=== PATIENT | female | born 1955 | race Caucasian/White ===

== ENCOUNTER 2019-09-16 14:06 | Inpatient (IN) ==
--- OUTSIDE RECORDS SUMMARY | 2019-09-16 14:08 | External Medical Summary | Continuity of Care Document ---
:1955 Author Name Herman Vilalreal, Provider Address Unavailable Unavailable , Care Team Providers Name Role Phone Argelia Kirk Unavailable [email or web address] Dallin Obregon M.D. Unavailable [email or web address] Ann LOPES Unavailable Unavailable Unavailable Unavailable Unavailable Problems Hyperparathyroidism (252.00) (E21.3) Hypercalcemia (275.42) (E83.52) Muscle weakness (728.87) (M62.81) Vitamin D deficiency (268.9) (E55.9) Fatigue (780.79) (R53.83) Hypothyroidism (244.9) (E03.9) Status post gastric bypass for obesity (V45.86) (Z98.84) Obesity (278.00) (E66.9) Diabetes mellitus type 2, uncontrolled (250.02) (E11.65) Zach's thyroiditis (245.2) (E06.3) Allergies and Adverse Reactions LaMICtal TABS (Allergy) Medications Cymbalta 60 MG Oral Capsule Delayed Release Particles Refills: 0 Lantus SoloStar 100 UNIT/ML Subcutaneous Solution Pen-injector; INJECT 60 units at bedtime Kamila, FOAM CUTTING SUPERVISOR Argelia A. 3 ML Pen (5 Pens) Quantity: 4 Refills: 3 OneTouch Ultra Blue In Vitro Strip; USE 1 STRIP 4 TIME S DAILY. Kamila, VALDEZ Argelia A. 100 Strip Bottle Quantity: 4 Refills: 3 OneTouch Delica Lancets 33G; Test 4 times daily Tierneym, FOAM CUTTING SUPERVISOR Argelia A. 100 Miscellaneous Box Quantity: 4 Refills: 3 BD Pen Needle Zaira U/F 32G X 4 MM; 4 per day MDD:4 TDD :4 Purdum, FOAM CUTTING SUPERVISOR Argelia A. Start: 04-Feb-2014 Quantity: 4 Refills: 3 NovoLOG FlexPen 100 UNIT/ML Subcutaneous Solution Pen-injector; Use 40 units before meals. Start: 04-Feb-2014 Refills: 3 5 x 3 ML Pen Victoza 18 MG/3ML Subcutaneous Solution Pen-injector; Inject 0.6 mg once daily subcutaneously VALDEZ Treviño Start: 17-Jul-2014 Quantity: 3 3 ML Pen (3 Pens) Refills: 3 Xanax 0.5 MG Oral Tablet; TAKE 1 TABLET 3 TIMES DAILY. Start: 10-Oct-2016 Refills: 0 Lipitor 40 MG Oral Tablet; TAKE 1 TABLET EVERY DAY Start: 10-Oct-2016 Refills: 0 Ramipril 10 MG Oral Capsule; TAKE 1 CAPSULE ONCE DAILY. Start: 22-Jan-2018 Refills: 0 Vitamin D (Ergocalciferol) 1.25 MG (5000 0 UT) Oral Capsule; TAKE 1 CAPSULE 3 times weekly Dionna Neely Start: 22-Jan-2018 Quantity: 45 Refills: 3 Furosemide 20 MG Oral Tablet; TAKE 1 TABLET DAILY NEEDED. Start: 22-Jan-2018 Refills: 0 Flintstones Gummies Complete Oral Tablet Chewable; TAKE 2 TA BLET Daily Start: 22-Jan-2018 Refills: 0 Levothyroxine Sodium 88 MCG Oral Tablet; TAKE 1 TABLET DAILY DIRECTED. Dionna Neely Start: 24-Jan-2018 Quantity: 90 Refills: 0 Procedures History of Incision And Drainage Of Skin Abscess Status: Completed Immunizations Immunizations not documented Family History Mother Family history of diabetes mellitus (V18.0) (Z83.3) Status: Active Father Family history of diabetes mellitus (V18.0) (Z83.3) Status: Active Social History - Smoking Status Never smoked tobacco Plan of Treatment Planned Observations Planned Goals not documented Results No Known Results Results not documented Encounters Appointment; Brenda Licea R.D. 20-Mar-2018 11:00 Encounter Diagnosis: Problem not documented Appointment; Adrian Neely M.D. 24-Jan-2018 10:00 Encounter Diagnosis: Problem not documented
--- OUTSIDE RECORDS SUMMARY | 2019-09-16 14:09 | External Medical Summary | Continuity of Care Document ---
:1955 Author Name Herman Villareal, Provider Address Unavailable Unavailable , Care Team Providers Name Role Phone Argelia Kirk Unavailable [email or web address] Dallin Obregon M.D. Unavailable [email or web address] Ann LOPES Unavailable Unavailable Unavailable Unavailable [...] Pen-injector; INJECT 60 units at bedtime Kamila, BANQUET ATTENDANT Argelia A. 3 ML Pen (5 Pens) Quantity: 4 Refills: 3 OneTouch Ultra Blue In Vitro Strip; USE 1 STRIP 4 TIME S DAILY. Kamila, VALDEZ Argelia A. 100 Strip Bottle Quantity: 4 Refills: 3 OneTouch Delica Lancets 33G; Test 4 times daily Tierneym, BANQUET ATTENDANT Argelia A. 100 Miscellaneous Box Quantity: 4 Refills: 3 BD Pen Needle Zaira U/F 32G X 4 MM; 4 per day MDD:4 TDD :4 Purdum, BANQUET ATTENDANT Argelia A. Start: 04-Feb-2014 Quantity: 4 Refills: [...]
--- NOTE | 2019-09-16 14:51 | Emergency Department Note ---
Impression & Plan Sepsis, Penetrating foot wound, Hyperglycemia, ROLANDO (acute kidney injury), Acute dehydration, Hypocalcemia ED Provider Note NAME: RUTH WASHBURN AGE: 64 SEX: F : 1955 ARRIVES VIA: Walk-In INFORMANT: Patient, ED PROVIDER(S): Grey Davidson MD Chief Complaint: Foot pain, fever HPI: Patient does present with concern for foot pain and fever. The patient describes her pain over the mid aspect of the right foot. The patient does have a prior history of osteomyelitis, necrotizing fasciitis and diabetes. The patient states that she has had waxing and waning blood sugars sometimes as low as in the 50s and higher than 200s. The patient has felt somewhat feverish. The patient has been taking some Tylenol at home. This only mildly improves her foot pain. Pressing on her walking on it does make it worse. Patient does believe that she may have stepped on something but is unsure as to what it was approximately 3 days prior. Patient has had progressively worsening pain. Tetanus is up-to-date. Patient does note that she is had some increasing urinary frequency but no dysuria or hematuria. ROS: See HPI for pertinent positives and negatives. A total of 10 systems were reviewed and otherwise negative. Past medical history: See below Surgical history: See below Social history: See below Physical Exam: GENERAL: Wearing a mask. NAD, non-toxic. EYE EXAM: Normal conjunctiva. PERRL, no anisocoria and EOM's grossly intact w/o pain. NECK: Supple, no nuchal rigidity, no adenopathy, non-tender. No signs of meningismus. LUNGS: Clear to auscultation. Normal chest wall mechanics. HEART: NSR, no MRG. ABDOMEN: Abdomen soft, non-tender, normo-active bowel sounds, no masses, no rebound or guarding. BACK: No CVA TTP. SKIN: No rashes and no bruising. UPPER EXTREMITIES: Upper extremities are grossly normal. LOWER EXTREMITIES: Prior healed TMA over the left foot without obvious wound, there is a 4 x 3 cm area of blistering over the right plantar medial midfoot, with mild erythema. No crepitus noted NEURO EXAM: A&O x3, cranial nerves II-XII grossly intact, normal speech, moves all 4 extremities on command w/o issue. Differential diagnoses: Cellulitis, abscess, MRSA infection, DVT, necrotizing fasciitis, dermatitis, drug eruption, allergic reaction, as well as other pathologies. Course: Patient was seen and evaluated the bedside. Full history physical exam was performed. EKG: None Imaging Studies: Radiology results as stated below per my review in the radiologist's interpretation: XR chest 1V portable CLINICAL HISTORY: SEPSIS dyspnea COMPARISON STUDY: No previous studies for comparison. FINDINGS: The bones soft tissues and hemidiaphragms are normal. The cardiomediastinal silhouette is normal. The lungs are clear. The pulmonary vasculature is normal. IMPRESSION: Negative chest. ACT 112: Negative or not required by law. The above report was generated using voice recognition software. It may contain grammatical, syntax or spelling errors. Electronically signed by: Cristi Hayes M.D. 09/16/2019 3:46 PM Dictated: 09/16/[id number] Transcribed: 09/16/191544 RIGHT FOOT 2 VIEWS CLINICAL HISTORY: Sepsis. Foreign body assessment. FINDINGS: AP and lateral views of the right foot are compared to study dated 02/20/2014. The skeletal structures are osteopenic. No fracture is seen. There is no bony erosion or periostitis. Large dorsal and plantar calcaneal enthesophytes are observed. Mild degenerative spurring is seen along the dorsal aspect of the tarsal bones. Mild osteoarthritic change is noted in the midfoot. Question a small linear foreign body projecting over the third proximal phalanx. Soft tissue edema is identified along the plantar aspect of the heel. Subcutaneous gas suggests ulceration. IMPRESSION: 1. No acute bony abnormality is identified. 2. Large dorsal and plantar heel spurs. 3. Soft tissue edema and suspect ulceration along the plantar aspect of the hindfoot. 4. Question a small linear foreign body projecting over the third proximal phalanx. This was better seen on the 02/20/2014 examination. Consider oblique views for confirmation. Electronically signed by: Hang Cintron M.D. 09/16/2019 3:48 PM Dictated: 09/16/19 1544 Transcribed: 09/16/191543 Cardiac monitoring: An order was placed for continuous cardiac monitoring. The monitor shows a rate of 98 with sinus rhythm. Procedures: Incision & Drainage Indication: Fluid-filled blister versus abscess. Location: Right medial midfoot Verbal consent was obtained after the risks and benefits were explained, including but not limited to bleeding, scarring, infection, pain, and bone/joint/nerve damage. At this time, the risks of the procedure are less than the risks of NOT performing the procedure. A time out was taken and the correct patient and site identified. The skin was prepped with chlorhexidine. The cavity was entered with an 18-gauge needle. Approximately 8 cc of serosanguineous fluid was drained. Wound was reprepped with chlorhexidine.. Debridement was not performed. Packing placed and a sterile dressing applied. Detailed wound care instructions and signs and symptoms of worsening infection reviewed with the patient. No complications and the patient tolerated the procedure well. MDM: Patient does present with concern for right foot wound. Patient does have a known history of diabetes and fever. Given this broad-spectrum antibiotics fluids and blood work were ordered. The patient does have a white count of 22 with a left shift. Does have ROLANDO baseline creat less than 1 today is 1.79. Additional IV fluids were ordered. Patient does have a glucose of 276 and mild hyponatremia. No anion gap or low bicarb noted. Lactate is not elevated. Calcium slightly low. Calcium and additional fluids were ordered for replaceme nt. The patient did receive vancomycin and Zosyn. Patient's x-rays may show a possible old foreign body but this is not where the patient's blister is noted or where she would have felt stepping on something.Chest x-ray is clear. The on-call hospitalist agreed to further evaluate treat the patient. [facility] was [facility] I did needle aspirate the patient's blister and this was sent for wound culture. Past Med/Surg History Medical History ADHD (attention deficit hyperactivity disorder) (Inactive) Bipolar disorder (Inactive) Depression (Inactive) Diabetes (Inactive) Diabetic ulcer of left foot (Inactive) Dyslipidemia (Inactive) Hypertension (Inactive) Surgical History S/P cervical spinal fusion (Inactive) Social History Smoking Status: Never smoker Hx Alcohol Use: No Hx Substance Use: No Preferred Language: Guyanese Communication Ability: Effective Visual Merchandiser Required: No Beliefs That Will Affect Care: None Current Living Situation: Family Current Living Situation Comment: lives with dtr Other Information That Helps Us Care for You: No Feels Safe at Home: Yes Safety Concerns: Feels Safe At This Time Allergies Allergies Allergy/AdvReac Type Severity Reaction Status Date / Time lamotrigine [From Lamictal] Allergy Unknown Rash Verified 09/16/19 16:05 Home Meds Home Medications Medication Instructions Recorded Confirmed alprazolam 1 mg PO BID PRN 09/16/19 09/16/19 amlodipine 5 mg PO QAM 09/16/19 09/16/19 diazepam 5 mg PO Q8H PRN 09/16/19 09/16/19 duloxetine 60 mg PO QAM 09/16/19 09/16/19 empagliflozin [Jardiance] 25 mg PO QPM 09/16/19 09/16/19 ergocalciferol (vitamin D2) 50,000 unit PO WK 09/16/19 09/16/19 insulin aspart U-100 [Novolog See Rx Instructions .ROUTE .COMPLEX 09/16/19 09/16/19 Flexpen U-100 Insulin] insulin glargine [Basaglar KwikPen 20 unit SUBCUT HS 09/16/19 09/16/19 U-100 Insulin] levothyroxine 88 mcg PO QAM 09/16/19 09/16/19 ramipril 10 mg PO QAM 09/16/19 09/16/19 sulfamethoxazole-trimethoprim 1 tab PO BID 09/16/19 09/16/19 Results & Data (ED) Vital Signs Vital Signs - 24 hr 09/16/19 14:19 09/16/19 16:00 09/16/19 17:00 Temperature 37.6 C H Temperature Source Oral Pulse Rate 66 Pulse Rate [Apical] 98 H 100 H Respiratory Rate 18 16 18 Blood Pressure 151/82 H Blood Pressure [Left Arm] 176/85 H 143/83 H Blood Pressure Mean 105 Blood Pressure Mean [Left Arm] 115 103 Blood Pressure Position Sitting Pulse Oximetry 97 98 97 Oxygen Delivery Method Room Air Room Air Sepsis Recent Fever Within 48 Hours No Sepsis New/Unexplained Change in Mental Status No Sepsis Action Taken by Nursing No Action Required Home Medications Current Medication List: was personally reviewed by me Laboratory Data Attestation: I reviewed the patient's lab results. Result diagrams: 09/16/19 16:01 09/16/19 16:01 Lab Results 09/16/19 09/16/19 09/16/19 Range/Units 16:01 16:01 16:01 WBC 21.82 H (4.8-10.8) K/uL RBC 3.41 L (4.2-5.4) M/uL Hgb 10.5 L (12.0-16.0) g/dL Hct 31.8 L (37-47) % MCV 93.3 (80-100) fL MCH 30.8 (25-34) pg MCHC 33.0 (32-36) g/dL RDW Std Deviation 42.8 (36.4-46.3) fL RDW Coeff of Anitha 12.6 (11.5-14.5) % Plt Count 332 (130-400) K/uL MPV 9.8 (7.4-10.4) fL Immature Gran % (Auto) 0.2 % Neut % (Auto) 86.4 % Lymph % (Auto) 8.2 % [place] % (Auto) 4.4 % Eos % (Auto) 0.7 % Baso % (Auto) 0.1 % Neut # (Auto) 18.85 H (1.4-6.5) K/uL Lymph # (Auto) 1.80 (1.2-3.4) K/uL [place] # (Auto) 0.95 H (0.11-0.59) K/uL Eos # (Auto) 0.15 (0-0.5) K/uL Baso # (Auto) 0.02 (0-0.2) K/uL Immature Gran # (Auto) 0.05 H (0.00-0.02) K/uL PT 10.0 (9.0-12.0) Seconds INR 0.9 (0.9-1.1) APTT 30.7 (21.0-31.0) Seconds PTT Ratio 1.1 Sodium 134 L (136-145) mmol/L Potassium 3.7 (3.5-5.1) mmol/L Chloride 103 (98-107) mmol/L Carbon Dioxide 25 (21-32) mmol/L Anion Gap 6.0 (3-11) BUN 29 H (7-18) mg/dl Creatinine 1.79 H (0.6-1.2) mg/dl Est Cr Clr Drug Dosing Not Reportable Est GFR ( Amer) 34.3 Est GFR (Non-Af Amer) 29.6 BUN/Creatinine Ratio 16.1 (10-20) Glucose 276 H (70-99) mg/dl Lactate (0.4-2.0) mmol/L Calcium 8.0 L (8.5-10.1) mg/dl Magnesium 2.2 (1.8-2.4) mg/dl Total Bilirubin 0.5 (0.2-1) mg/dl AST 23 (15-37) U/L ALT 29 (12-78) U/L Alkaline Phosphatase 160 H (45-117) U/L Total Protein 7.7 (6.4-8.2) gm/dl Albumin 2.9 L (3.4-5.0) gm/dl Globulin 4.8 H (2.5-4.0) gm/dl Albumin/Globulin Ratio 0.6 L (0.9-2) 09/16/19 Range/Units 16:01 WBC (4.8-10.8) K/uL RBC (4.2-5.4) M/uL Hgb (12.0-16.0) g/dL Hct (37-47) % MCV (80-100) fL MCH (25-34) pg MCHC (32-36) g/dL RDW Std Deviation (36.4-46.3) fL RDW Coeff of Anitha (11.5-14.5) % Plt Count (130-400) K/uL MPV (7.4-10.4) fL Immature Gran % (Auto) % Neut % (Auto) % Lymph % (Auto) % [place] % (Auto) % Eos % (Auto) % Baso % (Auto) % Neut # (Auto) (1.4-6.5) K/uL Lymph # (Auto) (1.2-3.4) K/uL [place] # (Auto) (0.11-0.59) K/uL Eos # (Auto) (0-0.5) K/uL Baso # (Auto) (0-0.2) K/uL Immature Gran # (Auto) (0.00-0.02) K/uL PT (9.0-12.0) Seconds INR (0.9-1.1) APTT (21.0-31.0) Seconds PTT Ratio Sodium (136-145) mmol/L Potassium (3.5-5.1) mmol/L Chloride (98-107) mmol/L Carbon Dioxide (21-32) mmol/L Anion Gap (3-11) BUN (7-18) mg/dl Creatinine (0.6-1.2) mg/dl Est Cr Clr Drug Dosing Est GFR ( Amer) Est GFR (Non-Af Amer) BUN/Creatinine Ratio (10-20) Glucose (70-99) mg/dl Lactate 1.7 (0.4-2.0) mmol/L Calcium (8.5-10.1) mg/dl Magnesium (1.8-2.4) mg/dl Total Bilirubin (0.2-1) mg/dl AST (15-37) U/L ALT (12-78) U/L Alkaline Phosphatase (45-117) U/L Total Protein (6.4-8.2) gm/dl Albumin (3.4-5.0) gm/dl Globulin (2.5-4.0) gm/dl Albumin/Globulin Ratio (0.9-2) Administered Medications Vancomycin HCl 2,000 mg/ (Sodium Chloride) 540 mls @ 200 mls/hr IV NOW STA Stop: 09/16/19 17:53 Last Admin: 09/16/19 16:24 Dose: 200 mls/hr Documented by: [id number] Discontinued Medications Acetaminophen (Tylenol) 1,000 mg PO NOW STA Stop: 09/16/19 15:16 Last Admin: 09/16/19 16:29 Dose: 1,000 mg Documented by: [id number] Sodium Chloride (Nss 1000ml) 1,000 mls @ 999 mls/hr IV .Q1H1M RAVINDRA Stop: 09/16/19 16:13 Last Admin: 09/16/19 16:25 Dose: 999 mls/hr Documented by: [id number] Piperacillin Sod/Tazobactam Sod (Zosyn) 4.5 gm in 120 mls @ 240 mls/hr IV NOW ONE Stop: 09/16/19 15:41 Last Admin: 09/16/19 16:29 Dose: 240 mls/hr Documented by: [id number] Discharge Plan Visit Data Chief Complaint: Infection, Wound Stated Complaint: INFECTION ON BOTTOM OF RIGHT FOOT ED Provider: Grey Davidson Discharge Problem: Sepsis, Penetrating foot wound, Hyperglycemia, ROLANDO (acute kidney injury), Acute dehydration, Hypocalcemia Forms Stand Alone Forms: [facility] [employer] Prescriptions Prescriptions: No Action alprazolam 1 mg tablet 1 mg PO BID PRN (Reason: Anxiety) RF: 0 amlodipine 5 mg tablet 5 mg PO QAM RF: 0 sulfamethoxazole-trimethoprim 800-160 mg tablet 1 tab PO BID RF: 0 levothyroxine 88 mcg tablet 88 mcg PO QAM RF: 0 diazepam 5 mg tablet 5 mg PO Q8H PRN (Reason: Anxiety) RF: 0 ramipril 10 mg capsule 10 mg PO QAM RF: 0 insulin aspart U-100 [Novolog Flexpen U-100 Insulin] 100 unit/mL (3 mL) insulin pen See Rx Instructions .ROUTE .COMPLEX RF: 0 duloxetine 60 mg capsule,delayed release(DR/EC) 60 mg PO QAM RF: 0 Basaglar KwikPen U-100 Insulin 100 unit/mL (3 mL) insulin pen 20 unit SUBCUT HS RF: 0 Jardiance 25 mg tablet 25 mg PO QPM RF: 0 ergocalciferol (vitamin D2) 1,250 mcg (50,000 unit) Capsule 50,000 unit PO WK RF: 0 Discharge Problem: Sepsis Qualifiers: Sepsis type: sepsis due to unspecified organism Sepsis acute organ dysfunction status: with acute organ dysfunction Severe sepsis acute organ dysfunction type: acute renal failure Acute renal failure type: unspecified Severe sepsis shock status: without septic shock Qualified Code(s): A41.9 - Sepsis, unspecified organism Penetrating foot wound Qualifiers: Encounter type: initial encounter Laterality: right Qualified Code(s): S91.331A - Puncture wound without foreign body, right foot, initial encounter
[2019-09-16] MEDS ORDERED: VANCOMYCIN HCL 2,000 MG in SODIUM CHLORIDE 0.9% 500 ML IV STA (15:12)
[2019-09-16] MEDS ORDERED: VANCOMYCIN CONSULT ACTIVE PRN (15:12)
[2019-09-16] MEDS ORDERED: PIPERACILL/TAZOBAC CONSULT ACTIVE PRN (15:12)
[2019-09-16] MEDS ORDERED: PIPERACILLIN/TAZOBACTAM 4.5 GM/120 ML BAG IV ONE (15:12)
[2019-09-16] MEDS ORDERED: SODIUM CHLORIDE 0.9% 1000ML 1,000 ML IV SCH ×2 (15:15→19:50)
[2019-09-16] MEDS ORDERED: ACETAMINOPHEN 500 MG TAB PO STA (15:15)
--- NOTE | 2019-09-16 15:47 | XRay Report ---
XR chest 1V portable CLINICAL HISTORY: SEPSIS dyspnea COMPARISON STUDY: No previous studies for comparison. FINDINGS: The bones soft tissues and hemidiaphragms are normal. The cardiomediastinal silhouette is n ormal. The lungs are clear. The pulmonary vasculature is normal. IMPRESSION: Negative chest. ACT 112: Negative or not required by law. The above report was generated using voice recognition software. It may contain grammatical, syntax or spelling errors. Electronically signed by: Cristi Hayes M.D. 09/16/2019 3:46 PM
--- NOTE | 2019-09-16 15:49 | XRay Report ---
RIGHT FOOT 2 VIEWS CLINICAL HISTORY: Sepsis. Foreign body assessment. FINDINGS: AP and lateral views of the right foot are compared to study dated 02/20/2014. The skeletal structures are osteopenic. No fracture is seen. There is no bony erosion or periostitis. Large dorsal and plantar calcaneal enthesophytes are observed. Mild degenerative spurring is seen along the dorsa l aspect of the tarsal bones. Mild osteoarthritic change is noted in the midfoot. Question a small li near foreign body projecting over the third proximal phalanx. Soft tissue edema is identified along t he plantar aspect of the heel. Subcutaneous gas suggests ulceration. IMPRESSION: 1. No acute bony abnormality is identified. 2. Large dorsal and plantar heel spurs. 3. Soft tissue edema and suspect ulceration along the plantar aspect of the hindfoot. 4. Question a small linear foreign body projecting over the third proximal phalanx. This was better s een on the 02/20/2014 examination. Consider oblique views for confirmation. Electronically signed by: Hang Cintron M.D. 09/16/2019 3:48 PM
[2019-09-16 16:10] LABS: Basophils # (auto) 0.02 K/uL (0-0.2); Basophils % (auto) 0.1 %; Eosinophils # (auto) 0.15 K/uL (0-0.5); Eosinophils % (auto) 0.7 %; Hematocrit (blood only) 31.8 % (37-47); Hemoglobin 10.5 g/dL (12.0-16.0); Immature Granulocytes # (auto) 0.05 K/uL (0.00-0.02); Immature Granulocytes % (auto) 0.2 %; Lymphocytes % (auto) 8.2 %; Mean Corpuscular Hemoglobin 30.8 pg (25-34); Mean Corpuscular Volume 93.3 fL (80-100); Mean Platelet Volume 9.8 fL (7.4-10.4); Monocytes # (auto) 0.95 K/uL (0.11-0.59); Monocytes % (auto) 4.4 %; Neutrophils # (auto) 18.85 K/uL (1.4-6.5); Neutrophils % (auto) 86.4 %; Platelet Count 332 K/uL (130-400); RDW Coefficient of Variation 12.6 % (11.5-14.5); RDW Standard Deviation 42.8 fL (36.4-46.3); Red Blood Count 3.41 M/uL (4.2-5.4); White Blood Count 21.82 K/uL (4.8-10.8)
[2019-09-16 16:20] LABS: INR 0.9 (0.9-1.1); Partial Thromboplastin Ratio 1.1; Partial Thromboplastin Time 30.7 Seconds (21.0-31.0)
[2019-09-16 16:30] LABS: Alanine Aminotransferase 29 U/L (12-78); Albumin Level 2.9 gm/dl (3.4-5.0); Aspartate Aminotransferase 23 U/L (15-37); BUN Creatinine Ratio 16.1 (10-20); Blood Urea Nitrogen 29 mg/dl (7-18); Carbon Dioxide 25 mmol/L (21-32); Chloride 103 mmol/L (98-107); Est GFR (African American) 34.3; Est GFR (Non-African American) 29.6; Glucose 276 mg/dl (70-99); Magnesium 2.2 mg/dl (1.8-2.4); Potassium 3.7 mmol/L (3.5-5.1); Sodium 134 mmol/L (136-145)
[2019-09-16 16:32] LABS: Albumin Globulin Ratio 0.6 (0.9-2); Alkaline Phosphatase 160 U/L (45-117); Bilirubin,Total 0.5 mg/dl (0.2-1); Globulin 4.8 gm/dl (2.5-4.0); Total Protein 7.7 gm/dl (6.4-8.2)
[2019-09-16] MEDS ORDERED: CALCIUM GLUCONATE 10% 1,000 MG in SODIUM CHLORIDE 0.9% 50 ML IV STA (16:58)
[2019-09-16] MEDS ORDERED: SODIUM CHLORIDE 0.9% 1000ML 1,000 ML IV ONE (16:58)
[2019-09-16] MEDS ORDERED: ONDANSETRON INJ 2 MG/ML 2 ML VIAL IV PRN (17:09)
[2019-09-16] MEDS ORDERED: POLYETHYLENE (MIRALAX) 17 GM PACK PO PRN (17:09)
[2019-09-16] MEDS ORDERED: ALUMINUM/MAGNESIUM SUSP 30 ML UDC PO PRN (17:09)
[2019-09-16] MEDS ORDERED: MAGNESIUM HYDROXIDE SUSP 30 ML UDC PO PRN (17:09)
[2019-09-16] MEDS ORDERED: PHARMACY GLYCEMIC MGMT CONSULT STA (17:35)
--- NOTE | 2019-09-16 17:47 | History & Physical Report ---
Date of Service September 16, 2019 Assessment & Plan (1) Wound of right foot: Pt is 64F with PMH DM II, neuropathy, HTN, dyslipidemia, hypothyroidism, PTSD, ADD, h/o gastric bypass, fatty liver, h/o necrotizing fasciitis, h/o transmetatarsal amputation left foot presented to ER with c/o right foot wound x 4 days. Pt states 4 days ago she thinks she may have stepped on something and reports small blister that has enlarged with surrounding erythema. On Bactrim for 3 days without improvement. Denies known fever/chills, N/V. In ER T: 37.6C, P: 66-102, BP: 143/83, 97% on RA. WBC: 21, Hgb: 10.5 (baseline ~10), Lactate: 1.7, Procalcitonin: 1.7 Right foot xray: No acute bony abnormality is identified. Soft tissue edema and suspect ulceration along the plantar aspect of the hindfoot. Question a small linear foreign body projecting over the third proximal phalanx. seen on the 02/20/2014 -In ER given 2L NSS, Zosyn, vancomycin -In ER blister was drained and culture pending -Will continue Zosyn and add daptomycin -Blood cultures pending -CT foot pending -Arterial Doppler RLE -CBC, BMP in am -Ortho consult (2) ROLANDO (acute kidney injury): BUN: 29, Cr: 1.79, GFR: 29. Baseline Cr: 1.1-1.3 -Monitor renal functions -Hold Ramipril and avoid other nephrotoxic agents when possible (3) Diabetes mellitus, type II: A1c: 8.7 on 09/03/2019 -Hold Jardiance -Continue basal bolus insulin -Glycemic pharmacy consult for assistance in glycemic management (4) Hypertension: -Continue amlodipine -Hold Ramipril (5) Hypothyroidism: -Continue levothyroxine (6) PTSD (post-traumatic stress disorder): (7) ADHD (attention deficit hyperactivity disorder): -Continue duloxetine, Xanax prn, and hold methylphenidate DVT Prophylaxis -Heparin SQ Full Code as per discussion with pt Follows with Dr Swan for routine care Pt was seen and care coordinated with Dr Garcia. See addendum History of Present Illness Chief Complaint: Right foot wound Primary Care Provider: Morgan Swan MD Pt is 64F with PMH DM II, neuropathy, HTN, dyslipidemia, hypothyroidism, PTSD, ADD, h/o gastric bypass, fatty liver, h/o necrotizing fasciitis, h/o transmetatarsal amputation left foot presented to ER with c/o right foot wound x 4 days. Pt states 4 days ago she thinks she may have stepped on something in her house while wearing socks and she looked at her foot and noticed a small blister and black spot. Reports has been on Bactrim past several days prescribed by PCP. States has noticed increased blister size and some erythema of foot. Reports highest temp 99F. Pt states was trying to keep area clean and dry. Denies chills, diaphoresis, N/V/D/C, CAN, dizziness, syncope, vision changes, neck pain, CP, SOB, orthopnea, palpitations, cough, sore throat, choking, otalgia, rhinorrhea, abdominal pain, weakness, other extremity edema, rashes, urinary symptoms. In ER with noted leukocytosis at 21, Lactate WNL, Procalcitonin elevated at 1.7. Right foot xray: Soft tissue edema along the plantar aspect of the hindfoot and questionable small linear foreign body projecting over the third proximal phalanx that was seen on xray on the 02/20/2014. Pt was given Zosyn, Vancomycin, IVF. Allergies Allergy/AdvReac Type Severity Reaction Status Date / Time lamotrigine [From Lamictal] Allergy Unknown Rash Verified 09/16/19 16:05 Home Medications Home Medications Medication Instructions Recorded Confirmed Type alprazolam 1 mg PO BID PRN 09/16/19 09/16/19 History amlodipine 5 mg PO QAM 09/16/19 09/16/19 History diazepam 5 mg PO Q8H PRN 09/16/19 09/16/19 History duloxetine 60 mg PO QAM 09/16/19 09/16/19 History empagliflozin [Jardiance] 25 mg PO QPM 09/16/19 09/16/19 History ergocalciferol (vitamin D2) 50,000 unit PO WK 09/16/19 09/16/19 History insulin aspart U-100 [Novolog See Rx Instructions .ROUTE .COMPLEX 09/16/19 09/16/19 History Flexpen U-100 Insulin] insulin glargine [Basaglar KwikPen 20 unit SUBCUT HS 09/16/19 09/16/19 History U-100 Insulin] levothyroxine 88 mcg PO QAM 09/16/19 09/16/19 History methylphenidate HCl 40 mg PO DAILY 09/16/19 09/16/19 History ramipril 10 mg PO QAM 09/16/19 09/16/19 History sulfamethoxazole-trimethoprim 1 tab PO BID 09/16/19 09/16/19 History Past Med/Surg History Medical History (Updated 09/16/19 @ 17:58 by Rossy Devi PA-C) ADHD (attention deficit hyperactivity disorder) Bipolar disorder Depression (Inactive) Diabetes mellitus, type II Diabetic ulcer of left foot (Inactive) Dyslipidemia History of necrotising fasciitis Hypertension Hypothyroidism PTSD (post-traumatic stress disorder) Surgical History H/O gastric bypass History of amputation of left foot through metatarsal bone History of cholecystectomy S/P cervical spinal fusion (Inactive) Family History Other Diabetes Hypertension Social History Smoking Status: Never smoker Hx Alcohol Use: No Hx Substance Use: No Preferred Language: Yi Communication Ability: Effective Casing Blower Required: No Beliefs That Will Affect Care: None Current Living Situation: Family Current Living Situation Comment: lives with dtr Other Information That Helps Us Care for You: No Feels Safe at Home: Yes Safety Concerns: Feels Safe At This Time Review of Systems Review of Systems: All systems reviewed & are unremarkable except as noted in HPI & below Physical Exam Physical Exam: General: no distress, obese Head: normocephalic, atraumatic Eyes: conjunctiva non-injected, anicteric ENT: normal inspection external ears, nose, mucous membranes moist Neck: supple, trachea midline Lungs: clear, no respiratory distress, no wheezing/rhonchi/rales CV: RRR, no murmur, no pretibial edema Abd: normal BS, soft, non-tender Ext: no calf tenderness; left foot with prior amputation at metatarsals and without erythema or edema; right foot: plantar medial aspect foot distal to calcaneus with large blister with noted erythema surrounding and extending up to lower leg, toes on right foot dusky appearance, diminished palpable dorsalis pedis pulse Neuro: A&O x 3, no focal deficits noted, normal affect Skin: foot as above, otherwise skin warm, dry Results & Data Results & Data (MN) Vital Signs (Past 12 Hours) Vital Signs Temp Pulse Pulse Resp BP BP Pulse Ox 09/16/19 17:00 100 H 18 143/83 H 97 09/16/19 16:00 98 H 16 176/85 H 98 09/16/19 14:19 37.6 C H 66 18 151/82 H 97 Laboratory Results Short CBC 09/16/19 09/16/19 Range/Units 16:01 16:01 WBC 21.82 H (4.8-10.8) K/uL Hgb 10.5 L (12.0-16.0) g/dL Hct 31.8 L (37-47) % Plt Count 332 (130-400) K/uL Procalcitonin 1.73 H (0-0.5) ng/ml BMP 09/16/19 16:01 Sodium 134 L Potassium 3.7 Chloride 103 Carbon Dioxide 25 BUN 29 H Creatinine 1.79 H Glucose 276 H Calcium 8.0 L Liver Function 09/16/19 Range/Units 16:01 Total Bilirubin 0.5 (0.2-1) mg/dl AST 23 (15-37) U/L ALT 29 (12-78) U/L Alkaline Phosphatase 160 H (45-117) U/L Albumin 2.9 L (3.4-5.0) gm/dl Diagnostic Findings RIGHT FOOT XRAY: IMPRESSION: 1. No acute bony abnormality is identified. 2. Large dorsal and plantar heel spurs. 3. Soft tissue edema and suspect ulceration along the plantar aspect of the hindfoot. 4. Question a small linear foreign body projecting over the third proximal phalanx. This was better seen on the 02/20/2014 examination. Consider oblique views for confirmation. CXR: IMPRESSION: Negative chest. Code Status & VTE Plan VTE Prophylaxis Plan VTE Prophylaxis will be ordered: Yes Supervising Physician Co-Signing Physician Notes Attending addendum: Patient seen and examined. Care coordinated with Marilu Devi PA-C This is a 61-year-old female with type 2 diabetes presented with acute cellulitis, Patient has severe diabetic neuropathy, stepped on an object 4 days back, patient was wearing socks, did not feel any pain, Was started on p.o. Bactrim by family physician, swelling and erythema continue to progress, Had low-grade fever at home Came to ER for evaluation Lab and images reviewed CAT scan of right foot shows: No evidence of abscess, soft tissue swelling with cutaneous ulceration noted on the medial hindfoot with evidence of cellulitis. Vitals as per [facility]: Physical exam: Brief General: No sign of distress HEENT: Unremarkable Heart: Regular S1-S2 Lungs: Clear to auscultate no wheeze or rales Abdomen: Soft nontender Extremities: Status post left metatarsal amputation Right foot, a large almost 5 cm wound/pus collection noted on the medial side, has a small opening with serous drainage Neuro: No focal deficit Assessment and plan: Diabetic foot wound on right: Started on IV cefepime: For Pseudomonas coverage, added daptomycin Wound culture ordered, blood cultures ordered as well follow report [facility] infectious disease consult requested Orthopedic consult requested for possible I&D Right toes appears to be cyanotic, with tibial pulse noted, Arterial Doppler ordered Type 2 diabetes: Insulin-dependent Hyperglycemic episode noticed possible secondary to infected diabetic foot wound on right Basal Lantus, insulin sliding scale, pharmacy consult for glycemic management CODE STATUS: Full code Please refer to further documentation by Marilu Devi PA-C for discussion of other clinical/medical issues Gita Garcia MD
[2019-09-16] MEDS ORDERED: PHARMACY GLYCEMIC MGMT CONSULT PRN (18:12)
[2019-09-16] MEDS ORDERED: PATIENT'S HEIGHT AND/OR WEIGHT NEEDED SCH (18:15)
--- NOTE | 2019-09-16 19:19 | CT Scan Report ---
CT SCAN OF THE RIGHT FOOT WITHOUT IV CONTRAST CLINICAL HISTORY: Diabetic foot wound. COMPARISON STUDY: Radiographs of the right foot dated 09/16/2019. TECHNIQUE: CT scan of the right foot is performed from the distal tibia and fibula to the base of the foot. Images are reviewed in the axial, sagittal, and coronal planes. IV contrast was not administer ed for this examination. A dose lowering technique was utilized adhering to the principles of ALARA. CT DOSE: 197.09 mGy.cm FINDINGS: The skeletal structures are osteopenic. No fracture is seen. There is no bony erosion or pe riostitis. The joint spaces of the foot are maintained. There are large dorsal and plantar calcaneal enthesophytes. The ankle mortise is intact. A 5 mm linear radiodense foreign body is present within t he plantar soft tissues at the level of the third proximal phalanx. This is best seen on axial image #318. There is soft tissue edema seen throughout the right foot and ankle, greatest dorsally. A cutan eous ulceration is identified along the medial aspect of the plantar heel. No organized fluid collect ion is seen to suggest abscess. No subcutaneous gas is seen. The Achilles tendon is intact as visuali zed. There is generalized atrophy of the regional musculature. IMPRESSION: 1. No acute bony abnormality is identified. 2. A cutaneous ulceration is noted in the medial hindfoot as above with evidence of cellulitis. No or ganized fluid collection is seen to suggest abscess. 3. A small foreign body is seen in the plantar soft tissues of the forefoot at the level of the third proximal phalanx. ACT 112: Negative or not required by law. Dictated: 09/16/2019 6:45 PM Transcribed: 09/16/2019 7:07 PM Argelia [id number] [id number] Electronically signed by: Hang Cintron M.D. 09/16/2019 7:18 PM
[2019-09-16] MEDS ORDERED: GLUCAGON FOR INJ 1 MG VIAL SQ PRN ×2 (19:50)
[2019-09-16] MEDS ORDERED: GLUCOSE 10 TABS/TUBE PO PRN ×2 (19:50)
[2019-09-16] MEDS ORDERED: CARBOHYDRATES FOR HYPOGLYCEMIA PO PRN ×2 (19:50)
[2019-09-16] MEDS ORDERED: DAPTOmycin 450 MG in SYRINGE 0 ML IV ONE (19:50)
[2019-09-16] MEDS ORDERED: DAPTOMYCIN CONSULT ACTIVE PRN (19:50)
[2019-09-16] MEDS ORDERED: GLUCOSE 40% GEL 15 GM TUBE PO PRN ×2 (19:50)
[2019-09-16] MEDS ORDERED: DEXTROSE 50% 50 ML SYRINGE IV PRN ×2 (19:50)
--- NOTE | 2019-09-16 19:59 | Ultrasound Report ---
ULTRASOUND RIGHT LOWER EXTREMITY ARTERIAL; ANKLE-BRACHIAL INDICES CLINICAL HISTORY: Nonhealing right foot ulcer. COMPARISON STUDY: No priors. TECHNIQUE: Real-time, grayscale, and color Doppler sonography of the arteries of the right lower extr emity is performed from the inguinal crease to the foot. Ankle-brachial indices are assessed. FINDINGS: Ankle brachial indices: Right brachial pressure measures 146 and left brachial pressure measures 137. Pressures in the right posterior tibial artery measure 156 for an TESSIE of 1.07, and pressures in the right dorsalis pedis measure 163 for an TESSIE of 1.12. Pressures in the left posterior tibial artery me asure 158 for an TESSIE of 1.08, and pressures in the left dorsalis pedis measure 150 for an TESSIE of 1.03 . Right lower extremity: Atherosclerotic plaque and irregularity is noted throughout the arteries of th e right lower extremity. The right common femoral artery is patent with normal triphasic arterial wav eforms. Velocities measure up to 130 cm/s. The profundus femoris artery is patent with velocities rosemary suring up to 96 cm/s. There are triphasic waveforms seen throughout the superficial femoral artery wi th velocities measuring up to 179 cm/s. Triphasic waveforms are seen in the right popliteal artery wi th velocities measuring up to 164 cm/s. There is three-vessel runoff to the foot. Velocities in the c evens arteries measure up to 179 cm/s. The dorsalis pedis artery is patent with velocities measuring up to 81 cm/s. IMPRESSION: 1. There is no sonographic evidence of focal/high-grade stenosis or vessel cutoff throughout the frankie lino of the right lower extremity. 2. Ankle-brachial indices as above. Dictated: 09/16/2019 7:37 PM Transcribed: 09/16/2019 7:57 PM Saritha [id number] [facility] Electronically signed by: Hang Cintron M.D. 09/16/2019 7:57 PM
[2019-09-16] MEDS ORDERED: INSULIN ASPART 100 UNITS/ML 3 ML PEN SC SCH (21:00)
[2019-09-16] MEDS ORDERED: INSULIN GLARGINE SOLOSTAR 100 UNITS/ML 3 ML PEN SQ SCH (21:00)
[2019-09-16] MEDS ORDERED: DAPTOmycin 275 MG in SYRINGE 0 ML IV SCH (21:00)
[2019-09-16] MEDS: CEFEPIME 1,000 MG in SYRINGE 0 ML IV SCH (21:07)
[2019-09-16] MEDS: INSULIN ASPART 100 UNITS/ML 3 ML PEN SC SCH ×2 (21:16→23:43)
[2019-09-16] MEDS: HEPARIN SOD 5,000 UNIT/0.5 ML VIAL SQ SCH (21:18)
[2019-09-16] MEDS: ACETAMINOPHEN 325 MG TAB PO PRN (23:38)
[2019-09-17] MEDS ORDERED: OXYCODONE HCL IR 5 MG TAB (IMMEDIATE RELEASE) PO STA (00:13)
[2019-09-17] MEDS: INSULIN ASPART 100 UNITS/ML 3 ML PEN SC SCH ×5 (04:57→21:57)
[2019-09-17 05:24] LABS: Appearance Urine Clear (Clear); Bacteria Urine Automated Negative (Negative); Bilirubin Urine Negative (Negative); Blood Urine Negative (Negative); Cast Urine Automated 0 /lpf (0-5); Color Urine Yellow; Glucose Urine UA 3+ (Negative); Ketones Urine Negative (Negative); Leukocyte Esterase Urine Negative (Negative); Nitrite Urine Negative (Negative); Protein Urine 2+ (Negative); RBC Urine Automated 0-4 /hpf (0-4); Specific Gravity Urine 1.019 (1.000-1.030); Urobilinogen Urine Negative (Negative); WBC Urine Automated 0 /hpf (0-5)
[2019-09-17] MEDS: HEPARIN SOD 5,000 UNIT/0.5 ML VIAL SQ SCH ×3 (06:03→21:58)
[2019-09-17] MEDS: LEVOTHYROXINE SODIUM 88 MCG TABLET PO SCH (06:25)
[2019-09-17 06:27] LABS: Basophils # (auto) 0.01 K/uL (0-0.2); Basophils % (auto) 0.1 %; Eosinophils # (auto) 0.19 K/uL (0-0.5); Eosinophils % (auto) 1.8 %; Hematocrit (blood only) 28.2 % (37-47); Hemoglobin 8.9 g/dL (12.0-16.0); Immature Granulocytes # (auto) 0.02 K/uL (0.00-0.02); Immature Granulocytes % (auto) 0.2 %; Lymphocytes # (auto) 1.33 K/uL (1.2-3.4); Lymphocytes % (auto) 12.5 %; Mean Corpuscular Hemoglobin 29.5 pg (25-34); Mean Corpuscular Hgb Conc 31.6 g/dL (32-36); Mean Corpuscular Volume 93.4 fL (80-100); Mean Platelet Volume 9.8 fL (7.4-10.4); Monocytes % (auto) 4.7 %; Neutrophils # (auto) 8.57 K/uL (1.4-6.5); Neutrophils % (auto) 80.7 %; Platelet Count 268 K/uL (130-400); RDW Coefficient of Variation 12.7 % (11.5-14.5); Red Blood Count 3.02 M/uL (4.2-5.4); White Blood Count 10.62 K/uL (4.8-10.8)
[2019-09-17 06:53] LABS: BUN Creatinine Ratio 15.5 (10-20); Calcium 8.1 mg/dl (8.5-10.1); Creatinine Clr Calc Pharmacy 48.5 ml/min; Est GFR (African American) 41.9; Est GFR (Non-African American) 36.1; Potassium 3.9 mmol/L (3.5-5.1)
[2019-09-17] MEDS: DULOXETINE HCL 60 MG CAP PO SCH (08:28)
[2019-09-17] MEDS: AMLODIPINE BESYLATE 5 MG TAB PO SCH (08:28)
[2019-09-17 09:33] LABS: Estimated Average Glucose 200 mg/dl; Hemoglobin A1C 8.6 % (4.5-5.6)
--- NOTE | 2019-09-17 14:25 | Pharmacy Report ---
Glycemic Control Consultation - Date of Service September 17, 2019 - Scope Scope: Glycemic Pharmacist consulted for glycemic control and to write orders per [facility] inpatient glycemic control protocol. - Objective Weight: 103.3 kg Accuchecks BSG (last 24hrs): 09/16/19 09/16/19 09/16/19 16:01 20:08 23:42 Glucose 276 H POC Glucose 277 H 182 H 09/17/19 09/17/19 09/17/19 04:56 06:08 07:34 Glucose 224 H POC Glucose 246 H 203 H 09/17/19 11:38 Glucose POC Glucose 138 H Laboratory Data (last 24hrs): 09/16/19 09/16/19 09/17/19 16:01 16:01 06:08 Potassium 3.7 3.9 Carbon Dioxide 25 24 Anion Gap 6.0 6.0 Creatinine 1.79 H 1.52 H Est Cr Clr Drug Dosing Not Reportable 48.5 Beta-Hydroxybutyric Acd 0.90 HbA1c: Hemoglobin A1c 8.6 % (4.5-5.6) H 09/17/19 06:08 - Recent Pertinent Medications Outpatient Anti-diabetic Regimen: * Basaglar 20 units HS, Novolog ssi, jardiance * A1c = 8.6 % 09/16 Risk Factors for Insulin Resistance: * Infection: foot infection * Diet: yes - Assessment & Plan Assessment & Plan: ASSESSMENT: * 64 year old female with foot infection. PMHx significant for type 2 diabetes, htn, hld, depression, bipolar. Managed on insulin and jardiance at home for diabetes management. Pharmacy consulted to help with glycemic control * BSGs elevated on admission likely related to infection / plan to add novolog with stress of 2 dosing. Add scale for Lantus dosing PLAN FOR INPATIENT GLYCEMIC CONTROL: * Basal insulin * Lantus 20-25 units HS * Bolus insulin * NovoLog per scale ACHS or Q6hrs while NPO * Goal Range: Low 110 mg/dL - High 140 mg/dL * Correction Factor: 20 mg/dL/unit * Nutritional / Prandial insulin per carb ratio of 1 unit per 8 grams CHO consumed * Please note that the plan above was derived based on current level of insulin resistance and hospital stress. These recommendations are appropriate for inpatient admission only. Plan of care upon discharge will need to be reassessed to avoid potential outpatient hypo/hyperglycemia. Thank you.
[2019-09-17] MEDS: ACETAMINOPHEN 325 MG TAB PO PRN (16:07)
--- NOTE | 2019-09-17 17:24 | Orthopedic Consultation ---
Date of Consultation September 17, 2019 Assessment & Plan (1) Wound of right foot: Continue current antibiotics at this time. Wound cultures are showing multiple organisms. We we will consult wound care for wound debridement of the cutaneous ulcer and to assess wound depth. There are no abscesses noted at this time or drainable fluid collections on CT. It appears the foreign body that is in the plantar surface near the third phalanx/metatarsal head appears to be old. No plans for surgical debridement in the OR at this point in time. We will continue to follow the patient while she is here. Await culture results and wound care input. History of Present Illness Reason for Consultation: Right foot ulceration/infection Attending Physician: Kiran Chandler MD History of Present Illness Patient is a 64-year-old white female who was admitted to the hospital last night for infection of an ulceration on her right foot. The patient states that she felt she had stepped on something 3 to 4 days ago. It soon began to become erythematous and swollen in that area that was back along the medial aspect of the foot close to the heel. She came into the emergency room last night and was seen by the staff. A syringe of pus was aspirated from the swollen area which appeared to be superficial. This was sent off for culture. She did have erythema and cellulitis around the area and was felt that she needed to be admitted for IV antibiotics. The patient showed me a picture of the area in question which was quite swollen at the time and fluid-filled. She was having some discomfort in that area and states that it is feeling somewhat better today. She admits to picking at some of the skin today to leave it open to drain. She denies fever, chills, nausea or vomiting. Allergies Allergy/AdvReac Type Severity Reaction Status Date / Time lamotrigine [From Lamictal] Allergy Unknown Rash Verified 09/16/19 16:05 peach Allergy Hives Verified 09/17/19 11:41 Home Medications Home Medications Medication Instructions Recorded Confirmed Type alprazolam 1 mg PO BID PRN 09/16/19 09/16/19 History amlodipine 5 mg PO QAM 09/16/19 09/16/19 History diazepam 5 mg PO Q8H PRN 09/16/19 09/16/19 History duloxetine 60 mg PO QAM 09/16/19 09/16/19 History empagliflozin [Jardiance] 25 mg PO QPM 09/16/19 09/16/19 History ergocalciferol (vitamin D2) 50,000 unit PO WK 09/16/19 09/16/19 History insulin aspart U-100 [Novolog See Rx Instructions .ROUTE .COMPLEX 09/16/19 09/16/19 History Flexpen U-100 Insulin] insulin glargine [Basaglar KwikPen 20 unit SUBCUT HS 09/16/19 History U-100 Insulin] levothyroxine 88 mcg PO QAM 09/16/19 09/16/19 History methylphenidate HCl 40 mg PO DAILY 09/16/19 09/16/19 History ramipril 10 mg PO QAM 09/16/19 09/16/19 History sulfamethoxazole-trimethoprim 1 tab PO BID 09/16/19 09/16/19 History Victoza 3-Corky 1.8 mg SC HS 09/17/19 09/17/19 History Patient History Medical History ADHD (attention deficit hyperactivity disorder) Bipolar disorder Depression Diabetes mellitus, type II Diabetic ulcer of left foot Dyslipidemia History of necrotising fasciitis Hypertension Hypothyroidism PTSD (post-traumatic stress disorder) Surgical History H/O gastric bypass History of amputation of left foot through metatarsal bone History of cholecystectomy S/P cervical spinal fusion Family History Other Diabetes Hypertension Social History Smoking Status: Never smoker Hx Alcohol Use: No Hx Substance Use: No Preferred Language: Polish Communication Ability: Effective Directory Compiler Required: No Beliefs That Will Affect Care: None marital status: Current Living Situation: Family Current Living Situation Comment: lives with dtr Other Information That Helps Us Care for You: No Feels Safe at Home: Yes Safety Concerns: Feels Safe At This Time Physical Exam Physical Exam: Patient is a 64-year-old white female who appears younger than her stated age. She is awake and alert and oriented x3. No acute distress pleasant and cooperative. On examination of her right foot she has an area that has an operative foam dressing on the medial aspect of the foot close to the heel. When this is removed, a large ulceration area that measures approximately 5 to 6 cm in length and 3 to 4 cm in width is noted with the top layer of skin being . There is some some mild drainage on the dressing at this time and there is an open area where the patient had peeled open the skin to help it drain. There is a slight odor to this area at this time. Is no gross purulence other than the looking skin that she has beatrice the ulcer. She has some notable erythema around the ulceration itself. She does have neuropathy but does feel some discomfort on palpation near this area. I cannot express much in the way of drainage at this time from this area. The wound was redressed with the OPTi foam dressing. Of note, on x-rays and CT scans there appears to be a foreign body on the plantar surface near the third phalanx. The patient has no discomfort in this area and has had not had any problems with this area in some time. There is a small circular area on the plantar surface near the third metatarsal head that may have been the source or entry point to this foreign body. There is no erythema, no swelling, no drainage or open wound. She has no pain on palpation. Results & Data ([facility]) Vital Signs (Past 12 Hours) Vital Signs Temp Pulse Pulse Resp BP Pulse Ox 09/17/19 14:44 37.1 C 93 H 20 136/70 96 09/17/19 11:20 36.7 C 77 18 156/81 H 99 09/17/19 10:05 98 H 09/17/19 07:36 36.7 C 86 20 144/79 H 95 Diagnostic Findings Patient: Johann WASHBURN Date: 09/16/19 MR#: [id number] [facility] Acct ID:[id number]: Date: 1955[facility] Zip: [place] [address] Age: 64Location: ED Sex: F Room/Bed: Att Phy:Diagnosis: INFECTION ON BOTTOM OF RIGHT FOOT Nadeen Phy: Morgan Swan, MDService Date: 09/16/19 Fam Phy:Interpreting Phy: Hang Cintron MD Admit Phy: Ordering Phy: Gita Garcia MD cc: ~ CT SCAN OF THE RIGHT FOOT WITHOUT IV CONTRAST CLINICAL HISTORY: Diabetic foot wound. COMPARISON STUDY: Radiographs of the right foot dated 09/16/2019. TECHNIQUE: CT scan of the right foot is performed from the distal tibia and fibula to the base of the foot. Images are reviewed in the axial, sagittal, and coronal planes. IV contrast was not administered for this examination. A dose lowering technique was utilized adhering to the principles of ALARA. CT DOSE: 197.09 mGy.cm FINDINGS: The skeletal structures are osteopenic. No fracture is seen. There is no bony erosion or periostitis. The joint spaces of the foot are maintained. There are large dorsal and plantar calcaneal enthesophytes. The ankle mortise is intact. A 5 mm linear radiodense foreign body is present within the plantar soft tissues at the level of the third proximal phalanx. This is best seen on axial image #318. There is soft tissue edema seen throughout the right foot and ankle, greatest dorsally. A cutaneous ulceration is identified along the medial aspect of the plantar heel. No organized fluid collection is seen to suggest abscess. No subcutaneous gas is seen. The Achilles tendon is intact as visualized. There is generalized atrophy of the regional musculature. IMPRESSION: 1. No acute bony abnormality is identified. 2. A cutaneous ulceration is noted in the medial hindfoot as above with evidence of cellulitis. No organized fluid collection is seen to suggest abscess. 3. A small foreign body is seen in the plantar soft tissues of the forefoot at the level of the third proximal phalanx. ULTRASOUND RIGHT LOWER EXTREMITY ARTERIAL; ANKLE-BRACHIAL INDICES CLINICAL HISTORY: Nonhealing right foot ulcer. COMPARISON STUDY: No priors. TECHNIQUE: Real-time, grayscale, and color Doppler sonography of the arteries of the right lower extremity is performed from the inguinal crease to the foot. Ankle-brachial indices are assessed. FINDINGS: Ankle brachial indices: Right brachial pressure measures 146 and left brachial pressure measures 137. Pressures in the right posterior tibial artery measure 156 for an TESSIE of 1.07, and pressures in the right dorsalis pedis measure 163 for an TESSIE of 1.12. Pressures in the left posterior tibial artery measure 158 for an TESSIE of 1.08, and pressures in the left dorsalis pedis measure 150 for an TESSIE of 1.03. Right lower extremity: Atherosclerotic plaque and irregularity is noted throughout the arteries of the right lower extremity. The right common femoral artery is patent with normal triphasic arterial waveforms. Velocities measure up to 130 cm/s. The profundus femoris artery is patent with velocities measuring up to 96 cm/s. There are triphasic waveforms seen throughout the superficial femoral artery with velocities measuring up to 179 cm/s. Triphasic waveforms are seen in the right popliteal artery with velocities measuring up to 164 cm/s. There is three-vessel runoff to the foot. Velocities in the calf arteries measure up to 179 cm/s. The dorsalis pedis artery is patent with velocities measuring up to 81 cm/s. IMPRESSION: 1. There is no sonographic evidence of focal/high-grade stenosis or vessel cutoff throughout the arteries of the right lower extremity. 2. Ankle-brachial indices as above.
--- NOTE | 2019-09-17 18:12 | Hospitalist Progress Note ---
Date of Service September 17, 2019 Assessment & Plan (1) Wound of right foot: Pt is 64F with PMH DM II, neuropathy, HTN, dyslipidemia, hypothyroidism, PTSD, ADD, h/o gastric bypass, fatty liver, h/o necrotizing fasciitis, h/o transmetatarsal amputation left foot presented to ER with c/o right foot wound x 4 days. Pt states 4 days ago she thinks she may have stepped on something and reports small blister that has enlarged with surrounding erythema. On Bactrim for 3 days without improvement. Denies known fever/chills, N/V. In ER T: 37.6C, P: 66-102, BP: 143/83, 97% on RA. WBC: 21, Hgb: 10.5 (baseline ~10), Lactate: 1.7, Procalcitonin: 1.7 Right foot xray: No acute bony abnormality is identified. Soft tissue edema and suspect ulceration along the plantar aspect of the hindfoot. Question a small linear foreign body projecting over the third proximal phalanx. seen on the 02/20/2014 -In ER given 2L NSS, Zosyn, vancomycin -In ER blister was drained and culture pending -Will continue cefepime and add daptomycin -Blood cultures pending -[facility] ID consulted -CT foot obtained - No acute bony abnormality is identified. A cutaneous ulceration is noted in the medial hindfoot as above with evidence of cellulitis. No organized fluid collection is seen to suggest abscess. A small foreign body is seen in the plantar soft tissues of the forefoot at the level of the third proximal phalanx. -Arterial Doppler RLE -CBC, BMP in am -Ortho consulted, recommend wound care consult (2) ROLANDO (acute kidney injury): BUN: 29, Cr: 1.79, GFR: 29. Baseline Cr: 1.1-1.3 -Monitor renal functions -Hold Ramipril and avoid other nephrotoxic agents when possible (3) Diabetes mellitus, type II: A1c: 8.7 on 09/03/2019 -Hold Jardiance -Continue basal bolus insulin -Glycemic pharmacy consult for assistance in glycemic management (4) Hypertension: -Continue amlodipine -Hold Ramipril (5) Hypothyroidism: -Continue levothyroxine (6) PTSD (post-traumatic stress disorder): (7) ADHD (attention deficit hyperactivity disorder): -Continue duloxetine, Xanax prn, and hold methylphenidate DVT Prophylaxis -Heparin SQ Full Code as per discussion with pt Follows with Dr Swan for routine care Admission and Anticipated Discharge Date Admission Date: September 16, 2019 Subjective Patient lying in bed, in no acute distress. She says that she feels much better today than yesterday. White blood cell count significantly lowered today. ID consulted, patient says they were not able to make it work due to IT problems. Orthopedics to see patient. Patient shows me picture on her cell phone what her foot ulcer looked like when she came to emergency room. Currently denies any fever, chills, chest pain, shortness of breath, abd. pain, n/v. Review of Systems Review of Systems: All systems reviewed & are unremarkable except as noted in HPI & below Constitutional: no fever and no chills Respiratory: no cough and no dyspnea Cardiovascular: no chest pain and no palpitations Gastrointestinal: no abdominal pain and no vomiting Physical Exam Physical Exam: General: female pt no distress, obese Head: normocephalic, atraumatic Eyes: conjunctiva non-injected, anicteric ENT: normal inspection external ears, nose, mucous membranes moist Neck: supple, trachea midline Lungs: clear, no respiratory distress, no wheezing/rhonchi/rales CV: RRR, no murmur, no pretibial edema Abd: normal BS, soft, non-tender Ext: no calf tenderness; left foot with prior amputation at metatarsals and with out erythema or edema; right foot: plantar medial aspect foot distal to calcaneus with large blister with noted erythema surrounding and extending up to lower leg, toes on right foot dusky appearance, diminished palpable dorsalis pedis pulse Neuro: A&O x 3, no focal deficits noted, normal affect Skin: foot as above, otherwise skin warm, dry Results & Data Results & Data ([facility]) Vital Signs (Past 12 Hours) Vital Signs Temp Pulse Pulse Resp BP Pulse Ox 09/17/19 14:44 37.1 C 93 H 20 136/70 96 09/17/19 11:20 36.7 C 77 18 156/81 H 99 09/17/19 10:05 98 H 09/17/19 07:36 36.7 C 86 20 144/79 H 95 Laboratory Results 09/17/19 09/17/19 09/17/19 Range/Units Unknown 16:38 11:38 WBC (4.8-10.8) K/uL RBC (4.2-5.4) M/uL Hgb (12.0-16.0) g/dL Hct (37-47) % MCV (80-100) fL MCH (25-34) pg MCHC (32-36) g/dL RDW Std Deviation (36.4-46.3) fL RDW Coeff of Anitha (11.5-14.5) % Plt Count (130-400) K/uL MPV (7.4-10.4) fL Immature Gran % (Auto) % Neut % (Auto) % Lymph % (Auto) % [place] % (Auto) % Eos % (Auto) % Baso % (Auto) % Neut # (Auto) (1.4-6.5) K/uL Lymph # (Auto) (1.2-3.4) K/uL [place] # (Auto) (0.11-0.59) K/uL Eos # (Auto) (0-0.5) K/uL Baso # (Auto) (0-0.2) K/uL Immature Gran # (Auto) (0.00-0.02) K/uL Sodium (136-145) mmol/L Potassium (3.5-5.1) mmol/L Chloride (98-107) mmol/L Carbon Dioxide (21-32) mmol/L Anion Gap (3-11) BUN (7-18) mg/dl Creatinine (0.6-1.2) mg/dl Est Cr Clr Drug Dosing ml/min Est GFR ( Amer) Est GFR (Non-Af Amer) BUN/Creatinine Ratio (10-20) Glucose (70-99) mg/dl POC Glucose 199 H 138 H (70-99) mg/dl Estimat Average Glucose mg/dl Hemoglobin A1c (4.5-5.6) % Calcium (8.5-10.1) mg/dl Triglycerides (0-150) mg/dl Cholesterol (0-200) mg/dl LDL Cholesterol, Calc mg/dl VLDL Cholesterol, Calc mg/dl HDL Cholesterol mg/dl Cholesterol/HDL Ratio Urine Color Yellow Urine Appearance Clear (Clear) Urine pH 5.0 (4.5-7.5) Ur Specific [place] 1.019 (1.000-1.030) Urine Protein 2+ H (Negative) Urine Glucose (UA) 3+ H (Negative) Urine Ketones Negative (Negative) Urine Blood Negative (Negative) Urine Nitrite Negative (Negative) Urine Bilirubin Negative (Negative) Urine Urobilinogen Negative (Negative) Ur Leukocyte Esterase Negative (Negative) Urine WBC (Auto) 0 (0-5) /hpf Urine RBC (Auto) 0-4 (0-4) /hpf U Hyaline Cast (Auto) 0 (0-5) /lpf U Epithel Cells (Auto) 5-10 H (0-5) /lpf Urine Bacteria (Auto) Negative (Negative) 09/17/19 09/17/19 09/17/19 Range/Units 07:34 06:08 06:08 WBC (4.8-10.8) K/uL RBC (4.2-5.4) M/uL Hgb (12.0-16.0) g/dL Hct (37-47) % MCV (80-100) fL MCH (25-34) pg MCHC (32-36) g/dL RDW Std Deviation (36.4-46.3) fL RDW Coeff of Anitha (11.5-14.5) % Plt Count (130-400) K/uL MPV (7.4-10.4) fL Immature Gran % (Auto) % Neut % (Auto) % Lymph % (Auto) % [place] % (Auto) % Eos % (Auto) % Baso % (Auto) % Neut # (Auto) (1.4-6.5) K/uL Lymph # (Auto) (1.2-3.4) K/uL [place] # (Auto) (0.11-0.59) K/uL Eos # (Auto) (0-0.5) K/uL Baso # (Auto) (0-0.2) K/uL Immature Gran # (Auto) (0.00-0.02) K/uL Sodium 140 (136-145) mmol/L Potassium 3.9 (3.5-5.1) mmol/L Chloride 110 H (98-107) mmol/L Carbon Dioxide 24 (21-32) mmol/L Anion Gap 6.0 (3-11) BUN 24 H (7-18) mg/dl Creatinine 1.52 H (0.6-1.2) mg/dl Est Cr Clr Drug Dosing 48.5 ml/min Est GFR ( Amer) 41.9 Est GFR (Non-Af Amer) 36.1 BUN/Creatinine Ratio 15.5 (10-20) Glucose 224 H (70-99) mg/dl POC Glucose 203 H (70-99) mg/dl Estimat Average Glucose 200 mg/dl Hemoglobin A1c 8.6 H (4.5-5.6) % Calcium 8.1 L (8.5-10.1) mg/dl Triglycerides 275 H (0-150) mg/dl Cholesterol 218 H (0-200) mg/dl LDL Cholesterol, Calc 116 mg/dl VLDL Cholesterol, Calc 55 mg/dl HDL Cholesterol 47 mg/dl Cholesterol/HDL Ratio 5 Urine Color Urine Appearance (Clear) Urine pH (4.5-7.5) Ur Specific [place] (1.000-1.030) Urine Protein (Negative) Urine Glucose (UA) (Negative) Urine Ketones (Negative) Urine Blood (Negative) Urine Nitrite (Negative) Urine Bilirubin (Negative) Urine Urobilinogen (Negative) Ur Leukocyte Esterase (Negative) Urine WBC (Auto) (0-5) /hpf Urine RBC (Auto) (0-4) /hpf U Hyaline Cast (Auto) (0-5) /lpf U Epithel Cells (Auto) (0-5) /lpf Urine Bacteria (Auto) (Negative) 09/17/19 09/17/19 09/16/19 Range/Units 06:08 04:56 23:42 WBC 10.62 D (4.8-10.8) K/uL RBC 3.02 L (4.2-5.4) M/uL Hgb 8.9 L (12.0-16.0) g/dL Hct 28.2 L (37-47) % MCV 93.4 (80-100) fL MCH 29.5 (25-34) pg MCHC 31.6 L (32-36) g/dL RDW Std Deviation 43.0 (36.4-46.3) fL RDW Coeff of Anitha 12.7 (11.5-14.5) % Plt Count 268 (130-400) K/uL MPV 9.8 (7.4-10.4) fL Immature Gran % (Auto) 0.2 % Neut % (Auto) 80.7 % Lymph % (Auto) 12.5 % [place] % (Auto) 4.7 % Eos % (Auto) 1.8 % Baso % (Auto) 0.1 % Neut # (Auto) 8.57 H (1.4-6.5) K/uL Lymph # (Auto) 1.33 (1.2-3.4) K/uL [place] # (Auto) 0.50 (0.11-0.59) K/uL Eos # (Auto) 0.19 (0-0.5) K/uL Baso # (Auto) 0.01 (0-0.2) K/uL Immature Gran # (Auto) 0.02 (0.00-0.02) K/uL Sodium (136-145) mmol/L Potassium (3.5-5.1) mmol/L Chloride (98-107) mmol/L Carbon Dioxide (21-32) mmol/L Anion Gap (3-11) BUN (7-18) mg/dl Creatinine (0.6-1.2) mg/dl Est Cr Clr Drug Dosing ml/min Est GFR ( Amer) Est GFR (Non-Af Amer) BUN/Creatinine Ratio (10-20) Glucose (70-99) mg/dl POC Glucose 246 H 182 H (70-99) mg/dl Estimat Average Glucose mg/dl Hemoglobin A1c (4.5-5.6) % Calcium (8.5-10.1) mg/dl Triglycerides (0-150) mg/dl Cholesterol (0-200) mg/dl LDL Cholesterol, Calc mg/dl VLDL Cholesterol, Calc mg/dl HDL Cholesterol mg/dl Cholesterol/HDL Ratio Urine Color Urine Appearance (Clear) Urine pH (4.5-7.5) Ur Specific [place] (1.000-1.030) Urine Protein (Negative) Urine Glucose (UA) (Negative) Urine Ketones (Negative) Urine Blood (Negative) Urine Nitrite (Negative) Urine Bilirubin (Negative) Urine Urobilinogen (Negative) Ur Leukocyte Esterase (Negative) Urine WBC (Auto) (0-5) /hpf Urine RBC (Auto) (0-4) /hpf U Hyaline Cast (Auto) (0-5) /lpf U Epithel Cells (Auto) (0-5) /lpf Urine Bacteria (Auto) (Negative) 09/16/19 Range/Units 20:08 WBC (4.8-10.8) K/uL RBC (4.2-5.4) M/uL Hgb (12.0-16.0) g/dL Hct (37-47) % MCV (80-100) fL MCH (25-34) pg MCHC (32-36) g/dL RDW Std Deviation (36.4-46.3) fL RDW Coeff of Anitha (11.5-14.5) % Plt Count (130-400) K/uL MPV (7.4-10.4) fL Immature Gran % (Auto) % Neut % (Auto) % Lymph % (Auto) % [place] % (Auto) % Eos % (Auto) % Baso % (Auto) % Neut # (Auto) (1.4-6.5) K/uL Lymph # (Auto) (1.2-3.4) K/uL [place] # (Auto) (0.11-0.59) K/uL Eos # (Auto) (0-0.5) K/uL Baso # (Auto) (0-0.2) K/uL Immature Gran # (Auto) (0.00-0.02) K/uL Sodium (136-145) mmol/L Potassium (3.5-5.1) mmol/L Chloride (98-107) mmol/L Carbon Dioxide (21-32) mmol/L Anion Gap (3-11) BUN (7-18) mg/dl Creatinine (0.6-1.2) mg/dl Est Cr Clr Drug Dosing ml/min Est GFR ( Amer) Est GFR (Non-Af Amer) BUN/Creatinine Ratio (10-20) Glucose (70-99) mg/dl POC Glucose 277 H (70-99) mg/dl Estimat Average Glucose mg/dl Hemoglobin A1c (4.5-5.6) % Calcium (8.5-10.1) mg/dl Triglycerides (0-150) mg/dl Cholesterol (0-200) mg/dl LDL Cholesterol, Calc mg/dl VLDL Cholesterol, Calc mg/dl HDL Cholesterol mg/dl Cholesterol/HDL Ratio Urine Color Urine Appearance (Clear) Urine pH (4.5-7.5) Ur Specific [place] (1.000-1.030) Urine Protein (Negative) Urine Glucose (UA) (Negative) Urine Ketones (Negative) Urine Blood (Negative) Urine Nitrite (Negative) Urine Bilirubin (Negative) Urine Urobilinogen (Negative) Ur Leukocyte Esterase (Negative) Urine WBC (Auto) (0-5) /hpf Urine RBC (Auto) (0-4) /hpf U Hyaline Cast (Auto) (0-5) /lpf U Epithel Cells (Auto) (0-5) /lpf Urine Bacteria (Auto) (Negative) Medications Administered Current Inpatient Medications Acetaminophen (Acetaminophen 325 Mg Tab) 650 mg PO Q4H PRN PRN Reason: Pain or Fever Stop: 10/16/19 17:08 Last Admin: 09/17/19 16:07 Dose: 650 mg Documented by: Al Hydrox/Mg Hydrox/Simethicone (Maalox) 15 ml PO Q4H PRN PRN Reason: Dyspepsia Stop: 10/16/19 17:08 Alprazolam (Xanax) 1 mg PO BID PRN PRN Reason: Anxiety Stop: 10/16/19 19:49 Amlodipine Besylate (Norvasc) 5 mg PO QAM [facility] Stop: 10/17/19 08:59 Last Admin: 09/17/19 08:28 Dose: 5 mg Documented by: Dextrose (Dextrose 50%) 25 - 50 ml IV UD PRN; Protocol PRN Reason: Hypoglycemia Protocol Stop: 10/16/19 19:49 Duloxetine HCl (Cymbalta) 60 mg PO QAM [facility] Stop: 10/17/19 08:59 Last Admin: 09/17/19 08:28 Dose: 60 mg Documented by: Glucagon (Glucagen) 1 mg SQ UD PRN; Protocol PRN Reason: Hypoglycemia Protocol Stop: 10/16/19 19:49 Glucose (Dex4 Glucose) 4 - 8 tabs PO UD PRN; Protocol PRN Reason: Hypoglycemia Protocol Stop: 10/16/19 19:49 Glucose (Glucose 40%) 15 - 30 gm PO UD PRN; Protocol PRN Reason: Hypoglycemia Protocol Stop: 10/16/19 19:49 Heparin Sodium (Porcine) (Heparin Sodium (Porcine)) 5,000 units SQ Q8 [facility] Stop: 10/16/19 21:59 Last Admin: 09/17/19 14:22 Dose: 5,000 units Documented by: Cefepime HCl 1,000 mg/ Syringe 11.3 mls @ 5.5 mls/min IV Q24H [facility]; Protocol Stop: 09/23/19 20:59 Last Admin: 09/16/19 21:07 Dose: 5.5 mls/min Documented by: Daptomycin 325 mg/ Syringe 6.5 mls @ 2.75 mls/min IV Q24H [facility]; Protocol Stop: 09/23/19 20:59 Insulin Aspart (Insulin Aspart 100 Units/Ml 3 Ml Pen) 0 units SC ACHS [facility]; Protocol Stop: 10/16/19 20:59 Last Admin: 09/17/19 17:32 Dose: 10 units Documented by: Insulin Glargine (Insulin Glargine Solostar 100 Units/Ml 3 Ml Pen) 0 units SQ HS [facility]; Protocol Stop: 10/17/19 20:59 Levothyroxine Sodium (Synthroid) 88 mcg PO DAILYBB [facility] Stop: 10/17/19 06:29 Last Admin: 09/17/19 06:25 Dose: 88 mcg Documented by: Magnesium Hydroxide (Milk Of Magnesia) 30 ml PO Q12H PRN PRN Reason: Constipation Stop: 10/16/19 17:08 Miscellaneous (Carbohydrates For Hypoglycemia) 15 - 30 gm PO UD PRN PRN Reason: Hypoglycemia Protocol Stop: 10/16/19 19:49 Miscellaneous Information (Consult Glycemic Management Pharmacy) 1 ea N/A UD PRN PRN Reason: Consult Stop: 10/16/19 18:11 Miscellaneous Information (Consult) 1 ea N/A UD PRN PRN Reason: Consult Stop: 10/16/19 19:49 Ondansetron HCl (Zofran) 4 mg IV Q6H PRN PRN Reason: Nausea Stop: 10/16/19 17:08 Polyethylene Glycol (Miralax Powder Packet) 17 gm PO DAILY PRN PRN Reason: Constipation Stop: 10/16/19 17:08
[2019-09-17] MEDS: CEFEPIME 1,000 MG in SYRINGE 0 ML IV SCH (21:54)
[2019-09-17] MEDS: DAPTOmycin 325 MG in SYRINGE 0 ML IV SCH (21:55)
[2019-09-17] MEDS: INSULIN GLARGINE SOLOSTAR 100 UNITS/ML 3 ML PEN SQ SCH (21:56)
[2019-09-17] MEDS: ALPRAZolam 0.5 MG TABLET PO PRN (22:05)
[2019-09-18] MEDS: HEPARIN SOD 5,000 UNIT/0.5 ML VIAL SQ SCH ×3 (05:34→21:37)
[2019-09-18] MEDS: LEVOTHYROXINE SODIUM 88 MCG TABLET PO SCH (05:34)
--- NOTE | 2019-09-18 06:03 | Electrocardiogram Report ---
Test Reason : Blood Pressure : / mmHG Vent. Rate : 098 BPM Atrial Rate : 098 BPM P-R Int : 180 ms QRS Dur : 102 ms QT Int : 370 ms P-R-T Axes : 056 069 051 degrees QTc Int : 472 ms Normal sinus rhythm Normal ECG When compared with ECG of 21-FEB-2014 09:03, No significant change was found Confirmed by Yo Steel ([id number]) on 09/18/2019 6:02:49 AM Referred By: REFERRED SELF Confirmed By:Yo Steel
[2019-09-18 06:21] LABS: Basophils # (auto) 0.01 K/uL (0-0.2); Basophils % (auto) 0.1 %; Eosinophils # (auto) 0.25 K/uL (0-0.5); Eosinophils % (auto) 3.1 %; Hematocrit (blood only) 29.6 % (37-47); Hemoglobin 9.6 g/dL (12.0-16.0); Immature Granulocytes # (auto) 0.01 K/uL (0.00-0.02); Immature Granulocytes % (auto) 0.1 %; Lymphocytes # (auto) 2.01 K/uL (1.2-3.4); Lymphocytes % (auto) 24.8 %; Mean Corpuscular Hemoglobin 30.5 pg (25-34); Mean Corpuscular Hgb Conc 32.4 g/dL (32-36); Mean Platelet Volume 9.9 fL (7.4-10.4); Monocytes # (auto) 0.43 K/uL (0.11-0.59); Monocytes % (auto) 5.3 %; Neutrophils % (auto) 66.6 %; Platelet Count 304 K/uL (130-400); RDW Coefficient of Variation 12.7 % (11.5-14.5); RDW Standard Deviation 42.8 fL (36.4-46.3); Red Blood Count 3.15 M/uL (4.2-5.4); White Blood Count 8.11 K/uL (4.8-10.8)
[2019-09-18 06:52] LABS: BUN Creatinine Ratio 20.7 (10-20); Calcium 8.2 mg/dl (8.5-10.1); Creatinine Clr Calc Pharmacy 61.8 ml/min; Est GFR (African American) 56.3; Est GFR (Non-African American) 48.5; Magnesium 2.3 mg/dl (1.8-2.4); Phosphorus 3.3 mg/dl (2.5-4.9); Potassium 4.2 mmol/L (3.5-5.1)
--- NOTE | 2019-09-18 07:57 | Hospitalist Progress Note ---
Date of Service September 18, 2019 Assessment & Plan (1) Wound of right foot: Pt is 64F with PMH DM II, neuropathy, HTN, dyslipidemia, hypothyroidism, PTSD, ADD, h/o gastric bypass, fatty liver, h/o necrotizing fasciitis, h/o transmetatarsal amputation left foot presented to ER with c/o right foot wound x 4 days. Pt states 4 days ago she thinks she may have stepped on something and reports small blister that has enlarged with surrounding erythema. On Bactrim for 3 days without improvement. Denies known fever/chills, N/V. In ER T: 37.6C, P: 66-102, BP: 143/83, 97% on RA. WBC: 21, Hgb: 10.5 (baseline ~10), Lactate: 1.7, Procalcitonin: 1.7 Right foot xray: No acute bony abnormality is identified. Soft tissue edema and suspect ulceration along the plantar aspect of the hindfoot. Question a small linear foreign body projecting over the third proximal phalanx. seen on the 02/20/2014 -In ER given 2L NSS, Zosyn, vancomycin -In ER blister was drained and culture pending -Will continue cefepime and add daptomycin -Blood cultures pending - wound cultx + for Klebsiella oxytoca - [facility] ID consulted -CT foot obtained - No acute bony abnormality is identified. A cutaneous ulceration is noted in the medial hindfoot as above with evidence of cellulitis. No organized fluid collection is seen to suggest abscess. A small foreign body is seen in the plantar soft tissues of the forefoot at the level of the third proximal phalanx. -Arterial Doppler RLE -monitor CBC, BMP -Ortho consulted, recommend wound care consult -Wound care to see the patient (2) ROLANDO (acute kidney injury): BUN: 29, Cr: 1.79, GFR: 29. Baseline Cr: 1.1-1.3 -Monitor renal functions -Hold Ramipril and avoid other nephrotoxic agents when possible (3) Diabetes mellitus, type II: A1c: 8.7 on 09/03/2019 -Hold Jardiance, was recently started as outpt, A1c does not reflect the change -Continue basal bolus insulin -Glycemic pharmacy consult for assistance in glycemic management -Diabetic education provided (4) Hypertension: -Continue amlodipine -Hold Ramipril (5) Hypothyroidism: -Continue levothyroxine (6) PTSD (post-traumatic stress disorder): (7) ADHD (attention deficit hyperactivity disorder): -Continue duloxetine, Xanax prn, and hold methylphenidate DVT Prophylaxis -Heparin SQ Full Code as per discussion with pt Follows with Dr Swan for routine care Admission and Anticipated Discharge Date Admission Date: September 16, 2019 Subjective Patient lying in bed, in no acute distress. She says that she feels well overall. White blood cell count significantly lowered today. ID consulted, patient says they were not able to make it work due to IT problems yesterday. Orthopedics evaluated the patient, recommend wound care consult. Currently denies any fever, chills, chest pain, shortness of breath, abd. pain, n/v. Had looser stool this AM. Wound cltx - Klebsiella oxytoca. Review of Systems Review of Systems: All systems reviewed & are unremarkable except as noted in HPI & below Constitutional: no fever and no chills Respiratory: no cough and no dyspnea Cardiovascular: no chest pain and no palpitations Gastrointestinal: no abdominal pain and no vomiting Physical Exam Physical Exam: General: female pt in no distress, obese Head: normocephalic, atraumatic Eyes: conjunctiva non-injected, anicteric ENT: normal inspection external ears, nose, mucous membranes moist Neck: supple, trachea midline Lungs: clear, no respiratory distress, no wheezing/rhonchi/rales CV: RRR, no murmur, no pretibial edema Abdomen: normal BS, soft, non-tender Extremities: no calf tenderness; left foot with prior amputation at metatarsals and without erythema or edema; right foot: plantar medial aspect foot distal to calcaneus with large blister with noted erythema surrounding Neuro: A&O x 3, no focal deficits noted, normal affect Skin: foot as above, otherwise skin warm, dry Results & Data Results & Data ([facility]) Vital Signs (Past 12 Hours) Vital Signs Temp Pulse Pulse Resp BP BP Pulse Ox 09/18/19 07:18 36.6 C 105 H 16 146/77 H 94 09/18/19 03:06 36.9 C 81 14 150/80 H 96 09/17/19 23:55 93 H 09/17/19 23:04 36.6 C 85 20 157/77 H 95 Laboratory Results 09/18/19 09/18/19 09/18/19 Range/Units 07:26 05:56 05:56 WBC 8.11 (4.8-10.8) K/uL RBC 3.15 L (4.2-5.4) M/uL Hgb 9.6 L (12.0-16.0) g/dL Hct 29.6 L (37-47) % MCV 94.0 (80-100) fL MCH 30.5 (25-34) pg MCHC 32.4 (32-36) g/dL RDW Std Deviation 42.8 (36.4-46.3) fL RDW Coeff of Anitha 12.7 (11.5-14.5) % Plt Count 304 (130-400) K/uL MPV 9.9 (7.4-10.4) fL Immature Gran % (Auto) 0.1 % Neut % (Auto) 66.6 % Lymph % (Auto) 24.8 % Liberty % (Auto) 5.3 % Eos % (Auto) 3.1 % Baso % (Auto) 0.1 % Neut # (Auto) 5.40 (1.4-6.5) K/uL Lymph # (Auto) 2.01 (1.2-3.4) K/uL Liberty # (Auto) 0.43 (0.11-0.59) K/uL Eos # (Auto) 0.25 (0-0.5) K/uL Baso # (Auto) 0.01 (0-0.2) K/uL Immature Gran # (Auto) 0.01 (0.00-0.02) K/uL Sodium 141 (136-145) mmol/L Potassium 4.2 (3.5-5.1) mmol/L Chloride 111 H (98-107) mmol/L Carbon Dioxide 26 (21-32) mmol/L Anion Gap 4.0 (3-11) BUN 25 H (7-18) mg/dl Creatinine 1.19 D (0.6-1.2) mg/dl Est Cr Clr Drug Dosing 61.8 ml/min Est GFR ( Amer) 56.3 Est GFR (Non-Af Amer) 48.5 BUN/Creatinine Ratio 20.7 H (10-20) Glucose 158 H (70-99) mg/dl POC Glucose 172 H (70-99) mg/dl Estimat Average Glucose mg/dl Hemoglobin A1c (4.5-5.6) % Calcium 8.2 L (8.5-10.1) mg/dl Phosphorus 3.3 (2.5-4.9) mg/dl Magnesium 2.3 (1.8-2.4) mg/dl 09/17/19 09/17/19 09/17/19 Range/Units 20:27 16:38 11:38 WBC (4.8-10.8) K/uL RBC (4.2-5.4) M/uL Hgb (12.0-16.0) g/dL Hct (37-47) % MCV (80-100) fL MCH (25-34) pg MCHC (32-36) g/dL RDW Std Deviation (36.4-46.3) fL RDW Coeff of Anitha (11.5-14.5) % Plt Count (130-400) K/uL MPV (7.4-10.4) fL Immature Gran % (Auto) % Neut % (Auto) % Lymph % (Auto) % Liberty % (Auto) % Eos % (Auto) % Baso % (Auto) % Neut # (Auto) (1.4-6.5) K/uL Lymph # (Auto) (1.2-3.4) K/uL Liberty # (Auto) (0.11-0.59) K/uL Eos # (Auto) (0-0.5) K/uL Baso # (Auto) (0-0.2) K/uL Immature Gran # (Auto) (0.00-0.02) K/uL Sodium (136-145) mmol/L Potassium (3.5-5.1) mmol/L Chloride (98-107) mmol/L Carbon Dioxide (21-32) mmol/L Anion Gap (3-11) BUN (7-18) mg/dl Creatinine (0.6-1.2) mg/dl Est Cr Clr Drug Dosing ml/min Est GFR ( Amer) Est GFR (Non-Af Amer) BUN/Creatinine Ratio (10-20) Glucose (70-99) mg/dl POC Glucose 211 H 199 H 138 H (70-99) mg/dl Estimat Average Glucose mg/dl Hemoglobin A1c (4.5-5.6) % Calcium (8.5-10.1) mg/dl Phosphorus (2.5-4.9) mg/dl Magnesium (1.8-2.4) mg/dl 09/17/19 Range/Units 06:08 WBC (4.8-10.8) K/uL RBC (4.2-5.4) M/uL Hgb (12.0-16.0) g/dL Hct (37-47) % MCV (80-100) fL MCH (25-34) pg MCHC (32-36) g/dL RDW Std Deviation (36.4-46.3) fL RDW Coeff of Anitha (11.5-14.5) % Plt Count (130-400) K/uL MPV (7.4-10.4) fL Immature Gran % (Auto) % Neut % (Auto) % Lymph % (Auto) % Liberty % (Auto) % Eos % (Auto) % Baso % (Auto) % Neut # (Auto) (1.4-6.5) K/uL Lymph # (Auto) (1.2-3.4) K/uL Liberty # (Auto) (0.11-0.59) K/uL Eos # (Auto) (0-0.5) K/uL Baso # (Auto) (0-0.2) K/uL Immature Gran # (Auto) (0.00-0.02) K/uL Sodium (136-145) mmol/L Potassium (3.5-5.1) mmol/L Chloride (98-107) mmol/L Carbon Dioxide (21-32) mmol/L Anion Gap (3-11) BUN (7-18) mg/dl Creatinine (0.6-1.2) mg/dl Est Cr Clr Drug Dosing ml/min Est GFR ( Amer) Est GFR (Non-Af Amer) BUN/Creatinine Ratio (10-20) Glucose (70-99) mg/dl POC Glucose (70-99) mg/dl Estimat Average Glucose 200 mg/dl Hemoglobin A1c 8.6 H (4.5-5.6) % Calcium (8.5-10.1) mg/dl Phosphorus (2.5-4.9) mg/dl Magnesium (1.8-2.4) mg/dl Medications Administered Current Inpatient Medications Acetaminophen (Acetaminophen 325 Mg Tab) 650 mg PO Q4H PRN PRN Reason: Pain or Fever Stop: 10/16/19 17:08 Last Admin: 09/17/19 16:07 Dose: 650 mg Documented by: Al Hydrox/Mg Hydrox/Simethicone (Maalox) 15 ml PO Q4H PRN PRN Reason: Dyspepsia Stop: 10/16/19 17:08 Alprazolam (Xanax) 1 mg PO BID PRN PRN Reason: Anxiety Stop: 10/16/19 19:49 Last Admin: 09/17/19 22:05 Dose: 1 mg Documented by: Amlodipine Besylate (Norvasc) 5 mg PO QAM [facility] Stop: 10/17/19 08:59 Last Admin: 09/17/19 08:28 Dose: 5 mg Documented by: Dextrose (Dextrose 50%) 25 - 50 ml IV UD PRN; Protocol PRN Reason: Hypoglycemia Protocol Stop: 10/16/19 19:49 Duloxetine HCl (Cymbalta) 60 mg PO [facility] Stop: 10/17/19 08:59 Last Admin: 09/17/19 08:28 Dose: 60 mg Documented by: Glucagon (Glucagen) 1 mg SQ UD PRN; Protocol PRN Reason: Hypoglycemia Protocol Stop: 10/16/19 19:49 Glucose (Dex4 Glucose) 4 - 8 tabs PO UD PRN; Protocol PRN Reason: Hypoglycemia Protocol Stop: 10/16/19 19:49 Glucose (Glucose 40%) 15 - 30 gm PO UD PRN; Protocol PRN Reason: Hypoglycemia Protocol Stop: 10/16/19 19:49 Heparin Sodium (Porcine) (Heparin Sodium (Porcine)) 5,000 units SQ Q8 RAVINDRA Stop: 10/16/19 21:59 Last Admin: 09/18/19 05:34 Dose: 5,000 units Documented by: Cefepime HCl 1,000 mg/ Syringe 11.3 mls @ 5.5 mls/min IV Q24H RAVINDRA; Protocol Stop: 09/23/19 20:59 Last Admin: 09/17/19 21:54 Dose: 5.5 mls/min Documented by: Daptomycin 325 mg/ Syringe 6.5 mls @ 2.75 mls/min IV Q24H RAVINDRA; Protocol Stop: 09/23/19 20:59 Last Admin: 09/17/19 21:55 Dose: 2.75 mls/min Documented by: Insulin Aspart (Insulin Aspart 100 Units/Ml 3 Ml Pen) 0 units SC ACHS RAVINDRA; Protocol Stop: 10/16/19 20:59 Last Admin: 09/17/19 21:57 Dose: 4 units Documented by: Insulin Glargine (Insulin Glargine Solostar 100 Units/Ml 3 Ml Pen) 0 units SQ HS RAVINDRA; Protocol Stop: 10/17/19 20:59 Last Admin: 09/17/19 21:56 Dose: 25 units Documented by: Levothyroxine Sodium (Synthroid) 88 mcg PO DAILYBB [facility]IN[facility] Stop: 10/17/19 06:29 Last Admin: 09/18/19 05:34 Dose: 88 mcg Documented by: Magnesium Hydroxide (Milk Of Magnesia) 30 ml PO Q12H PRN PRN Reason: Constipation Stop: 10/16/19 17:08 Miscellaneous (Carbohydrates For Hypoglycemia) 15 - 30 gm PO UD PRN PRN Reason: Hypoglycemia Protocol Stop: 10/16/19 19:49 Miscellaneous Information (Consult Glycemic Management Pharmacy) 1 ea N/A UD PRN PRN Reason: Consult Stop: 10/16/19 18:11 Miscellaneous Information (Consult) 1 ea N/A UD PRN PRN Reason: Consult Stop: 10/16/19 19:49 Ondansetron HCl (Zofran) 4 mg IV Q6H PRN PRN Reason: Nausea Stop: 10/16/19 17:08 Polyethylene Glycol (Miralax Powder Packet) 17 gm PO DAILY PRN PRN Reason: Constipation Stop: 10/16/19 17:08
[2019-09-18] MEDS: DULOXETINE HCL 60 MG CAP PO SCH (08:44)
[2019-09-18] MEDS: AMLODIPINE BESYLATE 5 MG TAB PO SCH (08:44)
[2019-09-18] MEDS: INSULIN ASPART 100 UNITS/ML 3 ML PEN SC SCH ×4 (08:45→21:04)
--- NOTE | 2019-09-18 11:34 | Pharmacy Report ---
Pharmacy Glycemic Short Note 2 - Date of Service September 18, 2019 - Glycemic Short BSG Results (Last 24 hours): OUTPATIENT ANTIDIABETIC REGIMEN: * Basaglar 20 units HS + Novolog SSI + Jardiance * A1c = 8.6% from 09/17/2019 ASSESSMENT: 09/17: * Diamond received a total of 57 units of insulin yesterday * 25 units of basal + 32 units of bolus * BSGs ranged from 138 - 246 mg/dL * Fasting BSG this AM was 172 mg/dL, improved from yesterday but still uncontrolled * Will slightly increase HS basal scale tonight per scale * Tightened correction factor and carb ratio this morning given post-prandial hyperglycemia throughout the day yesterday * Lunchtime BSG was 131 mg/dL. 09/16: * 64 year old female with foot infection. PMHx significant for type 2 diabetes, htn, hld, depression, bipolar. Managed on insulin and jardiance at home for diabetes management. Pharmacy consulted to help with glycemic control * BSGs elevated on admission likely related to infection / plan to add novolog with stress of 2 dosing. Add scale for Lantus dosing PLAN FOR INPATIENT GLYCEMIC CONTROL: * Hold outpatient oral diabetes medications * Basal insulin - increased * Lantus 25-30 units SQ HS per scale (see eMAR for further details) * Bolus insulin * NovoLog per scale ACHS or Q6hrs while NPO * Goal Range: Low 110 mg/dL - High 140 mg/dL * Correction Factor: 15 mg/dL/unit * Nutritional / Prandial insulin per carb ratio of 1 unit per 5 grams CHO consumed PLAN FOR DISCHARGE: * Jardiance recently started as an outpatient. * Continue with current outpatient regimen upon discharge. Recommend close follow-up with outpatient provider.
[2019-09-18] MEDS: CEFEPIME 1,000 MG in SYRINGE 0 ML IV SCH ×2 (12:50→23:55)
[2019-09-18] MEDS: SACCHAROMYCES BOULARDII 250 MG CAP PO SCH (12:50)
--- NOTE | 2019-09-18 17:24 | Orthopedic Progress Note ---
Date of Service September 18, 2019 Assessment & Plan (1) Wound of right foot: With recommendations from ID and patients previous history of Necrotizing Fasciitis on the left foot, will plan for I&D tomorrow with Dr Barclay. Pt in agreement with plan. Admission and Anticipated Discharge Date Admission Date: September 16, 2019 Subjective Pt seen with Dr Currie. No new complaints. Pt states she spoke to ID team today who are recommending ID in OR. Pt states that the wound looked better today than previously when Wound Care team looked at it. Physical Exam Physical Exam: Small dressing noted on foot. Wound reviewed per Wound Care. Looks a little better today but progressing slowly. Results & Data ([facility]) Vital Signs (Past 12 Hours) Vital Signs Temp Pulse Pulse Resp BP Pulse Ox 09/18/19 16:00 36.9 C 98 H 18 172/89 H 94 09/18/19 15:00 88 09/18/19 11:15 36.9 C 84 16 163/76 H 95 09/18/19 10:54 83 09/18/19 07:18 36.6 C 105 H 16 146/77 H 94
[2019-09-18] MEDS: INSULIN GLARGINE SOLOSTAR 100 UNITS/ML 3 ML PEN SQ SCH (21:06)
[2019-09-18] MEDS: DAPTOmycin 325 MG in SYRINGE 0 ML IV SCH (21:10)
[2019-09-19] MEDS: ALPRAZolam 0.5 MG TABLET PO PRN
[2019-09-19] MEDS: HEPARIN SOD 5,000 UNIT/0.5 ML VIAL SQ SCH (05:21)
[2019-09-19] MEDS: LEVOTHYROXINE SODIUM 88 MCG TABLET PO SCH (06:08)
[2019-09-19 06:48] LABS: Basophils # (auto) 0.02 K/uL (0-0.2); Basophils % (auto) 0.3 %; Eosinophils % (auto) 2.7 %; Hematocrit (blood only) 27.7 % (37-47); Immature Granulocytes # (auto) 0.01 K/uL (0.00-0.02); Immature Granulocytes % (auto) 0.1 %; Lymphocytes # (auto) 1.81 K/uL (1.2-3.4); Lymphocytes % (auto) 24.7 %; Mean Corpuscular Hemoglobin 29.6 pg (25-34); Mean Corpuscular Hgb Conc 32.5 g/dL (32-36); Mean Corpuscular Volume 91.1 fL (80-100); Mean Platelet Volume 9.9 fL (7.4-10.4); Monocytes # (auto) 0.49 K/uL (0.11-0.59); Monocytes % (auto) 6.7 %; Neutrophils # (auto) 4.81 K/uL (1.4-6.5); Neutrophils % (auto) 65.5 %; Platelet Count 260 K/uL (130-400); RDW Coefficient of Variation 12.3 % (11.5-14.5); RDW Standard Deviation 41.2 fL (36.4-46.3); Red Blood Count 3.04 M/uL (4.2-5.4); White Blood Count 7.34 K/uL (4.8-10.8)
[2019-09-19 07:20] LABS: BUN Creatinine Ratio 23.8 (10-20); Calcium 7.8 mg/dl (8.5-10.1); Creatinine Clr Calc Pharmacy 67.3 ml/min; Est GFR (African American) 62.6; Potassium 4.3 mmol/L (3.5-5.1)
[2019-09-19] MEDS ORDERED: INSULIN ASPART 100 UNITS/ML 3 ML PEN SC SCH (07:30)
[2019-09-19] MEDS ORDERED: Nursing to Pharmacy Communication SCH ×2 (07:30→11:45)
--- NOTE | 2019-09-19 08:44 | Hospitalist Progress Note ---
Date of Service September 19, 2019 Assessment & Plan (1) Wound of right foot: Sepsis without septic shock, with ROLANDO secondary to diabetic foot wound/deep abscess, now status post I&D Pt is 64F with DM II, neuropathy, HTN, dyslipidemia, hypothyroidism, PTSD, ADD, h/o gastric bypass, fatty liver, h/o necrotizing fasciitis, h/o transmetatarsal amputation left foot presented to ER with c/o right foot wound x 4 days. Pt states 4 days ago she thinks she may have stepped on something and reports small blister that has enlarged with surrounding erythema. On Bactrim for 3 days without improvement. Denies known fever/chills, N/V. In ER T: 37.6C, P: 66-102, BP: 143/83, 97% on RA. WBC: 21K, Hgb: 10.5 (baseline ~10), Lactate: 1.7, Procalcitonin: 1.7 Right foot xray: No acute bony abnormality is identified. Soft tissue edema and suspect ulceration along the plantar aspect of the hindfoot. Question a small linear foreign body projecting over the third proximal phalanx. seen on the 02/20/2014 Pt appeared septic on admission with significantly elevated white blood cell count, tachycardia. She also reported fever, T-max in the ER 37.6 C. Patient continues to be tachycardic, however white blood cell count significantly decreased after broad-spectrum antibiotics started. ROLANDO now resolved. -In ER given 2L NSS, Zosyn, vancomycin -In ER blister was drained (09/15)and culture positive for Klebsiella oxytoca -Continued cefepime and added daptomycin -Blood cultures pending - wound cultx + for Klebsiella oxytoca - WBC significantly decreased since antibiotics started - [facility] ID consulted -CT foot obtained - No acute bony abnormality is identified. A cutaneous ulceration is noted in the medial hindfoot as above with evidence of cellulitis. No organized fluid collection is seen to suggest abscess. A small foreign body is seen in the plantar soft tissues of the forefoot at the level of the third proximal phalanx. -Orthopedics and wound care consulted -Patient underwent I&D with orthopedics, Dr. Barclay, today September 18, deep abscess was identified and drained at right foot/medial heel, cultures pending, patient tolerated procedure well (2) ROLANDO (acute kidney injury): BUN: 29, Cr: 1.79, GFR: 29. Baseline Cr: 1.1-1.3 -Monitor renal functions -Hold Ramipril and avoid other nephrotoxic agents when possible -Renal function normalized, creatinine 1.1 (3) Diabetes mellitus, type II: A1c: 8.7 on 09/03/2019 -Hold Jardiance, was recently started as outpt, A1c does not reflect the change -Continue basal bolus insulin -Glycemic pharmacy consult for assistance in glycemic management -Diabetic education provided (4) Hypertension: -Continue amlodipine -Hold Ramipril (5) Hypothyroidism: -Continue levothyroxine (6) PTSD (post-traumatic stress disorder): (7) ADHD (attention deficit hyperactivity disorder): -Continue duloxetine, Xanax prn, and hold methylphenidate DVT Prophylaxis -Heparin SQ Full Code as per discussion with pt Follows with Dr Swan for routine care Admission and Anticipated Discharge Date Admission Date: September 16, 2019 Subjective Patient is currently lying in bed, in no acute distress, she underwent I&D with Dr. Barclay, deep abscess was drained from right foot/medial heel area. Cultures pending. She is currently comfortable, denies any fevers, chills, chest pain, shortness of breath, abdominal pain, nausea or vomiting. Review of Systems Review of Systems: All systems reviewed & are unremarkable except as noted in HPI & below Constitutional: no fever and no chills Respiratory: no cough and no dyspnea Cardiovascular: no chest pain and no palpitations Gastrointestinal: no abdominal pain, no nausea and no vomiting Physical Exam Physical Exam: General: female pt in no distress, obese Head: normocephalic, atraumatic Eyes: conjunctiva non-injected, anicteric ENT: normal inspection external ears, nose, mucous membranes moist Neck: supple, trachea midline Lungs: clear, no respiratory distress, no wheezing/rhonchi/rales CV: RRR, no murmur, no pretibial edema Abdomen: normal BS, soft, non-tender Extremities: no calf tenderness; left foot with prior amputation at metatarsals and without erythema or edema; right foot: plantar medial aspect foot distal to calcaneus with large blister with noted erythema surrounding prior to her surgery, now right foot is covered with surgical dressings and Dave wraps. Neuro: A&O x 3, no focal deficits noted, normal affect Skin: foot as above, otherwise skin warm, dry Results & Data Results & Data ([facility]) Vital Signs (Past 12 Hours) Vital Signs Temp Pulse Pulse Resp BP BP Pulse Ox 09/19/19 07:54 36.6 C 79 16 151/67 H 93 09/19/19 04:23 92 H 09/19/19 03:10 36.6 C 84 16 164/79 H 95 09/18/19 23:18 36.7 C 94 H 16 165/77 H 96 Laboratory Results 09/19/19 09/19/19 09/19/19 Range/Units 07:25 06:37 06:37 WBC 7.34 (4.8-10.8) K/uL RBC 3.04 L (4.2-5.4) M/uL Hgb 9.0 L (12.0-16.0) g/dL Hct 27.7 L (37-47) % MCV 91.1 (80-100) fL MCH 29.6 (25-34) pg MCHC 32.5 (32-36) g/dL RDW Std Deviation 41.2 (36.4-46.3) fL RDW Coeff of Anitha 12.3 (11.5-14.5) % Plt Count 260 (130-400) K/uL MPV 9.9 (7.4-10.4) fL Immature Gran % (Auto) 0.1 % Neut % (Auto) 65.5 % Lymph % (Auto) 24.7 % Rankin % (Auto) 6.7 % Eos % (Auto) 2.7 % Baso % (Auto) 0.3 % Neut # (Auto) 4.81 (1.4-6.5) K/uL Lymph # (Auto) 1.81 (1.2-3.4) K/uL Rankin # (Auto) 0.49 (0.11-0.59) K/uL Eos # (Auto) 0.20 (0-0.5) K/uL Baso # (Auto) 0.02 (0-0.2) K/uL Immature Gran # (Auto) 0.01 (0.00-0.02) K/uL Sodium 141 (136-145) mmol/L Potassium 4.3 (3.5-5.1) mmol/L Chloride 112 H (98-107) mmol/L Carbon Dioxide 21 (21-32) mmol/L Anion Gap 8.0 (3-11) BUN 26 H (7-18) mg/dl Creatinine 1.09 (0.6-1.2) mg/dl Est Cr Clr Drug Dosing 67.3 ml/min Est GFR ( Amer) 62.6 Est GFR (Non-Af Amer) 54.0 BUN/Creatinine Ratio 23.8 H (10-20) Glucose 142 H (70-99) mg/dl POC Glucose 152 H (70-99) mg/dl Calcium 7.8 L (8.5-10.1) mg/dl 09/19/19 09/18/19 09/18/19 Range/Units 05:58 23:58 20:11 WBC (4.8-10.8) K/uL RBC (4.2-5.4) M/uL Hgb (12.0-16.0) g/dL Hct (37-47) % MCV (80-100) fL MCH (25-34) pg MCHC (32-36) g/dL RDW Std Deviation (36.4-46.3) fL RDW Coeff of Anitha (11.5-14.5) % Plt Count (130-400) K/uL MPV (7.4-10.4) fL Immature Gran % (Auto) % Neut % (Auto) % Lymph % (Auto) % Rankin % (Auto) % Eos % (Auto) % Baso % (Auto) % Neut # (Auto) (1.4-6.5) K/uL Lymph # (Auto) (1.2-3.4) K/uL Rankin # (Auto) (0.11-0.59) K/uL Eos # (Auto) (0-0.5) K/uL Baso # (Auto) (0-0.2) K/uL Immature Gran # (Auto) (0.00-0.02) K/uL Sodium (136-145) mmol/L Potassium (3.5-5.1) mmol/L Chloride (98-107) mmol/L Carbon Dioxide (21-32) mmol/L Anion Gap (3-11) BUN (7-18) mg/dl Creatinine (0.6-1.2) mg/dl Est Cr Clr Drug Dosing ml/min Est GFR ( Amer) Est GFR (Non-Af Amer) BUN/Creatinine Ratio (10-20) Glucose (70-99) mg/dl POC Glucose 158 H 154 H 196 H (70-99) mg/dl Calcium (8.5-10.1) mg/dl 09/18/19 09/18/19 Range/Units 16:15 11:28 WBC (4.8-10.8) K/uL RBC (4.2-5.4) M/uL Hgb (12.0-16.0) g/dL Hct (37-47) % MCV (80-100) fL MCH (25-34) pg MCHC (32-36) g/dL RDW Std Deviation (36.4-46.3) fL RDW Coeff of Anitha (11.5-14.5) % Plt Count (130-400) K/uL MPV (7.4-10.4) fL Immature Gran % (Auto) % Neut % (Auto) % Lymph % (Auto) % Rankin % (Auto) % Eos % (Auto) % Baso % (Auto) % Neut # (Auto) (1.4-6.5) K/uL Lymph # (Auto) (1.2-3.4) K/uL Rankin # (Auto) (0.11-0.59) K/uL Eos # (Auto) (0-0.5) K/uL Baso # (Auto) (0-0.2) K/uL Immature Gran # (Auto) (0.00-0.02) K/uL Sodium (136-145) mmol/L Potassium (3.5-5.1) mmol/L Chloride (98-107) mmol/L Carbon Dioxide (21-32) mmol/L Anion Gap (3-11) BUN (7-18) mg/dl Creatinine (0.6-1.2) mg/dl Est Cr Clr Drug Dosing ml/min Est GFR ( Amer) Est GFR (Non-Af Amer) BUN/Creatinine Ratio (10-20) Glucose (70-99) mg/dl POC Glucose 133 H 131 H (70-99) mg/dl Calcium (8.5-10.1) mg/dl Medications Administered Current Inpatient Medications Acetaminophen (Acetaminophen 325 Mg Tab) 650 mg PO Q4H PRN PRN Reason: Pain or Fever Stop: 10/16/19 17:08 Last Admin: 09/17/19 16:07 Dose: 650 mg Documented by: Al Hydrox/Mg Hydrox/Simethicone (Maalox) 15 ml PO Q4H PRN PRN Reason: Dyspepsia Stop: 10/16/19 17:08 Alprazolam (Xanax) 1 mg PO BID PRN PRN Reason: Anxiety Stop: 10/16/19 19:49 Last Admin: 09/19/19 00:00 Dose: 1 mg Documented by: Amlodipine Besylate (Norvasc) 5 mg PO QAM [facility] Stop: 10/17/19 08:59 Last Admin: 09/18/19 08:44 Dose: 5 mg Documented by: Dextrose (Dextrose 50%) 25 - 50 ml IV UD PRN; Protocol PRN Reason: Hypoglycemia Protocol Stop: 10/16/19 19:49 Dulox[facility] ([facility]alta) [facility] Stop: 10/17/19 08:59 Last Admin: 09/18/19 08:44 Dose: 60 mg Documented by: Glucagon (Glucagen) 1 mg SQ UD PRN; Protocol PRN Reason: Hypoglycemia Protocol Stop: 10/16/19 19:49 Glucose (Dex4 Glucose) 4 - 8 tabs PO UD PRN; Protocol PRN Reason: Hypoglycemia Protocol Stop: 10/16/19 19:49 Glucose (Glucose 40%) 15 - 30 gm PO UD PRN; Protocol PRN Reason: Hypoglycemia Protocol Stop: 10/16/19 19:49 Heparin Sodium (Porcine) (Heparin Sodium (Porcine)) 5,000 units SQ Q8 [facility]AVINDRA Stop: 10/16/19 21:59 Last Admin: 09/19/19 05:21 Dose: Not Given Documented by: Daptomycin 325 mg/ Syringe 6.5 mls @ 2.75 mls/min IV Q24H RAVINDRA; Protocol Stop: 09/23/19 20:59 Last Admin: 09/18/19 21:10 Dose: 2.75 mls/min Documented by: Cefepime HCl 1,000 mg/ Syringe 11.3 mls @ 5.5 mls/min IV Q12H RAVINDRA; Protocol Stop: 09/23/19 20:59 Last Admin: 09/18/19 23:55 Dose: 5.5 mls/min Documented by: Insulin Aspart (Insulin Aspart 100 Units/Ml 3 Ml Pen) 0 units SC Q6 [facility]; Protocol Stop: 10/19/19 07:29 Insulin Glargine (Insulin Glargine Solostar 100 Units/Ml 3 Ml Pen) 0 units SQ HS [facility]; Protocol Stop: 10/17/19 20:59 Last Admin: 09/18/19 21:06 Dose: 30 units Documented by: Levothyroxine Sodium (Synthroid) 88 mcg PO DAILYBB [facility] Stop: 10/17/19 06:29 Last Admin: 09/19/19 06:08 Dose: 88 mcg Documented by: Magnesium Hydroxide (Milk Of Magnesia) 30 ml PO Q12H PRN PRN Reason: Constipation Stop: 10/16/19 17:08 Miscellaneous (Carbohydrates For Hypoglycemia) 15 - 30 gm PO UD PRN PRN Reason: Hypoglycemia Protocol Stop: 10/16/19 19:49 Miscellaneous Information (Consult Glycemic Management Pharmacy) 1 ea N/A UD PRN PRN Reason: Consult Stop: 10/16/19 18:11 Miscellaneous Information (Consult) 1 ea N/A UD PRN PRN Reason: Consult Stop: 10/16/19 19:49 Ondansetron HCl (Zofran) 4 mg IV Q6H PRN PRN Reason: Nausea Stop: 10/16/19 17:08 Polyethylene Glycol (Miralax Powder Packet) 17 gm PO DAILY PRN PRN Reason: Constipation Stop: 10/16/19 17:08 Saccharomyces Boulardii (Saccharomyces Boulardii 250 Mg Cap) 250 mg PO DAILY [facility] Stop: 10/18/19 09:44 Last Admin: 09/18/19 12:50 Dose: 250 mg Documented by:
[2019-09-19] MEDS: SACCHAROMYCES BOULARDII 250 MG CAP PO SCH (08:52)
[2019-09-19] MEDS: AMLODIPINE BESYLATE 5 MG TAB PO SCH (08:52)
[2019-09-19] MEDS: DULOXETINE HCL 60 MG CAP PO SCH (08:52)
[2019-09-19] MEDS ORDERED: LIDOCAINE HCL 2% 2 ML VIAL/AMP(20MG/ML) INFIL ONE (08:54)
[2019-09-19] MEDS ORDERED: ePHEDrine sulfate 50 MG/ML SYR ONE (08:54)
[2019-09-19] MEDS ORDERED: PROPOFOL IV EMULSION 10 MG/ML 20 ML VIAL IV ONE ×2 (08:54→10:02)
[2019-09-19] MEDS ORDERED: PHENYLEPHRINE 100MCG/ML 5ML SYR ONE (08:54)
[2019-09-19] MEDS ORDERED: BACITRACIN INJ 50,000 UNIT VIAL ONE (08:55)
[2019-09-19] MEDS ORDERED: MIDAZOLAM HCL 1 MG/ML 2ML VIAL ONE (08:55)
[2019-09-19] MEDS ORDERED: fentaNYL citrate 100 MCG/2 ML VIAL ONE (08:55)
--- NOTE | 2019-09-19 08:58 | Anesthesiology Consultation ---
Date of Service September 19, 2019 Assessment & Plan (1) Encounter for pre-operative examination: Chart Review Chart Review: Acceptable Risk for Surgery History Surgery Operation Date: 09/19/19 09:30 Proposed Procedures p Incision and Drainage Extremity - Olman Barclay DO Height/Weight Height: 5 ft 9 in Weight: 102.3 kg Allergies Allergy/AdvReac Type Severity Reaction Status Date / Time lamotrigine [From Lamictal] Allergy Unknown Rash Verified 09/16/19 16:05 peach Allergy Hives Verified 09/17/19 11:41 Medications Home Medications Medication Instructions Recorded Confirmed Last Taken alprazolam 1 mg PO BID PRN 09/16/19 09/16/19 Unknown amlodipine 5 mg PO QAM 09/16/19 09/16/19 09/16/19 diazepam 5 mg PO Q8H PRN 09/16/19 09/16/19 Unknown duloxetine 60 mg PO QAM 09/16/19 09/16/19 Unknown empagliflozin [Jardiance] 25 mg PO QPM 09/16/19 09/16/19 Unknown ergocalciferol (vitamin D2) 50,000 unit PO WK 09/16/19 09/16/19 Unknown insulin aspart U-100 [Novolog See Rx Instructions .ROUTE .COMPLEX 09/16/19 09/16/19 Unknown Flexpen U-100 Insulin] insulin glargine [Basaglar KwikPen 20 unit SUBCUT HS 09/16/19 Unknown U-100 Insulin] levothyroxine 88 mcg PO QAM 09/16/19 09/16/19 Unknown methylphenidate HCl 40 mg PO DAILY 09/16/19 09/16/19 Unknown ramipril 10 mg PO QAM 09/16/19 09/16/19 09/16/19 sulfamethoxazole-trimethoprim 1 tab PO BID 09/16/19 09/16/19 Unknown Victoza 3-Corky 1.8 mg SC HS 09/17/19 09/17/19 Unknown Active Medications Generic Name Dose Route Start Last Admin Trade Name Freq PRN Reason Stop Dose Admin Acetaminophen 650 mg 09/16/19 17:09 09/17/19 16:07 Acetaminophen 325 Mg Tab PO 10/16/19 17:08 650 mg Q4H PRN Administration Pain or Fever Alprazolam 1 mg 09/16/19 19:50 09/19/19 00:00 Xanax PO 10/16/19 19:49 1 mg BID PRN Administration Anxiety Amlodipine Besylate 5 mg 09/17/19 09:00 09/19/19 08:52 Norvasc PO 10/17/19 08:59 5 mg QAM RAVINDRA Administration Duloxetine HCl 60 mg 09/17/19 09:00 09/19/19 08:52 Cymbalta PO 10/17/19 08:59 60 mg QAM RAVINDRA Administration Heparin Sodium (Porcine) 5,000 units 09/16/19 22:00 09/19/19 05:21 Heparin Sodium (Porcine) SQ 10/16/19 21:59 Not Given Q8 RAVINDRA Daptomycin 325 mg/ Syringe 6.5 mls @ 2.75 mls/min 09/17/19 21:00 09/18/19 21:10 IV 09/23/19 20:59 2.75 mls/min Q24H RAVINDRA Administration Protocol Cefepime HCl 1,000 mg/ Syringe 11.3 mls @ 5.5 mls/min 09/18/19 11:30 09/18/19 23:55 IV 09/23/19 20:59 5.5 mls/min Q12H RAVINDRA Administration Protocol Insulin Aspart 0 units 09/19/19 07:30 09/19/19 08:41 Insulin Aspart 100 Units/Ml 3 Ml Pen SC 10/19/19 07:29 1 units Q6 RAVINDRA Administration Protocol Insulin Glargine 0 units 09/17/19 21:00 09/18/19 21:06 Insulin Glargine Solostar 100 Units/Ml 3 Ml Pen SQ 10/17/19 20:59 30 units HS RAVINDRA Administration Protocol Levothyroxine Sodium 88 mcg 09/17/19 06:30 09/19/19 06:08 Synthroid PO 10/17/19 06:29 88 mcg DAILYBB RAVINDRA Administration Saccharomyces Boulardii 250 mg 09/18/19 09:45 09/19/19 08:52 Saccharomyces Boulardii 250 Mg Cap PO 10/18/19 09:44 250 mg DAILY RAVINDRA Administration NPO Date Last Intake of Fluids: 09/19/19 Time Last Intake of Fluids: 06:05 Last Intake of Fluids Comment: synthroid with sip of water Date Last Intake of Solids: 09/18/19 Time Last Intake of Solids: 18:00 Last Intake of Solids Comment: dinner Past Medical History Medical History (Updated 09/19/19 @ 08:58 by Samir Portillo MD) ADHD (attention deficit hyperactivity disorder) Anemia Bipolar disorder Depression Diabetes mellitus, type II Diabetic ulcer of left foot Dyslipidemia History of necrotising fasciitis Hypertension Hypothyroidism Obesity PTSD (post-traumatic stress disorder) Past Family History Family History Other Diabetes Hypertension Past Surgical History Surgical History H/O gastric bypass History of amputation of left foot through metatarsal bone History of cholecystectomy S/P cervical spinal fusion Social History Smoking Status: Never smoker Hx Alcohol Use: No Hx Substance Use: No Physical Exam Vital Signs Last Vital Signs Temp 36.6 C 09/19/19 07:54 Pulse 79 09/19/19 07:54 Resp 16 09/19/19 07:54 BP 151/67 H 09/19/19 07:54 Pulse Ox 93 09/19/19 07:54 Testing Laboratory Results 09/19/19 06:37 09/19/19 06:37 PT 10.0 Seconds (9.0-12.0) 09/16/19 16:01 INR 0.9 (0.9-1.1) 09/16/19 16:01 APTT 30.7 Seconds (21.0-31.0) 09/16/19 16:01 Hemoglobin A1c 8.6 % (4.5-5.6) H 09/17/19 06:08 Urine Color Yellow 09/17/19 Unknown Urine Appearance Clear (Clear) 09/17/19 Unknown Urine pH 5.0 (4.5-7.5) 09/17/19 Unknown Ur Specific Mcgrew 1.019 (1.000-1.030) 09/17/19 Unknown Urine Protein 2+ (Negative) H 09/17/19 Unknown Urine Glucose (UA) 3+ (Negative) H 09/17/19 Unknown Urine Ketones Negative (Negative) 09/17/19 Unknown Urine Nitrite Negative (Negative) 09/17/19 Unknown Ur Leukocyte Esterase Negative (Negative) 09/17/19 Unknown Urine WBC (Auto) 0 /hpf (0-5) 09/17/19 Unknown Urine RBC (Auto) 0-4 /hpf (0-4) 09/17/19 Unknown U Hyaline Cast (Auto) 0 /lpf (0-5) 09/17/19 Unknown U Epithel Cells (Auto) 5-10 /lpf (0-5) H 09/17/19 Unknown Urine Bacteria (Auto) Negative (Negative) 09/17/19 Unknown 09/16/19 16:17 Aerobic Blood Culture - Preliminary Blood No growth in Aerobic bottle after 48 hours. Anaerobic Blood Culture - Preliminary No growth in Anaerobic bottle after 48 hours. 09/16/19 16:01 Aerobic Blood Culture - Preliminary Blood No growth in Aerobic bottle after 48 hours. Anaerobic Blood Culture - Final 09/16/19 15:38 Gram Stain - Final Foot,Right Deep Wound Culture - Preliminary Klebsiella oxytoca 09/19/19 09/19/19 09/18/19 07:25 05:58 23:58 POC Glucose 152 H 158 H 154 H Electrocardiogram Date: 09/16/19 Findings: + NSR @ (94)
--- NOTE | 2019-09-19 09:27 | History & Physical Bridge Note ---
Date of Service September 19, 2019 History & Physical Bridge Note I have examined the patient, reviewed the History & Physical and in the interval since the performance of the History & Physical I have noted the following changes of clinical significance: Will require right medial heel incision and drainage of abscess with irrigation and debridement of necrotic tissue diabetic neuropathic 6 cm diameter ulcer.
[2019-09-19] MEDS ORDERED: ATROPINE SULFATE 0.1 MG/ML 10ML SYR IV PRN (09:30)
[2019-09-19] MEDS ORDERED: ONDANSETRON INJ 2 MG/ML 2 ML VIAL IV PRN (09:30)
[2019-09-19] MEDS ORDERED: fentaNYL citrate 100 MCG/2 ML VIAL IV PRN (09:30)
[2019-09-19] MEDS ORDERED: ROPIVACAINE 0.5% 5 MG/ML 30 ML VIAL ONE (09:52)
[2019-09-19] MEDS ORDERED: SODIUM CHLORIDE 0.9% INJ 10 ML VIAL ONE (09:52)
[2019-09-19] MEDS ORDERED: BACITRACIN INJ 50,000 UNIT VIAL IR ONE (10:37)
--- NOTE | 2019-09-19 10:37 | Post Operative Brief Note ---
Immediate Post Op Note v1 Date of Surgery September 19, 2019 Pre & Post Diagnosis Operation Date: 09/19/19 09:30 Pre-Op Diagnosis: 9x5 cm diabetic right foot medial heel diabetic neuropathic ulcer, deep abscess right heel Post-Op Diagnosis: 9x5 cm diabetic right foot medial heel diabetic neuropathic ulcer, deep abscess right heel I identified the patient and participated in the time-out.: Yes Procedure Operation Date: 09/19/19 09:30 Actual Procedures p Incision and Drainage Right Heel deep abscess(Right), irrigation and debridement 8.5 cm x 5 cm diabetic neuropathic ulceration, debridement skin/subcutaneous tissue/and fascia right heel- Olman Barclay DO Surgeon Olman Barclay DO Sample Patternmaker Salvador Mayfield PA-C Estimated Blood Loss 2 Findings Consistent with Post-Op Diagnosis Specimens Aerobic anaerobic Gram stain deep right heel abscess; tissue for culture right heel diabetic neuropathic ulcer Drains Other (1/2 inch iodoform gauze packing) Anesthesia Type MAC Regional Complications none Disposition Accompanied Patient To Recovery: No Disposition: Recovery Room Overlapping Procedure I was present for: the critical portions of procedure. I was immediately available: during the entire case.
--- NOTE | 2019-09-19 11:14 | Anesthesiology Progress Note ---
Date of Service September 19, 2019 Anesthesia Post Procedure Vital Signs Vital Signs: Temp Pulse Pulse Pulse Resp BP BP 09/19/19 11:10 86 16 158/63 H 09/19/19 11:00 75 16 143/84 H 09/19/19 10:50 82 16 155/83 H 09/19/19 10:44 37.1 C 78 16 143/83 H 09/19/19 09:12 36.6 C 77 18 174/87 H 09/19/19 07:54 36.6 C 79 16 151/67 H 09/19/19 04:23 92 H 09/19/19 03:10 36.6 C 84 16 164/79 H 09/18/19 23:18 36.7 C 94 H 16 165/77 H 09/18/19 19:46 36.9 C 85 18 177/78 H 09/18/19 16:00 36.9 C 98 H 18 172/89 H 09/18/19 15:00 88 09/18/19 11:15 36.9 C 84 16 163/76 H Pulse Ox 09/19/19 11:10 100 09/19/19 11:00 100 09/19/19 10:50 100 09/19/19 10:44 100 09/19/19 09:12 97 09/19/19 07:54 93 09/19/19 04:23 09/19/19 03:10 95 09/18/19 23:18 96 09/18/19 19:46 92 09/18/19 16:00 94 09/18/19 15:00 09/18/19 11:15 95 Pain Intensity Right Foot: Pain Intensity: 3 Transfer of Care Handoff Completed per policy Notes Mental Status: alert / awake / arousable Patient Amnestic to Procedure: Yes Nausea / Vomiting: adequately controlled Pain: adequately controlled Airway Patency, RR, SpO2: stable & adequate BP & HR: stable & adequate Hydration State: stable & adequate Anesthetic Complications: no major complications apparent
[2019-09-19] MEDS: CEFEPIME 1,000 MG in SYRINGE 0 ML IV SCH ×2 (11:53→23:52)
--- NOTE | 2019-09-19 12:04 | Operative Report (OR) ---
DATE OF OPERATION: 09/19/2019 PREOPERATIVE DIAGNOSES: 1. Right heel deep abscess. 2. An 8.5 cm x 5.0 cm diabetic/neuropathic ulceration medial plantar heel. POSTOPERATIVE DIAGNOSES: 1. Right heel deep abscess. 2. An 8.5 cm x 5.0 cm diabetic/neuropathic ulceration medial plantar heel. PROCEDURES PERFORMED: 1. Incision and drainage of right deep heel abscess. 2. Irrigation and debridement of 8.5 cm x 5.0 cm diabetic neuropathic ulcer, plantar medial heel. 3. Debridement of skin/subcutaneous tissue and fascia of right heel. SURGEON: Olman Barclay DO. HEATER ROOM HELPER: Salvador Mayfield PA-C who was present for patient positioning, sterile prep and drape, management of retractors and instruments. He was present through the critical portions of the case including wound closure, application of sterile dressing and transport of the patient to recovery. ANESTHESIA: MAC regional. SPECIMENS: 1. Aerobic, anaerobic, Gram stain, deep abscess of right heel. 2. Tissue for culture 8.5 cm x 5 cm diabetic neuropathic ulcer. DRAINS: 1/2 inch iodoform gauze packing. COMPLICATIONS: None. BLOOD LOSS: 2 mL. PERTINENT HISTORY: This is a 64-year-old woman who has diabetes and neuropathy, bilateral lower extremities. She had prior surgery on her left lower extremity with multiple toe resections due to infection. She presented for care related to heel pain, swelling, and redness of the right lower extremity. She believes that she may have stepped on something; however, is unsure. Her right foot had been bothering her for approximately 4 days prior to admission. She had a small blister that enlarged with surrounding erythema. She tried oral Bactrim and failed, and she was admitted to the hospital for IV antibiotics and then orthopedic consultation. The patient was seen and examined and noted to have a large diabetic neuropathic ulcer with undermining and an associated abscess. The patient was then scheduled for surgery as indicated. All potential risks, benefits, complications, alternatives, rehab potential for incomplete relief of symptoms, need for further surgery, DVT, PE, , persistent pain, swelling, scarring, weakness, neurovascular injury, wound complications, need for further amputation or surgery were discussed with the patient. The patient decided to proceed with the procedure as indicated. DESCRIPTION OF PROCEDURE: The patient was taken to the operative suite, placed supine on the table; this is after a regional block had been administered. She was sedated and tourniquet was placed high on the right thigh over cast padding. Right lower extremity was then sterilely prepped and draped in usual fashion, elevated and partially exsanguinated from the distal calf proximally and tourniquet was inflated to 350 mmHg. Full exsanguination was not performed due to the nature of the infection. Next, after a surgical timeout was performed, a #15 blade scalpel was used to make an incision on the soft tissue flap overlying the ulceration. This was debrided carefully involving the skin and the subcutaneous tissue. There is a caseative necrosis noted underneath the epidermis at the dermal layer and this was then cultured for aerobic, anaerobic, Gram stain. The tissue flap was then also sent for tissue culture. After the ulcer was completely unroofed, it measured 8.5 cm x 5 cm in diameter. This was then debrided until a more healthy-appearing tissue. There were several ulcerations that went deep and a central abscess over the heel. This was then cleansed with pulsatile lavage and then once this was cleaned, incision was made in the abscess, there was noted to be abscess fluid. This was cultured at the tuberosity of the calcaneus. A deep abscess extending down to the layer of the subcutaneous tissue adjacent to the periosteum. However, there is no periosteal disruption noted after examination with retractors. Manual palpation was also performed. There was no breakdown of the periosteum which was palpable. Next, the subcutaneous tissue, the skin, and the fascia of the right heel was then debrided with a curette and a rongeur and then using a house retractors, pulsatile lavage 3 liters with bacitracin was then used to irrigate the abscess pocket. The abscess pocket was then packed with 1/2 inch iodoform gauze, new top gloves and top sheet were applied and then the simple stitches were placed superior and inferior to the abscess site to reapproximate the tissue loosely, yet to encourage drainage as necessary. A sterile compressive dressing was applied overwrapped with an Dave wrap. Tourniquet was released. The patient was awakened and taken to recovery in stable condition. I attest to the content of the Intraoperative Record and any orders documented therein. Any exceptions are noted below. AJAY
[2019-09-19] MEDS: INSULIN ASPART 100 UNITS/ML 3 ML PEN SC SCH ×3 (12:25→21:35)
[2019-09-19] MEDS: INSULIN GLARGINE SOLOSTAR 100 UNITS/ML 3 ML PEN SQ SCH (21:34)
[2019-09-19] MEDS: DAPTOmycin 325 MG in SYRINGE 0 ML IV SCH (21:42)
[2019-09-20 06:06] LABS: Hematocrit (blood only) 29.5 % (37-47); Hemoglobin 9.4 g/dL (12.0-16.0); Mean Corpuscular Hemoglobin 29.9 pg (25-34); Mean Corpuscular Hgb Conc 31.9 g/dL (32-36); Mean Corpuscular Volume 93.9 fL (80-100); Mean Platelet Volume 9.5 fL (7.4-10.4); Platelet Count 328 K/uL (130-400); RDW Coefficient of Variation 12.4 % (11.5-14.5); RDW Standard Deviation 41.8 fL (36.4-46.3); Red Blood Count 3.14 M/uL (4.2-5.4); White Blood Count 8.39 K/uL (4.8-10.8)
[2019-09-20] MEDS: LEVOTHYROXINE SODIUM 88 MCG TABLET PO SCH (06:11)
--- NOTE | 2019-09-20 06:24 | Communication Note ---
Date of Service: September 20, 2019 Patient complaining of pruritus symptoms post cefepime administration. Stable vital signs as per RN. AP Possible Cefepime hypersensitivity Benadryl 1 dose now Add cefepime to allergy/ADR list Cipro in place of cefepime (wound CS reviewed) Will relay to AM provider.
[2019-09-20 06:31] LABS: BUN Creatinine Ratio 23.9 (10-20); Calcium 8.6 mg/dl (8.5-10.1); Creatinine Clr Calc Pharmacy 65.5 ml/min; Est GFR (African American) 60.5; Est GFR (Non-African American) 52.2; Magnesium 2.2 mg/dl (1.8-2.4); Potassium 4.4 mmol/L (3.5-5.1)
[2019-09-20 06:32] LABS: Phosphorus 3.6 mg/dl (2.5-4.9)
[2019-09-20] MEDS ORDERED: CIPROFLOXACIN CONSULT ACTIVE PRN (06:34)
[2019-09-20] MEDS: CIPROFLOXACIN / D5W 400 MG/200 ML BAG IV SCH ×2 (07:49→19:58)
[2019-09-20] MEDS: AMLODIPINE BESYLATE 5 MG TAB PO SCH (07:55)
[2019-09-20] MEDS: DULOXETINE HCL 60 MG CAP PO SCH (07:55)
[2019-09-20] MEDS: SACCHAROMYCES BOULARDII 250 MG CAP PO SCH (07:55)
--- NOTE | 2019-09-20 08:29 | Hospitalist Progress Note ---
Date of Service September 20, 2019 Assessment & Plan (1) Wound of right foot: Sepsis without septic shock, with ROLANDO secondary to diabetic foot wound/deep abscess, now status post I&D Pt is 64F with DM II, neuropathy, HTN, dyslipidemia, hypothyroidism, PTSD, ADD, h/o gastric bypass, fatty liver, h/o necrotizing fasciitis, h/o transmetatarsal amputation left foot presented to ER with c/o right foot wound x 4 days. Pt states 4 days ago she thinks she may have stepped on something and reports small blister that has enlarged with surrounding erythema. On Bactrim for 3 days without improvement. Denies known fever/chills, N/V. In ER T: 37.6C, P: 66-102, BP: 143/83, 97% on RA. WBC: 21K, Hgb: 10.5 (baseline ~10), Lactate: 1.7, Procalcitonin: 1.7 Right foot xray: No acute bony abnormality is identified. Soft tissue edema and suspect ulceration along the plantar aspect of the hindfoot. Question a small linear foreign body projecting over the third proximal phalanx. seen on the 02/20/2014 Pt appeared septic on admission with significantly elevated white blood cell count, tachycardia. She also reported fever, T-max in the ER 37.6 C. Patient continues to be tachycardic, however white blood cell count significantly decreased after broad-spectrum antibiotics started. ROLANDO now resolved. -In ER given 2L NSS, Zosyn, vancomycin -In ER blister was drained (09/15)and culture positive for Klebsiella oxytoca -Continued cefepime and added daptomycin -Blood cultures pending - wound cultx + for Klebsiella oxytoca - WBC significantly decreased since antibiotics started - [facility] ID consulted -CT foot obtained - No acute bony abnormality is identified. A cutaneous ulceration is noted in the medial hindfoot as above with evidence of cellulitis. No organized fluid collection is seen to suggest abscess. A small foreign body is seen in the plantar soft tissues of the forefoot at the level of the third proximal phalanx. -Orthopedics and wound care consulted -Patient underwent I&D with orthopedics, Dr. Barclay, September 18, deep abscess was identified and drained at right foot/medial heel, cultures pending, patient tolerated procedure well -She developed generalized itchiness during cefepime infusion, was switched to IV ciprofloxacin 09/19, this is inconsistent with ID recommendations, for now, cultures from the OR 09/18, yesterday pending (2) ROLANDO (acute kidney injury): BUN: 29, Cr: 1.79, GFR: 29. Baseline Cr: 1.1-1.3 -Monitor renal functions -Hold Ramipril and avoid other nephrotoxic agents when possible -Renal function normalized, creatinine 1.1 (3) Diabetes mellitus, type II: A1c: 8.7 on 09/03/2019 -Hold Jardiance, was recently started as outpt, A1c does not reflect the change -Continue basal bolus insulin -Glycemic pharmacy consult for assistance in glycemic management -Diabetic education provided (4) Hypertension: -Continue amlodipine -Hold Ramipril (5) Hypothyroidism: -Continue levothyroxine (6) PTSD (post-traumatic stress disorder): (7) ADHD (attention deficit hyperactivity disorder): -Continue duloxetine, Xanax prn, and hold methylphenidate DVT Prophylaxis -Heparin SQ Full Code as per discussion with pt Follows with Dr Swan for routine care Admission and Anticipated Discharge Date Admission Date: September 16, 2019 Subjective Overnight patient developed generalized itchiness, during cefepime infusion. She was given Benadryl by saddle mechanic, and her antibiotic was switched to ciprofloxacin, which is in consistent with ID recommendations for now. Patient underwent I&D with Dr. Barclay, yesterday, deep abscess was drained from right foot/medial heel area. Cultures pending. She is currently comfortable, denies any fevers, chills, chest pain, shortness of breath, abdominal pain, nausea or vomiting. This morning she also developed mild edema of left upper extremity, due to IV extravasation. Review of Systems Review of Systems: All systems reviewed & are unremarkable except as noted in HPI & below Constitutional: no fever and no chills Respiratory: no cough and no dyspnea Cardiovascular: no chest pain and no palpitations Gastrointestinal: no abdominal pain, no nausea and no vomiting Physical Exam Physical Exam: General: obese female pt in no distress, lying in bed, comfortable Head: normocephalic, atraumatic Eyes: conjunctiva non-injected, anicteric ENT: normal inspection external ears, nose, mucous membranes moist Neck: supple, trachea midline Lungs: clear, no respiratory distress, no wheezing/rhonchi/rales CV: RRR, no murmur, no pretibial edema Abdomen: normal BS, soft, non-tender Extremities: no calf tenderness; left foot with prior amputation at metatarsals and without erythema or edema; right foot: plantar medial aspect foot distal to calcaneus with large blister with noted erythema surrounding prior to her surgery, now right foot is covered with surgical dressings and Dave wraps. LUE: Mild edema at her forearm, due to IV extravasation Neuro: A&O x 3, speech fluent, no facial asymmetry, moves extremities spontaneously, normal affect Skin: foot as above, otherwise skin warm, dry Results & Data Results & Data ([facility]) Vital Signs (Past 12 Hours) Vital Signs Temp Pulse Pulse Resp BP Pulse Ox 09/20/19 07:59 36.5 C 85 18 178/76 H 95 09/20/19 04:00 36.9 C 81 20 152/76 H 95 09/20/19 00:25 36.9 C 86 20 158/77 H 97 09/19/19 22:55 89 Laboratory Results 09/20/19 09/20/19 09/20/19 Range/Units 07:29 05:40 05:40 WBC 8.39 (4.8-10.8) K/uL RBC 3.14 L (4.2-5.4) M/uL Hgb 9.4 L (12.0-16.0) g/dL Hct 29.5 L (37-47) % MCV 93.9 (80-100) fL MCH 29.9 (25-34) pg MCHC 31.9 L (32-36) g/dL RDW Std Deviation 41.8 (36.4-46.3) fL RDW Coeff of Anitha 12.4 (11.5-14.5) % Plt Count 328 (130-400) K/uL MPV 9.5 (7.4-10.4) fL Sodium 140 (136-145) mmol/L Potassium 4.4 (3.5-5.1) mmol/L Chloride 107 (98-107) mmol/L Carbon Dioxide 31 (21-32) mmol/L Anion Gap 3.0 (3-11) BUN 27 H (7-18) mg/dl Creatinine 1.12 (0.6-1.2) mg/dl Est Cr Clr Drug Dosing 65.5 ml/min Est GFR ( Amer) 60.5 Est GFR (Non-Af Amer) 52.2 BUN/Creatinine Ratio 23.9 H (10-20) Glucose 123 H (70-99) mg/dl POC Glucose 130 H (70-99) mg/dl Calcium 8.6 (8.5-10.1) mg/dl Phosphorus 3.6 (2.5-4.9) mg/dl Magnesium 2.2 (1.8-2.4) mg/dl 09/19/19 09/19/19 09/19/19 Range/Units 20:26 17:17 11:50 WBC (4.8-10.8) K/uL RBC (4.2-5.4) M/uL Hgb (12.0-16.0) g/dL Hct (37-47) % MCV (80-100) fL MCH (25-34) pg MCHC (32-36) g/dL RDW Std Deviation (36.4-46.3) fL RDW Coeff of Anitha (11.5-14.5) % Plt Count (130-400) K/uL MPV (7.4-10.4) fL Sodium (136-145) mmol/L Potassium (3.5-5.1) mmol/L Chloride (98-107) mmol/L Carbon Dioxide (21-32) mmol/L Anion Gap (3-11) BUN (7-18) mg/dl Creatinine (0.6-1.2) mg/dl Est Cr Clr Drug Dosing ml/min Est GFR ( Amer) Est GFR (Non-Af Amer) BUN/Creatinine Ratio (10-20) Glucose (70-99) mg/dl POC Glucose 184 H 147 H 160 H (70-99) mg/dl Calcium (8.5-10.1) mg/dl Phosphorus (2.5-4.9) mg/dl Magnesium (1.8-2.4) mg/dl 09/19/19 Range/Units 10:50 WBC (4.8-10.8) K/uL RBC (4.2-5.4) M/uL Hgb (12.0-16.0) g/dL Hct (37-47) % MCV (80-100) fL MCH (25-34) pg MCHC (32-36) g/dL RDW Std Deviation (36.4-46.3) fL RDW Coeff of Anitha (11.5-14.5) % Plt Count (130-400) K/uL MPV (7.4-10.4) fL Sodium (136-145) mmol/L Potassium (3.5-5.1) mmol/L Chloride (98-107) mmol/L Carbon Dioxide (21-32) mmol/L Anion Gap (3-11) BUN (7-18) mg/dl Creatinine (0.6-1.2) mg/dl Est Cr Clr Drug Dosing ml/min Est GFR ( Amer) Est GFR (Non-Af Amer) BUN/Creatinine Ratio (10-20) Glucose (70-99) mg/dl POC Glucose 163 H (70-99) mg/dl Calcium (8.5-10.1) mg/dl Phosphorus (2.5-4.9) mg/dl Magnesium (1.8-2.4) mg/dl Medications Administered Current Inpatient Medications Acetaminophen (Acetaminophen 325 Mg Tab) 650 mg PO Q4H PRN PRN Reason: Pain or Fever Stop: 10/16/19 17:08 Last Admin: 09/17/19 16:07 Dose: 650 mg Documented by: Al Hydrox/Mg Hydrox/Simethicone (Maalox) 15 ml PO Q4H PRN PRN Reason: Dyspepsia Stop: 10/16/19 17:08 Alprazolam (Xanax) 1 mg PO BID PRN PRN Reason: Anxiety Stop: 10/16/19 19:49 Last Admin: 09/19/19 00:00 Dose: 1 mg Documented by: Amlodipine Besylate (Norvasc) 5 mg PO QAM [facility] Stop: 10/17/19 08:59 Last Admin: 09/20/19 07:55 Dose: 5 mg Documented by: Dextrose (Dextrose 50%) 25 - 50 ml IV UD PRN; Protocol PRN Reason: Hypoglycemia Protocol Stop: 10/16/19 19:49 Dulox[facility] ([facility]) [facility] [place] Stop: 10/17/19 08:59 Last Admin: 09/20/19 07:55 Dose: 60 mg Documented by: Glucagon (Glucagen) 1 mg SQ UD PRN; Protocol PRN Reason: Hypoglycemia Protocol Stop: 10/16/19 19:49 Glucose (Dex4 Glucose) 4 - 8 tabs PO UD PRN; Protocol PRN Reason: Hypoglycemia Protocol Stop: 10/16/19 19:49 Glucose (Glucose 40%) 15 - 30 gm PO UD PRN; Protocol PRN Reason: Hypoglycemia Protocol Stop: 10/16/19 19:49 Daptomycin 325 mg/ Syringe 6.5 mls @ 2.75 mls/min IV Q24H RAVINDRA; Protocol Stop: 09/23/19 20:59 Last Admin: 09/19/19 21:42 Dose: 2.75 mls/min Documented by: Ciprofloxacin (Cipro / D5w) 400 mg in 200 mls @ 100 mls/hr IV Q12H RAVINDRA; Protocol Stop: 09/27/19 06:59 Last Admin: 09/20/19 07:49 Dose: 100 mls/hr Documented by: Insulin Aspart (Insulin Aspart 100 Units/Ml 3 Ml Pen) 0 units SC ACHS RAVINDRA; Protocol Stop: 10/19/19 16:29 Last Admin: 09/19/19 21:35 Dose: 3 units Documented by: Insulin Glargine (Insulin Glargine Solostar 100 Units/Ml 3 Ml Pen) 0 units SQ HS RAVINDRA; Protocol Stop: 10/17/19 20:59 Last Admin: 09/19/19 21:34 Dose: 30 units Documented by: Levothyroxine Sodium (Synthroid) 88 mcg PO DAILYBB RAVINDRA Stop: 10/17/19 06:29 Last Admin: 09/20/19 06:11 Dose: 88 mcg Documented by: Magnesium Hydroxide (Milk Of Magnesia) 30 ml PO Q12H PRN PRN Reason: Constipation Stop: 10/16/19 17:08 Miscellaneous (Carbohydrates For Hypoglycemia) 15 - 30 gm PO UD PRN PRN Reason: Hypoglycemia Protocol Stop: 10/16/19 19:49 Miscellaneous Information (Consult Glycemic Management Pharmacy) 1 ea N/A UD PRN PRN Reason: Consult Stop: 10/16/19 18:11 Miscellaneous Information (Consult) 1 ea N/A UD PRN PRN Reason: Consult Stop: 10/16/19 19:49 Miscellaneous Information (Ciprofloxacin Consult Active) 1 ea N/A UD PRN PRN Reason: C Stop: 10/20/19 06:33 Ondansetron HCl (Zofran) 4 mg IV Q6H PRN PRN Reason: Nausea Stop: 10/16/19 17:08 Polyethylene Glycol (Miralax Powder Packet) 17 gm PO DAILY PRN PRN Reason: Constipation Stop: 10/16/19 17:08 Saccharomyces Boulardii (Saccharomyces Boulardii 250 Mg Cap) 250 mg PO DAILY RAVINDRA Stop: 10/18/19 09:44 Last Admin: 09/20/19 07:55 Dose: 250 mg Documented by:
[2019-09-20] MEDS: INSULIN ASPART 100 UNITS/ML 3 ML PEN SC SCH ×4 (08:48→20:32)
[2019-09-20] MEDS: ACETAMINOPHEN 325 MG TAB PO PRN (10:25)
[2019-09-20] MEDS: TRAMADOL HCL 50 MG TABLET PO PRN (10:28)
[2019-09-20] MEDS: metroNIDAZOLE 500 MG TAB PO SCH ×3 (10:52→20:09)
--- NOTE | 2019-09-20 10:54 | Orthopedic Progress Note ---
Date of Service September 20, 2019 Assessment & Plan (1) Wound of right foot: POD #1 s/p 1. Incision and drainage of right deep heel abscess. 2. Irrigation and debridement of 8.5 cm x 5.0 cm diabetic neuropathic ulcer, plantar medial heel. 3. Debridement of skin/subcutaneous tissue and fascia of right heel Dressing kept in place today. Plan for dressing change and packing pulled tomorrow. NWB RLE at all times. Awaiting cultures and sensitivities. D/C planning--uncertain. Will probably need IV antibiotic tx for 2-3 weeks upon d/c. Admission and Anticipated Discharge Date Admission Date: September 16, 2019 Subjective Doing well. Feels the ROM of the foot and ankle are improved since surgery. Foot is feeling a little painful today--going to try Ultram for the pain. No other complaints. Physical Exam Constitutional: WD/WN, vitals as above Musculoskeletal: Right foot: Dressing C/D/I. Good ROM of the right ankle and toes post operatively. Cap refill 2 seconds. Decreased sensation distally. Psychiatric: A+Ox3, euthymic affect Speech: normal rate/rhythm/volume of speech Results & Data ([facility]) Vital Signs (Past 12 Hours) Vital Signs Temp Pulse Pulse Resp BP Pulse Ox 09/20/19 07:59 36.5 C 85 18 178/76 H 95 09/20/19 04:00 36.9 C 81 20 152/76 H 95 09/20/19 00:25 36.9 C 86 20 158/77 H 97 09/19/19 22:55 89 Laboratory Results Spec: [id number] Collected: 09/19/19-1030 Received: 09/19/19-[address]: Olman BarclayDElisaO. Copy To: Gita Garcia MD Source: Foot,Right OV Order: Ordered: Aer/Karina Cult/Sm Comments: Comment #1 right heel abscess Procedure Result Verified Site Gram Stain Final 09/20/19 Gram Stain Result Few WBCs Seen Moderate Epithelial Cells Moderate Gram Positive Cocci Rare Gram Positive Bacilli
[2019-09-20] MEDS: DAPTOmycin 325 MG in SYRINGE 0 ML IV SCH (20:10)
[2019-09-20] MEDS: INSULIN GLARGINE SOLOSTAR 100 UNITS/ML 3 ML PEN SQ SCH (20:33)
[2019-09-20] MEDS ORDERED: CIPROFLOXACIN 500 MG TAB PO SCH (21:00)
[2019-09-21] MEDS: TRAMADOL HCL 50 MG TABLET PO PRN (00:29)
[2019-09-21] MEDS: LEVOTHYROXINE SODIUM 88 MCG TABLET PO SCH (05:33)
[2019-09-21] MEDS: CIPROFLOXACIN / D5W 400 MG/200 ML BAG IV SCH ×2 (06:24→18:29)
[2019-09-21 06:32] LABS: Hematocrit (blood only) 29.8 % (37-47); Hemoglobin 9.8 g/dL (12.0-16.0); Mean Corpuscular Hemoglobin 30.5 pg (25-34); Mean Corpuscular Hgb Conc 32.9 g/dL (32-36); Mean Corpuscular Volume 92.8 fL (80-100); Mean Platelet Volume 9.5 fL (7.4-10.4); Platelet Count 369 K/uL (130-400); RDW Coefficient of Variation 12.2 % (11.5-14.5); Red Blood Count 3.21 M/uL (4.2-5.4); White Blood Count 9.99 K/uL (4.8-10.8)
[2019-09-21 06:57] LABS: BUN Creatinine Ratio 25.9 (10-20); C Reactive Protein 2.19 mg/dl (0-0.29); Calcium 8.2 mg/dl (8.5-10.1); Est GFR (African American) 64.7; Est GFR (Non-African American) 55.8; Potassium 4.3 mmol/L (3.5-5.1)
[2019-09-21] MEDS: AMLODIPINE BESYLATE 5 MG TAB PO SCH (07:21)
[2019-09-21] MEDS: DULOXETINE HCL 60 MG CAP PO SCH (07:21)
[2019-09-21] MEDS: SACCHAROMYCES BOULARDII 250 MG CAP PO SCH (07:22)
[2019-09-21] MEDS: metroNIDAZOLE 500 MG TAB PO SCH (07:22)
--- NOTE | 2019-09-21 08:24 | Hospitalist Progress Note ---
Date of Service September 21, 2019 Assessment & Plan (1) Wound of right foot: Sepsis without septic shock, with ROLANDO secondary to diabetic foot wound/deep abscess, now status post I&D Pt is 64F with DM II, neuropathy, HTN, dyslipidemia, hypothyroidism, PTSD, ADD, h/o gastric bypass, fatty liver, h/o necrotizing fasciitis, h/o transmetatarsal amputation left foot presented to ER with c/o right foot wound x 4 days. Pt states 4 days ago she thinks she may have stepped on something and reports small blister that has enlarged with surrounding erythema. On Bactrim for 3 days without improvement. Denies known fever/chills, N/V. In ER T: 37.6C, P: 66-102, BP: 143/83, 97% on RA. WBC: 21K, Hgb: 10.5 (baseline ~10), Lactate: 1.7, Procalcitonin: 1.7 Right foot xray: No acute bony abnormality is identified. Soft tissue edema and suspect ulceration along the plantar aspect of the hindfoot. Question a small linear foreign body projecting over the third proximal phalanx. seen on the 02/20/2014 Pt appeared septic on admission with significantly elevated white blood cell count, tachycardia. She also reported fever, T-max in the ER 37.6 C. Patient continues to be tachycardic, however white blood cell count significantly decreased after broad-spectrum antibiotics started. ROLANDO now resolved. -In ER given 2L NSS, Zosyn, vancomycin -In ER blister was drained (09/15)and culture positive for Klebsiella oxytoca -Continued cefepime and added daptomycin -Blood cultures pending - wound cultx + for Klebsiella oxytoca and Anaerococcus prevotti, Probable robert gram neg bacilli - WBC significantly decreased since antibiotics started - [facility] ID consulted -CT foot obtained - No acute bony abnormality is identified. A cutaneous ulceration is noted in the medial hindfoot as above with evidence of cellulitis. No organized fluid collection is seen to suggest abscess. A small foreign body is seen in the plantar soft tissues of the forefoot at the level of the third proximal phalanx. -Orthopedics and wound care consulted -Patient underwent I&D with orthopedics, Dr. Barclay, September 18, deep abscess was identified and drained at right foot/medial heel, cultures pending, patient to lerated procedure well -She developed generalized itchiness during cefepime infusion, was switched to IV ciprofloxacin 09/19, this is consistent with ID recommendations, for now, cultures from the OR 09/18, pending (2) ROLANDO (acute kidney injury): BUN: 29, Cr: 1.79, GFR: 29. Baseline Cr: 1.1-1.3 -Monitor renal functions -Hold Ramipril and avoid other nephrotoxic agents when possible -Renal function normalized, creatinine 1.1 (3) Diabetes mellitus, type II: A1c: 8.7 on 09/03/2019 -Hold Jardiance, was recently started as outpt, A1c does not reflect the change -Continue basal bolus insulin -Glycemic pharmacy consult for assistance in glycemic management -Diabetic education provided (4) Hypertension: -Continue amlodipine -Hold Ramipril (5) Hypothyroidism: -Continue levothyroxine (6) PTSD (post-traumatic stress disorder): (7) ADHD (attention deficit hyperactivity disorder): -Continue duloxetine, Xanax prn, and hold methylphenidate DVT Prophylaxis -Heparin SQ Full Code as per discussion with pt Follows with Dr Swan for routine care Admission and Anticipated Discharge Date Admission Date: September 16, 2019 Subjective Patient is lying in bed, in no acute distress. No acute events overnight. Ortho PA at the bedside. Patient currently denies any fevers, chills, chest pain, shortness of breath, abdominal pain, nausea or vomiting. Review of Systems Review of Systems: All systems reviewed & are unremarkable except as noted in HPI & below Constitutional: no fever and no chills Respiratory: no cough and no dyspnea Cardiovascular: no chest pain and no palpitations Gastrointestinal: no abdominal pain, no nausea, no vomiting and no change in bowel habits Physical Exam Physical Exam: General: obese female pt in no distress, lying in bed, comfortable Head: normocephalic, atraumatic Eyes: conjunctiva non-injected, anicteric ENT: normal inspection external ears, nose, mucous membranes moist Neck: supple, trachea midline Lungs: clear, no respiratory distress, no wheezing/rhonchi/rales CV: RRR, no murmur, no pretibial edema Abdomen: normal BS, soft, non-tender Extremities: no calf tenderness; left foot with prior amputation at metatarsals and without erythema or edema; right foot: plantar medial aspect foot distal to calcaneus with large blister with noted erythema surrounding prior to her surgery, now right foot is covered with surgical dressings and Dave wraps. Neuro: A&O x 3, speech fluent, no facial asymmetry, moves extremities spontaneously, normal affect Skin: foot as above, otherwise skin warm, dry Results & Data Results & Data ([facility]) Vital Signs (Past 12 Hours) Vital Signs Temp Pulse Pulse Resp BP Pulse Ox 09/21/19 07:18 36.9 C 68 18 159/78 H 95 09/21/19 03:59 36.5 C 83 17 163/90 H 95 09/21/19 01:59 88 09/20/19 22:51 37 C 90 19 166/80 H 94 Laboratory Results 09/21/19 09/21/19 09/21/19 Range/Units 07:28 06:04 06:04 WBC (4.8-10.8) K/uL RBC (4.2-5.4) M/uL Hgb (12.0-16.0) g/dL Hct (37-47) % MCV (80-100) fL MCH (25-34) pg MCHC (32-36) g/dL RDW Std Deviation (36.4-46.3) fL RDW Coeff of Anitha (11.5-14.5) % Plt Count (130-400) K/uL MPV (7.4-10.4) fL ESR 63 H (0-21) mm/hr Sodium 142 (136-145) mmol/L Potassium 4.3 (3.5-5.1) mmol/L Chloride 108 H (98-107) mmol/L Carbon Dioxide 30 (21-32) mmol/L Anion Gap 4.0 (3-11) BUN 27 H (7-18) mg/dl Creatinine 1.06 (0.6-1.2) mg/dl Est Cr Clr Drug Dosing 69.0 ml/min Est GFR ( Amer) 64.7 Est GFR (Non-Af Amer) 55.8 BUN/Creatinine Ratio 25.9 H (10-20) Glucose 111 H (70-99) mg/dl POC Glucose 183 H (70-99) mg/dl Calcium 8.2 L (8.5-10.1) mg/dl C-Reactive Protein 2.19 H (0-0.29) mg/dl 09/21/19 09/20/19 09/20/19 Range/Units 06:04 20:19 16:43 WBC 9.99 (4.8-10.8) K/uL RBC 3.21 L (4.2-5.4) M/uL Hgb 9.8 L (12.0-16.0) g/dL Hct 29.8 L (37-47) % MCV 92.8 (80-100) fL MCH 30.5 (25-34) pg MCHC 32.9 (32-36) g/dL RDW Std Deviation 42.0 (36.4-46.3) fL RDW Coeff of Anitha 12.2 (11.5-14.5) % Plt Count 369 (130-400) K/uL MPV 9.5 (7.4-10.4) fL ESR (0-21) mm/hr Sodium (136-145) mmol/L Potassium (3.5-5.1) mmol/L Chloride (98-107) mmol/L Carbon Dioxide (21-32) mmol/L Anion Gap (3-11) BUN (7-18) mg/dl Creatinine (0.6-1.2) mg/dl Est Cr Clr Drug Dosing ml/min Est GFR ( Amer) Est GFR (Non-Af Amer) BUN/Creatinine Ratio (10-20) Glucose (70-99) mg/dl POC Glucose 153 H 103 H (70-99) mg/dl Calcium (8.5-10.1) mg/dl C-Reactive Protein (0-0.29) mg/dl 09/20/19 09/20/19 09/20/19 Range/Units 11:42 05:40 05:40 WBC (4.8-10.8) K/uL RBC (4.2-5.4) M/uL Hgb (12.0-16.0) g/dL Hct (37-47) % MCV (80-100) fL MCH (25-34) pg MCHC (32-36) g/dL RDW Std Deviation (36.4-46.3) fL RDW Coeff of Anitha (11.5-14.5) % Plt Count (130-400) K/uL MPV (7.4-10.4) fL ESR 62 H (0-21) mm/hr Sodium (136-145) mmol/L Potassium (3.5-5.1) mmol/L Chloride (98-107) mmol/L Carbon Dioxide (21-32) mmol/L Anion Gap (3-11) BUN (7-18) mg/dl Creatinine (0.6-1.2) mg/dl Est Cr Clr Drug Dosing ml/min Est GFR ( Amer) Est GFR (Non-Af Amer) BUN/Creatinine Ratio (10-20) Glucose (70-99) mg/dl POC Glucose 153 H (70-99) mg/dl Calcium (8.5-10.1) mg/dl C-Reactive Protein 2.87 H (0-0.29) mg/dl Medications Administered Current Inpatient Medications Acetaminophen (Acetaminophen 325 Mg Tab) 650 mg PO Q4H PRN PRN Reason: Pain or Fever Stop: 10/16/19 17:08 Last Admin: 09/20/19 10:25 Dose: 650 mg Documented by: Al Hydrox/Mg Hydrox/Simethicone (Maalox) 15 ml PO Q4H PRN PRN Reason: Dyspepsia Stop: 10/16/19 17:08 Alprazolam (Xanax) 1 mg PO BID PRN PRN Reason: Anxiety Stop: 10/16/19 19:49 Last Admin: 09/19/19 00:00 Dose: 1 mg Documented by: Amlodipine Besylate (Norvasc) 5 mg PO [facility] Stop: 10/17/19 08:59 Last Admin: 09/21/19 07:21 Dose: 5 mg Documented by: Dextrose (Dextrose 50%) 25 - 50 ml IV UD PRN; Protocol PRN Reason: Hypoglycemia Protocol Stop: 10/16/19 19:49 Duloxetine HCl (Cymbalta) 60 mg PO [facility] Stop: 10/17/19 08:59 Last Admin: 09/21/19 07:21 Dose: 60 mg Documented by: Glucagon (Glucagen) 1 mg SQ UD PRN; Protocol PRN Reason: Hypoglycemia Protocol Stop: 10/16/19 19:49 Glucose (Dex4 Glucose) 4 - 8 tabs PO UD PRN; Protocol PRN Reason: Hypoglycemia Protocol Stop: 10/16/19 19:49 Glucose (Glucose 40%) 15 - 30 gm PO UD PRN; Protocol PRN Reason: Hypoglycemia Protocol Stop: 10/16/19 19:49 Daptomycin 325 mg/ Syringe 6.5 mls @ 2.75 mls/min IV Q24H RAVINDRA; Protocol Stop: 09/23/19 20:59 Last Admin: 09/20/19 20:10 Dose: 2.75 mls/min Documented by: Ciprofloxacin (Cipro / D5w) 400 mg in 200 mls @ 100 mls/hr IV Q12H RAVINDRA; Protocol Stop: 09/27/19 06:59 Last Admin: 09/21/19 06:24 Dose: 100 mls/hr Documented by: Insulin Aspart (Insulin Aspart 100 Units/Ml 3 Ml Pen) 0 units SC ACHS RAVINDRA; Protocol Stop: 10/19/19 16:29 Last Admin: 09/20/19 20:32 Dose: 8 units Documented by: Insulin Glargine (Insulin Glargine Solostar 100 Units/Ml 3 Ml Pen) 0 units SQ HS RAVINDRA; Protocol Stop: 10/17/19 20:59 Last Admin: 09/20/19 20:33 Dose: 30 units Documented by: Levothyroxine Sodium (Synthroid) 88 mcg PO DAILYBB RAVINDRA Stop: 10/17/19 06:29 Last Admin: 09/21/19 05:33 Dose: 88 mcg Documented by: Magnesium Hydroxide (Milk Of Magnesia) 30 ml PO Q12H PRN PRN Reason: Constipation Stop: 10/16/19 17:08 Metronidazole (Metronidazole 500 Mg Tab) 500 mg PO TID RAVINDRA Stop: 09/27/19 10:13 Last Admin: 09/21/19 07:22 Dose: 500 mg Documented by: Miscellaneous (Carbohydrates For Hypoglycemia) 15 - 30 gm PO UD PRN PRN Reason: Hypoglycemia Protocol Stop: 10/16/19 19:49 Miscellaneous Information (Consult Glycemic Management Pharmacy) 1 ea N/A UD PRN PRN Reason: Consult Stop: 10/16/19 18:11 Miscellaneous Information (Consult) 1 ea N/A UD PRN PRN Reason: Consult Stop: 10/16/19 19:49 Miscellaneous Information (Ciprofloxacin Consult Active) 1 ea N/A UD PRN PRN Reason: C Stop: 10/20/19 06:33 Ondansetron HCl (Zofran) 4 mg IV Q6H PRN PRN Reason: Nausea Stop: 10/16/19 17:08 Polyethylene Glycol (Miralax Powder Packet) 17 gm PO DAILY PRN PRN Reason: Constipation Stop: 10/16/19 17:08 Saccharomyces Boulardii (Saccharomyces Boulardii 250 Mg Cap) 250 mg PO DAILY RAVINDRA Stop: 10/18/19 09:44 Last Admin: 09/21/19 07:22 Dose: 250 mg Documented by: Tramadol HCl (Tramadol Hcl 50 Mg Tablet) 50 mg PO Q4H PRN PRN Reason: Pain Stop: 10/20/19 10:15 Last Admin: 09/21/19 00:29 Dose: 50 mg Documented by:
[2019-09-21] MEDS: INSULIN ASPART 100 UNITS/ML 3 ML PEN SC SCH ×4 (08:52→20:52)
--- NOTE | 2019-09-21 10:58 | Orthopedic Progress Note ---
Date of Service September 21, 2019 Assessment & Plan (1) Wound of right foot: POD #2 s/p 1. Incision and drainage of right deep heel abscess. 2. Irrigation and debridement of 8.5 cm x 5.0 cm diabetic neuropathic ulcer, plantar medial heel. 3. Debridement of skin/subcutaneous tissue and fascia of right heel Dressing changed and packing pulled today. NWB RLE at all times. Awaiting cultures and sensitivities. D/C planning--uncertain. Will possibly need IV antibiotic tx for 2-3 weeks upon d/c. Awaiting intra-op cultures and sensitivities--currently re-incubating. Admission and Anticipated Discharge Date Admission Date: September 16, 2019 Subjective Doing well. Pain controlled in the foot. Has been NWB. No other complaints. Physical Exam Constitutional: WD/WN, vitals as above Musculoskeletal: Right foot: Mild erythema at the wound edges. Skin edges are healing well at the ulceration. The packing was removed centrally from the incision. No active drainage. Psychiatric: A+Ox3, euthymic affect Speech: normal rate/rhythm/volume of speech Results & Data ([facility]) Vital Signs (Past 12 Hours) Vital Signs Temp Pulse Pulse Resp BP Pulse Ox 09/21/19 07:18 36.9 C 68 18 159/78 H 95 09/21/19 03:59 36.5 C 83 17 163/90 H 95 09/21/19 01:59 88
[2019-09-21] MEDS: metroNIDAZOLE 500 MG/100 ML BAG IV SCH ×2 (14:15→21:00)
[2019-09-21] MEDS: DAPTOmycin 325 MG in SYRINGE 0 ML IV SCH (20:49)
[2019-09-21] MEDS: INSULIN GLARGINE SOLOSTAR 100 UNITS/ML 3 ML PEN SQ SCH (20:50)
[2019-09-22] MEDS: TRAMADOL HCL 50 MG TABLET PO PRN (00:08)
[2019-09-22] MEDS: ALPRAZolam 0.5 MG TABLET PO PRN (00:08)
[2019-09-22] MEDS: LEVOTHYROXINE SODIUM 88 MCG TABLET PO SCH (06:38)
[2019-09-22] MEDS: metroNIDAZOLE 500 MG/100 ML BAG IV SCH ×2 (06:38→14:09)
[2019-09-22] MEDS: CIPROFLOXACIN / D5W 400 MG/200 ML BAG IV SCH (06:38)
[2019-09-22 07:18] LABS: Hematocrit (blood only) 29.8 % (37-47); Hemoglobin 9.6 g/dL (12.0-16.0); Mean Corpuscular Hemoglobin 29.8 pg (25-34); Mean Corpuscular Hgb Conc 32.2 g/dL (32-36); Mean Corpuscular Volume 92.5 fL (80-100); Mean Platelet Volume 9.6 fL (7.4-10.4); Platelet Count 351 K/uL (130-400); RDW Coefficient of Variation 12.1 % (11.5-14.5); Red Blood Count 3.22 M/uL (4.2-5.4); White Blood Count 9.92 K/uL (4.8-10.8)
[2019-09-22 07:38] LABS: BUN Creatinine Ratio 27.7 (10-20); C Reactive Protein 1.51 mg/dl (0-0.29); Creatinine Clr Calc Pharmacy 66.3 ml/min; Est GFR (African American) 61.9; Est GFR (Non-African American) 53.4; Potassium 4.3 mmol/L (3.5-5.1)
--- NOTE | 2019-09-22 08:24 | Orthopedic Progress Note ---
Date of Service September 22, 2019 Assessment & Plan (1) Wound of right foot: POD #3 s/p 1. Incision and drainage of right deep heel abscess. 2. Irrigation and debridement of 8.5 cm x 5.0 cm diabetic neuropathic ulcer, plantar medial heel. 3. Debridement of skin/subcutaneous tissue and fascia of right heel Dressing changed and packing pulled today. NWB RLE at all times. Awaiting cultures and sensitivities--the intra-op cultures may just have skin surendra. Home antibiotic tx may need to be based on preop cultures. D/C planning--Will possibly need IV antibiotic tx for 2-3 weeks upon d/c. Ortho to sign off at this time and will follow up with the patient ~1 week after discharge. Admission and Anticipated Discharge Date Admission Date: September 16, 2019 Subjective Doing well today. No right foot complaints. Physical Exam Constitutional: WD/WN, vitals as above Musculoskeletal: Right foot: Minimal erythema at the heel. Healing ulceration. Sutures intact. Mild drainage on the dressing with dressing change from incision. No fluctuance. No purulence. Psychiatric: A+Ox3, euthymic affect Speech: normal rate/rhythm/volume of speech Results & Data ([facility]) Vital Signs (Past 12 Hours) Vital Signs Temp Pulse Resp BP Pulse Ox 09/22/19 08:15 36.5 C 74 20 163/62 H 97 09/21/19 23:23 36.8 C 83 21 176/90 H 94
--- NOTE | 2019-09-22 08:39 | Hospitalist Progress Note ---
Date of Service September 22, 2019 Assessment & Plan (1) Wound of right foot: Sepsis without septic shock, with ROLANDO secondary to diabetic foot wound/deep abscess, now status post I&D Pt is 64F with DM II, neuropathy, HTN, dyslipidemia, hypothyroidism, PTSD, ADD, h/o gastric bypass, fatty liver, h/o necrotizing fasciitis, h/o transmetatarsal amputation left foot presented to ER with c/o right foot wound x 4 days. Pt states 4 days ago she thinks she may have stepped on something and reports small blister that has enlarged with surrounding erythema. On Bactrim for 3 days without improvement. Denies known fever/chills, N/V. In ER T: 37.6C, P: 66-102, BP: 143/83, 97% on RA. WBC: 21K, Hgb: 10.5 (baseline ~10), Lactate: 1.7, Procalcitonin: 1.7 Right foot xray: No acute bony abnormality is identified. Soft tissue edema and suspect ulceration along the plantar aspect of the hindfoot. Question a small linear foreign body projecting over the third proximal phalanx. seen on the 02/20/2014 Pt appeared septic on admission with significantly elevated white blood cell count, tachycardia. She also reported fever, T-max in the ER 37.6 C. Patient continues to be tachycardic, however white blood cell count significantly decreased after broad-spectrum antibiotics started. ROLANDO now resolved. -In ER given 2L NSS, Zosyn, vancomycin -In ER blister was drained (09/15)and culture positive for Klebsiella oxytoca -Continued cefepime and added daptomycin -Blood cultures pending - wound cultx + for Klebsiella oxytoca and Anaerococcus prevotti, Prevotella disiens - WBC significantly decreased since antibiotics started - [facility] ID consulted -CT foot obtained - No acute bony abnormality is identified. A cutaneous ulceration is noted in the medial hindfoot as above with evidence of cellulitis. No organized fluid collection is seen to suggest abscess. A small foreign body is seen in the plantar soft tissues of the forefoot at the level of the third proximal phalanx. -Orthopedics and wound care consulted -Patient underwent I&D with orthopedics, Dr. Barclay, September 18, deep abscess was identified and drained at right foot/medial heel, cultures pending, patient tolerated procedure well -She developed generalized itchiness during cefepime infusion, was switched to IV ciprofloxacin 09/19, this is consistent with ID recommendations, for now, cultures from the OR 09/18, pending -Discussed with Dr. Beasley, from [facility], today 09/21, will switch patient to ertapenem, recommend 6 weeks. Patient already has ultrasound-guided IV access, which is good for 4 weeks, will need to exchange access for last 2 weeks. Concern for osteomyelitis. -Patient will need to be set up with home health, she will need follow-up with PCP and likely ID. Monitor patient's ESR and CRP weekly. (2) ROLANDO (acute kidney injury): BUN: 29, Cr: 1.79, GFR: 29. Baseline Cr: 1.1-1.3 -Monitor renal functions -Hold Ramipril and avoid other nephrotoxic agents when possible -Renal function normalized, creatinine 1.1 (3) Diabetes mellitus, type II: A1c: 8.7 % on 09/03/2019 -Hold Jardiance, was recently started as outpt, A1c does not reflect the change -Continue basal bolus insulin -Glycemic pharmacy consult for assistance in glycemic management -Diabetic education provided (4) Hypertension: -Continue amlodipine -Hold Ramipril (5) Hypothyroidism: -Continue levothyroxine (6) PTSD (post-traumatic stress disorder): (7) ADHD (attention deficit hyperactivity disorder): -Continue duloxetine, Xanax prn, and hold methylphenidate DVT Prophylaxis -Heparin SQ Full Code as per discussion with pt Follows with Dr Swan for routine care Admission and Anticipated Discharge Date Admission Date: September 16, 2019 Subjective Patient is lying in bed, in no acute distress. Denies any fevers, chills, chest pain, shortness of breath, abdominal pain, nausea or vomiting. Discussed with Dr. Beasley, from [facility], will switch patient to ertapenem, recommend 6 weeks. Patient already has ultrasound-guided IV access, which is good for 4 weeks, will need to exchange access for last 2 weeks. Review of Systems Review of Systems: All systems reviewed & are unremarkable except as noted in HPI & below Constitutional: no fever and no chills Respiratory: no cough and no dyspnea Cardiovascular: no chest pain and no palpitations Gastrointestinal: no abdominal pain, no nausea and no vomiting Physical Exam Physical Exam: General: obese female pt in no distress, lying in bed, comfortable Head: normocephalic, atraumatic Eyes: conjunctiva non-injected, anicteric ENT: normal inspection external ears, nose, mucous membranes moist Neck: supple, trachea midline Lungs: clear, no respiratory distress, no wheezing/rhonchi/rales CV: RRR, no murmur, no pretibial edema Abdomen: normal BS, soft, non-tender Extremities: no calf tenderness; left foot with prior amputation at metatarsals and without erythema or edema; right foot: plantar medial aspect foot distal to calcaneus with large blister with noted erythema surrounding prior to her surgery, now right foot is covered with surgical dressings and Dave wraps. Neuro: A&O x 3, speech fluent, no facial asymmetry, moves extremities spontaneously, normal affect Skin: foot as above, otherwise skin warm, dry Results & Data Results & Data ([facility]) Vital Signs (Past 12 Hours) Vital Signs Temp Pulse Resp BP Pulse Ox 09/22/19 08:15 36.5 C 74 20 163/62 H 97 09/21/19 23:23 36.8 C 83 21 176/90 H 94 Laboratory Results 09/22/19 09/22/19 09/22/19 Range/Units 07:50 06:39 06:39 WBC (4.8-10.8) K/uL RBC (4.2-5.4) M/uL Hgb (12.0-16.0) g/dL Hct (37-47) % MCV (80-100) fL MCH (25-34) pg MCHC (32-36) g/dL RDW Std Deviation (36.4-46.3) fL RDW Coeff of Anitha (11.5-14.5) % Plt Count (130-400) K/uL MPV (7.4-10.4) fL ESR 60 H (0-21) mm/hr Sodium 141 (136-145) mmol/L Potassium 4.3 (3.5-5.1) mmol/L Chloride 109 H (98-107) mmol/L Carbon Dioxide 28 (21-32) mmol/L Anion Gap 4.0 (3-11) BUN 31 H (7-18) mg/dl Creatinine 1.10 (0.6-1.2) mg/dl Est Cr Clr Drug Dosing 66.3 ml/min Est GFR ( Amer) 61.9 Est GFR (Non-Af Amer) 53.4 BUN/Creatinine Ratio 27.7 H (10-20) Glucose 120 H (70-99) mg/dl POC Glucose 126 H (70-99) mg/dl Calcium 8.0 L (8.5-10.1) mg/dl C-Reactive Protein 1.51 H (0-0.29) mg/dl 09/22/19 09/21/19 09/21/19 Range/Units 06:39 20:46 16:47 WBC 9.92 (4.8-10.8) K/uL RBC 3.22 L (4.2-5.4) M/uL Hgb 9.6 L (12.0-16.0) g/dL Hct 29.8 L (37-47) % MCV 92.5 (80-100) fL MCH 29.8 (25-34) pg MCHC 32.2 (32-36) g/dL RDW Std Deviation 41.0 (36.4-46.3) fL RDW Coeff of Anitha 12.1 (11.5-14.5) % Plt Count 351 (130-400) K/uL MPV 9.6 (7.4-10.4) fL ESR (0-21) mm/hr Sodium (136-145) mmol/L Potassium (3.5-5.1) mmol/L Chloride (98-107) mmol/L Carbon Dioxide (21-32) mmol/L Anion Gap (3-11) BUN (7-18) mg/dl Creatinine (0.6-1.2) mg/dl Est Cr Clr Drug Dosing ml/min Est GFR ( Amer) Est GFR (Non-Af Amer) BUN/Creatinine Ratio (10-20) Glucose (70-99) mg/dl POC Glucose 133 H 234 H (70-99) mg/dl Calcium (8.5-10.1) mg/dl C-Reactive Protein (0-0.29) mg/dl 09/21/19 Range/Units 11:37 WBC (4.8-10.8) K/uL RBC (4.2-5.4) M/uL Hgb (12.0-16.0) g/dL Hct (37-47) % MCV (80-100) fL MCH (25-34) pg MCHC (32-36) g/dL RDW Std Deviation (36.4-46.3) fL RDW Coeff of Anitha (11.5-14.5) % Plt Count (130-400) K/uL MPV (7.4-10.4) fL ESR (0-21) mm/hr Sodium (136-145) mmol/L Potassium (3.5-5.1) mmol/L Chloride (98-107) mmol/L Carbon Dioxide (21-32) mmol/L Anion Gap (3-11) BUN (7-18) mg/dl Creatinine (0.6-1.2) mg/dl Est Cr Clr Drug Dosing ml/min Est GFR ( Amer) Est GFR (Non-Af Amer) BUN/Creatinine Ratio (10-20) Glucose (70-99) mg/dl POC Glucose 131 H (70-99) mg/dl Calcium (8.5-10.1) mg/dl C-Reactive Protein (0-0.29) mg/dl Medications Administered Current Inpatient Medications Acetaminophen (Acetaminophen 325 Mg Tab) 650 mg PO Q4H PRN PRN Reason: Pain or Fever Stop: 10/16/19 17:08 Last Admin: 09/20/19 10:25 Dose: 650 mg Documented by: Al Hydrox/Mg Hydrox/Simethicone (Maalox) 15 ml PO Q4H PRN PRN Reason: Dyspepsia Stop: 10/16/19 17:08 Alprazolam (Xanax) 1 mg PO BID PRN PRN Reason: Anxiety Stop: 10/16/19 19:49 Last Admin: 09/22/19 00:08 Dose: 1 mg Documented by: Amlodipine Besylate (Norvasc) 5 mg PO QAM [facility] Stop: 10/17/19 08:59 Last Admin: 09/21/19 07:21 Dose: 5 mg Documented by: Dextrose (Dextrose 50%) 25 - 50 ml IV UD PRN; Protocol PRN Reason: Hypoglycemia Protocol Stop: 10/16/19 19:49 Duloxetine HCl (Cymbalta) 60 mg PO QAM [facility] Stop: 10/17/19 08:59 Last Admin: 09/21/19 07:21 Dose: 60 mg Documented by: Glucagon (Glucagen) 1 mg SQ UD PRN; Protocol PRN Reason: Hypoglycemia Protocol Stop: 10/16/19 19:49 Glucose (Dex4 Glucose) 4 - 8 tabs PO UD PRN; Protocol PRN Reason: Hypoglycemia Protocol Stop: 10/16/19 19:49 Glucose (Glucose 40%) 15 - 30 gm PO UD PRN; Protocol PRN Reason: Hypoglycemia Protocol Stop: 10/16/19 19:49 Daptomycin 325 mg/ Syringe 6.5 mls @ 2.75 mls/min IV Q24H RAVINDRA; Protocol Stop: 09/23/19 20:59 Last Admin: 09/21/19 20:49 Dose: 2.75 mls/min Documented by: Ciprofloxacin (Cipro / D5w) 400 mg in 200 mls @ 100 mls/hr IV Q12H RAVINDRA; Protocol Stop: 09/27/19 06:59 Last Admin: 09/22/19 06:38 Dose: 100 mls/hr Documented by: Metronidazole (Flagyl) 500 mg in 100 mls @ 100 mls/hr IV Q8 RAVINDRA; Protocol Stop: 09/27/19 13:59 Last Admin: 09/22/19 06:38 Dose: 100 mls/hr Documented by: Insulin Aspart (Insulin Aspart 100 Units/Ml 3 Ml Pen) 0 units SC ACHS [facility]; Protocol Stop: 10/19/19 16:29 Last Admin: 09/21/19 20:52 Dose: 3 units Documented by: Insulin Glargine (Insulin Glargine Solostar 100 Units/Ml 3 Ml Pen) 30 units SQ HS RAVINDRA; Protocol Stop: 10/21/19 20:59 Last Admin: 09/21/19 20:50 Dose: 30 units Documented by: Levothyroxine Sodium (Synthroid) 88 mcg PO DAILYBB RAVINDRA Stop: 10/17/19 06:29 Last Admin: 09/22/19 06:38 Dose: 88 mcg Documented by: Magnesium Hydroxide (Milk Of Magnesia) 30 ml PO Q12H PRN PRN Reason: Constipation Stop: 10/16/19 17:08 Metronidazole (Metronidazole 500 Mg Tab) 500 mg PO TID RAVINDRA Stop: 09/27/19 10:13 Last Admin: 09/21/19 07:22 Dose: 500 mg Documented by: Miscellaneous (Carbohydrates For Hypoglycemia) 15 - 30 gm PO UD PRN PRN Reason: Hypoglycemia Protocol Stop: 10/16/19 19:49 Miscellaneous Information (Consult Glycemic Management Pharmacy) 1 ea N/A UD PRN PRN Reason: Consult Stop: 10/16/19 18:11 Miscellaneous Information (Consult) 1 ea N/A UD PRN PRN Reason: Consult Stop: 10/16/19 19:49 Miscellaneous Information (Ciprofloxacin Consult Active) 1 ea N/A UD PRN PRN Reason: C Stop: 10/20/19 06:33 Ondansetron HCl (Zofran) 4 mg IV Q6H PRN PRN Reason: Nausea Stop: 10/16/19 17:08 Polyethylene Glycol (Miralax Powder Packet) 17 gm PO DAILY PRN PRN Reason: Constipation Stop: 10/16/19 17:08 Saccharomyces Boulardii (Saccharomyces Boulardii 250 Mg Cap) 250 mg PO DAILY RAVINDRA Stop: 10/18/19 09:44 Last Admin: 09/21/19 07:22 Dose: 250 mg Documented by: Tramadol HCl (Tramadol Hcl 50 Mg Tablet) 50 mg PO Q4H PRN PRN Reason: Pain Stop: 10/20/19 10:15 Last Admin: 09/22/19 00:08 Dose: 50 mg Documented by:
[2019-09-22] MEDS: DULOXETINE HCL 60 MG CAP PO SCH (09:09)
[2019-09-22] MEDS: AMLODIPINE BESYLATE 5 MG TAB PO SCH (09:10)
[2019-09-22] MEDS: SACCHAROMYCES BOULARDII 250 MG CAP PO SCH (09:10)
[2019-09-22] MEDS: INSULIN ASPART 100 UNITS/ML 3 ML PEN SC SCH ×4 (09:12→20:50)
[2019-09-22] MEDS ORDERED: ERTAPENEM CONSULT ACTIVE PRN (14:35)
[2019-09-22] MEDS: ERTAPENEM SODIUM 1,000 MG in SODIUM CHLORIDE 0.9% 50 ML IV SCH (18:32)
[2019-09-22] MEDS: INSULIN GLARGINE SOLOSTAR 100 UNITS/ML 3 ML PEN SQ SCH (20:49)
[2019-09-23] MEDS: ALPRAZolam 0.5 MG TABLET PO PRN (00:14)
[2019-09-23] MEDS: TRAMADOL HCL 50 MG TABLET PO PRN ×2 (00:15→17:43)
[2019-09-23] MEDS: LEVOTHYROXINE SODIUM 88 MCG TABLET PO SCH (06:27)
--- NOTE | 2019-09-23 08:39 | Hospitalist Progress Note ---
Date of Service September 23, 2019 Assessment & Plan (1) Wound of right foot: Sepsis without septic shock, with ROLANDO secondary to diabetic foot wound/deep abscess, now status post I&D, concern for possible osteomyelitis Pt is 64F with DM II, neuropathy, HTN, dyslipidemia, hypothyroidism, PTSD, ADD, h/o gastric bypass, fatty liver, h/o necrotizing fasciitis, h/o transmetatarsal amputation left foot presented to ER with c/o right foot wound x 4 days. Pt states 4 days ago she thinks she may have stepped on something and reports small blister that has enlarged with surrounding erythema. On Bactrim for 3 days without improvement. Denies known fever/chills, N/V. In ER T: 37.6C, P: 66-102, BP: 143/83, 97% on RA. WBC: 21K, Hgb: 10.5 (baseline ~10), Lactate: 1.7, Procalcitonin: 1.7 Right foot xray: No acute bony abnormality is identified. Soft tissue edema and suspect ulceration along the plantar aspect of the hindfoot. Question a small linear foreign body projecting over the third proximal phalanx. seen on the 02/20/2014 Pt appeared septic on admission with significantly elevated white blood cell count, tachycardia. She also reported fever, T-max in the ER 37.6 C. Patient continued to be tachycardic, however white blood cell count significantly decreased after broad-spectrum antibiotics started. ROLANDO now resolved. -In ER given 2L NSS, Zosyn, vancomycin -In ER blister was drained (09/15)and culture positive for Klebsiella oxytoca, Anaerococcus prevotti, Prevotella disiens -Continued cefepime and added daptomycin on admission -Blood cultures NGTD - wound cultx (09/15) + for Klebsiella oxytoca and Anaerococcus prevotti, Prevotella disiens - WBC significantly decreased since antibiotics started, now normalized - [facility] ID consulted, (Dr. Richmond) -CT foot obtained - No acute bony abnormality is identified. A cutaneous ulceration is noted in the medial hindfoot as above with evidence of cellulitis. No organized fluid collection is seen to suggest abscess. A small foreign body is seen in the plantar soft tissues of the forefoot at the level of the third proximal phalanx. -Orthopedics and wound care consulted -Patient underwent I&D with orthopedics, Dr. Barclay, September 18, deep abscess was identified and drained, at right foot/medial heel, cultures pending, patient tolerated procedure well -She developed generalized itchiness during cefepime infusion, was switched to IV ciprofloxacin 09/19, this was consistent with ID recommendations, cultures from the OR 09/18, were pending -Cultures from the OR, September 18, grow skin surendra, and Prevotella disiens, this may not be the final result -Discussed with Dr. Richmond, from [facility] ID, 09/21, switched patient to e rtapenem, recommend 6 weeks. Patient already has ultrasound-guided IV access, which is good for 4 weeks, will need to exchange access for last 2 weeks of treatment. Concern for osteomyelitis. -Patient will need to be set up with home health, she will need follow-up with PCP and likely ID. Monitor patient's ESR and CRP weekly. CRP 1.0 (09/22), 1.5 (09/21), ESR 60 (on 09/21). (2) ROLANDO (acute kidney injury): BUN: 29, Cr: 1.79, GFR: 29. Baseline Cr: 1.1-1.3 -Monitor renal functions -Hold Ramipril and avoid other nephrotoxic agents when possible -Renal function normalized, creatinine 1.1 (09/21) (3) Diabetes mellitus, type II: A1c: 8.7 % on 09/03/2019 -Hold Jardiance, was recently started as outpt, A1c does not reflect the change, will need outpatient follow-up -Continue basal bolus insulin -Glycemic pharmacy consult for assistance in glycemic management -Diabetic education provided (4) Hypertension: -Continue amlodipine -Held Ramipril initially, will restart prior discharge (5) Hypothyroidism: -Continue levothyroxine (6) PTSD (post-traumatic stress disorder): (7) ADHD (attention deficit hyperactivity disorder): -Continue duloxetine, Xanax prn, and hold methylphenidate DVT Prophylaxis -Heparin SQ Full Code as per discussion with pt Follows with Dr Swan for routine care Admission and Anticipated Discharge Date Admission Date: September 16, 2019 Subjective Patient is lying in bed, in no acute distress. Denies any fevers, chills, chest pain, shortness of breath, abdominal pain, nausea or vomiting. Discussed with Dr. Richmond, from [facility], and switched patient to ertapenem, recommend 6 weeks. Patient already has ultrasound-guided IV access, which is good for 4 weeks, will need to exchange access for last 2 weeks of ralph tment. We will provide ertapenem today, and she can continue with home health tomorrow. Review of Systems Review of Systems: All systems reviewed & are unremarkable except as noted in HPI & below Constitutional: no fever and no chills Respiratory: no cough and no dyspnea Cardiovascular: no chest pain and no palpitations Gastrointestinal: no abdominal pain, no nausea and no vomiting Physical Exam Physical Exam: General: obese female pt in no distress, lying in bed, comfortable Head: normocephalic, atraumatic Eyes: conjunctiva non-injected, anicteric ENT: normal inspection external ears, nose, mucous membranes moist Neck: supple, trachea midline Lungs: clear, no respiratory distress, no wheezing/rhonchi/rales CV: RRR, no murmur, no pretibial edema Abdomen: normal BS, soft, non-tender Extremities: no calf tenderness; left foot with prior amputation at metatarsals and without erythema or edema; right foot: plantar medial aspect foot distal to calcaneus with large blister with noted erythema surrounding prior to her surgery, now right foot is covered with surgical dressings and Dave wraps. Neuro: A&O x 3, speech fluent, no facial asymmetry, moves extremities spontaneously, normal affect Skin: foot as above, otherwise skin warm, dry Results & Data Results & Data ([facility]) Vital Signs (Past 12 Hours) Vital Signs Temp Pulse Pulse Resp BP BP Pulse Ox 09/23/19 07:16 36.6 C 82 16 176/99 H 93 09/23/19 00:29 80 181/96 H 09/22/19 23:51 37.1 C 80 20 188/79 H 98
[2019-09-23] MEDS: AMLODIPINE BESYLATE 5 MG TAB PO SCH (08:54)
[2019-09-23] MEDS: DULOXETINE HCL 60 MG CAP PO SCH (08:55)
[2019-09-23] MEDS: SACCHAROMYCES BOULARDII 250 MG CAP PO SCH (08:55)
[2019-09-23] MEDS: INSULIN ASPART 100 UNITS/ML 3 ML PEN SC SCH ×4 (08:58→17:47)
[2019-09-23] MEDS ORDERED: ENALAPRIL MALEATE 10 MG TAB PO SCH (09:00)
--- NOTE | 2019-09-23 10:14 | Pharmacy Report ---
Pharmacy Glycemic Short Note 2 - Date of Service September 23, 2019 - Glycemic Short BSG Results (Last 24 hours): 09/22/19 09/22/19 09/22/19 12:16 16:59 20:45 POC Glucose 122 H 183 H 181 H 09/23/19 07:26 POC Glucose 132 H OUTPATIENT ANTIDIABETIC REGIMEN: * Basaglar 20 units HS + Novolog SSI + Jardiance * A1c = 8.6% from 09/17/2019 ASSESSMENT: 09/22: * Pt has received 59 units of insulin over the past 24hrs * 30 units of basal (Lantus) * 29 units of bolus (NovoLog) * BSGs [phone] * AM fasting BSG is in goal range at 132 mg/dl this AM --> no changes needed to basal insulin dosing * Post prandial BSGs elevated @ 183 & 181 --> will tighten CHO ratio 09/17: * Diamond received a total of 57 units of insulin yesterday * 25 units of basal + 32 units of bolus * BSGs ranged from 138 - 246 mg/dL * Fasting BSG this AM was 172 mg/dL, improved from yesterday but still uncontrolled * Will slightly increase HS basal scale tonight per scale * Tightened correction factor and carb ratio this morning given post-prandial hyperglycemia throughout the day yesterday * Lunchtime BSG was 131 mg/dL. 09/16: * 64 year old female with foot infection. PMHx significant for type 2 diabetes, htn, hld, depression, bipolar. Managed on insulin and jardiance at home for diabetes management. Pharmacy consulted to help with glycemic control * BSGs elevated on admission likely related to infection / plan to add novolog with stress of 2 dosing. Add scale for Lantus dosing PLAN FOR INPATIENT GLYCEMIC CONTROL: * Hold outpatient oral diabetes medications * Basal insulin no change continue * Lantus 30 units SQ HS * Bolus insulin * NovoLog per scale ACHS or Q6hrs while NPO * Goal Range: Low 110 mg/dL - High 140 mg/dL * Correction Factor: 15 mg/dL/unit * Nutritional / Prandial insulin per carb ratio of 1 unit per 4 grams CHO consumed PLAN FOR DISCHARGE: * Jardiance recently added to outpatient insulin regimen * Continue with current outpatient regimen upon discharge. Recommend close follow-up with outpatient provider.
[2019-09-23] MEDS: ERTAPENEM SODIUM 1,000 MG in SODIUM CHLORIDE 0.9% 50 ML IV SCH (14:21)
--- NOTE | 2019-09-23 14:55 | Discharge Summary ---
Date of Service September 23, 2019 Admission HPI Per Admitting Provider Pt is 64F with PMH DM II, neuropathy, HTN, dyslipidemia, hypothyroidism, PTSD, ADD, h/o gastric bypass, fatty liver, h/o necrotizing fasciitis, h/o transmetatarsal amputation left foot presented to ER with c/o right foot wound x 4 days. Pt states 4 days ago she thinks she may have stepped on something in her house while wearing socks and she looked at her foot and noticed a small blister and black spot. Reports has been on Bactrim past several days prescribed by PCP. States has noticed increased blister size and some erythema of foot. Reports highest temp 99F. Pt states was trying to keep area clean and dry. Denies chills, diaphoresis, N/V/D/C, CAN, dizziness, syncope, vision changes, neck pain, CP, SOB, orthopnea, palpitations, cough, sore throat, choking, otalgia, rhinorrhea, abdominal pain, weakness, other extremity edema, rashes, urinary symptoms. In ER with noted leukocytosis at 21, Lactate WNL, Procalcitonin elevated at 1.7. Right foot xray: Soft tissue edema along the plantar aspect of the hindfoot and questionable small linear foreign body projecting over the third proximal phalanx that was seen on xray on the 02/20/2014. Pt was given Zosyn, Vancomycin, IVF. Admission Exam Per Admitting Provider General: no distress, obese Head: normocephalic, atraumatic Eyes: conjunctiva non-injected, anicteric ENT: normal inspection external ears, nose, mucous membranes moist Neck: supple, trachea midline Lungs: clear, no respiratory distress, no wheezing/rhonchi/rales CV: RRR, no murmur, no pretibial edema Abd: normal BS, soft, non-tender Ext: no calf tenderness; left foot with prior amputation at metatarsals and without erythema or edema; right foot: plantar medial aspect foot distal to calcaneus with large blister with noted erythema surrounding and extending up to lower leg, toes on right foot dusky appearance, diminished palpable dorsalis pedis pulse Neuro: A&O x 3, no focal deficits noted, normal affect Skin: foot as above, otherwise skin warm, dry Principal Diagnosis Sepsis secondary to diabetic right foot infection, deep abscess, possible osteomyelitis Discharge Exam General: obese female pt in no distress, lying in bed, comfortable Head: normocephalic, atraumatic Eyes: conjunctiva non-injected, anicteric ENT: normal inspection external ears, nose, mucous membranes moist Neck: supple, trachea midline Lungs: clear, no respiratory distress, no wheezing/rhonchi/rales CV: RRR, no murmur, no pretibial edema Abdomen: normal BS, soft, non-tender Extremities: no calf tenderness; left foot with prior amputation at metatarsals and without erythema or edema; right foot: plantar medial aspect foot distal to calcaneus with large blister with noted erythema surrounding prior to her surgery, now right foot is covered with surgical dressings and Dave wraps. Neuro: A&O x 3, speech fluent, no facial asymmetry, moves extremities spontaneously, normal affect Skin: foot as above, otherwise skin warm, dry Discharge Data Allergies Allergy/AdvReac Type Severity Reaction Status Date / Time cefepime Allergy Mild itch Verified 09/20/19 06:24 lamotrigine [From Lamictal] Allergy Unknown Rash Verified 09/16/19 16:05 cat dander Allergy Verified 09/19/19 09:14 peach Allergy Hives Verified 09/17/19 11:41 Consultations 09/16/19 16:58 ED Decision to Admit Stat 09/16/19 17:09 Consult Infectious Diseases Routine 09/16/19 17:11 Consult Case Management - Discharge Planning Routine 09/16/19 19:50 Consult Orthopedic Surgery Routine Procedures Performed Operation Date: 09/19/19 09:30 Actual Procedures p Incision and Drainage Right Heel Abscess(Right) - Olman Barclay DO Ordered Studies 09/16/19 17:14 CT foot RT wo con Stat IMPRESSION: 1. No acute bony abnormality is identified. 2. A cutaneous ulceration is noted in the medial hindfoot as above with evidence of cellulitis. No organized fluid collection is seen to suggest abscess. 3. A small foreign body is seen in the plantar soft tissues of the forefoot at the level of the third proximal phalanx. US arterial duplex LE RT Stat IMPRESSION: 1. There is no sonographic evidence of focal/high-grade stenosis or vessel cutoff throughout the arteries of the right lower extremity. 2. Ankle-brachial indices as above. 09/19/19 09:31 US - OR guided needle placemen Routine Hospital Course (1) Wound of right foot: Sepsis without septic shock, with ROLANDO secondary to diabetic foot wound/deep abscess, now status post I&D, concern for possible osteomyelitis Pt is 64F with DM II, neuropathy, HTN, dyslipidemia, hypothyroidism, PTSD, ADD, h/o gastric bypass, fatty liver, h/o necrotizing fasciitis, h/o transmetatarsal amputation left foot presented to ER with c/o right foot wound x 4 days. Pt states 4 days ago she thinks she may have stepped on something and reports small blister that has enlarged with surrounding erythema. On Bactrim for 3 days without improvement. Denies known fever/chills, N/V. In ER T: 37.6C, P: 66-102, BP: 143/83, 97% on RA. WBC: 21K, Hgb: 10.5 (baseline ~10), Lactate: 1.7, Procalcitonin: 1.7 Right foot xray: No acute bony abnormality is identified. Soft tissue edema and suspect ulceration along the plantar aspect of the hindfoot. Question a small linear foreign body projecting over the third proximal phalanx. seen on the 02/20/2014 Pt appeared septic on admission with significantly elevated white blood cell count, tachycardia. She also reported fever, T-max in the ER 37.6 C. Patient continued to be tachycardic, however white blood cell count significantly decreased after broad-spectrum antibiotics started. ROLANDO now resolved. -In ER given 2L NSS, Zosyn, vancomycin -In ER blister was drained (09/15)and culture positive for Klebsiella oxytoca, Anaerococcus prevotti, Prevotella disiens -Continued cefepime and added daptomycin on admission -Blood cultures NGTD - wound cultx (09/15) + for Klebsiella oxytoca and Anaerococcus prevotti, Prevotella disiens - WBC significantly decreased since antibiotics started, now normalized - [facility] consulted, (Dr. Richmond) -CT foot obtained - No acute bony abnormality is identified. A cutaneous ulceration is noted in the medial hindfoot as above with evidence of cellulitis. No organized fluid collection is seen to suggest abscess. A small foreign body is seen in the plantar soft tissues of the forefoot at the level of the third proximal phalanx. -Orthopedics and wound care consulted -Patient underwent I&D with orthopedics, Dr. Barclay, September 18, deep abscess was identified and drained, at right foot/medial heel, cultures pending, patient tolerated procedure well -She developed generalized itchiness during cefepime infusion, was switched to IV ciprofloxacin 09/19, this was consistent with ID recommendations, cultures from the OR 09/18, were pending -Cultures from the OR, September 18, grow skin surendra, and Prevotella disiens, this may not be the final result -Discussed with Dr. Richmond, from [facility] ID, 09/21, switched patient to ertapenem, recommend 6 weeks. Patient already has ultrasound-guided IV access, which is good for 4 weeks, will need to exchange access for last 2 weeks of treatment. Concern for osteomyelitis. -Patient will need to be set up with home health, she will need follow-up with PCP and likely ID. Monitor patient's ESR and CRP weekly. CRP 1.0 (09/22), 1.5 (09/21), ESR 60 (on 09/21). -Discussed she may need more help, possible SNF, patient is only interested in going home with home health. Has her daughter living with her, who will be helping her. Patient has prescription for a wheelchair and scooter. (2) ROLANDO (acute kidney injury): BUN: 29, Cr: 1.79, GFR: 29. Baseline Cr: 1.1-1.3 -Monitor renal functions -Hold Ramipril and avoid other nephrotoxic agents when possible -Renal function normalized, creatinine 1.1 (09/21) (3) Diabetes mellitus, type II: A1c: 8.7 % on 09/03/2019 -Hold Jardiance, was recently started as outpt, A1c does not reflect the change, will need outpatient follow-up -Continue basal bolus insulin -Glycemic pharmacy consult for assistance in glycemic management -Diabetic education provided (4) Hypertension: -Continue amlodipine -Held Ramipril initially, will restart prior discharge (5) Hypothyroidism: -Continue levothyroxine (6) PTSD (post-traumatic stress disorder): (7) ADHD (attention deficit hyperactivity disorder): -Continue duloxetine, Xanax prn, held methylphenidate on admission Follows with Dr Swan for routine care Total Time Total Time Spent Total Time Spent (In Minutes): 50 Total Time Includes: Examination of the Patient, Discharge Planning, Medication Reconciliation and Communication With Other Providers Discharge Plan Discharge Items Patient Disposition: Home - Home Health Services Reason For Visit: R FOOT INFECTION Discharge Diagnosis: Sepsis secondary to diabetic right foot infection, deep abscess, possible osteomyelitis Activity: Per Instructions section Weightbearing: Right non-weightbearing Non-emergency contact: Primary Care Provider and Specialist Call non-emergency contact if: you have any medication questions and your symptoms worsen Follow-up/Referrals: Morgan Swan MD [Primary Care Provider] - 09/26/19 11:00 am (Date & Time 09/26/2019 11:00 AM Provider Morgan Swan MD Department [facility] ) Diet: Carb Consistent or DM2 and Heart Healthy Addtl Attending Provider Instructions: For pain you can take Tylenol 1000 mg 3 times a day. Max dose is 3000 mg a day. For more severe pain you can take tramadol as prescribed. For constipation, you can take MiraLAX daily as needed. Follow-up with your orthopedic surgeon, the phone number for Dr. Barclay is provided for you below. Follow-up with your primary care doctor, Dr. Swan. It is recommended that you have blood work, CBC, BMP, CRP, ESR done weekly. This can be forwarded to infectious disease doctor in [facility] and further discussed. You may need to follow-up personally with [facility] specialist. Dr. Swan will navigate this for you. 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 SPECIAL CARE INSTRUCTIONS: * Some drainage onto the dressing is normal and is no cause for alarm. * Some swelling is natural especially after walking. * When resting, keep your foot elevated above the level of your heart. * Call [facility] if you notice: -Increased drainage -Fever over 101 degrees F -Severe constant pain BANDAGE: * Leave bandage/cast in place unless otherwise directed. * Keep bandage/cast dry at all times. FOLLOW UP VISIT WITH DR. BARCLAY If appointment is not already scheduled: Please call [facility] after you get home today to schedule a follow-up appointment for ~1 week after discharge with Dr. Barclay at . Pending Studies at Discharge: No Stand-Alone Forms: My [facility] Daily News Online, Smoking Cessation Medications and DC Order Prescriptions: No Action alprazolam 1 mg tablet 1 mg PO BID PRN (Reason: Anxiety) RF: 0 amlodipine 5 mg tablet 5 mg PO QAM RF: 0 sulfamethoxazole-trimethoprim 800-160 mg tablet 1 tab PO BID RF: 0 levothyroxine 88 mcg tablet 88 mcg PO QAM RF: 0 diazepam 5 mg tablet 5 mg PO Q8H PRN (Reason: Muscle Spasm) RF: 0 ramipril 10 mg capsule 10 mg PO QAM RF: 0 insulin aspart U-100 [Novolog Flexpen U-100 Insulin] 100 unit/mL (3 mL) insulin pen See Rx Instructions .ROUTE .COMPLEX RF: 0 duloxetine 60 mg capsule,delayed release(DR/EC) 60 mg PO QAM RF: 0 Basaglar KwikPen U-100 Insulin 100 unit/mL (3 mL) insulin pen 20 unit SUBCUT HS RF: 0 Jardiance 25 mg tablet 25 mg PO QPM RF: 0 ergocalciferol (vitamin D2) 1,250 mcg (50,000 unit) Capsule 50,000 unit PO WK RF: 0 methylphenidate HCl 20 mg capsule,ER biphasic 50-50 40 mg PO DAILY RF: 0 Victoza 3-Corky 1.8 mg 1.8 mg SC HS RF: 0 Krames/Other Patient Handouts: Managing Type 2 Diabetes, Managing Diabetes: The A1C Test Admission Data Admit Date/Time: 09/16/19 17:09 Attending Provider: Kiran Chandler Admit Provider: Gita Garcia Primary Care Provider: Morgan Swan Other Providers: Gita Garcia ; Elmo Rivero ; Lise Kidd ; Fadi Almeida I. ; Denver Meredith II ; Caterina Richmond ; Cristi Cardozo ; Isaac Awan
== END 2019-09-23 18:21 | disposition home health service (06) | DRG 854 ==
LOC: ED 14:06 → 2N 17:09 → SUATTDRO 17:09 → 2N 18:06

== ENCOUNTER 2020-05-21 13:21 | Observation (INO) ==
--- NOTE | 2020-05-20 08:58 | Anesthesiology Consultation ---
Date of Service May 20, 2020 Assessment & Plan (1) Encounter for pre-operative examination: Chart Review Chart Review: Acceptable Risk for Surgery and Patient NOT seen in Pre Admission Testing - Check BSG AM DOS Per nursing assessment on 05/20/20, patient denies any recent travel. No known Covid positive contacts or Covid related symptoms. No known Covid test in the past 90 days. Covid test 05/18/20= negative Left foot debridement with application theraskin 04/30/20= Done under GA with LMA #4. Atraumatic placement x 1. Was ordered Labetalol in PACU by Dr. Allison due to BP. History Surgery Operation Date: 05/21/20 14:55 Proposed Procedures p Left Foot Incision and Drainage of Heel Ulcer, Debridement of Skin, Faxcia, Periosteum - Olman Barclay DO Height/Weight Height: 5 ft 9 in Weight: 95.254 kg Allergies Allergy/AdvReac Type Severity Reaction Status Date / Time peach Allergy Intermediate Hives Verified 05/20/20 07:53 cat dander Allergy Mild CONGESTION Verified 05/20/20 07:53 cefepime Allergy Mild itch Verified 05/20/20 07:53 lamotrigine [From Lamictal] Allergy Mild Rash Verified 05/20/20 07:53 Medications Home Medications Medication Instructions Recorded Confirmed Last Taken Basaglar KwikPen U-100 Insulin 20 unit SUBCUT HS 09/16/19 05/20/20 04/28/20 Jardiance 25 mg PO QPM 09/16/19 05/20/20 04/28/20 alprazolam 1 mg PO BID PRN 09/16/19 05/20/20 04/30/20 09:00 amlodipine 5 mg PO QAM 09/16/19 05/20/20 04/30/20 09:00 duloxetine 60 mg PO QAM 09/16/19 05/20/20 04/30/20 09:00 ergocalciferol (vitamin D2) 50,000 unit PO WK 09/16/19 05/20/20 04/18/20 insulin aspart U-100 [Novolog See Rx Instructions .ROUTE .COMPLEX 09/16/19 05/20/20 04/29/20 12:00 Flexpen U-100 Insulin] 20 units levothyroxine 88 mcg PO QAM 09/16/19 05/20/20 04/30/20 09:00 ramipril 10 mg PO QAM 09/16/19 05/20/20 04/29/20 09:00 aspirin 81 mg PO DAILY #30 tab 04/30/20 05/20/20 Unknown oxycodone-acetaminophen [Percocet] 1 tab PO Q4H PRN #20 tab 04/30/20 05/20/20 Unknown Antibiotic 1 tab PO Q6 05/20/20 05/20/20 Unknown Past Medical History Medical History Anxiety and depression Attention deficit disorder (ADD) Bipolar disorder TYPE 2 Chronic kidney disease STAGE 3 Diabetes mellitus, type II Diabetic ulcer of left foot Dyslipidemia History of necrotising fasciitis LEFT FOOT Hypertension Hypothyroidism Osteoarthritis Peripheral neuropathy PTSD (post-traumatic stress disorder) Past Family History Family History Mother Family history of diabetes mellitus Father Family history of diabetes mellitus Other Diabetes Hypertension No family history of adverse response to anesthesia Past Surgical History Surgical History H/O foot surgery RT H/O gastric bypass 3 YEARS AGO History of amputation of left foot through metatarsal bone History of anesthesia reaction DURING 1 PROCEDURE "LOSS OF HEARTBEAT FOR SHORT PERIOD OF TIME". WOKE UP DURING A COLONOSCOPY History of cataract surgery RT/LEFT History of section X 4 History of cholecystectomy History of colonoscopy History of esophagogastroduodenoscopy (EGD) S/P cervical spinal fusion S/P subtotal parathyroidectomy Status post left foot surgery I&D [place] teeth removed Social History Smoking Status: Never smoker Hx Alcohol Use: No Hx Substance Use: No Lab Results Anesthesia Preop Results Results Anesthesia Widget: WBC 11.74 K/uL (4.8-10.8) H 04/26/20 Hgb 10.8 g/dL (12.0-16.0) L 04/26/20 Hct 33.5 % (37-47) L 04/26/20 Plt 357 K/uL (130-400) 04/26/20 Na 141 mmol/L (136-145) 04/26/20 K 4.3 mmol/L (3.5-5.1) 04/26/20 Cl 108 mmol/L (98-107) H 04/26/20 CO2 27 mmol/L (21-32) 04/26/20 BUN 31 mg/dl (7-18) H 04/26/20 Creat 1.06 mg/dl (0.6-1.2) 04/26/20 PT 9.3 Seconds (9.0-12.0) 04/26/20 PTT 26.7 Seconds (21.0-31.0) 04/26/20 INR 0.9 (0.9-1.1) 04/26/20 HA1c 8.4 % (4.5-5.6) H 04/26/20 Urine Color Yellow 04/26/20 Urine Appearance Clear (Clear) 04/26/20 Urine pH 5.0 (4.5-7.5) 04/26/20 Urine Specific [place] 1.026 (1.000-1.030) 04/26/20 Urine Protein 3+ (Negative) H 04/26/20 Urine Glucose (UA) 3+ (Negative) H 04/26/20 Urine Ketones Negative (Negative) 04/26/20 Urine Blood Negative (Negative) 04/26/20 Urine Nitrite Negative (Negative) 04/26/20 Urine Bilirubin Negative (Negative) 04/26/20 Urine Urobilinogen Negative (Negative) 04/26/20 Urine Leukocyte Esterase Negative (Negative) 04/26/20 Urine WBC (Auto) 1-5 /hpf (0-5) 04/26/20 Urine RBC (Auto) 0-4 /hpf (0-4) 04/26/20 Urine Hyaline Casts (Auto) 1-5 /lpf (0-5) 04/26/20 Urine Epithelial Cells (Auto) >30 /lpf (0-5) H 04/26/20 Urine Bacteria (Auto) Negative (Negative) 04/26/20 Lab Comments: Surgeon's office was already made aware of elevated Hgb A1C and leukocytosis prior to 04/30/20 surgery Testing Laboratory Results 04/30/20= Glucose: 146 Electrocardiogram Date: 09/16/19 Findings: + NSR @ (98bpm) No significant change from 2014. Chest X-Ray Date: 09/16/19 Findings: + NAD
--- NOTE | 2020-05-20 09:38 | History & Physical Report ---
Date of Service May 20, 2020 Assessment & Plan (1) Ulcer of left heel: Schedule a Left Foot Incision and Drainage of Heel Ulcer, Debridement of Skin, Fascia, Periosteum for 05.21.20. All potential risks, benefits, complications, alternatives, and rehab have been discussed with the patient and she wishes to proceed. Will restart ASA 81 mg daily post op for DVT prophylaxis. History of Present Illness Chief Complaint: left heel ulcer Primary Care Provider: Morgan Swan MD This is a patient with a long hx of ulcerations of bilateral feet. 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 She also had an ulceration on the plantar right foot last year that was debrided and eventually healed. More recently, she had a left medial heel ulceration start and it was debrided ~3 weeks ago. The wound had worsened and she is being set up for repeat surgical debridement. Allergies Allergy/AdvReac Type Severity Reaction Status Date / Time peach Allergy Intermediate Hives Verified 05/20/20 07:53 cat dander Allergy Mild CONGESTION Verified 05/20/20 07:53 cefepime Allergy Mild itch Verified 05/20/20 07:53 lamotrigine [From Lamictal] Allergy Mild Rash Verified 05/20/20 07:53 Home Medications Medication Instructions Recorded Confirmed Type Basaglar KwikPen U-100 Insulin 20 unit SUBCUT HS 09/16/19 05/20/20 History Jardiance 25 mg PO QPM 09/16/19 05/20/20 History alprazolam 1 mg PO BID PRN 09/16/19 05/20/20 History amlodipine 5 mg PO QAM 09/16/19 05/20/20 History duloxetine 60 mg PO QAM 09/16/19 05/20/20 History ergocalciferol (vitamin D2) 50,000 unit PO WK 09/16/19 05/20/20 History insulin aspart U-100 [Novolog See Rx Instructions .ROUTE .COMPLEX 09/16/19 05/20/20 History Flexpen U-100 Insulin] levothyroxine 88 mcg PO QAM 09/16/19 05/20/20 History ramipril 10 mg PO QAM 09/16/19 05/20/20 History aspirin 81 mg PO DAILY #30 tab 04/30/20 05/20/20 Rx oxycodone-acetaminophen [Percocet] 1 tab PO Q4H PRN #20 tab 04/30/20 05/20/20 Rx Antibiotic 1 tab PO Q6 05/20/20 05/20/20 History Past Med/Surg History Medical History Anxiety and depression Attention deficit disorder (ADD) Bipolar disorder TYPE 2 Chronic kidney disease STAGE 3 Diabetes mellitus, type II Diabetic ulcer of left foot Dyslipidemia History of necrotising fasciitis LEFT FOOT Hypertension Hypothyroidism Osteoarthritis Peripheral neuropathy PTSD (post-traumatic stress disorder) Surgical History H/O foot surgery RT H/O gastric bypass 3 YEARS AGO History of amputation of left foot through metatarsal bone History of anesthesia reaction DURING 1 PROCEDURE "LOSS OF HEARTBEAT FOR SHORT PERIOD OF TIME". WOKE UP DURING A COLONOSCOPY History of cataract surgery RT/LEFT History of section X 4 History of cholecystectomy History of colonoscopy History of esophagogastroduodenoscopy (EGD) S/P cervical spinal fusion S/P subtotal parathyroidectomy Status post left foot surgery I&D [place] teeth removed Family History Mother Family history of diabetes mellitus Father Family history of diabetes mellitus Other Diabetes Hypertension No family history of adverse response to anesthesia Social History Smoking Status: Never smoker Second Hand Exposure: No; Hx Alcohol Use: No Hx Substance Use: No Preferred Language: Scottish Communication Ability: Effective Project Management Analyst Required: No Beliefs That Will Affect Care: None marital status: Current Living Situation: Family Current Living Situation Comment: lives with dtr Feels Safe at Home: Yes Safety Concerns: Feels Safe At This Time Assistive Devices: Crutches Physical Exam 2 Constitutional: well developed and well nourished; no acute distress ENMT: external ear and nose normal, oropharynx normal Neck: trachea midline, no thyromegaly Respiratory: normal respiratory effort, lungs clear to auscultation Cardiovascular: Rate/Rhythm: regular rate and regular rhythm Gastrointestinal (Abdomen): normal bowel sounds, soft, nontender, no hepatosplenomegaly Musculoskeletal: Medial left heel: large 5 cm ulceration with hypertrophic edges to the wound. Moderate serous drainage. Mild erythema. Neurologic: + abnormal touch/pain/proprioception (Decreased sensation bilateral feet) Psychiatric: A+Ox3, euthymic affect Speech: normal rate/rhythm/volume of speech Lymphatic: no cervical or axillary lymphadenopathy
[~2020-05-21 13:21] MED LIST: LACTATED RINGER'S 1,000 ML IV SCH; ceFAZolin 2000MG 2,000 MG/15 ML SYR IV SCH
--- NOTE | 2020-05-21 14:09 | History & Physical Bridge Note ---
Date of Service May 21, 2020 History & Physical Bridge Note I have examined the patient, reviewed the History & Physical and in the interval since the performance of the History & Physical I have noted the following changes of clinical significance: no changes noted
[2020-05-21] MEDS ORDERED: ONDANSETRON INJ 2 MG/ML 2 ML VIAL IV PRN ×2 (14:35→17:40)
[2020-05-21] MEDS ORDERED: ATROPINE SULFATE 0.1 MG/ML 10ML SYR IV PRN (14:35)
[2020-05-21] MEDS ORDERED: ePHEDrine sulfate 50 MG/ML AMP IV PRN (14:35)
[2020-05-21] MEDS ORDERED: fentaNYL citrate 100 MCG/2 ML VIAL IV PRN (14:35)
[2020-05-21] MEDS ORDERED: LIDOCAINE HCL 2% 2 ML VIAL/AMP(20MG/ML) INFIL ONE (14:37)
[2020-05-21] MEDS ORDERED: fentaNYL citrate 100 MCG/2 ML VIAL ONE (14:37)
[2020-05-21] MEDS ORDERED: PROPOFOL IV EMULSION 10 MG/ML 20 ML VIAL IV ONE (14:37)
[2020-05-21] MEDS ORDERED: MIDAZOLAM HCL 1 MG/ML 2ML VIAL ONE (14:37)
[2020-05-21] MEDS ORDERED: GENTAMICIN SULFATE 40 MG/ML 2 ML VIAL ONE (15:58)
[2020-05-21] MEDS ORDERED: VANCOMYCIN HCL 1000MG/20ML VIAL ONE (15:58)
[2020-05-21] MEDS ORDERED: BACITRACIN INJ 50,000 UNIT VIAL ONE (15:59)
[2020-05-21] MEDS ORDERED: BUPIVACAINE 0.5 % 5 MG/1 ML MPF 30ML VIAL ONE (16:00)
[2020-05-21] MEDS ORDERED: HYDROmorphone INJ 0.5 MG/0.5 ML SYR IV PRN ×2 (17:07→17:40)
[2020-05-21] MEDS ORDERED: oxyCODONE HCL IR 5 MG TAB (IMMEDIATE RELEASE) PO PRN (17:07)
[2020-05-21 17:38] LABS: iSTAT Creatinine 1.1 mg/dl (0.6-1.3); iSTAT Hemoglobin 7.5 g/dl (12.0-16.0); iSTAT Ionized Calcium 1.17 mmol/l (1.12-1.32); iSTAT Potassium 4.3 mmol/L (3.3-5.0)
[2020-05-21] MEDS ORDERED: MAGNESIUM HYDROXIDE SUSP 30 ML UDC PO PRN (17:40)
[2020-05-21] MEDS ORDERED: bisacodyL 10 MG SUPP PR PRN (17:40)
[2020-05-21] MEDS ORDERED: NALOXONE HCL 0.4 MG/1 ML VIAL/CARP IV PRN (17:40)
[2020-05-21] MEDS ORDERED: ONDANSETRON INJ 2 MG/ML 2 ML VIAL ONE (17:47)
[2020-05-21] MEDS ORDERED: ePHEDrine sulfate 50 MG/ML AMP ONE (17:47)
[2020-05-21] MEDS ORDERED: ACETAMINOPHEN 325 MG TAB PO ONE (17:49)
[2020-05-21] MEDS ORDERED: diphenhydrAMINE 50 MG/ML VIAL IV ONE (17:49)
[2020-05-21] MEDS ORDERED: SODIUM CHLORIDE 0.9% 250 ML IV PRN (17:49)
--- NOTE | 2020-05-21 18:08 | Post Operative Brief Note ---
Immediate Post Op Note v1 Date of Surgery May 21, 2020 Pre & Post Diagnosis Operation Date: 05/21/20 14:55 Pre-Op Diagnosis: Left Foot Heel large ulcer 5 cm x 4.5 cm x 3 cm; Mass plantar medial heel Post-Op Diagnosis: Left Foot Heel large ulcer 5 cm x 4.5 cm x 3 cm; Mass plantar medial heel I identified the patient and participated in the time-out.: Yes Procedure Operation Date: 05/21/20 14:55 Actual Procedures p Left Foot irrigation and debridement of large heel Ulcer 5 cm x 4.5 cm x 3 cm, Debridement of Skin, subcutaneous tissue, fascia, Periosteum, debridement calcaneal bone, Left foot implantation antibiotic Stimulan Beads 5 cc (Left) - Olman Barclay DO Surgeon Olman Barclay DO Telecommunications Engineer None Estimated Blood Loss 4 Findings Consistent with Post-Op Diagnosis Specimens Bone for culture left calcaneus Aerobic, anaerobic, Gram stain deep ulcer left heel Tissue for pathological specimen left heel mass Anesthesia Type General Regional Complications none Disposition Accompanied Patient To Recovery: Yes Disposition: Recovery Room
--- NOTE | 2020-05-21 18:40 | Anesthesiology Progress Note ---
Date of Service May 21, 2020 Anesthesia Post Procedure Vital Signs Vital Signs: Temp Pulse Pulse Resp BP BP Pulse Ox 05/21/20 18:30 36.5 C 83 16 156/75 H 95 05/21/20 18:15 83 16 157/75 H 100 05/21/20 18:05 82 16 142/81 H 100 05/21/20 17:56 36.6 C 76 16 163/74 H 100 05/21/20 14:13 37.2 C 83 18 159/76 H 95 Pain Intensity Left Foot: Pain Intensity: 4 Transfer of Care Handoff Completed per policy Notes Mental Status: alert / awake / arousable and participated in evaluation Patient Amnestic to Procedure: Yes Nausea / Vomiting: adequately controlled Pain: adequately controlled Airway Patency, RR, SpO2: stable & adequate BP & HR: stable & adequate Hydration State: stable & adequate Anesthetic Complications: see Notes below and Pt Satisfied with anesthetic care Notes: While in preop, the patient's IV manifold became disconnected from her IV. During that time, her IV in her left hand bled a significant amount into her bed. The blood had saturated into the patient's bedding and christiana when I identified this issue, making it difficult to determine exactly how much blood had been lost, but I would estimate possibly more than 500cc. She was hemodynamically stable at the time the problem was identified, with a normal HR and blood pressure. Therefore, the decision was made to proceed to the operating room and to recheck her H/H after induction. A repeat H/H showed a Hgb drop from 10.5 down to 7. The patient did well in the operating room and PACU without any hemodynamic issues, but due to the blood loss, the decision was made to keep the patient overnight for observation. The patient and surgeon are both aware and in agreement with the plan.
[2020-05-21] MEDS ORDERED: ALPRAZolam 0.5 MG TABLET PO PRN (18:44)
[2020-05-21] MEDS ORDERED: PHARMACY GLYCEMIC MGMT CONSULT PRN (19:02)
--- NOTE | 2020-05-21 19:10 | Pharmacy Report ---
Pharmacy Glycemic Short Note 2 - Date of Service May 21, 2020 - Glycemic Short BSG Results (Last 24 hours): 05/21/20 05/21/20 05/21/20 13:48 16:43 17:59 POC Glucose 201 H 169 H POC Glucose (other) 154 H OUTPATIENT ANTIDIABETIC REGIMEN: * Lantus 20 units SC HS * Novolog 30 units SC with lunch, 40 units SC with evening meal * Jardiance 25 mg PO qPM * HbA1c: 8.4% (04/26/20) ASSESSMENT: * DJ is a 64 year old female POD #0 s/p left foot I&D * BSGs so far today of 201, 154, and 169 mg/dL * Will plan to continue patient's outpatient dose of Lantus and fairly aggressive Novolog parameters given reported outpatient Novolog doses PLAN FOR INPATIENT GLYCEMIC CONTROL: * Hold outpatient oral diabetes medications (Jardiance) * Basal insulin * Lantus 20 units SC HS * Bolus insulin * NovoLog per scale ACHS or Q6hrs while NPO * Goal Range: Low 110 mg/dL - High 140 mg/dL * Correction Factor: 20 mg/dL/unit * Nutritional / Prandial insulin per carb ratio of 1 unit per 6 grams CHO consumed * Overnight checks for tonight at 00,04 with same parameters PLAN FOR DISCHARGE: * tbd
[2020-05-21] MEDS ORDERED: GLUCOSE 40% GEL 15 GM TUBE PO PRN (19:15)
[2020-05-21] MEDS ORDERED: GLUCAGON FOR INJ 1 MG VIAL IM PRN (19:15)
[2020-05-21] MEDS ORDERED: GLUCOSE 10 TABS/TUBE PO PRN (19:15)
[2020-05-21] MEDS ORDERED: CARBOHYDRATES FOR HYPOGLYCEMIA PO PRN (19:15)
[2020-05-21] MEDS ORDERED: DEXTROSE 50% 50 ML SYRINGE IV PRN (19:15)
[2020-05-21] MEDS ORDERED: FUROSEMIDE 20 MG in SYRINGE 0 ML IV ONE (19:15)
[2020-05-21] MEDS: SODIUM CHLORIDE 0.9% 1000ML 1,000 ML IV SCH (19:24)
[2020-05-21] MEDS: INSULIN ASPART 100 UNITS/ML 3 ML PEN SC SCH ×2 (19:49→21:53)
[2020-05-21] MEDS: oxyCODONE HCL IR 5 MG TAB (IMMEDIATE RELEASE) PO PRN (20:36)
--- NOTE | 2020-05-21 21:17 | Consultation Report ---
DATE OF CONSULTATION: 05/21/2020 CHIEF COMPLAINT: Status post I and D of left foot large heel ulcer, acute blood loss anemia. HISTORY OF PRESENT ILLNESS: This 64-year-old female with past medical history significant for type 2 diabetes, peripheral autonomic neuropathy, hyperlipidemia, hypothyroidism, hypertension, status post gastric bypass, fatty liver, chronic kidney disease stage III, degenerative disc disease, history of bipolar, history of transmetatarsal amputation of the left foot, attention deficit disorder, posttraumatic stress disorder. The patient was in the OR today for the left foot large heel ulcer I and D. Three weeks ago, she had left heel ulcer I and D'ed, but again wound has worsened, so she is status post I and D again today. In the preop, peripheral IV line became disconnected from her IV. At that time, the IV in her left hand bled significant amount of blood, possibly 500 mL. Vitals were stable and she is status post I and D after that. After I and , her hemoglobin was checked, it was 7, her hemoglobin was 10.8 on 04/26. The patient is currently resting comfortably and hemodynamically stable, is somewhat weak and tired, but denies any dizziness, no chest pain or shortness of breath or nausea, no fever or chills, no cough. Eating dinner. Denies any other complaints. Afebrile, hemodynamically stable. ALLERGIES: CAT DANDER, LAMICTAL, PEACH, POISON EMILIANO, SHAMPOOS. PAST MEDICAL HISTORY: As mentioned above. PAST SURGICAL HISTORY: EGDs, foot surgery for necrotizing fasciitis, laparoscopic procedure for liver, laparoscopic gastric restrictive bypass Leann-en-Y surgery, laparoscopic cholecystectomy, cervical spine fusion surgery. MEDICATIONS: Alprazolam 1 mg p.o. b.i.d. p.r.n., amlodipine 5 mg p.o. q.a.m., aspirin 81 mg p.o. daily, atorvastatin 40 mg p.o. daily, Basaglar insulin 20 units subcutaneous at bedtime, insulin sliding scale, duloxetine 60 mg p.o. a.m., Jardiance 25 mg p.o. a.m., levothyroxine 100 mcg p.o. daily, oxycodone 5 mg p.o. q.4 hours p.r.n., ramipril 10 mg p.o. a.m. FAMILY HISTORY: Significant for father has diabetes, hypertension. Mother has diabetes, hypertension. SOCIAL HISTORY: No smoking, alcohol rarely. No drug use as per records. REVIEW OF SYMPTOMS: As per HPI. Rest of the review of systems is negative. PHYSICAL EXAMINATION: GENERAL: The patient is obese, not in acute distress. VITAL SIGNS: Temperature 36.8, pulse 93, respirations 16, blood pressure 167/76, oxygen 97% on room air. HEENT: No pallor, no icterus. NECK: No JVD, no neck masses seen. CARDIOVASCULAR: S1, S2 heard, regular rate and rhythm, no murmur, no gallop. RESPIRATORY SYSTEM: Normal AP diameter. No accessory muscle use. No wheezing, no crackles. ABDOMEN: Soft, bowel sounds present, nontender. No distention. CENTRAL NERVOUS SYSTEM: Alert and oriented. Speech clear, no facial droop. Obeys commands. Moves extremities. EXTREMITIES: Status post incision and drainage of the left heel ulcer, is in dressing. LABORATORY DATA: Hemoglobin 7, hematocrit 22. Sodium 140, potassium 4.3, chloride 102, bicarbonate 29, BUN 22, creatinine 1.1, serum glucose 181, ionized calcium 1.1. ASSESSMENT AND PLAN: This is a 64-year-old female status post left heel ulcer incision and drainage and preoperatively she lost blood from the peripheral IV. 1. Acute blood loss anemia: Preoperatively, she lost blood from her IV line, approximately 500 mL. Hemoglobin dropped to 7, it was 10.8 on 04/26. Two units of packed red blood cells are ordered. Currently, patient is hemodynamically stable, asymptomatic. We will follow the hemoglobin and hematocrit. 2. Diabetic foot ulcer of the left heel, status post incision and drainage: Further management as per orthopedics. 3. Diabetes: Continue home Basaglar insulin. Hold home Jardiance and NovoLog. Continue insulin sliding scale. Monitor blood sugar. 3. History of hyperlipidemia: Continue statin. 4. History of hypothyroidism: Continue Synthroid. 5. History of hypertension: Continue ramipril and amlodipine. Monitor the blood pressure. 6. History of chronic kidney disease stage III: We will follow the laboratories. 7. Deep venous thrombosis prophylaxis and disposition: As per orthopedics. [facility]
[2020-05-21] MEDS: INSULIN GLARGINE SOLOSTAR 100 UNITS/ML 3 ML PEN SC SCH (21:51)
[2020-05-21] MEDS: ASPIRIN 81 MG ECTAB PO SCH (21:54)
[2020-05-21] MEDS: DOCUSATE SODIUM 100 MG CAP PO SCH (21:55)
[2020-05-21] MEDS: SENNA 8.6 MG TAB PO SCH (21:55)
[2020-05-21] MEDS: ACETAMINOPHEN 500 MG TAB PO SCH (21:55)
[2020-05-21] MEDS: ceFAZolin 2000MG 2,000 MG/15 ML SYR IV SCH (23:32)
[2020-05-22] MEDS: INSULIN ASPART 100 UNITS/ML 3 ML PEN SC SCH ×6 (00:26→20:42)
[2020-05-22] MEDS: oxyCODONE HCL IR 5 MG TAB (IMMEDIATE RELEASE) PO PRN ×3 (02:47→19:34)
--- NOTE | 2020-05-22 04:42 | Operative Report (OR) ---
DATE OF OPERATION: 05/21/2020 PREOPERATIVE DIAGNOSES: 1. Left foot/heel large ulcer, 5 mm x 4.5 cm x 3 cm in depth. 2. Mass, plantar medial left heel. POSTOPERATIVE DIAGNOSES: 1. Left foot/heel large ulcer, 5 mm x 4.5 cm x 3 cm in depth. 2. Mass, plantar medial left heel. PROCEDURE: 1. Left foot irrigation and debridement of large heel ulcer, 5 mm x 4.5 cm x 3 cm. 2. Debridement of skin, subcutaneous tissue, fascia, periosteum and debridement of calcaneal bone. 3. Left foot implantation of antibiotic Stimulan beads 5 mL with 1 g vancomycin and 1 g of gentamicin. SURGEON: Olman Barclay DO EXTENSION SERVICE AGENT: None. ANESTHESIA: General, regional. SPECIMENS: 1. Aerobic, anaerobic, Gram stain, deep ulcer, left heel. 2. Bone for culture, left calcaneus. 3. Tissue for pathological specimen, left heel mass. DRAINS: None. COMPLICATIONS: None. BLOOD LOSS: 4 mL. PERTINENT HISTORY: This is a 64-year-old woman who states that she has had a chronic fungating ulceration in the plantar medial aspect of her left heel for many years. She describes this to stepping on something when she was hiking many years ago. She has had a problem with this heel, which has had different stages of ulceration and partial closure. She has had dealings with wound clinics in different regions. I had performed an irrigation and debridement for her several weeks ago. She was doing fairly well; however, over the last 2 weeks, her progress had stalled and worsened as of her last office visit this last week. I did speak with her daughter who explained that the patient has been walking on the heel which is against medical recommendation and she has also been manually picking at the ulceration as per the patient's daughter. Some features of noncompliance are consistent with the lack of her progress. She was seen in clinic and she was then scheduled for surgery as indicated. All potential risks, benefits, complications, alternatives, rehab, potential for incomplete relief of symptoms, need for further surgery, DVT, PE, , persistent pain, swelling, scarring, weakness, neurovascular injury, wound complications, need for possible amputation and further wound management were discussed with the patient. The patient decided to proceed with the procedure as indicated. DESCRIPTION OF PROCEDURE: The patient was taken to the operative suite, placed supine on the operating table. After review of consent and identification of proper operative site, the patient was anesthetized, LMA was placed. A tourniquet was applied high on the left thigh over cast padding. Left lower extremity was then sterilely prepped and draped in usual fashion, elevated and tourniquet inflated to 325 mmHg. There was no exsanguination performed due to the nature of the mass and likely infection. Next, the large plantar medial left heel ulcer with associated mass measuring 5 mm x 4.5 cm x 3 cm for the ulcer was then sharply debrided with a 15-blade scalpel including the skin, subcutaneous tissue, fascia, periosteum down to the level of the calcaneal bone. There was an area of softening on the plantar medial tuberosity of the calcaneus. Therefore, first culture was obtained of the deep ulceration for aerobic, anaerobic, Gram stain. This was then followed by saucerization with 15-blade scalpel of some of the mass in the plantar medial heel to debulk it and this was then sent for pathological assessment. It has features of fibrous tissue and scar, some zones lacking normal heel pad fat and septations. No foul odor was noted. The hypertrophic rind of tissue was then debulked around the periphery of the ulceration. Next, calcaneal bone was then harvested using rongeur, the plantar medial tuberosity of the left calcaneus. This was then sent for bone culture. Next, the site was then copiously irrigated with 3 liters of sterile saline with bacitracin, pulsatile lavage. Once this was completed, new top sheet and new gloves were applied and then implantation of 5 mL Stimulan beads with 1 g of vancomycin and 1 gram of gentamicin was inserted in and around the wound at the site of the mass void and adjacent to the calcaneus. Next, the soft tissue defect was then closed using interrupted 2-0 nylon sutures to decrease soft tissue void and then antibiotic beads were then closed in the pouch and then a bead pouch was made using Acticoat Flex which was then shaped and stapled into place with a skin stapler. Next, a sterile compressive dressing was applied after injection around the heel with 20 mL of 0.5% Marcaine plain followed by application of a bulky Spike Quan plaster splint in neutral dorsiflexion overwrapped with an Dave wrap. Tourniquet was released. The patient tolerated it well. She was awakened and taken to recovery in stable condition. I attest to the content of the Intraoperative Record and any orders documented therein. Any exception s are noted below.
[2020-05-22 05:51] LABS: Hematocrit (blood only) 29.3 % (37-47); Hemoglobin 9.4 g/dL (12.0-16.0); Mean Corpuscular Hemoglobin 28.7 pg (25-34); Mean Corpuscular Hgb Conc 32.1 g/dL (32-36); Mean Corpuscular Volume 89.3 fL (80-100); Mean Platelet Volume 9.5 fL (7.4-10.4); Platelet Count 282 K/uL (130-400); RDW Coefficient of Variation 14.5 % (11.5-14.5); RDW Standard Deviation 47.3 fL (36.4-46.3); Red Blood Count 3.28 M/uL (4.2-5.4); White Blood Count 10.18 K/uL (4.8-10.8)
[2020-05-22] MEDS: ACETAMINOPHEN 500 MG TAB PO SCH ×3 (05:59→21:04)
[2020-05-22] MEDS: LEVOTHYROXINE SODIUM 100 MCG TABLET PO SCH (06:00)
[2020-05-22] MEDS: SODIUM CHLORIDE 0.9% 1000ML 1,000 ML IV SCH (06:05)
[2020-05-22 06:09] LABS: BUN Creatinine Ratio 18.3 (10-20); Calcium 7.7 mg/dl (8.5-10.1); Creatinine Clr Calc Pharmacy 59.3 ml/min; Est GFR (Non-African American) 45.7; Potassium 4.2 mmol/L (3.5-5.1)
[2020-05-22] MEDS ORDERED: LEVOTHYROXINE SODIUM 88 MCG TABLET PO SCH (06:30)
--- NOTE | 2020-05-22 06:55 | Orthopedic Progress Note ---
Date of Service May 22, 2020 POD #1 s/p left foot I&D Assessment & Plan (1) Ulcer of left heel: POD #1 s/p left foot I&D Patient admitted after her surgery, preoperatively she lost blood from the peripheral IV and required 2 units of PRBCs. Hemoglobin dropped to 7, from 10.8 on 04/26. H/H drawn this am is 9.4/29.3, Currently, patient is hemodynamically stable, asymptomatic. will await gram stain, C&S remain NWB on the left foot RICE for pain/swelling appreciate medical team management Admission and Anticipated Discharge Date Admission Date: May 21, 2020 Supervising Physician Co-Signing Physician Notes Patient seen and examined agree with above assessment and plan. Subjective pain currently well controlled. she states that she is feeling well, denies CP/SOB, denies fever or chills. denies LH or dizziness Review of Systems Constitutional: as per Subjective / HPI; no fever and no chills Cardiovascular: no chest pain and no dyspnea Gastrointestinal: no nausea and no vomiting Physical Exam Physical Exam: Vital Signs Temp 37.1 C 05/22/20 04:06 Pulse 86 05/22/20 04:06 Resp 16 05/22/20 04:06 BP 153/77 H 05/22/20 04:06 Pulse Ox 93 05/22/20 04:06 Intake & Output 05/21/20 05/21/20 05/22/20 06:59 18:59 06:59 Intake Total 640.25 / 5608.847 7460.417 / 1821.66 7 Output Total 4 2350 / 2354 Balance 636.25 / -532.333 -1168.583 / -532.3 33 Weight 104.411 kg 104.4 kg Intake: IV 40.25 / 501.667 461.417 / 501.667 Lr 1,000 ml @ 15 mls/hr IV . 40.25 / 80.00 39.75 / 80.00 Q24H [facility] Rx#:[id number] Nss 1000ML 1,0 00 ml @ 100 mls/ 421.667 / 421.667 hr IV .Q10H [facility] Rx#:[id number] IV Perioperative 600 / 600 Oral 100 / 100 Intake (Blood Pr oduct) Amt 620 / 620 Packed Cells, Leukoreduced 310 / 310 Unit [id number] Packed Cells, Leukoreduced 310 / 310 Unit [id number] Output: Urine 2350 / 2350 Estimated Blood Loss 4 / 4 Other: Weight Measureme nt Method Standing Scale Constitutional: WD/WN, vitals as above no acute distress Musculoskeletal: left lower extremity: no tenderness thigh or knee area, no pain with AROM/PROM of the knee. dressing is clean dry and intact to lower leg, no drainage noted onto the dressing. Results & Data ([facility]) Vital Signs (Past 12 Hours) Vital Signs Temp Pulse Pulse Resp BP BP Pulse Ox 05/22/20 04:06 37.1 C 86 16 153/77 H 93 05/22/20 02:43 36.7 C 80 16 151/80 H 95 05/22/20 02:00 36.6 C 85 16 148/76 H 93 05/22/20 01:00 36.9 C 78 15 149/73 H 95 05/22/20 00:30 36.7 C 85 16 175/71 H 93 05/22/20 00:15 36.9 C 78 18 144/79 H 95 05/21/20 23:55 36.8 C 77 14 133/75 96 05/21/20 23:30 36.7 C 76 20 136/75 93 05/21/20 22:59 36.9 C 83 16 147/71 H 96 05/21/20 21:59 36.9 C 84 16 159/78 H 98 05/21/20 21:29 36.7 C 85 16 147/55 H 96 05/21/20 21:14 36.9 C 89 16 169/74 H 95 05/21/20 20:54 36.8 C 89 16 166/90 H 99 05/21/20 20:43 36.5 C 89 15 164/80 H 98 05/21/20 19:51 36.8 C 93 H 16 167/76 H 97 05/21/20 19:16 36.6 C 90 15 153/72 H 99 Laboratory Results Vital Signs Temp 37.1 C 05/22/20 04:06 Pulse 86 05/22/20 04:06 Resp 16 05/22/20 04:06 BP 153/77 H 05/22/20 04:06 Pulse Ox 93 05/22/20 04:06 Intake & Output 05/21/20 05/21/20 05/22/20 06:59 18:59 06:59 Intake Total 640.25 / 1105.623 1905.417 / 1821.667 Output Total 2353 2350 / 2354 Balance 636.25 / -532.333 -1168.583 / -532.333 Weight 104.411 kg 104.4 kg Intake: IV 40.25 / 501.667 461.417 / 501.667 Lr 1,000 ml @ 15 mls/hr IV . 40.25 / 80.00 39.75 / 80.00 Q24H [facility] Rx#:[id number] Nss 1000ML 1,000 ml @ 100 mls/ 421.667 / 421.667 hr IV .Q10H [facility] Rx#:[id number] IV Perioperative 600 / 600 Oral 100 / 100 Intake (Blood Product) Amt 620 / 620 Packed Cells, Leukoreduced 310 / 310 Unit [id number] Packed Cells, Leukoreduced 310 / 310 Unit [id number] Output: Urine 2350 / 2350 Estimated Blood Loss Other: Weight Measurement Method Standing Scale Laboratory Results WBC 10.18 K/uL (4.8-10.8) 05/22/20 05:43 RBC 3.28 M/uL (4.2-5.4) L 05/22/20 05:43 Hgb 9.4 g/dL (12.0-16.0) L 05/22/20 05:43 POC Hgb 7.5 g/dl (12.0-16.0) L 05/21/20 16:43 Hct 29.3 % (37-47) L 05/22/20 05:43 POC Hct 22 % (37-47) L 05/21/20 16:43 MCV 89.3 fL (80-100) 05/22/20 05:43 MCH 28.7 pg (25-34) 05/22/20 05:43 MCHC 32.1 g/dL (32-36) 05/22/20 05:43 RDW Std Deviation 47.3 fL (36.4-46.3) H 05/22/20 05:43 RDW Coeff of Anitha 14.5 % (11.5-14.5) 05/22/20 05:43 Plt Count 282 K/uL (130-400) 05/22/20 05:43 MPV 9.5 fL (7.4-10.4) 05/22/20 05:43 POC Sodium 140 mmol/L (135-144) 05/21/20 16:43 Sodium 140 mmol/L (136-145) 05/22/20 05:43 POC Potassium 4.3 mmol/L (3.3-5.0) 05/21/20 16:43 Potassium 4.2 mmol/L (3.5-5.1) 05/22/20 05:43 POC Chloride 102 mmol/L (101-112) 05/21/20 16:43 Chloride 108 mmol/L (98-107) H 05/22/20 05:43 Carbon Dioxide 30 mmol/L (21-32) 05/22/20 05:43 POC Total CO2 29 mmol/L (24-31) 05/21/20 16:43 Anion Gap 3.0 (3-11) 05/22/20 05:43 POC Anion Gap 15.0 mmol/L (16-25) L 05/21/20 16:43 POC BUN 22 mg/dl (7-18) H 05/21/20 16:43 BUN 23 mg/dl (7-18) H 05/22/20 05:43 Creatinine 1.25 mg/dl (0.6-1.2) H 05/22/20 05:43 POC Creatinine 1.1 mg/dl (0.6-1.3) 05/21/20 16:43 Est Cr Clr Drug Dosing 59.3 ml/min 05/22/20 05:43 Est GFR ( Amer) 53.0 05/22/20 05:43 Est GFR (Non-Af Amer) 45.7 05/22/20 05:43 BUN/Creatinine Ratio 18.3 (10-20) 05/22/20 05:43 Glucose 138 mg/dl (70-99) H 05/22/20 05:43 POC Glucose 147 mg/dl (70-99) H 05/22/20 04:02 POC Glucose (other) 154 mg/dl (70-99) H 05/21/20 16:43 Calcium 7.7 mg/dl (8.5-10.1) L 05/22/20 05:43 POC Ioniz Calcium Woody 1.17 mmol/l (1.12-1.32) 05/21/20 16:43 Blood Type AB Negative 05/21/20 18:23 Blood Type Recheck AB Negative 05/21/20 19:49 Antibody Screen NEGATIVE 05/21/20 18:23 Crossmatch See Detail 05/21/20 18:23
[2020-05-22] MEDS: ceFAZolin 2000MG 2,000 MG/15 ML SYR IV SCH (07:51)
[2020-05-22 08:18] LABS: Prothrombin Time 9.7 Seconds (9.0-12.0)
[2020-05-22] MEDS: MULTIVITAMIN TAB PO SCH (09:04)
[2020-05-22] MEDS: ASPIRIN 81 MG ECTAB PO SCH ×2 (09:04→21:04)
[2020-05-22] MEDS: amLODIPine BESYLATE 5 MG TAB PO SCH (09:04)
[2020-05-22] MEDS: ATORVASTATIN 40 MG TAB PO SCH (09:04)
[2020-05-22] MEDS: DULoxetine HCL 60 MG CAP PO SCH (09:04)
[2020-05-22] MEDS: DOCUSATE SODIUM 100 MG CAP PO SCH ×2 (09:05→21:04)
[2020-05-22] MEDS: ENALAPRIL MALEATE 10 MG TAB PO SCH (09:05)
--- NOTE | 2020-05-22 09:49 | Hospitalist Progress Note ---
Date of Service May 22, 2020 Assessment & Plan (1) Acute blood loss anemia: Patient had significant loss of blood preop, from the IV site Postoperative hemoglobin noted to drop to 7 Status post 2 units of PRBC transfusion Hemoglobin appropriately improved to 9 Patient denies of any dizzy spells no lightheadedness, no dyspnea on exertion Nonhealing diabetic ulcer of left heel: Status post surgery, Continue to follow recommendation by orthopedics Thank you for allowing to participate in the care of this patient, Patient remains medically stable We will continue to follow her during this hospital stay Admission and Anticipated Discharge Date Admission Date: May 21, 2020 Subjective Medicine consult follow-up visit for acute blood loss anemia/status post left diabetic foot wound surgery: Patient reports feeling much better today, denies of any shortness of breath no dyspnea on exertion, Working with physical therapy, able to utilize a walker, no discomfort with activity No fever chills no cough hb globin appropriately improved to 9 after blood transfusion No other bleeding complication Review of Systems Review of Systems: All systems reviewed & are unremarkable except as noted in Subjective Physical Exam Physical Exam: Physical exam: General: No acute distress, alert awake oriented x3 HEENT: PERRLA, EOMI, Heart: Regular S1-S2, no carotid bruit, no JVD, no lower extremity edema Lungs: Clear to auscultate, no wheeze or rales Abdomen: Soft nontender, no organomegaly Extremity: Status post left foot surgery, on bandage, normal exam of the right lower extremity Neuro: No focal neurological deficit normal speech, normal visual field, Motor strength : normal both upper and lower extremity, sensation intact Psych: Alert awake oriented x3, normal affect Results & Data Results & Data ([facility]) Vital Signs (Past 12 Hours) Vital Signs Temp Pulse Pulse Resp BP BP Pulse Ox 05/22/20 07:27 36.7 C 79 16 149/72 H 92 05/22/20 04:06 37.1 C 86 16 153/77 H 93 05/22/20 02:43 36.7 C 80 16 151/80 H 95 05/22/20 02:00 36.6 C 85 16 148/76 H 93 05/22/20 01:00 36.9 C 78 15 149/73 H 95 05/22/20 00:30 36.7 C 85 16 175/71 H 93 05/22/20 00:15 36.9 C 78 18 144/79 H 95 05/21/20 23:55 36.8 C 77 14 133/75 96 05/21/20 23:30 36.7 C 76 20 136/75 93 05/21/20 22:59 36.9 C 83 16 147/71 H 96 05/21/20 21:59 36.9 C 84 16 159/78 H 98
[2020-05-22] MEDS: INSULIN GLARGINE SOLOSTAR 100 UNITS/ML 3 ML PEN SC SCH (20:42)
[2020-05-22] MEDS: SENNA 8.6 MG TAB PO SCH (21:04)
[2020-05-23] MEDS: oxyCODONE HCL IR 5 MG TAB (IMMEDIATE RELEASE) PO PRN ×2 (04:44→10:57)
[2020-05-23] MEDS: LEVOTHYROXINE SODIUM 100 MCG TABLET PO SCH (05:41)
[2020-05-23] MEDS: ACETAMINOPHEN 500 MG TAB PO SCH (05:41)
--- NOTE | 2020-05-23 06:30 | Orthopedic Progress Note ---
Date of Service May 23, 2020 Assessment & Plan (1) Ulcer of left heel: POD #2 s/p left foot I&D Patient admitted after her surgery, preoperatively she lost blood from the peripheral IV and required 2 units of PRBCs. Hemoglobin dropped to 7, from 10.8 on 04/26. H/H drawn 05/22 is 9.4/29.3, Currently, patient is hemodynamically stable, asymptomatic. Gram stain showing gram neg bacilli and gram positive cocci will discuss with Dr Leonardo and d/c patient on PO Abx and f/u with dr leonardo in 10-12 days remain NWB on the left foot RICE for pain/swelling appreciate medical team management Admission and Anticipated Discharge Date Admission Date: May 21, 2020 Supervising Physician Co-Signing Physician Notes Patient seen and examined, agree with above assessment and plan. Subjective POD #2 denies CP/SOB Denies Fever /Chills pain in her leg 03/17 Review of Systems Constitutional: as per Subjective / HPI; no fever and no chills Physical Exam Physical Exam: Vital Signs Temp 37.1 C 05/22/20 04:06 Pulse 86 05/22/20 04:06 Resp 16 05/22/20 04:06 BP 153/77 H 05/22/20 04:06 Pulse Ox 93 05/22/20 04:06 Intake & Output 05/21/20 05/21/20 05/22/20 06:59 18:59 06:59 Intake Total 640.25 / 9981.103 3386.417 / 1821.66 7 Output Total 4 2350 / 2354 Balance 636.25 / -532.333 -1168.583 / -532.3 33 Weight 104.411 kg 104.4 kg Intake: IV 40.25 / 501.667 461.417 / 501.667 Lr 1,000 ml @ 15 mls/hr IV . 40.25 / 80.00 39.75 / 80.00 Q24H [facility] Rx#:[id number] Nss 1000ML 1,0 00 ml @ 100 mls/ 421.667 / 421.667 hr IV .Q10H [facility] Rx#:[id number] IV Perioperative 600 / 600 Oral 100 / 100 Intake (Blood Pr oduct) Amt 620 / 620 Packed Cells, Leukoreduced 310 / 310 Unit [id number] Packed Cells, Leukoreduced 310 / 310 Unit [id number] Output: Urine 2350 / 2350 Estimated Blood Loss 4 / 4 Other: Weight Measureme nt Method Standing Scale Constitutional: WD/WN, vitals as above no acute distress Musculoskeletal: left lower extremity: no tenderness thigh or knee area, no pain with AROM/PROM of the knee. dressing is clean dry and intact to lower leg, no drainage noted onto the dressing. Results & Data ([facility]) Vital Signs (Past 12 Hours) Vital Signs Temp Pulse Resp BP Pulse Ox 05/22/20 22:55 36.8 C 84 16 155/79 H 98 05/22/20 19:53 36.9 C 79 17 135/80 96 Laboratory Results Microbiology 05/21/20 16:55 Foot,Left Gram Stain - Final 05/21/20 16:55 Foot,Left Aerobic and Anaerobic Culture - Preliminary Pin-point growth present, reincubating. 05/21/20 16:58 Foot,Left Gram Stain - Final 05/21/20 16:58 Foot,Left Aerobic and Anaerobic Culture - Preliminary Pin-point growth present, reincubating.
[2020-05-23] MEDS ORDERED: ERGOCALCIFEROL 50,000 UNITS 1250 MCG CAP PO SCH (09:00)
[2020-05-23] MEDS: amLODIPine BESYLATE 5 MG TAB PO SCH (09:05)
[2020-05-23] MEDS: ASPIRIN 81 MG ECTAB PO SCH (09:06)
[2020-05-23] MEDS: ENALAPRIL MALEATE 10 MG TAB PO SCH (09:06)
[2020-05-23] MEDS: MULTIVITAMIN TAB PO SCH (09:06)
[2020-05-23] MEDS: DOCUSATE SODIUM 100 MG CAP PO SCH (09:06)
[2020-05-23] MEDS: ATORVASTATIN 40 MG TAB PO SCH (09:06)
[2020-05-23] MEDS: DULoxetine HCL 60 MG CAP PO SCH (09:06)
[2020-05-23] MEDS: INSULIN ASPART 100 UNITS/ML 3 ML PEN SC SCH ×2 (09:10→12:18)
[2020-05-23] MEDS ORDERED: CIPROFLOXACIN 500 MG TAB PO STA (09:31)
--- NOTE | 2020-05-23 09:31 | Communication Note ---
Date of Service: May 23, 2020 Medicine consult note: Patient is medically stable to be discharged home today, Left foot wound culture growin organisms of gram-negative bacilli, isolation and sensitivity pending As patient is diabetic, will need antibiotic for Pseudomonas coverage as well I believe p.o. ciprofloxacin 500 mg twice daily for 10 days will be appropriate regimen Bactrim has only gram-positive coverage, not treat underlying gram-negative infection Antibiotic changed appropriately under discharge instructions We will order 1 dose of p.o. Cipro before discharging home Orthopedics team updated regarding the change Gita Garcia MD
[2020-05-23 10:04] LABS: Hematocrit (blood only) 32.3 % (37-47); Hemoglobin 10.2 g/dL (12.0-16.0)
[2020-05-24 06:00] LABS: Estimated Average Glucose 212 mg/dl
--- NOTE | 2020-05-24 14:46 | Discharge Summary ---
Date of Service May 24, 2020 Admission HPI Per Admitting Provider This is a patient with a long hx of ulcerations of bilateral feet. 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 She also had an ulceration on the plantar right foot last year that was debrided and eventually healed. More recently, she had a left medial heel ulceration start and it was debrided ~3 weeks ago. The wound had worsened and she is being set up for repeat surgical debridement. Principal Diagnosis Left foot heel ulcer Discharge Exam Constitutional well developed and well nourished; no acute distress ENMT external ear and nose normal, oropharynx normal Neck trachea midline, no thyromegaly Respiratory normal respiratory effort, lungs clear to auscultation Cardiovascular Rate/Rhythm: regular rate and regular rhythm Gastrointestinal (Abdomen) normal bowel sounds, soft, nontender, no hepatosplenomegaly Neurologic + abnormal touch/pain/proprioception (Decreased sensation bilateral feet) Psychiatric A+Ox3, euthymic affect Speech: normal rate/rhythm/volume of speech Lymphatic no cervical or axillary lymphadenopathy Discharge Data Allergies Allergy/AdvReac Type Severity Reaction Status Date / Time peach Allergy Intermediate Hives Verified 05/21/20 14:00 cat dander Allergy Mild CONGESTION Verified 05/21/20 14:00 cefepime Allergy Mild itch Verified 05/21/20 14:00 lamotrigine [From Lamictal] Allergy Mild Rash Verified 05/21/20 14:00 Consultations 05/21/20 17:54 Consult Hospitalist Routine 05/21/20 20:37 Consult Patient Rep / Service Excellence [Consult Patient Services] Routine Procedures Performed Operation Date: 05/21/20 14:55 Actual Procedures p Left Foot Incision and Drainage of Heel Ulcer, Debridement of Skin, Fascia, Periosteum, Stimulan Beads Application(Left) - Olman Barclay DO Ordered Studies 05/21/20 05:00 US - OR guided needle placemen Routine Hospital Course (1) Ulcer of left heel: Patient was admitted and underwent the noted procedure. Prior to her surgery she had lost a significant mount of blood from her peripheral IV and her hemoglobin dropped to 7. She was admitted postop for receiving 2 units of packed red blood cells. Her hemoglobin improved significantly after the transfusion. She did well on postop day #1 and postop day #2. Cultures were still pending however she was discharged on postop day #1 with Bactrim DS twice daily and Cipro 500 mg twice daily. POD #2 s/p left foot I&D Patient admitted after her surgery, preoperatively she lost blood from the peripheral IV and required 2 units of PRBCs. Hemoglobin dropped to 7, from 10.8 on 04/26. H/H drawn 05/22 is 9.4/29.3, Currently, patient is hemodynamically stable, asymptomatic. Gram stain showing gram neg bacilli and gram positive cocci will discuss with Dr Barclay and d/c patient on PO Abx and f/u with dr barclay in 10-12 days remain NWB on the left foot RICE for pain/swelling appreciate medical team management Total Time Total Time Spent Total Time Spent (In Minutes): 30 Total Time Includes: Examination of the Patient, Discharge Planning, Medication Reconciliation and Communication With Other Providers Discharge Plan Discharge Items Patient Disposition: Home - Self-Care Reason For Visit: Left Foot Heel Ulcer Discharge Diagnosis: Left Foot Heel Ulcer Condition on Discharge: Good Activity: Per Instructions section Lifting: Wait until after follow-up appointment Weightbearing Comment: non weight bearing left leg Non-emergency contact: Surgeon Call non-emergency contact if: your pain is not controlled, your temperature is above 101.5, your wound has increased redness and your wound has increased drainage Follow-up/Referrals: Olman Barclay DO [Surgeon] - Morgan Swan MD [Primary Care Provider] - Diet: Carb Consistent or DM2 Addtl Attending Provider Instructions: RESUME TAKING YOUR ANTIBIOTICS ACTIVITY RECOMMENDATIONS: Limitations: No weight bearing to affected limb at all times. SPECIAL CARE INSTRUCTIONS: * Some drainage onto the dressing is normal and is no cause for alarm. * Some swelling is natural especially after walking. * When resting, keep your foot elevated above the level of your heart. * Call [facility] if you notice: -Increased drainage -Fever over 101 degrees F -Severe constant pain BANDAGE: * Keep splint/dressing in place * Keep bandage/cast dry at all times. FOLLOW UP VISIT WITH DR. BARCLAY If appointment is not already scheduled: Please call [facility] after you get home today to schedule a follow-up appointment for [address] Barclay at . Addtl Control Systems Engineer Provider Instructions: PLEASE TAKE PROBIOTICS ( OVER THE COUNTER ) WHILE TAKING ANTIBIOTICS TO PREVENT DIARRHEA /LOOSE STOOL Please check repeat lab: Complete blood count in 1 week Your added iron supplement, and vitamin C for blood loss anemia Pending Studies at Discharge: No Stand-Alone Forms: My [facility], Opioid Pain Management Medications and DC Order Prescriptions: New oxycodone 5 mg Tablet 5 mg PO Q4H MDD 6 PRN (Reason: pain) Qty: 18 RF: 0 acetaminophen 500 mg Tablet 1,000 mg PO Q8 Qty: 60 RF: 0 aspirin 81 mg Tablet,Delayed Release (Dr/Ec) 81 mg PO BID 30 Days Qty: 60 RF: 0 ciprofloxacin HCl 500 mg tablet 500 mg PO BID 10 Days Qty: 20 RF: 0 Hematogen Forte 460-60-0.01-1 mg capsule 1 cap PO DAILY Qty: 30 RF: 0 Continued alprazolam 1 mg tablet 1 mg PO BID PRN (Reason: Anxiety) RF: 0 amlodipine 5 mg tablet 5 mg PO QAM RF: 0 ramipril 10 mg capsule 10 mg PO QAM RF: 0 insulin aspart U-100 [Novolog Flexpen U-100 Insulin] 100 unit/mL (3 mL) insulin pen See Rx Instructions .ROUTE .COMPLEX RF: 0 duloxetine 60 mg capsule,delayed release(DR/EC) 60 mg PO QAM RF: 0 Basaglar KwikPen U-100 Insulin 100 unit/mL (3 mL) insulin pen 20 unit SUBCUT HS RF: 0 Jardiance 25 mg tablet 25 mg PO QPM RF: 0 ergocalciferol (vitamin D2) 1,250 mcg (50,000 unit) Capsule 50,000 unit PO WK RF: 0 aspirin 81 mg tablet,delayed release (DR/EC) 81 mg PO DAILY Qty: 30 RF: 0 Antibiotic 1 tab PO Q6 RF: 0 atorvastatin 40 mg tablet 40 mg PO DAILY RF: 0 levothyroxine 100 mcg tablet 100 mcg PO DAILY RF: 0 Discontinued oxycodone-acetaminophen [Percocet] 5-325 mg Tablet 1 tab PO Q4H PRN (Reason: pain) Qty: 20 RF: 0 Discharge Orders: Discharge Order (Routine); Ordered 05/23/20 Ordered By: Cristi Jackson Admission Data Admit Date/Time: 05/21/20 17:40 Attending Provider: Olman Barclay Admit Provider: Olman Barclay Primary Care Provider: Morgan Swan Other Providers: Luba Villela ; Gita Garcia Other Interventions: Discharge Summary Assessment (RN) Last Done: 05/23/20 10:30
== END 2020-05-23 12:55 | disposition home or self-care (01) ==
LOC: ASU 13:21 → INTOOBSV 17:40 → 3E 17:40

== ENCOUNTER 2020-06-20 16:37 | Inpatient (IN) ==
--- NOTE | 2020-06-20 16:55 | Emergency Department Note ---
Impression & Plan Osteomyelitis, Cellulitis ED Provider Note NAME: RUTH WASHBURN AGE: 64 SEX: F : 1955 ARRIVES VIA: Walk-In INFORMANT: patient, ED PROVIDER(S): Grey Davidson MD Chief Complaint: Foot wound HPI: Patient does present with concern for foot wound. The patient has been on antibiotics for approximately 5 weeks including ciprofloxacin and clindamycin. The patient did have 2 recent procedures most recently 3 weeks ago due to concern for this wound and did require a repeat debridement procedure. Patient denies any fevers but has had some chills. Patient has noticed some clearish drainage. Patient denies any nausea vomiting. The patient has had a prior history of a left TMA procedure as well as necrotizing fasciitis. The patient has noticed some left lower extremity swelling as well. No prior history of DVT or PE. Patient does have a history of type 2 diabetes but has been compliant with her medications. The patient has seen both infectious disease as well as her surgeon that performed the procedure, Dr. Barclay. The patient was wanting wound care follow-up with the patient does not not expected at follow-up until August and the patient believes that she needs a sooner. ROS: See HPI for pertinent positives and negatives. A total of 10 systems were reviewed and otherwise negative. Past medical history: See below Surgical history: See below Social history: See below Physical Exam: GENERAL: Wearing a mask. NAD, non-toxic. EYE EXAM: Normal conjunctiva. PERRL, no anisocoria and EOM's grossly intact w/o pain. NECK: Supple, no nuchal rigidity, no adenopathy, non-tender. No signs of meningismus. LUNGS: Clear to auscultation. Normal chest wall mechanics. HEART: NSR, no MRG. ABDOMEN: Abdomen soft, non-tender, normo-active bowel sounds, no masses, no rebound or guarding. BACK: No CVA TTP. SKIN: No rashes and no bruising. UPPER EXTREMITIES: Upper extremities are grossly normal. LOWER EXTREMITIES: Grossly normal, left lower extremity edema present, redness and mild pain. 3 x 3 cm area with a dressing in place and staple surrounding the dressing. Erythema noted. No active drainage or crepitus. Well-healed TMA of the left foot. NEURO EXAM: A&O x3, cranial nerves II-XII grossly intact, normal speech, moves all 4 extremities on command w/o issue. Differential diagnoses: Cellulitis, abscess, MRSA infection, DVT, necrotizing fasciitis, dermatitis, drug eruption, allergic reaction, as well as other pathologies. Course: Patient was seen and evaluated the bedside. Full history physical exam was performed. EKG: None Imaging Studies: See below Cardiac monitoring: An order was placed for continuous cardiac monitoring. The monitor shows a rate of 104 with sinus rhythm. MDM: Patient does present with concern for persistent severe left wound. The patient has had 2 recent surgeries. Patient white count normal with anemia noted at 8.8. Platelet count is unre markable. Kidney function with creatinine 1.3. Patient does have elevated blood glucose but gap and bicarb are normal. Patient's ESR and CRP are elevated. The patient did have a wound culture sent. The patient does have osteo seen on her x-ray. DVT ultrasound negative. Given the osteomyelitis patient did have IV antibiotics ordered and I did speak with the on-call hospitalist on RADHA Almeida. The patient was admitted by Dr. Chandler of [facility]. Past Med/Surg History Medical History Anxiety and depression Attention deficit disorder (ADD) Bipolar disorder TYPE 2 Chronic kidney disease STAGE 3 Diabetes mellitus, type II Diabetic ulcer of left foot Dyslipidemia History of necrotising fasciitis LEFT FOOT Hypertension Hypothyroidism Osteoarthritis Peripheral neuropathy PTSD (post-traumatic stress disorder) Surgical History H/O foot surgery RT H/O gastric bypass 3 YEARS AGO History of amputation of left foot through metatarsal bone History of anesthesia reaction DURING 1 PROCEDURE "LOSS OF HEARTBEAT FOR SHORT PERIOD OF TIME". WOKE UP DURING A COLONOSCOPY History of cataract surgery RT/LEFT History of section X 4 History of cholecystectomy History of colonoscopy History of esophagogastroduodenoscopy (EGD) S/P cervical spinal fusion S/P subtotal parathyroidectomy Status post left foot surgery I&D [place] teeth removed Family History Mother Family history of diabetes mellitus Father Family history of diabetes mellitus Other Diabetes Hypertension No family history of adverse response to anesthesia Social History Smoking Status: Never smoker Second Hand Exposure: No; Hx Alcohol Use: No Hx Substance Use: No Preferred Language: Telugu Communication Ability: Effective Program Associate Required: No Beliefs That Will Affect Care: None marital status: Current Living Situation: Family Current Living Situation Comment: lives with dtr Feels Safe at Home: Yes Assistive Devices: Walker Allergies Allergies Allergy/AdvReac Type Severity Reaction Status Date / Time peach Allergy Intermediate Hives Verified 06/20/20 18:25 cat dander Allergy Mild CONGESTION Verified 06/20/20 18:25 cefepime Allergy Mild itch Verified 06/20/20 18:25 lamotrigine [From Lamictal] Allergy Mild Rash Verified 06/20/20 18:25 Home Meds Home Medications Medication Instructions Recorded Confirmed Basaglar KwikPen U-100 Insulin 20 unit SUBCUT HS 09/16/19 06/20/20 Jardiance 25 mg PO QPM 09/16/19 06/20/20 alprazolam 1 mg PO BID PRN 09/16/19 06/20/20 amlodipine 5 mg PO QAM 09/16/19 06/20/20 duloxetine 60 mg PO QAM 09/16/19 06/20/20 ergocalciferol (vitamin D2) 50,000 unit PO WK 09/16/19 06/20/20 insulin aspart U-100 [Novolog 20 unit SUBCUT TIDWMEAL 09/16/19 06/20/20 Flexpen U-100 Insulin] ramipril 10 mg PO QAM 09/16/19 06/20/20 atorvastatin 40 mg PO DAILY 05/21/20 06/20/20 levothyroxine 100 mcg PO DAILY 05/21/20 06/20/20 acetaminophen 1,000 mg PO Q8 PRN 06/20/20 06/20/20 ciprofloxacin HCl 500 mg PO Q12 06/20/20 06/20/20 clindamycin HCl [Cleocin HCl] 300 mg PO .Q6HRS 06/20/20 06/20/20 diphenhydramine HCl [Benadryl] 25 mg PO HS 06/20/20 06/20/20 oxycodone-acetaminophen 1 tab PO BID PRN 06/20/20 06/20/20 pediatric [id number] 1 tab PO DAILY 06/20/20 06/20/20 [Baron Complete (iron)] Previous Rx's Medication Instructions Recorded aspirin 81 mg PO BID 30 Days #60 tab 05/23/20 Results & Data (ED) Vital Signs Vital Signs - 24 hr 06/20/20 16:38 06/20/20 17:50 Temperature 36.4 C L Temperature Source Skin Pulse Rate 104 H Respiratory Rate 18 Respiratory Effort / Characteristics Non-Labored Spontaneous Respiratory Depth Normal Blood Pressure 191/72 H Blood Pressure Mean 111 Blood Pressure Position Sitting Pulse Oximetry 94 98 Oxygen Delivery Method Room Air Room Air Sepsis Recent Fever Within 48 Hours No Sepsis New/Unexplained Change in Mental Status N/A Sepsis Action Taken by Nursing No Action Required Home Medications Current Medication List: was personally reviewed by me Laboratory Data Attestation: I reviewed the patient's lab results. Result diagrams: 06/20/20 17:20 06/20/20 17:20 Lab Results 06/20/20 06/20/20 06/20/20 Range/Units 17:20 17:20 17:20 WBC 8.89 (4.8-10.8) K/uL RBC 2.93 L (4.2-5.4) M/uL Hgb 8.8 L (12.0-16.0) g/dL Hct 28.2 L (37-47) % MCV 96.2 (80-100) fL MCH 30.0 (25-34) pg MCHC 31.2 L (32-36) g/dL RDW Std Deviation 50.3 H (36.4-46.3) fL RDW Coeff of Anitha 14.3 (11.5-14.5) % Plt Count 357 (130-400) K/uL MPV 9.6 (7.4-10.4) fL Immature Gran % (Auto) 0.1 % Neut % (Auto) 75.7 % Lymph % (Auto) 15.2 % [place] % (Auto) 5.7 % Eos % (Auto) 3.1 % Baso % (Auto) 0.2 % Neut # (Auto) 6.72 H (1.4-6.5) K/uL Lymph # (Auto) 1.35 (1.2-3.4) K/uL [place] # (Auto) 0.51 (0.11-0.59) K/uL Eos # (Auto) 0.28 (0-0.5) K/uL Baso # (Auto) 0.02 (0-0.2) K/uL Immature Gran # (Auto) 0.01 (0.00-0.02) K/uL ESR 47 H (0-30) mm/hr Sodium 139 (136-145) mmol/L Potassium 4.3 (3.5-5.1) mmol/L Chloride 106 (98-107) mmol/L Carbon Dioxide 28 (21-32) mmol/L Anion Gap 5.0 (3-11) BUN 19 H (7-18) mg/dl Creatinine 1.32 H (0.6-1.2) mg/dl Est Cr Clr Drug Dosing 53.5 ml/min Est GFR ( Amer) 49.6 ml/min Est GFR (Non-Af Amer) 42.8 ml/min BUN/Creatinine Ratio 14.3 (10-20) Glucose 299 H (70-99) mg/dl Calcium 8.1 L (8.5-10.1) mg/dl Magnesium 2.5 H (1.8-2.4) mg/dl Total Bilirubin 0.2 (0.2-1) mg/dl AST 44 H (15-37) U/L ALT 57 (12-78) U/L Alkaline Phosphatase 168 H (45-117) U/L C-Reactive Protein 8.16 H (0-0.29) mg/dl Total Protein 7.3 (6.4-8.2) gm/dl Albumin 2.6 L (3.4-5.0) gm/dl Globulin 4.7 H (2.5-4.0) gm/dl Albumin/Globulin Ratio 0.6 L (0.9-2) TSH 1.500 (0.300-4.500) uIu/ml Administered Medications Discontinued Medications Sodium Chloride (Nss) 500 mls @ 999 mls/hr IV .Q31M RAVINDRA Stop: 06/20/20 17:30 Last Admin: 06/20/20 17:28 Dose: 999 mls/hr Documented by: [id number] Imaging Data Radiologist's Impression: Foot X-Ray 06/20/20 16:52 XR foot LT min 3V routine CLINICAL HISTORY: Left foot wound. COMPARISON: Left foot radiographs February 20, 2014. FINDINGS: Note is made of postoperative findings consistent with interval left transmetatarsal amputation of the first through fifth digits. Note is made of soft tissue swelling within the left foot and ankle. Lateral view demonstrates possible bony erosion of the remaining portion of a metatarsal. This may reflect the remaining portion of the left first metatarsal. There is a possible erosion measuring 1.2 cm of the medial navicular. Skin ammy of the medial left hindfoot are noted. Lateral view demonstrates a wound of the hindfoot. Equivocal erosion of the plantar aspect of the calcaneus is probably artifactual. There is extensive plantar and moderate posterior calcaneal spurring. IMPRESSION: 1. Interval transmetatarsal amputation of the left foot. Possible osteomyelitis of the remaining portion of the metatarsal, as described above. 2. Apparent erosion measuring 1.2 cm of the medial navicular. This is new since prior radiographs. An additional site of osteomyelitis cannot be excluded. 3. Medial left hindfoot wound with skin ammy, as described above. 2. Left foot and ankle soft tissue swelling. ACT 112: Negative or not required by law. Electronically signed by: Ad Ram M.D. 06/20/2020 5:23 PM Venous Doppler Study 06/20/20 16:52 LEFT LOWER EXTREMITY VENOUS DOPPLER CLINICAL HISTORY: pain, redness COMPARISON STUDY: No previous studies for comparison. TECHNIQUE: Sonography of the deep venous system of the left lower extremity was performed. Compression and augmentation were evaluated. FINDINGS: The left common femoral, superficial femoral and popliteal veins were compressible. Augmentation was normal. Flow was shown within the deep calf vessels. IMPRESSION: No evidence of deep venous thrombus within the left lower extremity. ACT 112: Negative or not required by law. Electronically signed by: Ad Ram M.D. 06/20/2020 5:56 PM Chest X-Ray 06/20/20 16:53 XR chest 1V portable CLINICAL HISTORY: weakness COMPARISON STUDY: Chest radiograph September 16, 2019. FINDINGS: Lung volumes are normal. Lungs are clear. There is no pneumothorax or pleural effusion. Cardiac size is normal. Mediastinal contours are normal. There is no evidence for pulmonary edema. Radiodensity projects over the lower cervical spine. This may be postsurgical. IMPRESSION: No acute cardiopulmonary findings. ACT 112: Negative or not required by law. Electronically signed by: Ad Ram M.D. 06/20/2020 5:13 PM Discharge Plan Visit Data Chief Complaint: Foot Injury/Pain Stated Complaint: L FOOT INFECTION ED Provider: Grey Davidson Discharge Problem: Osteomyelitis, Cellulitis Forms Stand Alone Forms: My [facility] Prescriptions Prescriptions: No Action alprazolam 1 mg tablet 1 mg PO BID PRN (Reason: Anxiety) RF: 0 amlodipine 5 mg tablet 5 mg PO QAM RF: 0 ramipril 10 mg capsule 10 mg PO QAM RF: 0 insulin aspart U-100 [Novolog Flexpen U-100 Insulin] 100 unit/mL (3 mL) insulin pen 20 unit subcut TIDWMEAL RF: 0 duloxetine 60 mg capsule,delayed release(DR/EC) 60 mg PO QAM RF: 0 Basaglar KwikPen U-100 Insulin 100 unit/mL (3 mL) insulin pen 20 unit SUBCUT HS RF: 0 Jardiance 25 mg tablet 25 mg PO QPM RF: 0 ergocalciferol (vitamin D2) 1,250 mcg (50,000 unit) Capsule 50,000 unit PO WK RF: 0 atorvastatin 40 mg tablet 40 mg PO DAILY RF: 0 levothyroxine 100 mcg tablet 100 mcg PO DAILY RF: 0 aspirin 81 mg Tablet,Delayed Release (Dr/Ec) 81 mg PO BID 30 Days Qty: 60 RF: 0 [place] Complete (iron) Tablet,Chewable 1 tab PO DAILY RF: 0 oxycodone-acetaminophen 5-325 mg tablet 1 tab PO BID PRN (Reason: Pain) RF: 0 diphenhydramine HCl [Benadryl] 25 mg Capsule 25 mg PO HS RF: 0 acetaminophen 500 mg tablet 1,000 mg PO Q8 PRN (Reason: Pain) RF: 0 clindamycin HCl [Cleocin HCl] 300 mg capsule 300 mg PO .Q6HRS RF: 0 ciprofloxacin HCl 500 mg tablet 500 mg PO Q12 RF: 0 Discharge Problem: Osteomyelitis Qualifiers: Osteomyelitis type: unspecified type Osteomyelitis location: foot Laterality: left Qualified Code(s): M86.9 - Osteomyelitis, unspecified Cellulitis Qualifiers: Site of cellulitis: extremity Site of cellulitis of extremity: lower extremity Laterality: left Qualified Code(s): L03.116 - Cellulitis of left lower limb
[2020-06-20] MEDS ORDERED: SODIUM CHLORIDE 0.9% 500 ML IV SCH (17:00)
--- NOTE | 2020-06-20 17:14 | XRay Report ---
XR chest 1V portable CLINICAL HISTORY: weakness COMPARISON STUDY: Chest radiograph September 16, 2019. FINDINGS: Lung volumes are normal. Lungs are clear. There is no pneumothorax or pleural effusion. Car diac size is normal. Mediastinal contours are normal. There is no evidence for pulmonary edema. Radio density projects over the lower cervical spine. This may be postsurgical. IMPRESSION: No acute cardiopulmonary findings. ACT 112: Negative or not required by law. Electronically signed by: Ad Ram M.D. 06/20/2020 5:13 PM
--- NOTE | 2020-06-20 17:25 | XRay Report ---
XR foot LT min 3V routine CLINICAL HISTORY: Left foot wound. COMPARISON: Left foot radiographs February 20, 2014. FINDINGS: Note is made of postoperative findings consistent with interval left transmetatarsal amput ation of the first through fifth digits. Note is made of soft tissue swelling within the left foot an d ankle. Lateral view demonstrates possible bony erosion of the remaining portion of a metatarsal. Th is may reflect the remaining portion of the left first metatarsal. There is a possible erosion measur ing 1.2 cm of the medial navicular. Skin ammy of the medial left hindfoot are noted. Lateral view demonstrates a wound of the hindfoot. Equivocal erosion of the plantar aspect of the calcaneus is pro bably artifactual. There is extensive plantar and moderate posterior calcaneal spurring. IMPRESSION: 1. Interval transmetatarsal amputation of the left foot. Possible osteomyelitis of the remaining port ion of the metatarsal, as described above. 2. Apparent erosion measuring 1.2 cm of the medial navicular. This is new since prior radiographs. An additional site of osteomyelitis cannot be excluded. 3. Medial left hindfoot wound with skin ammy, as described above. 2. Left foot and ankle soft tissue swelling. ACT 112: Negative or not required by law. Electronically signed by: Ad Ram M.D. 06/20/2020 5:23 PM
[2020-06-20 17:43] LABS: Basophils # (auto) 0.02 K/uL (0-0.2); Basophils % (auto) 0.2 %; Eosinophils # (auto) 0.28 K/uL (0-0.5); Eosinophils % (auto) 3.1 %; Hematocrit (blood only) 28.2 % (37-47); Hemoglobin 8.8 g/dL (12.0-16.0); Immature Granulocytes # (auto) 0.01 K/uL (0.00-0.02); Immature Granulocytes % (auto) 0.1 %; Lymphocytes # (auto) 1.35 K/uL (1.2-3.4); Lymphocytes % (auto) 15.2 %; Mean Corpuscular Hgb Conc 31.2 g/dL (32-36); Mean Corpuscular Volume 96.2 fL (80-100); Mean Platelet Volume 9.6 fL (7.4-10.4); Monocytes # (auto) 0.51 K/uL (0.11-0.59); Monocytes % (auto) 5.7 %; Neutrophils # (auto) 6.72 K/uL (1.4-6.5); Neutrophils % (auto) 75.7 %; Platelet Count 357 K/uL (130-400); RDW Coefficient of Variation 14.3 % (11.5-14.5); RDW Standard Deviation 50.3 fL (36.4-46.3); Red Blood Count 2.93 M/uL (4.2-5.4); White Blood Count 8.89 K/uL (4.8-10.8)
[2020-06-20 17:54] LABS: Albumin Level 2.6 gm/dl (3.4-5.0); BUN Creatinine Ratio 14.3 (10-20); Calcium 8.1 mg/dl (8.5-10.1); Creatinine Clr Calc Pharmacy 53.5 ml/min; Est GFR (African American) 49.6 ml/min; Est GFR (Non-African American) 42.8 ml/min; Magnesium 2.5 mg/dl (1.8-2.4); Potassium 4.3 mmol/L (3.5-5.1)
[2020-06-20] MEDS ORDERED: PIPERACILL/TAZOBAC CONSULT ACTIVE PRN (17:58)
[2020-06-20] MEDS ORDERED: VANCOMYCIN HCL 2,500 MG in SODIUM CHLORIDE 0.9% 500 ML IV ONE (17:58)
[2020-06-20] MEDS ORDERED: PIPERACILLIN/TAZOBACTAM 4.5 GM/120 ML BAG IV ONE (17:58)
--- NOTE | 2020-06-20 17:58 | Ultrasound Report ---
LEFT LOWER EXTREMITY VENOUS DOPPLER CLINICAL HISTORY: pain, redness COMPARISON STUDY: No previous studies for comparison. TECHNIQUE: Sonography of the deep venous system of the left lower extremity was performed. Compressi on and augmentation were evaluated. FINDINGS: The left common femoral, superficial femoral and popliteal veins were compressible. Augmen tation was normal. Flow was shown within the deep calf vessels. IMPRESSION: No evidence of deep venous thrombus within the left lower extremity. ACT 112: Negative or not required by law. Electronically signed by: Ad Ram M.D. 06/20/2020 5:56 PM
[2020-06-20 18:05] LABS: Albumin Globulin Ratio 0.6 (0.9-2); Bilirubin,Total 0.2 mg/dl (0.2-1); C Reactive Protein 8.16 mg/dl (0-0.29); Globulin 4.7 gm/dl (2.5-4.0); Thyroid Stimulating Hormone 1.5 uIu/ml (0.300-4.500); Total Protein 7.3 gm/dl (6.4-8.2)
[2020-06-20] MEDS ORDERED: MoRPHine SULFATE 4 MG/ML 1 ML CARP\\VIAL IV STA (18:31)
[2020-06-20] MEDS ORDERED: PHARMACY GLYCEMIC MGMT CONSULT STA (18:33)
--- NOTE | 2020-06-20 18:41 | History & Physical Report ---
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 Barclay from [facility], Dr. Beasley from [facility] ID L foot XR with interval transmetatarsal amputation of the left foot. Possible osteomyelitis of the remaining portion of the metatarsal, as described above Afebrile, no leukocytosis. ESR47, CRP 8.10, lactic acid and procal pending Started on empiric vanc and zosyn. Follow wound and blood cultures MRI foot for better visualization Orthopedic surgery consulted NPO @ [place] Pain control (4) Diabetes mellitus, type II: A1c of 9 in May 2020 Basal/bolus insulin while admitted per protocol Glycemic consult placed BSG AC (5) Anemia: Hgb 8.8 (hgb of 10 at time of discharge in May) Denies any active bleeding Blood consent signed, type & cross and hold 2u prbcs Monitor with daily CBC (6) Hypertension: Optimize pain control Continue amlodipine, ramipril (7) Dyslipidemia: Continue statin (8) Hypothyroidism: Continue levothyroxine (9) Mood disorder: Continue home duloxetine, alprazolam PRN DVT Ppx: SCDs for now Code status: FULL PCP: Sosa Dispo: Admitted to med tele. Discharge planning ordered. Patient seen in collaboration with Dr. Chandler. Please see addendum. History of Present Illness Chief Complaint: L foot wound Primary Care Provider: Morgan Swan MD This is a 63 yo F with a L foot wound s/p transmetatarsal amputation to left foot and necrotizing fasciitis with recent washout and revision last month, type 2 diabetes, hypertension, hypothyroidism, dyslipidemia, bipolar disorder and other medical problems listed below who presents with L foot wound. Wound has been present for months with most recent surgical intervention 1 month ago with irrigation, debridement of L heel with implantation of antibiotic Stimulan beads with 1 g vancomycin and 1 g of gentamicin by Dr. Barclay. Has been on cipro and clindamycin for the past month after 05/21/20 wound culture grew pseudomonas, serratia and prevotella. Has had increased pain in left heel over the past week and does not feel that wound is healing appropriately. Was seen by Preston YIN yesterday who ordered XR and lab work and instructed her to present to ER if worsened. Patient endorsing worsening L heel pain and chills over the past few days. Denies fever, lightheadedness, headache, chest pain, SOB, nausea, vomiting, abdominal pain, dysuria, diarrhea or constipation. Allergies Allergy/AdvReac Type Severity Reaction Status Date / Time peach Allergy Intermediate Hives Verified 06/20/20 18:25 cat dander Allergy Mild CONGESTION Verified 06/20/20 18:25 cefepime Allergy Mild itch Verified 06/20/20 18:25 lamotrigine [From Lamictal] Allergy Mild Rash Verified 06/20/20 18:25 Home Medications Medication Instructions Recorded Confirmed Type Basaglar KwikPen U-100 Insulin 20 unit SUBCUT HS 09/16/19 06/20/20 History Jardiance 25 mg PO QPM 09/16/19 06/20/20 History alprazolam 1 mg PO BID PRN 09/16/19 06/20/20 History amlodipine 5 mg PO QAM 09/16/19 06/20/20 History duloxetine 60 mg PO QAM 09/16/19 06/20/20 History ergocalciferol (vitamin D2) 50,000 unit PO WK 09/16/19 06/20/20 History insulin aspart U-100 [Novolog See Rx Instructions .ROUTE .COMPLEX 09/16/19 06/21/20 History Flexpen U-100 Insulin] ramipril 10 mg PO QAM 09/16/19 06/20/20 History atorvastatin 40 mg PO DAILY 05/21/20 06/20/20 History levothyroxine 100 mcg PO DAILY 05/21/20 06/20/20 History aspirin 81 mg PO BID 30 Days #60 tab 05/23/20 06/20/20 Rx acetaminophen 1,000 mg PO Q8 PRN 06/20/20 06/20/20 History ciprofloxacin HCl 500 mg PO Q12 06/20/20 06/20/20 History clindamycin HCl [Cleocin HCl] 300 mg PO .Q6HRS 06/20/20 06/20/20 History diphenhydramine HCl [Benadryl] 25 mg PO HS 06/20/20 06/20/20 History oxycodone-acetaminophen 1 tab PO BID PRN 06/20/20 06/20/20 History pediatric [id number] 1 tab PO DAILY 06/20/20 06/20/20 History [Flintstones Complete (iron)] Past Med/Surg History Medical History Anxiety and depression Attention deficit disorder (ADD) Bipolar disorder TYPE 2 Chronic kidney disease STAGE 3 Diabetes mellitus, type II Diabetic ulcer of left foot Dyslipidemia History of necrotising fasciitis LEFT FOOT Hypertension Hypothyroidism Mood disorder Osteoarthritis Peripheral neuropathy PTSD (post-traumatic stress disorder) Surgical History H/O foot surgery RT H/O gastric bypass 3 YEARS AGO History of amputation of left foot through metatarsal bone History of anesthesia reaction DURING 1 PROCEDURE "LOSS OF HEARTBEAT FOR SHORT PERIOD OF TIME". WOKE UP DURING A COLONOSCOPY History of cataract surgery RT/LEFT History of section X 4 History of cholecystectomy History of colonoscopy History of esophagogastroduodenoscopy (EGD) S/P cervical spinal fusion S/P subtotal parathyroidectomy Status post left foot surgery I&D [place] teeth removed Family History Mother Family history of diabetes mellitus Father Family history of diabetes mellitus Other Diabetes Hypertension No family history of adverse response to anesthesia Social History Smoking Status: Never smoker Second Hand Exposure: No; Hx Alcohol Use: No Hx Substance Use: No Preferred Language: Taiwanese Communication Ability: Effective Scorer Helper Required: No Beliefs That Will Affect Care: None marital status: Current Living Situation: Family Current Living Situation Comment: lives with dtr Other Information That Helps Us Care for You: No Feels Safe at Home: Yes Safety Concerns: Feels Safe At This Time Assistive Devices: None Review of Systems Review of Systems: At least ten systems reviewed and negative except as noted in the HPI. Physical Exam Constitutional: WD/WN, vitals as above Eyes: PERRL, conjunctivae normal, anicteric sclerae ENMT: external ear and nose normal, oropharynx normal Neck: normal visual inspection Respiratory: normal respiratory effort, lungs clear to auscultation Auscultation: no crackles, no rhonchi and no wheezes Cardiovascular: RRR, no murmur, no edema Chest (Breasts): Chest: normal inspection of chest Gastrointestinal (Abdomen): normal bowel sounds, soft, nontender, no hepatosplenomegaly Musculoskeletal: Head/Neck/Chest: normocephalic and head atraumatic Left foot/heel with the dressings, metal ammy in place, tannish purulent drainage noted, no significant tenderness to palpation noted 1-2+ foot/ankle edema and mild erythema noted to mid aragon Skin: no rashes, warm and dry Neurologic: PERRL, EOMI, accommodation nl, no face palsy, no dysarthria Psychiatric: A+Ox3, euthymic affect Genitourinary: no CVA tenderness Results & Data Results & Data ([facility]) Vital Signs (Past 12 Hours) Vital Signs Temp Pulse Resp BP Pulse Ox 06/20/20 17:50 98 06/20/20 16:38 36.4 C L 104 H 18 191/72 H 94 Laboratory Results Short CBC 06/20/20 Range/Units 17:20 WBC 8.89 (4.8-10.8) K/uL Hgb 8.8 L (12.0-16.0) g/dL Hct 28.2 L (37-47) % Plt Count 357 (130-400) K/uL BMP 06/20/20 17:20 Sodium 139 Potassium 4.3 Chloride 106 Carbon Dioxide 28 BUN 19 H Creatinine 1.32 H Glucose 299 H Calcium 8.1 L Liver Function 06/20/20 Range/Units 17:20 Total Bilirubin 0.2 (0.2-1) mg/dl AST 44 H (15-37) U/L ALT 57 (12-78) U/L Alkaline Phosphatase 168 H (45-117) U/L Albumin 2.6 L (3.4-5.0) gm/dl Diagnostic Findings Foot X-Ray 06/20/20 16:52 XR foot LT min 3V routine CLINICAL HISTORY: Left foot wound. COMPARISON: Left foot radiographs February 20, 2014. FINDINGS: Note is made of postoperative findings consistent with interval left transmetatarsal amputation of the first through fifth digits. Note is made of soft tissue swelling within the left foot and ankle. Lateral view demonstrates possible bony erosion of the remaining portion of a metatarsal. This may reflect the remaining portion of the left first metatarsal. There is a possible erosion measuring 1.2 cm of the medial navicular. Skin ammy of the medial left hindfoot are noted. Lateral view demonstrates a wound of the hindfoot. Equivocal erosion of the plantar aspect of the calcaneus is probably artifactual. There is extensive plantar and moderate posterior calcaneal spurring. IMPRESSION: 1. Interval transmetatarsal amputation of the left foot. Possible osteomyelitis of the remaining portion of the metatarsal, as described above. 2. Apparent erosion measuring 1.2 cm of the medial navicular. This is new since prior radiographs. An additional site of osteomyelitis cannot be excluded. 3. Medial left hindfoot wound with skin ammy, as described above. 2. Left foot and ankle soft tissue swelling. ACT 112: Negative or not required by law. Electronically signed by: Ad Ram M.D. 06/20/2020 5:23 PM Venous Doppler Study 06/20/20 16:52 LEFT LOWER EXTREMITY VENOUS DOPPLER CLINICAL HISTORY: pain, redness COMPARISON STUDY: No previous studies for comparison. TECHNIQUE: Sonography of the deep venous system of the left lower extremity was performed. Compression and augmentation were evaluated. FINDINGS: The left common femoral, superficial femoral and popliteal veins were compressible. Augmentation was normal. Flow was shown within the deep calf v essels. IMPRESSION: No evidence of deep venous thrombus within the left lower extremity. ACT 112: Negative or not required by law. Electronically signed by: Ad Ram M.D. 06/20/2020 5:56 PM Chest X-Ray 06/20/20 16:53 XR chest 1V portable CLINICAL HISTORY: weakness COMPARISON STUDY: Chest radiograph September 16, 2019. FINDINGS: Lung volumes are normal. Lungs are clear. There is no pneumothorax or pleural effusion. Cardiac size is normal. Mediastinal contours are normal. There is no evidence for pulmonary edema. Radiodensity projects over the lower cervical spine. This may be postsurgical. IMPRESSION: No acute cardiopulmonary findings. ACT 112: Negative or not required by law. Electronically signed by: Ad Ram M.D. 06/20/2020 5:13 PM Code Status & VTE Plan VTE Prophylaxis Plan VTE Prophylaxis will be ordered: Yes Supervising Physician Co-Signing Physician Notes Patient seen and examined by me, care coordinated with Rica Almeida PA-C, please refer to note above for further detail. Physical exam edited in the note by me. Patient is a 64-year-old female with hx of DM type 2, hypertension, hypothyroidism, dyslipidemia, bipolar disorder who underwent I&D of a left heel wound on 05/21/[address] Barclay. At that time stimulant beads with vancomycin and gentamicin were placed into the wound and covered with Adaptic that was stapled into place. Culture showed multiple organisms -Pseudomonas, Serratia, Prevotella. She was treated as outpatient with Cipro and clindamycin, and followed up as outpatient with orthopedics office and also was seen by ID, Dr. Beasley just before she presented to ED. Patient now presents in the ED because of increasing pain in her heel area. She also noticed an increase in swelling of her left ankle/ mid aragon and mild erythema. Lastly she experienced chills and therefore presented into ED. X-rays and a CT scan of the foot were obtained and are concerning for osteomyelitis. ESR, CRP elevated, patient was started on vancomycin and Zosyn in the ED, will continue for now. Blood cultures obtained and pending. Wound cultures obtained in the ED as well, and pending Orthopedics consulted. Foot MRI ordered. Glycemic pharmacy also involved. Felisha Chandler MD (1) Osteomyelitis Laterality: left Osteomyelitis location: foot Osteomyelitis type: unspecified type Qualified Code(s): M86.9 - Osteomyelitis, unspecified
[2020-06-20] MEDS: VANCOMYCIN CONSULT ACTIVE PRN ×2 (19:04→19:05)
[2020-06-20] MEDS ORDERED: MoRPHine SULFATE 4 MG/ML 1 ML CARP\\VIAL ONE (20:55)
[2020-06-20] MEDS ORDERED: ONDANSETRON INJ 2 MG/ML 2 ML VIAL IV PRN (21:57)
[2020-06-20] MEDS ORDERED: DEXTROSE 50% 50 ML SYRINGE IV PRN (21:57)
[2020-06-20] MEDS ORDERED: SODIUM CHLORIDE 0.9% 1,000 ML IV SCH (21:57)
[2020-06-20] MEDS ORDERED: SODIUM CHLORIDE 0.9% 250 ML IV PRN (21:57)
[2020-06-20] MEDS ORDERED: POLYETHYLENE (MIRALAX) 17 GM PACK PO PRN (21:57)
[2020-06-20] MEDS ORDERED: GLUCOSE 10 TAB/TUBE PO PRN (21:57)
[2020-06-20] MEDS ORDERED: ALPRAZolam 0.5 MG TABLET PO PRN (21:57)
[2020-06-20] MEDS ORDERED: GLUCAGON FOR INJ 1 MG VIAL SQ PRN (21:57)
[2020-06-20] MEDS ORDERED: GLUCOSE 40% GEL 15 GM TUBE PO PRN (21:57)
[2020-06-20] MEDS ORDERED: CARBOHYDRATES FOR HYPOGLYCEMIA PO PRN (21:57)
[2020-06-20] MEDS ORDERED: ACETAMINOPHEN 500 MG TAB PO PRN (21:57)
[2020-06-20] MEDS ORDERED: PHARMACY GLYCEMIC MGMT CONSULT PRN (22:20)
[2020-06-20] MEDS ORDERED: INSULIN GLARGINE SOLOSTAR 100 UNITS/ML 3 ML PEN SC SCH (22:30)
[2020-06-20] MEDS: oxyCODONE/ACETAMINOPHEN 5mg/325mg TAB PO PRN (22:31)
[2020-06-20] MEDS ORDERED: OPTIRAY 300 100mL IV ONE (23:50)
[2020-06-20] MEDS: PIPERACILLIN/TAZOBACTAM 3.375 GM in DEXTROSE 5% 100 ML IV SCH (23:59)
[2020-06-21] MEDS: ASPIRIN 81 MG ECTAB PO SCH ×3 (00:02→20:46)
[2020-06-21] MEDS: diphenhydrAMINE Capsule 25 MG CAP PO SCH ×2 (00:02→20:46)
[2020-06-21] MEDS: INSULIN ASPART 100 UNITS/ML 3 ML PEN SC SCH ×6 (00:13→20:43)
[2020-06-21] MEDS ORDERED: HYDROmorphone INJ 0.5 MG/0.5 ML SYR IV STA (03:04)
[2020-06-21] MEDS: LEVOTHYROXINE SODIUM 100 MCG TABLET PO SCH (05:54)
[2020-06-21] MEDS: oxyCODONE/ACETAMINOPHEN 5mg/325mg TAB PO PRN ×3 (06:02→20:45)
[2020-06-21 06:53] LABS: Hematocrit (blood only) 25.5 % (37-47); Hemoglobin 8.2 g/dL (12.0-16.0); Mean Corpuscular Hemoglobin 30.1 pg (25-34); Mean Corpuscular Hgb Conc 32.2 g/dL (32-36); Mean Corpuscular Volume 93.8 fL (80-100); Mean Platelet Volume 9.2 fL (7.4-10.4); Platelet Count 323 K/uL (130-400); RDW Coefficient of Variation 14.3 % (11.5-14.5); RDW Standard Deviation 48.7 fL (36.4-46.3); Red Blood Count 2.72 M/uL (4.2-5.4); White Blood Count 8.25 K/uL (4.8-10.8)
[2020-06-21 07:17] LABS: Estimated Average Glucose 169 mg/dl; Hemoglobin A1C 7.5 % (4.5-5.6)
[2020-06-21] MEDS: PIPERACILLIN/TAZOBACTAM 3.375 GM in DEXTROSE 5% 100 ML IV SCH (07:48)
[2020-06-21 07:56] LABS: BUN Creatinine Ratio 14.1 (10-20); C Reactive Protein 7.92 mg/dl (0-0.29); Calcium 8.4 mg/dl (8.5-10.1); Creatinine Clr Calc Pharmacy 63.6 ml/min; Est GFR (African American) 61.2 ml/min; Est GFR (Non-African American) 52.8 ml/min; Magnesium 2.2 mg/dl (1.8-2.4); Phosphorus 3.3 mg/dl (2.5-4.9); Potassium 4.2 mmol/L (3.5-5.1)
[2020-06-21] MEDS ORDERED: VANCOMYCIN HCL 1,000 MG in SODIUM CHLORIDE 0.9% 250 ML IV SCH (08:00)
[2020-06-21] MEDS: ENALAPRIL MALEATE 10 MG TAB PO SCH (08:05)
[2020-06-21] MEDS: MULTIVITAMIN CHEWABLE TAB PO SCH (08:05)
[2020-06-21] MEDS: ATORVASTATIN 40 MG TAB PO SCH (08:05)
[2020-06-21] MEDS: DULoxetine HCL 60 MG CAP PO SCH (08:05)
[2020-06-21] MEDS: amLODIPine BESYLATE 5 MG TAB PO SCH (08:05)
--- NOTE | 2020-06-21 08:36 | CT Scan Report ---
CT foot LT w con HISTORY: 64 years-old Female left foot wound. osteo? Chronic soft tissue wound of the left foot with clinical concern for osteomyelitis. COMPARISON: Left foot radiographs 06/20/2020. TECHNIQUE: Multiple axial CT images of the left foot were obtained without the use of IV contrast. A dose lowering technique was used consistent with the principals of KEVON. FINDINGS: Postoperative changes of forefoot amputation at the level of the proximal diaphyseal metatarsals. The re is mild cortical irregularity and indistinctness involving the distal plantar aspect of the first metatarsal amputation stump seen best on image 46 of the sagittal series. A Type I accessory navicula r is noted. No definite evidence of navicular osteomyelitis. Demineralized appearance of the bones. T here is mostly mild multifocal midfoot and hindfoot osteoarthritis. There is a 2 cm area of cortical indistinctness and erosion involving the medial plantar aspect of the calcaneus seen best on image 75 of the sagittal series. Numerous tiny adjacent bone fragments are noted. There is a soft tissue woun d superficial to this with associated skin ammy, soft tissue ulceration and deep tissue gas. The u lcer overall measures up to approximately 4.6 cm. Soft tissue thickening with enhancement. Radiodense material in the skin surface is likely medicinal. No drainable fluid collection. Diffuse subcutaneou s edema with intrinsic atrophy of the musculature. Moderate to marked thickening of the Achilles tend on suggests severe tendinosis. IMPRESSION: 1. Large soft tissue ulcer of the medial plantar heel. Deep to the ulceration there is a 2 cm area of osteomyelitis involving the plantar medial calcaneus. 2. Prior forefoot amputation at the level of the metatarsals. Mild cortical irregularity involving th e distal cortex of the first metatarsal may reflect an additional area of osteomyelitis. 3. Diffuse subcutaneous edema with cellulitis surrounding the soft tissue wound of the hindfoot. No d iscrete abscess identified. ACT 112: Negative or not required by law. The above report was generated using voice recognition software. It may contain grammatical, syntax o r spelling errors. Dictated: 06/21/2020 7:34 AM Transcribed: 06/21/2020 8:24 AM Raven [id number] Amy Electronically signed by: Jackson Coon M.D. 06/21/2020 8:34 AM
[2020-06-21] MEDS ORDERED: MEROPENEM CONSULT ACTIVE PRN (09:50)
[2020-06-21] MEDS ORDERED: CLINDAMYCIN CONSULT ACTIVE PRN (09:51)
--- NOTE | 2020-06-21 09:52 | Pharmacy Report ---
Pharmacy Glycemic Short Note 2 - Date of Service June 21, 2020 - Glycemic Short BSG Results (Last 24 hours): 06/20/20 06/20/20 06/21/20 17:20 21:21 00:09 Glucose 299 H POC Glucose 133 H 235 H 06/21/20 06/21/20 06/21/20 02:46 02:47 05:53 Glucose POC Glucose 257 H 252 H 131 H 06/21/20 06:36 Glucose 132 H POC Glucose OUTPATIENT ANTIDIABETIC REGIMEN: * Basaglar 20 units SC HS * Novolog 20 units TIDM * Jardiance 25 mg PO HS * HbA1c: 7.5% (06/21/20), 9% (05/21/20) ASSESSMENT: * DJ is a 64 year old female s/p transmetatarsal left foot amputation now with likely osteomyelitis of remaining portion of metatarsal * IV antibiotics ordered (vancomycin/Zosyn) * BSGs elevated overnight - received 12 units of correctional Novolog and 18 units of Lantus last evening (10% reduction of home dose) * Patient is NPO for possible intervention today * Fasting BSG of 131 mg/dL this morning PLAN FOR INPATIENT GLYCEMIC CONTROL: * Hold outpatient Jardiance while inpatient * Basal insulin * Reassess this evening * Bolus insulin * NovoLog per scale ACHS or Q6hrs while NPO * Goal Range: Low 120 mg/dL - High 160 mg/dL * Correction Factor: 15 mg/dL/unit * Nutritional / Prandial insulin per carb ratio of 1 unit per 5 grams CHO consumed PLAN FOR DISCHARGE: * HbA1c is above goal of less than 7%, but is much improved over past month (9% -> 7.5%) * Reasonable to continue home regimen given improvement
--- NOTE | 2020-06-21 10:13 | Pharmacy Report ---
Pharmacy Abx Dose Short Note - Date of Service June 21, 2020 - Assessment & Plan Assessment 64 year old F receiving vancomycin and zosyn for suspected L foot osteomyelitis since 06/20. On 06/21, regimen was changed to vancomycin/meropenem/clindamycin based upon historic culture data and antitoxin effect due to recent history of necrotizing fasciitis. Plan Vancomycin * Vancomycin 1gm IV q12h dose increased to 1250mg IV q12h due to improvement in SCr * Trough level ordered for: 06/22 prior to 3rd dose of new regimen Pharmacy will continue to follow and will adjust dose/frequency as necessary. Thank you.
[2020-06-21 10:17] LABS: Ferritin 47.7 ng/ml (8-388)
[2020-06-21] MEDS: MEROPENEM 500 MG in SYRINGE 0 ML IV SCH ×3 (10:20→23:18)
[2020-06-21] MEDS: CYANOCOBALAMIN (B-12) 500 MCG TABLET PO SCH (10:20)
[2020-06-21] MEDS: FOLIC ACID 1 MG TAB PO SCH (10:20)
[2020-06-21] MEDS: CLINDAMYCIN 900 MG in DEXTROSE 5% 50 ML IV SCH ×2 (10:21→17:21)
--- NOTE | 2020-06-21 13:58 | Orthopedic Consultation ---
Date of Consultation June 21, 2020 Assessment & Plan (1) Wound of left foot: Continued infection left heel wound. Continue current IV antibiotics. We will have medicine service involve infectious disease team from [facility]. X-rays and CT scan reviewed. MRI ordered but held due to ammy in wound. I placed an order in the chart to have nursing remove the ammy around the wound and to redress the wound for MRI Await MRI results and plan for likely I&D. Supervising Physician Co-Signing Physician Notes Patient seen and examined. Agree with AD Castorena's note as above. She has a chronic left heel ulcer. This has been present for about 4 years ever since stepping on a thistle during a hike around that time. She would have intermittent drainage from a sinus tract. She eventually underwent a surgical debridement with Dr. Barclay about a month ago. The wound is progressively enlarged since then despite wound care and placement of antibiotic stimulan beads. The wound is several centimeters across right now and appears to have some necrotic tissue within the wound. She has a previous transmetatarsal amputation of the same foot. She admits that her diabetes previously was very poorly controlled, but her A1c is much better now down to 7.5. Currently ESR is 49, and CRP is 7.9. Is highly concerning for persistent chronic infection. MRI is pending to evaluate for extent of osteomyelitis. Discussed surgical treatment for this wound at great length with the patient today. I would strongly consider below-knee amputation for this chronic nonhealing wound, but she really wants to try further wound debridement and wound care prior to proceeding with amputation. We did discuss the pros and cons of each approach. We will keep her n.p.o. after midnight for potential surgical debridement tomorrow, pending MRI results. History of Present Illness Reason for Consultation: Left heel wound infection Attending Physician: Kiran Chandler MD History of Present Illness Patient is a 64-year-old white female known to our practice with history of type 2 diabetes, hypertension, hypothyroidism, dyslipidemia, bipolar disorder who underwent I&D of a left heel wound on 05/21/[address] Barclay. At that time stimulan beads with vancomycin and gentamicin were placed into the wound and covered with Adaptic that was stapled into place. Culture showed multiple organisms and the patient had been sent home on Cipro and also clindamycin which she had been taking for some time now. She states that she had been in to Dr. Barclay's office for dressing changes. He apparently saw her within the last week. She states that since that time that her leg began to increase and worsen as far as pain and she began noticing an increase in swelling of her left lower extremity as well as erythema. She had been seen by [facility] infectious disease team at [place] just recently. At that time they did send her for x- rays but no other treatment. Over the weekend she continued to have worsening pain and chills and came to the emergency room. X-rays and a CT scan of the foot have been obtained and were showing a question of old osteomyelitis versus new with her previous transmetatarsal dictation and also osteomyelitis of the heel. She was admitted for IV antibiotics and we have been consulted to see her heel wound. Allergies Allergy/AdvReac Type Severity Reaction Status Date / Time peach Allergy Intermediate Hives Verified 06/20/20 18:25 cat dander Allergy Mild CONGESTION Verified 06/20/20 18:25 cefepime Allergy Mild itch Verified 06/20/20 18:25 lamotrigine [From Lamictal] Allergy Mild Rash Verified 06/20/20 18:25 Home Medications Medication Instructions Recorded Confirmed Type Basaglar KwikPen U-100 Insulin 20 unit SUBCUT HS 09/16/19 06/20/20 History Jardiance 25 mg PO QPM 09/16/19 06/20/20 History alprazolam 1 mg PO BID PRN 09/16/19 06/20/20 History amlodipine 5 mg PO QAM 09/16/19 06/20/20 History duloxetine 60 mg PO QAM 09/16/19 06/20/20 History ergocalciferol (vitamin D2) 50,000 unit PO WK 09/16/19 06/20/20 History insulin aspart U-100 [Novolog See Rx Instructions .ROUTE .COMPLEX 09/16/19 06/21/20 History Flexpen U-100 Insulin] ramipril 10 mg PO QAM 09/16/19 06/20/20 History atorvastatin 40 mg PO DAILY 05/21/20 06/20/20 History levothyroxine 100 mcg PO DAILY 05/21/20 06/20/20 History aspirin 81 mg PO BID 30 Days #60 tab 05/23/20 06/20/20 Rx acetaminophen 1,000 mg PO Q8 PRN 06/20/20 06/20/20 History ciprofloxacin HCl 500 mg PO Q12 06/20/20 06/20/20 History clindamycin HCl [Cleocin HCl] 300 mg PO .Q6HRS 06/20/20 06/20/20 History diphenhydramine HCl [Benadryl] 25 mg PO HS 06/20/20 06/20/20 History oxycodone-acetaminophen 1 tab PO BID PRN 06/20/20 06/20/20 History pediatric [id number]-[id number]-xfw 1 tab PO DAILY 06/20/20 06/20/20 History [Flintstones Complete (iron)] Patient History Medical History Anxiety and depression Attention deficit disorder (ADD) Bipolar disorder TYPE 2 Chronic kidney disease STAGE 3 Diabetes mellitus, type II Diabetic ulcer of left foot Dyslipidemia History of necrotising fasciitis LEFT FOOT Hypertension Hypothyroidism Mood disorder Osteoarthritis Peripheral neuropathy PTSD (post-traumatic stress disorder) Surgical History H/O foot surgery RT H/O gastric bypass 3 YEARS AGO History of amputation of left foot through metatarsal bone History of anesthesia reaction DURING 1 PROCEDURE "LOSS OF HEARTBEAT FOR SHORT PERIOD OF TIME". WOKE UP DURING A COLONOSCOPY History of cataract surgery RT/LEFT History of section X 4 History of cholecystectomy History of colonoscopy History of esophagogastroduodenoscopy (EGD) S/P cervical spinal fusion S/P subtotal parathyroidectomy Status post left foot surgery I&D [place] teeth removed Family History Mother Family history of diabetes mellitus Father Family history of diabetes mellitus Other Diabetes Hypertension No family history of adverse response to anesthesia Social History Smoking Status: Never smoker Second Hand Exposure: No; Hx Alcohol Use: No Hx Substance Use: No Preferred Language: Mongolian Communication Ability: Effective Slipper Maker Required: No Beliefs That Will Affect Care: None marital status: Current Living Situation: Family Current Living Situation Comment: lives with dtr Other Information That Helps Us Care for You: No Feels Safe at Home: Yes Safety Concerns: Feels Safe At This Time Assistive Devices: None Review of Systems Review of Systems: All systems reviewed & are unremarkable except as noted in HPI & below Physical Exam Physical Exam: On examination of her left foot, she has a dressing that is covered with Kerlix and she has some noted drainage on the dressing currently. This dressing is removed and she has some thick tannish purulent drainage on the dressing. Her transmetatarsal amputation site looks benign. Her foot and ankle are swollen as is the lower extremity. There is areas that have been marked with a pen noting her erythema which seems to be resolving. She does have some decreased swelling in the upper portion of the lower extremity. Looking at the heel wound, she has the Adaptic that is still present and stable to the wound. There is some mild erythema around the edge of the wound itself and also some demarcation. Some of the tissue appears macerated around the edges. The an tibiotic beads are seen and there is some purulent drainage noted over the Adaptic. There is no foul odor that I can appreciate. She seems to be fairly nontender while palpating the edges of the wound at this time. Wound is redressed with Adaptic, 4 x 4's, ABDs, and Kerlix. Results & Data ([facility]) Vital Signs (Past 12 Hours) Vital Signs Temp Pulse Pulse Resp BP Pulse Ox 06/21/20 11:30 37.1 C 80 18 120/62 95 06/21/20 07:41 37 C 89 18 162/69 H 93 06/21/20 06:17 103 H Diagnostic Findings annie: [place] Acct: [id number] Status: DIS INOo : 1955 [employer] [facility] Date: 05/21/20 Age: 64 Sex: F Dis Date: 05/23/20 Loc: Medical/Surgical/Ortho 3 [facility] Rm/Bed: E317-1 Spec: [id number] Collected: 05/21/20 Received: 05/21/[address]: Olman Barclay D.O. Source: Foot,Left OV Order: Ordered: Aer/Karina Cult/Sm Comments: Comment Culture 1 deep left heel anerobic, anerobic gram Procedure Result Verified Site Gram Stain Final 05/22/20-0899 Gram Stain Result Moderate Gram Negative Bacilli Moderate Gram Positive Cocci Rare Yeast Rare WBCs Seen Aero/Karina Cult Final 05/26/20-1405 Organism 1 Pseudomonas aeruginosa Quantity Moderate Sens Sensitivities to Follow +MixWound Plus Moderate Counts of Probable Skin Vilma Organism 2 Serratia liquefaciens Quantity Moderate Sens Sensitivities to Follow Organism 3 Prevotella melaninogenica Quantity Moderate Sens No Sensitivities to Follow Organism 4 Prevotella macho Quantity Moderate Sens No Sensitivities to Follow P aerugino S liquefac RX M.I.C. RX M.I.C. --- --------- --- --------- Amox/Clav I 16/8 Ampicillin I 16 Amp/Sul S <=8/4 Cefazolin R >16 Cefepime S <=2 S <=2 Ceftazidime S 4 Ceftriaxone R >2 Ciprofloxacin S <=0.25 S <=0.25 Ertapenem S <=0.5 Gentamicin S <=4 S <=4 Levofloxacin S <=0.5 S <=0.5 Meropenem S <=1 S <=1 Tobramycin S <=4 S <=4 Trimeth/Sulfa S <=2/38 Pip/Tazo S <=16 I 64 S = SENSITIVE I = INTERMEDIATE R = RESISTANT CT foot LT w con HISTORY: 64 years-old Female left foot wound. osteo? Chronic soft tissue wound of the left foot with clinical concern for osteomyelitis. COMPARISON: Left foot radiographs 06/20/2020. TECHNIQUE: Multiple axial CT images of the left foot were obtained without the use of IV contrast. A dose lowering technique was used consistent with the principals of KEVON. FINDINGS: Postoperative changes of forefoot amputation at the level of the proximal diaphyseal metatarsals. There is mild cortical irregularity and indistinctness involving the distal plantar aspect of the first metatarsal amputation stump seen best on image 46 of the sagittal series. A Type I accessory navicular is noted. No definite evidence of navicular osteomyelitis. Demineralized appearance of the bones. There is mostly mild multifocal midfoot and hindfoot osteoarthritis. There is a 2 cm area of cortical indistinctness and erosion involving the medial plantar aspect of the calcaneus seen best on image 75 of the sagittal series. Numerous tiny adjacent bone fragments are noted. There is a soft tissue wound superficial to this with associated skin ammy, soft tissue ulceration and deep tissue gas. The ulcer overall measures up to approximately 4.6 cm. Soft tissue thickening with enhancement. Radiodense material in the skin surface is likely medicinal. No drainable fluid collection. Diffuse subcutaneous edema with intrinsic atrophy of the musculature. Moderate to marked thickening of the Achilles tendon suggests severe tendinosis. IMPRESSION: 1. Large soft tissue ulcer of the medial plantar heel. Deep to the ulceration there is a 2 cm area of osteomyelitis involving the plantar medial calcaneus. 2. Prior forefoot amputation at the level of the metatarsals. Mild cortical irregularity involving the distal cortex of the first metatarsal may reflect an additional area of osteomyelitis. 3. Diffuse subcutaneous edema with cellulitis surrounding the soft tissue wound of the hindfoot. No discrete abscess identified. ACT 112: Negative or not required by law. The above report was generated using voice recognition software. It may contain grammatical, syntax or spelling errors. Dictated: 06/21/2020 7:34 AM Transcribed: 06/21/2020 8:24 AM Raven [id number] [email or web address]
[2020-06-21] MEDS ORDERED: Nursing to Pharmacy Communication SCH (15:00)
--- NOTE | 2020-06-21 15:34 | Hospitalist Progress Note ---
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 Barclay [place] [facility] [place]. Beasley from [facility] ID L foot XR with interval transmetatarsal amputation of the left foot. Possible osteomyelitis of the remaining portion of the metatarsal, as described above CT foot - Large soft tissue ulcer of the medial plantar heel. Deep to the ulceration there is a 2 cm area of osteomyelitis involving the plantar medial calcaneus. Prior forefoot amputation at the level of the metatarsals. Mild cortical irregularity involving the distal cortex of the first metatarsal may reflect an additional area of osteomyelitis. Diffuse subcutaneous edema with cellulitis surrounding the soft tissue wound of the hindfoot. No discrete abscess identified. MRI foot was ordered on admission, however not able to obtain yet d/t metal ammy, ammy will be removed Afebrile, no leukocytosis. ESR 47, CRP 8.10, lactic acid 1.0, procal negative Started on empiric vanc and zosyn in the ED. Discussed previous cultures with pharmacist, decided to broaden antibiotics to Vanco meropenem and clindamycin, follow wound and blood cultures Orthopedic surgery consulted Pain control (4) Diabetes mellitus, type II: A1c of 9 in May 2020 Current A1c 7.5% Basal/bolus insulin while admitted per protocol Glycemic consult placed [facility] (5) Anemia: Hgb 8.8 (hgb of 10 at time of discharge in May) Had unexpected blood loss perioperatively at the last admission Denies any active bleeding Blood consent signed, type & cross and hold 2u prbcs Monitor with daily CBC Obtain iron panel, and B12, folic acid levels (6) Hypertension: Optimize pain control Continue amlodipine, ramipril (7) Dyslipidemia: Continue statin (8) Hypothyroidism: Continue levothyroxine (9) Mood disorder: Continue home duloxetine, alprazolam PRN DVT Ppx: SCDs for now Code status: FULL PCP: Dr. Swan Dispo: Admitted to [facility]. Discharge planning ordered. Admission and Anticipated Discharge Date Admission Date: June 20, 2020 Subjective Patient seen in follow-up of heel cellulitis/osteomyelitis Currently she is lying in bed, in no acute distress, but reports some pain in her foot No fevers chills chest pain shortness of breath abdominal pain nausea or vomiting Foot MRI not done yet due to ammy, ammy to be removed Discussed in detail with pharmacy, previous cultures, antibiotics adjusted, patient is now on Vanco meropenem and Clinda instead of Vanco Zosyn Awaiting currently cultures from ED Orthopedics consulted Review of Systems Review of Systems: All systems reviewed & are unremarkable except as noted in HPI & below Constitutional: no fever and no chills Respiratory: no cough and no dyspnea Cardiovascular: no chest pain and no palpitations Gastrointestinal: no abdominal pain, no nausea and no vomiting Physical Exam Constitutional: WD/WN, vitals as above Eyes: PERRL, conjunctivae normal, anicteric sclerae ENMT: external ear and nose normal, oropharynx normal Neck: normal visual inspection Respiratory: normal respiratory effort, lungs clear to auscultation Auscultation: no crackles, no rhonchi and no wheezes Cardiovascular: RRR, no murmur, no edema Chest (Breasts): Chest: normal inspection of chest Gastrointestinal (Abdomen): normal bowel sounds, soft, nontender, no hepatosplenomegaly Musculoskeletal: Head/Neck/Chest: normocephalic and head atraumatic Left foot/heel with the dressings, metal ammy in place, tannish purulent drainage noted, no significant tenderness to palpation noted 1-2+ foot/ankle edema noted to mid aragon Skin: no rashes, warm and dry Neurologic: PERRL, EOMI, accommodation nl, no face palsy, no dysarthria Psychiatric: A+Ox3, euthymic affect Genitourinary: no CVA tenderness Results & Data Results & Data ([facility]) Vital Signs (Past 12 Hours) Vital Signs Temp Pulse Pulse Resp BP Pulse Ox 06/21/20 11:30 37.1 C 80 18 120/62 95 06/21/20 07:41 37 C 89 18 162/69 H 93 06/21/20 06:17 103 H Laboratory Results 06/21/20 06/21/20 06/21/20 Range/Units 11:51 09:25 09:25 WBC (4.8-10.8) K/uL RBC (4.2-5.4) M/uL Hgb (12.0-16.0) g/dL Hct (37-47) % MCV (80-100) fL MCH (25-34) pg MCHC (32-36) g/dL RDW Std Deviation (36.4-46.3) fL RDW Coeff of Anitha (11.5-14.5) % Plt Count (130-400) K/uL MPV (7.4-10.4) fL Immature Gran % (Auto) % Neut % (Auto) % Lymph % (Auto) % Blaine % (Auto) % Eos % (Auto) % Baso % (Auto) % Neut # (Auto) (1.4-6.5) K/uL Lymph # (Auto) (1.2-3.4) K/uL Blaine # (Auto) (0.11-0.59) K/uL Eos # (Auto) (0-0.5) K/uL Baso # (Auto) (0-0.2) K/uL Immature Gran # (Auto) (0.00-0.02) K/uL ESR (0-30) mm/hr Sodium (136-145) mmol/L Potassium (3.5-5.1) mmol/L Chloride (98-107) mmol/L Carbon Dioxide (21-32) mmol/L Anion Gap (3-11) BUN (7-18) mg/dl Creatinine (0.6-1.2) mg/dl Est Cr Clr Drug Dosing ml/min Est GFR ( Amer) ml/min Est GFR (Non-Af Amer) ml/min BUN/Creatinine Ratio (10-20) Glucose (70-99) mg/dl POC Glucose 156 H (70-99) mg/dl Estimat Average Glucose mg/dl Hemoglobin A1c (4.5-5.6) % Lactate (0.4-2.0) mmol/L Calcium (8.5-10.1) mg/dl Phosphorus (2.5-4.9) mg/dl Magnesium (1.8-2.4) mg/dl Iron 30 L (35-150) mcg/dl TIBC 282 (250-450) mcg/dl Transferrin 210 (200-360) mg/dl Ferritin 47.7 (8-388) ng/ml Total Bilirubin (0.2-1) mg/dl AST (15-37) U/L ALT (12-78) U/L Alkaline Phosphatase (45-117) U/L C-Reactive Protein (0-0.29) mg/dl Total Protein (6.4-8.2) gm/dl Albumin (3.4-5.0) gm/dl Globulin (2.5-4.0) gm/dl Albumin/Globulin Ratio (0.9-2) Vitamin B12 303 (193-986) pg/ml Folate (>5.38) ng/ml Procalcitonin (0-0.5) ng/ml TSH (0.300-4.500) uIu/ml COVID-19 Eval Order SARS-CoV-2 (PCR) (Negative) Blood Type Antibody Screen Crossmatch 06/21/20 06/21/20 06/21/20 Range/Units 09:25 06:36 06:36 WBC (4.8-10.8) K/uL RBC (4.2-5.4) M/uL Hgb (12.0-16.0) g/dL Hct (37-47) % MCV (80-100) fL MCH (25-34) pg MCHC (32-36) g/dL RDW Std Deviation (36.4-46.3) fL RDW Coeff of Anitha (11.5-14.5) % Plt Count (130-400) K/uL MPV (7.4-10.4) fL Immature Gran % (Auto) % Neut % (Auto) % Lymph % (Auto) % Blaine % (Auto) % Eos % (Auto) % Baso % (Auto) % Neut # (Auto) (1.4-6.5) K/uL Lymph # (Auto) (1.2-3.4) K/uL Blaine # (Auto) (0.11-0.59) K/uL Eos # (Auto) (0-0.5) K/uL Baso # (Auto) (0-0.2) K/uL Immature Gran # (Auto) (0.00-0.02) K/uL ESR 49 H (0-30) mm/hr Sodium 140 (136-145) mmol/L Potassium 4.2 (3.5-5.1) mmol/L Chloride 108 H (98-107) mmol/L Carbon Dioxide 28 (21-32) mmol/L Anion Gap 4.0 (3-11) BUN 16 (7-18) mg/dl Creatinine 1.11 (0.6-1.2) mg/dl Est Cr Clr Drug Dosing 63.6 ml/min Est GFR ( Amer) 61.2 ml/min Est GFR (Non-Af Amer) 52.8 ml/min BUN/Creatinine Ratio 14.1 (10-20) Glucose 132 H (70-99) mg/dl POC Glucose (70-99) mg/dl Estimat Average Glucose mg/dl Hemoglobin A1c (4.5-5.6) % Lactate (0.4-2.0) mmol/L Calcium 8.4 L (8.5-10.1) mg/dl Phosphorus 3.3 (2.5-4.9) mg/dl Magnesium 2.2 (1.8-2.4) mg/dl Iron (35-150) mcg/dl TIBC (250-450) mcg/dl Transferrin (200-360) mg/dl Ferritin (8-388) ng/ml Total Bilirubin (0.2-1) mg/dl AST (15-37) U/L ALT (12-78) U/L Alkaline Phosphatase (45-117) U/L C-Reactive Protein 7.92 H (0-0.29) mg/dl Total Protein (6.4-8.2) gm/dl Albumin (3.4-5.0) gm/dl Globulin (2.5-4.0) gm/dl Albumin/Globulin Ratio (0.9-2) Vitamin B12 (193-986) pg/ml Folate > 20.00 (>5.38) ng/ml Procalcitonin (0-0.5) ng/ml TSH (0.300-4.500) uIu/ml COVID-19 Eval Order SARS-CoV-2 (PCR) (Negative) Blood Type Antibody Screen Crossmatch 06/21/20 06/21/20 06/21/20 Range/Units 06:36 06:36 05:53 WBC 8.25 (4.8-10.8) K/uL RBC 2.72 L (4.2-5.4) M/uL Hgb 8.2 L (12.0-16.0) g/dL Hct 25.5 L (37-47) % MCV 93.8 (80-100) fL MCH 30.1 (25-34) pg MCHC 32.2 (32-36) g/dL RDW Std Deviation 48.7 H (36.4-46.3) fL RDW Coeff of Anitha 14.3 (11.5-14.5) % Plt Count 323 (130-400) K/uL MPV 9.2 (7.4-10.4) fL Immature Gran % (Auto) % Neut % (Auto) % Lymph % (Auto) % Blaine % (Auto) % Eos % (Auto) % Baso % (Auto) % Neut # (Auto) (1.4-6.5) K/uL Lymph # (Auto) (1.2-3.4) K/uL Blaine # (Auto) (0.11-0.59) K/uL Eos # (Auto) (0-0.5) K/uL Baso # (Auto) (0-0.2) K/uL Immature Gran # (Auto) (0.00-0.02) K/uL ESR (0-30) mm/hr Sodium (136-145) mmol/L Potassium (3.5-5.1) mmol/L Chloride (98-107) mmol/L Carbon Dioxide (21-32) mmol/L Anion Gap (3-11) BUN (7-18) mg/dl Creatinine (0.6-1.2) mg/dl Est Cr Clr Drug Dosing ml/min Est GFR ( Amer) ml/min Est GFR (Non-Af Amer) ml/min BUN/Creatinine Ratio (10-20) Glucose (70-99) mg/dl POC Glucose 131 H (70-99) mg/dl Estimat Average Glucose 169 mg/dl Hemoglobin A1c 7.5 H (4.5-5.6) % Lactate (0.4-2.0) mmol/L Calcium (8.5-10.1) mg/dl Phosphorus (2.5-4.9) mg/dl Magnesium (1.8-2.4) mg/dl Iron (35-150) mcg/dl TIBC (250-450) mcg/dl Transferrin (200-360) mg/dl Ferritin (8-388) ng/ml Total Bilirubin (0.2-1) mg/dl AST (15-37) U/L ALT (12-78) U/L Alkaline Phosphatase (45-117) U/L C-Reactive Protein (0-0.29) mg/dl Total Protein (6.4-8.2) gm/dl Albumin (3.4-5.0) gm/dl Globulin (2.5-4.0) gm/dl Albumin/Globulin Ratio (0.9-2) Vitamin B12 (193-986) pg/ml Folate (>5.38) ng/ml Procalcitonin (0-0.5) ng/ml TSH (0.300-4.500) uIu/ml COVID-19 Eval Order SARS-CoV-2 (PCR) (Negative) Blood Type Antibody Screen Crossmatch 06/21/20 06/21/20 06/21/20 Range/Units 02:47 02:46 00:09 WBC (4.8-10.8) K/uL RBC (4.2-5.4) M/uL Hgb (12.0-16.0) g/dL Hct (37-47) % MCV (80-100) fL MCH (25-34) pg MCHC (32-36) g/dL RDW Std Deviation (36.4-46.3) fL RDW Coeff of Anitha (11.5-14.5) % Plt Count (130-400) K/uL MPV (7.4-10.4) fL Immature Gran % (Auto) % Neut % (Auto) % Lymph % (Auto) % Blaine % (Auto) % Eos % (Auto) % Baso % (Auto) % Neut # (Auto) (1.4-6.5) K/uL Lymph # (Auto) (1.2-3.4) K/uL Blaine # (Auto) (0.11-0.59) K/uL Eos # (Auto) (0-0.5) K/uL Baso # (Auto) (0-0.2) K/uL Immature Gran # (Auto) (0.00-0.02) K/uL ESR (0-30) mm/hr Sodium (136-145) mmol/L Potassium (3.5-5.1) mmol/L Chloride (98-107) mmol/L Carbon Dioxide (21-32) mmol/L Anion Gap (3-11) BUN (7-18) mg/dl Creatinine (0.6-1.2) mg/dl Est Cr Clr Drug Dosing ml/min Est GFR ( Amer) ml/min Est GFR (Non-Af Amer) ml/min BUN/Creatinine Ratio (10-20) Glucose (70-99) mg/dl POC Glucose 252 H 257 H 235 H (70-99) mg/dl Estimat Average Glucose mg/dl Hemoglobin A1c (4.5-5.6) % Lactate (0.4-2.0) mmol/L Calcium (8.5-10.1) mg/dl Phosphorus (2.5-4.9) mg/dl Magnesium (1.8-2.4) mg/dl Iron (35-150) mcg/dl TIBC (250-450) mcg/dl Transferrin (200-360) mg/dl Ferritin (8-388) ng/ml Total Bilirubin (0.2-1) mg/dl AST (15-37) U/L ALT (12-78) U/L Alkaline Phosphatase (45-117) U/L C-Reactive Protein (0-0.29) mg/dl Total Protein (6.4-8.2) gm/dl Albumin (3.4-5.0) gm/dl Globulin (2.5-4.0) gm/dl Albumin/Globulin Ratio (0.9-2) Vitamin B12 (193-986) pg/ml Folate (>5.38) ng/ml Procalcitonin (0-0.5) ng/ml TSH (0.300-4.500) uIu/ml COVID-19 Eval Order SARS-CoV-2 (PCR) (Negative) Blood Type Antibody Screen Crossmatch 06/20/20 06/20/20 06/20/20 Range/Units 22:38 21:21 19:14 WBC (4.8-10.8) K/uL RBC (4.2-5.4) M/uL Hgb (12.0-16.0) g/dL Hct (37-47) % MCV (80-100) fL MCH (25-34) pg MCHC (32-36) g/dL RDW Std Deviation (36.4-46.3) fL RDW Coeff of Anitha (11.5-14.5) % Plt Count (130-400) K/uL MPV (7.4-10.4) fL Immature Gran % (Auto) % Neut % (Auto) % Lymph % (Auto) % Blaine % (Auto) % Eos % (Auto) % Baso % (Auto) % Neut # (Auto) (1.4-6.5) K/uL Lymph # (Auto) (1.2-3.4) K/uL Blaine # (Auto) (0.11-0.59) K/uL Eos # (Auto) (0-0.5) K/uL Baso # (Auto) (0-0.2) K/uL Immature Gran # (Auto) (0.00-0.02) K/uL ESR (0-30) mm/hr Sodium (136-145) mmol/L Potassium (3.5-5.1) mmol/L Chloride (98-107) mmol/L Carbon Dioxide (21-32) mmol/L Anion Gap (3-11) BUN (7-18) mg/dl Creatinine (0.6-1.2) mg/dl Est Cr Clr Drug Dosing ml/min Est GFR ( Amer) ml/min Est GFR (Non-Af Amer) ml/min BUN/Creatinine Ratio (10-20) Glucose (70-99) mg/dl POC Glucose 133 H (70-99) mg/dl Estimat Average Glucose mg/dl Hemoglobin A1c (4.5-5.6) % Lactate 1.0 (0.4-2.0) mmol/L Calcium (8.5-10.1) mg/dl Phosphorus (2.5-4.9) mg/dl Magnesium (1.8-2.4) mg/dl Iron (35-150) mcg/dl TIBC (250-450) mcg/dl Transferrin (200-360) mg/dl Ferritin (8-388) ng/ml Total Bilirubin (0.2-1) mg/dl AST (15-37) U/L ALT (12-78) U/L Alkaline Phosphatase (45-117) U/L C-Reactive Protein (0-0.29) mg/dl Total Protein (6.4-8.2) gm/dl Albumin (3.4-5.0) gm/dl Globulin (2.5-4.0) gm/dl Albumin/Globulin Ratio (0.9-2) Vitamin B12 (193-986) pg/ml Folate (>5.38) ng/ml Procalcitonin (0-0.5) ng/ml TSH (0.300-4.500) uIu/ml COVID-19 Eval Order SARS-CoV-2 (PCR) (Negative) Blood Type AB Negative Antibody Screen NEGATIVE Crossmatch See Detail 06/20/20 06/20/20 06/20/20 Range/Units 19:10 18:52 18:52 WBC (4.8-10.8) K/uL RBC (4.2-5.4) M/uL Hgb (12.0-16.0) g/dL Hct (37-47) % MCV (80-100) fL MCH (25-34) pg MCHC (32-36) g/dL RDW Std Deviation (36.4-46.3) fL RDW Coeff of Anitha (11.5-14.5) % Plt Count (130-400) K/uL MPV (7.4-10.4) fL Immature Gran % (Auto) % Neut % (Auto) % Lymph % (Auto) % Blaine % (Auto) % Eos % (Auto) % Baso % (Auto) % Neut # (Auto) (1.4-6.5) K/uL Lymph # (Auto) (1.2-3.4) K/uL Blaine # (Auto) (0.11-0.59) K/uL Eos # (Auto) (0-0.5) K/uL Baso # (Auto) (0-0.2) K/uL Immature Gran # (Auto) (0.00-0.02) K/uL ESR (0-30) mm/hr Sodium (136-145) mmol/L Potassium (3.5-5.1) mmol/L Chloride (98-107) mmol/L Carbon Dioxide (21-32) mmol/L Anion Gap (3-11) BUN (7-18) mg/dl Creatinine (0.6-1.2) mg/dl Est Cr Clr Drug Dosing ml/min Est GFR ( Amer) ml/min Est GFR (Non-Af Amer) ml/min BUN/Creatinine Ratio (10-20) Glucose (70-99) mg/dl POC Glucose (70-99) mg/dl Estimat Average Glucose mg/dl Hemoglobin A1c (4.5-5.6) % Lactate (0.4-2.0) mmol/L Calcium (8.5-10.1) mg/dl Phosphorus (2.5-4.9) mg/dl Magnesium (1.8-2.4) mg/dl Iron (35-150) mcg/dl TIBC (250-450) mcg/dl Transferrin (200-360) mg/dl Ferritin (8-388) ng/ml Total Bilirubin (0.2-1) mg/dl AST (15-37) U/L ALT (12-78) U/L Alkaline Phosphatase (45-117) U/L C-Reactive Protein (0-0.29) mg/dl Total Protein (6.4-8.2) gm/dl Albumin (3.4-5.0) gm/dl Globulin (2.5-4.0) gm/dl Albumin/Globulin Ratio (0.9-2) Vitamin B12 (193-986) pg/ml Folate (>5.38) ng/ml Procalcitonin < 0.05 (0-0.5) ng/ml TSH (0.300-4.500) uIu/ml COVID-19 Eval Order Covid19 at [facility] SARS-CoV-2 (PCR) NEGATIVE (Negative) Blood Type Antibody Screen Crossmatch 06/20/20 06/20/20 06/20/20 Range/Units 17:20 17:20 17:20 WBC 8.89 (4.8-10.8) K/uL RBC 2.93 L (4.2-5.4) M/uL Hgb 8.8 L (12.0-16.0) g/dL Hct 28.2 L (37-47) % MCV 96.2 (80-100) fL MCH 30.0 (25-34) pg MCHC 31.2 L (32-36) g/dL RDW Std Deviation 50.3 H (36.4-46.3) fL RDW Coeff of Anitha 14.3 (11.5-14.5) % Plt Count 357 (130-400) K/uL MPV 9.6 (7.4-10.4) fL Immature Gran % (Auto) 0.1 % Neut % (Auto) 75.7 % Lymph % (Auto) 15.2 % Blaine % (Auto) 5.7 % Eos % (Auto) 3.1 % Baso % (Auto) 0.2 % Neut # (Auto) 6.72 H (1.4-6.5) K/uL Lymph # (Auto) 1.35 (1.2-3.4) K/uL Blaine # (Auto) 0.51 (0.11-0.59) K/uL Eos # (Auto) 0.28 (0-0.5) K/uL Baso # (Auto) 0.02 (0-0.2) K/uL Immature Gran # (Auto) 0.01 (0.00-0.02) K/uL ESR 47 H (0-30) mm/hr Sodium 139 (136-145) mmol/L Potassium 4.3 (3.5-5.1) mmol/L Chloride 106 (98-107) mmol/L Carbon Dioxide 28 (21-32) mmol/L Anion Gap 5.0 (3-11) BUN 19 H (7-18) mg/dl Creatinine 1.32 H (0.6-1.2) mg/dl Est Cr Clr Drug Dosing 53.5 ml/min Est GFR ( Amer) 49.6 ml/min Est GFR (Non-Af Amer) 42.8 ml/min BUN/Creatinine Ratio 14.3 (10-20) Glucose 299 H (70-99) mg/dl POC Glucose (70-99) mg/dl Estimat Average Glucose mg/dl Hemoglobin A1c (4.5-5.6) % Lactate (0.4-2.0) mmol/L Calcium 8.1 L (8.5-10.1) mg/dl Phosphorus (2.5-4.9) mg/dl Magnesium 2.5 H (1.8-2.4) mg/dl Iron (35-150) mcg/dl TIBC (250-450) mcg/dl Transferrin (200-360) mg/dl Ferritin (8-388) ng/ml Total Bilirubin 0.2 (0.2-1) mg/dl AST 44 H (15-37) U/L ALT 57 (12-78) U/L Alkaline Phosphatase 168 H (45-117) U/L C-Reactive Protein 8.16 H (0-0.29) mg/dl Total Protein 7.3 (6.4-8.2) gm/dl Albumin 2.6 L (3.4-5.0) gm/dl Globulin 4.7 H (2.5-4.0) gm/dl Albumin/Globulin Ratio 0.6 L (0.9-2) Vitamin B12 (193-986) pg/ml Folate (>5.38) ng/ml Procalcitonin (0-0.5) ng/ml TSH 1.500 (0.300-4.500) uIu/ml COVID-19 Eval Order SARS-CoV-2 (PCR) (Negative) Blood Type Antibody Screen Crossmatch Medications Administered Current Inpatient Medications Acetaminophen (Acetaminophen 500 Mg Tab) 1,000 mg PO Q8 PRN PRN Reason: Pain Stop: 07/20/20 21:56 Alprazolam (Alprazolam 0.5 Mg Tablet) 1 mg PO BID PRN PRN Reason: Anxiety Stop: 07/20/20 21:56 Amlodipine Besylate (Amlodipine Besylate 5 Mg Tab) 5 mg PO QAM [facility] Stop: 07/21/20 08:59 Last Admin: 06/21/20 08:05 Dose: 5 mg Documented by: Aspirin (Aspirin 81 Mg Ectab) 81 mg PO BID [facility] Stop: 07/20/20 21:56 Last Admin: 06/21/20 08:05 Dose: 81 mg Documented by: Atorvastatin Calcium (Atorvastatin 40 Mg Tab) 40 mg PO DAILY [facility] Stop: 07/21/20 08:59 Last Admin: 06/21/20 08:05 Dose: 40 mg Documented by: Cyanocobalamin (Cyanocobalamin 500 Mcg Tablet (Vitamin B-12)) 1,000 mcg PO QAM [facility] Stop: 07/21/20 08:59 Last Admin: 06/21/20 10:20 Dose: 1,000 mcg Documented by: Dextrose (Dextrose 50% 50 Ml Syringe) 25 - 50 ml IV UD PRN; Protocol PRN Reason: Hypoglycemia Protocol Stop: 07/20/20 21:56 Diphenhydramine HCl (Diphenhydramine Capsule 25 Mg Cap) 25 mg PO HS [facility] Stop: 07/20/20 21:56 Last Admin: 06/21/20 00:02 Dose: 25 mg Documented by: Duloxetine HCl (Duloxetine Hcl 60 Mg Cap) [facility] [place]: 07/21/20 08:59 Last Admin: 06/21/20 08:05 Dose: 60 mg Documented by: Enalapril Maleate (Enalapril Maleate 10 Mg Tab) 40 [facility] [place] Stop: 07/21/20 08:59 Last Admin: 06/21/20 08:05 Dose: 40 mg Documented by: Ergocalciferol (Ergocalciferol 50,000 Units 1250 Mcg Cap) 50,000 units PO Abreu@0900 [facility] Stop: 07/27/20 08:59 Folic Acid (Folic Acid 1 Mg Tab) [facility] [place] Stop: 07/21/20 08:59 Last Admin: 06/21/20 10:20 Dose: 1 mg Documented by: Glucagon (Glucagon For Inj 1 Mg Vial) 1 mg SQ UD PRN; Protocol PRN Reason: Hypoglycemia Protocol Stop: 07/20/20 21:56 Glucose (Glucose 10 Tabs/Tube) 4 - 8 tabs PO UD PRN; Protocol PRN Reason: Hypoglycemia Protocol Stop: 07/20/20 21:56 Glucose (Glucose 40% Gel 15 Gm Tube) 15 - 30 gm PO UD PRN; Protocol PRN Reason: Hypoglycemia Protocol Stop: 07/20/20 21:56 Meropenem 500 mg/ Syringe 10 mls @ 2 mls/min IV Q6H [facility]; Protocol Stop: 08/02/20 09:59 Last Admin: 06/21/20 10:20 Dose: 2 mls/min Documented by: Clindamycin Phosphate 900 mg/ (Dextrose) 56 mls @ 112 mls/hr IV Q8H [facility]; Protocol Stop: 06/23/20 09:59 Last Infusion: 06/21/20 10:51 Dose: Infused Documented by: Vancomycin HCl 1,250 mg/ (Sodium Chloride) 275 mls @ 200 mls/hr IV Q12H [facility]; Protocol Stop: 08/02/20 19:59 Insulin Aspart (Insulin Aspart 100 Units/Ml 3 Ml Pen) 0 units SC ACHS [facility]; Protocol Stop: 07/21/20 16:29 Insulin Glargine (Insulin Glargine Solostar 100 Units/Ml 3 Ml Pen) 0 units SC HS [facility]; Protocol Stop: 07/20/20 22:29 Levothyroxine Sodium (Levothyroxine Sodium 100 Mcg Tablet) 100 mcg PO DAILYBB [facility] Stop: 07/21/20 06:29 Last Admin: 06/21/20 05:54 Dose: 100 mcg Documented by: Miscellaneous (Carbohydrates For Hypoglycemia ) 15 - 30 gm PO UD PRN PRN Reason: Hypoglycemia Protocol Stop: 07/20/20 21:56 Miscellaneous Information (Vancomycin Consult Active) 1 ea N/A UD PRN PRN Reason: Consult Stop: 07/20/20 17:57 Last Admin: 06/20/20 19:05 Dose: 1 ea Documented by: Miscellaneous Information (Pharmacy Glycemic Mgmt Consult) 1 ea N/A UD PRN PRN Reason: Consult Stop: 07/20/20 22:19 Miscellaneous Information (Meropenem Consult Acitve) 1 ea N/A UD PRN PRN Reason: Consult Stop: 07/21/20 09:49 Miscellaneous Information (Clindamycin Consult Active) 1 ea N/A UD PRN PRN Reason: Consult Stop: 07/21/20 09:50 Multivitamins/Folic Acid/Vitamin C (Multivitamin Chewable Tab) 1 tab PO DAILY [facility] Stop: 07/21/20 08:59 Last Admin: 06/21/20 08:05 Dose: 1 tab Documented by: Ondansetron HCl (Ondansetron Inj 2 Mg/Ml 2 Ml Vial) 4 mg IV Q6H PRN PRN Reason: Nausea Stop: 07/20/20 21:56 Oxycodone/Acetaminophen (Oxycodone/Acetaminophen 5mg/325mg Tab) 1 tab PO QID PRN PRN Reason: Pain Stop: 07/04/20 19:54 Last Admin: 06/21/20 13:36 Dose: 1 tab Documented by: Polyethylene Glycol (Polyethylene (Miralax) 17 Gm Pack) 17 gm PO DAILY PRN PRN Reason: Constipation Stop: 07/20/20 21:56 (1) Osteomyelitis Laterality: left Osteomyelitis location: foot Osteomyelitis type: unspecified type Qualified Code(s): M86.9 - Osteomyelitis, unspecified
--- NOTE | 2020-06-21 17:53 | Electrocardiogram Report ---
Test Reason : Blood Pressure : / mmHG Vent. Rate : 087 BPM Atrial Rate : 087 BPM P-R Int : 182 ms QRS Dur : 100 ms QT Int : 370 ms P-R-T Axes : 063 072 041 degrees QTc Int : 445 ms Normal sinus rhythm Normal ECG When compared with ECG of 16-SEP-2019 16:20, No significant change was found Confirmed by Guillermo Oneil ([id number]) on 06/21/2020 5:52:50 PM Referred By: REFERRED SELF Confirmed By:Eros Oneil
[2020-06-21] MEDS: VANCOMYCIN HCL 1,250 MG in SODIUM CHLORIDE 0.9% 250 ML IV SCH (20:09)
[2020-06-21] MEDS: INSULIN GLARGINE SOLOSTAR 100 UNITS/ML 3 ML PEN SC SCH (20:48)
[2020-06-21] MEDS ORDERED: INSULIN GLARGINE SOLOSTAR 100 UNITS/ML 3 ML PEN SC SCH (21:00)
[2020-06-21] MEDS ORDERED: GADOBUTROL 65ML VIAL IV ONE (22:14)
[2020-06-22] MEDS ORDERED: Nursing to Pharmacy Communication SCH ×2 (00:45→16:45)
[2020-06-22] MEDS: CLINDAMYCIN 900 MG in DEXTROSE 5% 50 ML IV SCH ×3 (02:54→17:40)
[2020-06-22] MEDS: oxyCODONE/ACETAMINOPHEN 5mg/325mg TAB PO PRN ×3 (02:58→16:54)
[2020-06-22] MEDS: MEROPENEM 500 MG in SYRINGE 0 ML IV SCH ×4 (03:15→21:15)
[2020-06-22] MEDS: LEVOTHYROXINE SODIUM 100 MCG TABLET PO SCH (06:23)
[2020-06-22] MEDS: INSULIN ASPART 100 UNITS/ML 3 ML PEN SC SCH ×4 (06:25→21:06)
[2020-06-22 06:57] LABS: Hematocrit (blood only) 24.1 % (37-47); Hemoglobin 7.7 g/dL (12.0-16.0); Mean Corpuscular Hemoglobin 29.8 pg (25-34); Mean Corpuscular Volume 93.4 fL (80-100); Mean Platelet Volume 9.4 fL (7.4-10.4); Platelet Count 345 K/uL (130-400); RDW Coefficient of Variation 14.3 % (11.5-14.5); RDW Standard Deviation 48.4 fL (36.4-46.3); Red Blood Count 2.58 M/uL (4.2-5.4)
[2020-06-22 07:31] LABS: BUN Creatinine Ratio 13.4 (10-20); Calcium 8.3 mg/dl (8.5-10.1); Est GFR (African American) 53.5 ml/min; Est GFR (Non-African American) 46.2 ml/min; Magnesium 2.2 mg/dl (1.8-2.4); Potassium 4.4 mmol/L (3.5-5.1)
[2020-06-22 07:41] LABS: Phosphorus 4.1 mg/dl (2.5-4.9)
--- NOTE | 2020-06-22 07:52 | Magnetic Resonance Report ---
MR ankle LT wo/w con HISTORY: 64 years-old Female L foot osteo chronic pain of the left foot and ankle with possible oste omyelitis. 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 No evidence of forefoot osteomyelitis. Cor tical thickening at the first metatarsal stump appears chronic. Mild tibiotalar, hindfoot and midfoot osteoarthritis. There is a 2.4 x 2.9 cm soft tissue ulcer of the medial plantar heel with extensive associated skin thickening and subcutaneous edema. No drainable fluid collection. Deep to the ulcer t here is a 2.0 x 1.7 cm area of cortical erosion involving the plantar medial calcaneus with associate d decreased T1 marrow signal and extensive increased T2/STIR signal. Moderate associated enhancement. Additionally, there is a 6 mm nondisplaced fracture involving the medial calcaneal body on image 25 series 4. Severe tendinosis of the mid to distal Achilles tendon. No high-grade partial or full-thickness acute tear. Trace pre-Achilles bursitis. Diffuse atrophy of the intrinsic musculature. IMPRESSION: 1. Soft tissue ulcer of the heel with acute osteomyelitis of the calcaneus redemonstrated. 2. Prior forefoot amputation. No additional sites of osteomyelitis identified. 3. Severe tendinosis of the distal Achilles. 4. Diffuse subcutaneous edema suggestive of cellulitis. No abscess. ACT 112: Negative or not required by law. The above report was generated using voice recognition software. It may contain grammatical, syntax o r spelling errors. Electronically signed by: Jackson Coon M.D. 06/22/2020 7:50 AM
[2020-06-22] MEDS: VANCOMYCIN HCL 1,250 MG in SODIUM CHLORIDE 0.9% 250 ML IV SCH (08:33)
[2020-06-22] MEDS: CYANOCOBALAMIN (B-12) 500 MCG TABLET PO SCH (08:36)
[2020-06-22] MEDS: ASPIRIN 81 MG ECTAB PO SCH ×2 (08:36→21:15)
[2020-06-22] MEDS: ATORVASTATIN 40 MG TAB PO SCH (08:36)
[2020-06-22] MEDS: FOLIC ACID 1 MG TAB PO SCH (08:36)
[2020-06-22] MEDS: amLODIPine BESYLATE 5 MG TAB PO SCH (08:37)
[2020-06-22] MEDS: ENALAPRIL MALEATE 10 MG TAB PO SCH (08:37)
[2020-06-22] MEDS: MULTIVITAMIN CHEWABLE TAB PO SCH (08:38)
[2020-06-22] MEDS: DULoxetine HCL 60 MG CAP PO SCH (08:38)
--- NOTE | 2020-06-22 10:54 | Hospitalist Progress Note ---
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 Barclay from [facility], Dr. Beasley from [facility] L foot XR with interval transmetatarsal amputation of the left foot. Possible osteomyelitis of the remaining portion of the metatarsal, as described above CT foot - Large soft tissue ulcer of the medial plantar heel. Deep to the ulceration there is a 2 cm area of osteomyelitis involving the plantar medial calcaneus. Prior forefoot amputation at the level of the metatarsals. Mild cortical irregularity involving the distal cortex of the first metatarsal may reflect an additional area of osteomyelitis. Diffuse subcutaneous edema with cellulitis surrounding the soft tissue wound of the hindfoot. No discrete abscess identified. MRI foot - Soft tissue ulcer of the heel with acute osteomyelitis of the calcaneus re-demonstrated. Prior forefoot amputation. No additional sites of osteomyelitis identified. Severe tendinosis of the distal Achilles. Diffuse subcutaneous edema suggestive of cellulitis. No abscess. On admission, Afebrile, no leukocytosis. ESR 47, CRP 8.10, lactic acid 1.0, procal negative Started on empiric vanc and zosyn in the ED. Discussed previous cultures with pharmacist, decided to broaden antibiotics to Vanco meropenem and clindamycin, follow wound and blood cultures Orthopedic surgery consulted - patient is now status post left heel wound debridement and lavage, left heel wound placement of quarter inch iodoform packing - Noble Alvarenga DO (06/22/20) Pain control [facility] consulted (4) Diabetes mellitus, type II: A1c of 9 in May 2020 Current A1c 7.5% Basal/bolus insulin while admitted per protocol Glycemic pharmacy consulted [facility] HS (5) Anemia: Hgb 8.8 (hgb of 10 at time of discharge in May) Had unexpected blood loss perioperatively at the last admission Denies any active bleeding Blood consent signed, type & cross and hold 2u prbcs Obtained iron panel, and B12, folic acid levels Current Hgb 7.7 Monitor with daily CBC (6) Hypertension: Optimize pain control Continue amlodipine, ramipril (7) Dyslipidemia: Continue statin (8) Hypothyroidism: Continue levothyroxine (9) Mood disorder: Continue home duloxetine, alprazolam PRN DVT Ppx: SCDs for now Code status: FULL PCP: Dr. Swan Dispo: Admitted to N(i)². Discharge planning ordered. Admission and Anticipated Discharge Date Admission Date: June 20, 2020 Subjective Patient seen in follow-up of heel cellulitis/osteomyelitis Currently she is lying in bed, in no acute distress, she is s/p left heel wound debridement and lavage Denies any fevers chills chest pain shortness of breath abdominal pain nausea or vomiting [facility] consulted Review of Systems Review of Systems: All systems reviewed & are unremarkable except as noted in HPI & below Constitutional: no fever and no chills Respiratory: no cough and no dyspnea Cardiovascular: no chest pain and no palpitations Gastrointestinal: no abdominal pain, no nausea and no vomiting Physical Exam Constitutional: WD/WN, vitals as above Eyes: PERRL, conjunctivae normal, anicteric sclerae ENMT: external ear and nose normal, oropharynx normal Neck: normal visual inspection Respiratory: normal respiratory effort, lungs clear to auscultation Auscultation: no crackles, no rhonchi and no wheezes Cardiovascular: RRR, no murmur, no edema Chest (Breasts): Chest: normal inspection of chest Gastrointestinal (Abdomen): normal bowel sounds, soft, nontender, no hepatosplenomegaly Musculoskeletal: Head/Neck/Chest: normocephalic and head atraumatic Left foot in clean surgical dressings, patient just returned from the OR Skin: no rashes, warm and dry Neurologic: PERRL, EOMI, accommodation nl, no face palsy, no dysarthria Psychiatric: A+Ox3, euthymic affect Genitourinary: no CVA tenderness Results & Data Results & Data ([facility]) Vital Signs (Past 12 Hours) Vital Signs Temp Pulse Pulse Resp BP Pulse Ox 06/22/20 08:30 87 06/22/20 07:45 36.8 C 85 18 139/75 91 06/22/20 04:03 36.9 C 86 20 154/76 H 92 06/22/20 01:08 90 06/21/20 23:34 36.5 C 92 H 20 131/70 95 Laboratory Results 06/22/20 06/22/20 06/22/20 Range/Units 07:31 06:12 06:12 WBC 7.60 (4.8-10.8) K/uL RBC 2.58 L (4.2-5.4) M/uL Hgb 7.7 L (12.0-16.0) g/dL Hct 24.1 L (37-47) % MCV 93.4 (80-100) fL MCH 29.8 (25-34) pg MCHC 32.0 (32-36) g/dL RDW Std Deviation 48.4 H (36.4-46.3) fL RDW Coeff of Anitha 14.3 (11.5-14.5) % Plt Count 345 (130-400) K/uL MPV 9.4 (7.4-10.4) fL Sodium 140 (136-145) mmol/L Potassium 4.4 (3.5-5.1) mmol/L Chloride 109 H (98-107) mmol/L Carbon Dioxide 28 (21-32) mmol/L Anion Gap 3.0 (3-11) BUN 17 (7-18) mg/dl Creatinine 1.24 H (0.6-1.2) mg/dl Est Cr Clr Drug Dosing 57.0 ml/min Est GFR ( Amer) 53.5 ml/min Est GFR (Non-Af Amer) 46.2 ml/min BUN/Creatinine Ratio 13.4 (10-20) Glucose 115 H (70-99) mg/dl POC Glucose 115 H (70-99) mg/dl Calcium 8.3 L (8.5-10.1) mg/dl Phosphorus 4.1 (2.5-4.9) mg/dl Magnesium 2.2 (1.8-2.4) mg/dl Stool Occult Bld Scrn (Negative) 06/22/20 06/22/20 06/21/20 Range/Units 05:53 00:02 20:25 WBC (4.8-10.8) K/uL RBC (4.2-5.4) M/uL Hgb (12.0-16.0) g/dL Hct (37-47) % MCV (80-100) fL MCH (25-34) pg MCHC (32-36) g/dL RDW Std Deviation (36.4-46.3) fL RDW Coeff of Anitha (11.5-14.5) % Plt Count (130-400) K/uL MPV (7.4-10.4) fL Sodium (136-145) mmol/L Potassium (3.5-5.1) mmol/L Chloride (98-107) mmol/L Carbon Dioxide (21-32) mmol/L Anion Gap (3-11) BUN (7-18) mg/dl Creatinine (0.6-1.2) mg/dl Est Cr Clr Drug Dosing ml/min Est GFR ( Amer) ml/min Est GFR (Non-Af Amer) ml/min BUN/Creatinine Ratio (10-20) Glucose (70-99) mg/dl POC Glucose 124 H 166 H 141 H (70-99) mg/dl Calcium (8.5-10.1) mg/dl Phosphorus (2.5-4.9) mg/dl Magnesium (1.8-2.4) mg/dl Stool Occult Bld Scrn (Negative) 06/21/20 06/21/20 06/21/20 Range/Units 16:54 15:50 11:51 WBC (4.8-10.8) K/uL RBC (4.2-5.4) M/uL Hgb (12.0-16.0) g/dL Hct (37-47) % MCV (80-100) fL MCH (25-34) pg MCHC (32-36) g/dL RDW Std Deviation (36.4-46.3) fL RDW Coeff of Anitha (11.5-14.5) % Plt Count (130-400) K/uL MPV (7.4-10.4) fL Sodium (136-145) mmol/L Potassium (3.5-5.1) mmol/L Chloride (98-107) mmol/L Carbon Dioxide (21-32) mmol/L Anion Gap (3-11) BUN (7-18) mg/dl Creatinine (0.6-1.2) mg/dl Est Cr Clr Drug Dosing ml/min Est GFR ( Amer) ml/min Est GFR (Non-Af Amer) ml/min BUN/Creatinine Ratio (10-20) Glucose (70-99) mg/dl POC Glucose 174 H 156 H (70-99) mg/dl Calcium (8.5-10.1) mg/dl Phosphorus (2.5-4.9) mg/dl Magnesium (1.8-2.4) mg/dl Stool Occult Bld Scrn Negative (Negative) Medications Administered Current Inpatient Medications Acetaminophen (Acetaminophen 500 Mg Tab) 1,000 mg PO Q8 PRN PRN Reason: Pain Stop: 07/20/20 21:56 Alprazolam (Alprazolam 0.5 Mg Tablet) 1 mg PO BID PRN PRN Reason: Anxiety Stop: 07/20/20 21:56 Amlodipine Besylate (Amlodipine Besylate 5 Mg Tab) 5 mg PO QAM RAVINDRA Stop: 07/21/20 08:59 Last Admin: 06/22/20 08:37 Dose: 5 mg Documented by: Aspirin (Aspirin 81 Mg Ectab) 81 mg PO BID RAVINDRA Stop: 07/20/20 21:56 Last Admin: 06/22/20 08:36 Dose: 81 mg Documented by: Atorvastatin Calcium (Atorvastatin 40 Mg Tab) 40 mg PO DAILY RAVINDRA Stop: 07/21/20 08:59 Last Admin: 06/22/20 08:36 Dose: 40 mg Documented by: Cyanocobalamin (Cyanocobalamin 500 Mcg Tablet (Vitamin B-12)) 1,000 mcg PO QAM RAVINDRA Stop: 07/21/20 08:59 Last Admin: 06/22/20 08:36 Dose: 1,000 mcg Documented by: Dextrose (Dextrose 50% 50 Ml Syringe) 25 - 50 ml IV UD PRN; Protocol PRN Reason: Hypoglycemia Protocol Stop: 07/20/20 21:56 Diphenhydramine HCl (Diphenhydramine Capsule 25 Mg Cap) 25 mg PO HS RAVINDRA Stop: 07/20/20 21:56 Last Admin: 06/21/20 20:46 Dose: 25 mg Documented by: Duloxetine HCl (Duloxetine Hcl 60 Mg Cap) 60 mg PO QAM RAVINDRA Stop: 07/21/20 08:59 Last Admin: 06/22/20 08:38 Dose: 60 mg Documented by: Enalapril Maleate (Enalapril Maleate 10 Mg Tab) 40 mg PO QAM RAVINDRA Stop: 07/21/20 08:59 Last Admin: 06/22/20 08:37 Dose: 40 mg Documented by: Ergocalciferol (Ergocalciferol 50,000 Units 1250 Mcg Cap) 50,000 units PO Abreu@0900 RAVINDRA Stop: 07/27/20 08:59 Folic Acid (Folic Acid 1 Mg Tab) 1 mg PO QAM RAVINDRA Stop: 07/21/20 08:59 Last Admin: 06/22/20 08:36 Dose: 1 mg Documented by: Glucagon (Glucagon For Inj 1 Mg Vial) 1 mg SQ UD PRN; Protocol PRN Reason: Hypoglycemia Protocol Stop: 07/20/20 21:56 Glucose (Glucose 10 Tabs/Tube) 4 - 8 tabs PO UD PRN; Protocol PRN Reason: Hypoglycemia Protocol Stop: 07/20/20 21:56 Glucose (Glucose 40% Gel 15 Gm Tube) 15 - 30 gm PO UD PRN; Protocol PRN Reason: Hypoglycemia Protocol Stop: 07/20/20 21:56 Meropenem 500 mg/ Syringe 10 mls @ 2 mls/min IV Q6H RAVINDRA; Protocol Stop: 08/02/20 09:59 Last Admin: 06/22/20 10:05 Dose: 2 mls/min Documented by: Clindamycin Phosphate 900 mg/ (Dextrose) 56 mls @ 112 mls/hr IV Q8H RAVINDRA; Protocol Stop: 06/23/20 09:59 Last Infusion: 06/22/20 10:41 Dose: Infused Documented by: Vancomycin HCl 1,250 mg/ (Sodium Chloride) 275 mls @ 200 mls/hr IV Q12H RAVINDRA; Protocol Stop: 08/02/20 19:59 Last Infusion: 06/22/20 10:05 Dose: Infused Documented by: Insulin Aspart (Insulin Aspart 100 Units/Ml 3 Ml Pen) 0 units SC Q6 RAVINDRA; Protocol Stop: 07/22/20 05:59 Last Admin: 06/22/20 06:25 Dose: Not Given Documented by: Insulin Glargine (Insulin Glargine Solostar 100 Units/Ml 3 Ml Pen) 0 units SC HS RAVINDRA; Protocol Stop: 07/20/20 22:29 Last Admin: 06/21/20 20:48 Dose: 25 units Documented by: Levothyroxine Sodium (Levothyroxine Sodium 100 Mcg Tablet) 100 mcg PO DAILYBB RAVINDRA Stop: 07/21/20 06:29 Last Admin: 06/22/20 06:23 Dose: 100 mcg Documented by: Miscellaneous (Carbohydrates For Hypoglycemia ) 15 - 30 gm PO UD PRN PRN Reason: Hypoglycemia Protocol Stop: 07/20/20 21:56 Miscellaneous Information (Vancomycin Consult Active) 1 ea N/A UD PRN PRN Reason: Consult Stop: 07/20/20 17:57 Last Admin: 06/20/20 19:05 Dose: 1 ea Documented by: Miscellaneous Information (Pharmacy Glycemic Mgmt Consult) 1 ea N/A UD PRN PRN Reason: Consult Stop: 07/20/20 22:19 Miscellaneous Information (Meropenem Consult Acitve) 1 ea N/A UD PRN PRN Reason: Consult Stop: 07/21/20 09:49 Miscellaneous Information (Clindamycin Consult Active) 1 ea N/A UD PRN PRN Reason: Consult Stop: 07/21/20 09:50 Multivitamins/Folic Acid/Vitamin C (Multivitamin Chewable Tab) 1 tab PO DAILY RAVINDRA Stop: 07/21/20 08:59 Last Admin: 06/22/20 08:38 Dose: 1 tab Documented by: Ondansetron HCl (Ondansetron Inj 2 Mg/Ml 2 Ml Vial) 4 mg IV Q6H PRN PRN Reason: Nausea Stop: 07/20/20 21:56 Oxycodone/Acetaminophen (Oxycodone/Acetaminophen 5mg/325mg Tab) 1 tab PO QID PRN PRN Reason: Pain Stop: 07/04/20 19:54 Last Admin: 06/22/20 08:25 Dose: 1 tab Documented by: Polyethylene Glycol (Polyethylene (Miralax) 17 Gm Pack) 17 gm PO DAILY PRN PRN Reason: Constipation Stop: 07/20/20 21:56 (1) Osteomyelitis Laterality: left Osteomyelitis location: foot Osteomyelitis type: unspecified type Qualified Code(s): M86.9 - Osteomyelitis, unspecified
[2020-06-22] MEDS ORDERED: MIDAZOLAM HCL 1 MG/ML 2ML VIAL ONE (12:14)
[2020-06-22] MEDS ORDERED: fentaNYL citrate PF 100 MCG/2 ML VIAL ONE (12:15)
--- NOTE | 2020-06-22 12:23 | History & Physical Bridge Note ---
Date of Service June 22, 2020 History & Physical Bridge Note I have examined the patient, reviewed the History & Physical and in the interval since the performance of the History & Physical I have noted the following changes of clinical significance: no changes noted
--- NOTE | 2020-06-22 13:18 | Anesthesiology Consultation ---
Date of Service June 22, 2020 Assessment & Plan (1) Encounter for pre-operative examination: Chart Review Chart Review: Acceptable Risk for Surgery History Surgery Operation Date: 06/22/20 11:30 Proposed Procedures p Left Heel Wound Incision and Drainage - Noble Alvarenga DO Height/Weight Height: 5 ft 9 in Weight: 95 kg Allergies Allergy/AdvReac Type Severity Reaction Status Date / Time peach Allergy Intermediate Hives Verified 06/20/20 18:25 cat dander Allergy Mild CONGESTION Verified 06/20/20 18:25 cefepime Allergy Mild itch Verified 06/20/20 18:25 lamotrigine [From Lamictal] Allergy Mild Rash Verified 06/20/20 18:25 Medications Home Medications Medication Instructions Recorded Confirmed Last Taken Basaglar KwikPen U-100 Insulin 20 unit SUBCUT HS 09/16/19 06/20/20 05/20/20 23:00 Jardiance 25 mg PO QPM 09/16/19 06/20/20 05/20/20 10:00 alprazolam 1 mg PO BID PRN 09/16/19 06/20/20 05/20/20 10:00 amlodipine 5 mg PO QAM 09/16/19 06/20/20 05/20/20 10:00 duloxetine 60 mg PO QAM 09/16/19 06/20/20 05/21/20 10:00 ergocalciferol (vitamin D2) 50,000 unit PO WK 09/16/19 06/20/20 05/20/20 10:00 insulin aspart U-100 [Novolog See Rx Instructions .ROUTE .COMPLEX 09/16/19 06/21/20 05/20/20 18:00 Flexpen U-100 Insulin] ramipril 10 mg PO QAM 09/16/19 06/20/20 05/21/20 08:30 atorvastatin 40 mg PO DAILY 05/21/20 06/20/20 Unknown levothyroxine 100 mcg PO DAILY 05/21/20 06/20/20 Unknown aspirin 81 mg PO BID 30 Days #60 tab 05/23/20 06/20/20 Unknown acetaminophen 1,000 mg PO Q8 PRN 06/20/20 06/20/20 Unknown ciprofloxacin HCl 500 mg PO Q12 06/20/20 06/20/20 Unknown clindamycin HCl [Cleocin HCl] 300 mg PO .Q6HRS 06/20/20 06/20/20 Unknown diphenhydramine HCl [Benadryl] 25 mg PO HS 06/20/20 06/20/20 Unknown oxycodone-acetaminophen 1 tab PO BID PRN 06/20/20 06/20/20 Unknown pediatric [id number] 1 tab PO DAILY 06/20/20 06/20/20 Unknown [Flintstones Complete (iron)] Active Medications Generic Name Dose Route Start Last Admin Trade Name Freq PRN Reason Stop Dose Admin Amlodipine Besylate 5 mg 06/21/20 09:00 06/22/20 08:37 Amlodipine Besylate 5 Mg Tab PO 07/21/20 08:59 5 mg QAM RAVINDRA Administration Aspirin 81 mg 06/20/20 21:57 06/22/20 08:36 Aspirin 81 Mg Ectab PO 07/20/20 21:56 81 mg BID RAVINDRA Administration Atorvastatin Calcium 40 mg 06/21/20 09:00 06/22/20 08:36 Atorvastatin 40 Mg Tab PO 07/21/20 08:59 40 mg DAILY RAVINDRA Administration Cyanocobalamin 1,000 mcg 06/21/20 09:00 06/22/20 08:36 Cyanocobalamin 500 Mcg Tablet (Vitamin B-12) PO 07/21/20 08:59 1,000 mcg QAM RAVINDRA Administration Diphenhydramine HCl 25 mg 06/20/20 21:57 06/21/20 20:46 Diphenhydramine Capsule 25 Mg Cap PO 07/20/20 21:56 25 mg HS RAVINDRA Administration Duloxetine HCl 60 mg 06/21/20 09:00 06/22/20 08:38 Duloxetine Hcl 60 Mg Cap PO 07/21/20 08:59 60 mg QAM RAVINDRA Administration Enalapril Maleate 40 mg 06/21/20 09:00 06/22/20 08:37 Enalapril Maleate 10 Mg Tab PO 07/21/20 08:59 40 mg QAM RAVINDRA Administration Folic Acid 1 mg 06/21/20 09:00 06/22/20 08:36 Folic Acid 1 Mg Tab PO 07/21/20 08:59 1 mg QAM RAVINDRA Administration Meropenem 500 mg/ Syringe 10 mls @ 2 mls/min 06/21/20 10:00 06/22/20 10:05 IV 08/02/20 09:59 2 mls/min Q6H RAVINDRA Administration Protocol Clindamycin Phosphate 900 mg/ 56 mls @ 112 mls/hr 06/21/20 10:00 06/22/20 10:41 Dextrose IV 06/23/20 09:59 Infused Q8H RAVINDRA Infusion Protocol Vancomycin HCl 1,250 mg/ 275 mls @ 200 mls/hr 06/21/20 20:00 06/22/20 10:05 Sodium Chloride IV 08/02/20 19:59 Infused Q12H RAVINDRA Infusion Protocol Insulin Aspart 0 units 06/22/20 06:00 06/22/20 11:42 Insulin Aspart 100 Units/Ml 3 Ml Pen SC 07/22/20 05:59 Not Given Q6 RAVINDRA Protocol Insulin Glargine 0 units 06/21/20 21:00 06/21/20 20:48 Insulin Glargine Solostar 100 Units/Ml 3 Ml Pen SC 07/20/20 22:29 25 units HS RAVINDRA Administration Protocol Levothyroxine Sodium 100 mcg 06/21/20 06:30 06/22/20 06:23 Levothyroxine Sodium 100 Mcg Tablet PO 07/21/20 06:29 100 mcg DAILYBB RAVINDRA Administration Miscellaneous Information 1 ea 06/20/20 17:58 06/20/20 19:05 Vancomycin Consult Active N/A 07/20/20 17:57 1 ea UD PRN Administration Consult Multivitamins/Folic Acid/Vitamin C 1 tab 06/21/20 09:00 06/22/20 08:38 Multivitamin Chewable Tab PO 07/21/20 08:59 1 tab DAILY RAVINDRA Administration Oxycodone/Acetaminophen 1 tab 06/21/20 12:25 06/22/20 08:25 Oxycodone/Acetaminophen 5mg/325mg Tab PO 07/04/20 19:54 1 tab QID PRN Administration Pain NPO Date Last Intake of Fluids: 06/21/20 Time Last Intake of Fluids: 22:00 Last Intake of Fluids Comment: plus sips with meds today Date Last Intake of Solids: 06/21/20 Time Last Intake of Solids: 22:00 Past Medical History Medical History Anxiety and depression Attention deficit disorder (ADD) Bipolar disorder TYPE 2 Chronic kidney disease STAGE 3 Diabetes mellitus, type II Diabetic ulcer of left foot Dyslipidemia History of necrotising fasciitis LEFT FOOT Hypertension Hypothyroidism Mood disorder Osteoarthritis Peripheral neuropathy PTSD (post-traumatic stress disorder) Past Family History Family History Mother Family history of diabetes mellitus Father Family history of diabetes mellitus Other Diabetes Hypertension No family history of adverse response to anesthesia Past Surgical History Surgical History H/O foot surgery RT H/O gastric bypass 3 YEARS AGO History of amputation of left foot through metatarsal bone History of anesthesia reaction DURING 1 PROCEDURE "LOSS OF HEARTBEAT FOR SHORT PERIOD OF TIME". WOKE UP DURING A COLONOSCOPY History of cataract surgery RT/LEFT History of section X 4 History of cholecystectomy History of colonoscopy History of esophagogastroduodenoscopy (EGD) S/P cervical spinal fusion S/P subtotal parathyroidectomy Status post left foot surgery I&D [place] teeth removed Social History Smoking Status: Never smoker Hx Alcohol Use: No Hx Substance Use: No Physical Exam Vital Signs Last Vital Signs Temp 37.4 C 06/22/20 11:35 Pulse 87 06/22/20 11:35 Resp 18 06/22/20 11:35 BP 146/67 H 06/22/20 11:35 Pulse Ox 92 06/22/20 11:35 Testing Laboratory Results 06/22/20 06:12 06/22/20 06:12 Hemoglobin A1c 7.5 % (4.5-5.6) H 06/21/20 06:36 Blood Type AB Negative 06/20/20 22:38 Antibody Screen NEGATIVE 06/20/20 22:38 06/20/20 18:17 Gram Stain - Final Foot,Left Wound Culture - Final Corynebacterium species 06/20/20 17:20 Aerobic Blood Culture - Preliminary Blood No growth in Aerobic bottle after 24 hours. Anaerobic Blood Culture - Preliminary No growth in Anaerobic bottle after 24 hours. 06/20/20 17:27 Aerobic Blood Culture - Preliminary Blood No growth in Aerobic bottle after 24 hours. Anaerobic Blood Culture - Preliminary No growth in Anaerobic bottle after 24 hours. 06/22/20 06/22/20 06/22/20 11:50 07:31 05:53 POC Glucose 140 H 115 H 124 H Electrocardiogram Date: 06/20/20 Findings: + NSR @ (11)
[2020-06-22] MEDS ORDERED: ceFAZolin 330 MG/ML 1 GM VIAL ONE (13:20)
[2020-06-22] MEDS ORDERED: ATROPINE SULFATE 0.1 MG/ML 10ML SYR IV PRN (13:26)
[2020-06-22] MEDS ORDERED: LABETALOL HCL IV 5 MG/ML 20ML IV PRN (13:26)
[2020-06-22] MEDS ORDERED: ONDANSETRON INJ 2 MG/ML 2 ML VIAL IV PRN (13:26)
[2020-06-22] MEDS ORDERED: fentaNYL citrate PF 100 MCG/2 ML VIAL IV PRN (13:26)
[2020-06-22] MEDS ORDERED: ePHEDrine sulfate 50 MG/5 ML SYR ONE (13:51)
[2020-06-22] MEDS ORDERED: PROPOFOL IV EMULSION 10 MG/ML 20 ML VIAL IV ONE (13:51)
[2020-06-22] MEDS ORDERED: LIDOCAINE 2% 2 ML VIAL/AMP(20MG/ML) INFIL ONE (13:51)
[2020-06-22] MEDS ORDERED: ONDANSETRON INJ 2 MG/ML 2 ML VIAL ONE (13:51)
[2020-06-22] MEDS ORDERED: SODIUM CHLORIDE 0.9% 1,000 ML IV SCH (14:00)
--- NOTE | 2020-06-22 14:04 | Operative Report ---
Post Operative Report Pre & Post Diagnosis Operation Date: 06/22/20 11:30 Pre-Op Diagnosis: Left foot wound osteomyelitis Post-Op Diagnosis: Left foot wound osteomyelitis I identified the patient and participated in the time-out.: Yes Procedure Operation Date: 06/22/20 11:30 Actual Procedures p Left Heel Wound Debridement and Lavage(Left) debridement lavage left heel wound placement of quarter inch iodoform packing- Noble Alvarenga DO Surgeon Noble Alvarenga DO Nursing Tech None Estimated Blood Loss 2 Findings Consistent with Post-Op Diagnosis Patient has a 6 x 6 cm heel decubitus has been ongoing care with antibiotics and Dr. Barclay foot service presents for debridement lavage today Specimens None Drains None Anesthesia Type General Complications none Disposition Accompanied Patient To Recovery: No Disposition: Recovery Room Indications Patient presents with a 6 x 6 cm open heel decubitus that has drainage status post MRI scan recently no new pockets of fluid or purulent abscesses were noted Description of Procedure After initiation of general esthesia the left lower extremity socially prepped usual fashion service type the previous sutures that were placed were removed the wound was irrigated with copious amounts of sterile saline solution noted at the necrotic edges of the decubitus were debrided back to bleeding healthy tissue the wound the deep wound was curetted and debrided to bleeding healthy tissue the wound was irrigated with 3 L of sterile saline solution subsequently the deep portion of the wound was packed with quarter inch iodoform the remaining portion of the wound was subsequently packed with iodoform and dressing was placed sterile compression dressing placed patient taken recovery in stable condition operative port dictated by Lyle. I attest to the content of the Intraoperative Record and any orders documented therein. Any exceptions are noted below.
--- NOTE | 2020-06-22 14:33 | Anesthesiology Progress Note ---
Date of Service June 22, 2020 Anesthesia Post Procedure Vital Signs Vital Signs: Temp Pulse Pulse Pulse Resp BP BP 06/22/20 14:30 36.4 C L 91 H 16 124/68 06/22/20 14:20 88 16 135/66 06/22/20 14:10 87 16 136/64 06/22/20 14:03 36.0 C L 77 16 116/87 06/22/20 11:35 37.4 C 87 18 146/67 H 06/22/20 08:30 87 06/22/20 07:45 36.8 C 85 18 139/75 06/22/20 04:03 36.9 C 86 20 154/76 H 06/22/20 01:08 90 06/21/20 23:34 36.5 C 92 H 20 131/70 06/21/20 19:46 37.0 C 75 18 116/52 L 06/21/20 16:30 81 06/21/20 16:16 36.9 C 88 18 130/71 Pulse Ox 06/22/20 14:30 99 06/22/20 14:20 99 06/22/20 14:10 99 06/22/20 14:03 100 06/22/20 11:35 92 06/22/20 08:30 06/22/20 07:45 91 06/22/20 04:03 92 06/22/20 01:08 06/21/20 23:34 95 06/21/20 19:46 96 06/21/20 16:30 06/21/20 16:16 98 Pain Intensity Foot: Pain Intensity: 4 Left Foot: Pain Intensity: 6 Transfer of Care Handoff Completed per policy Notes Mental Status: alert / awake / arousable Patient Amnestic to Procedure: Yes Nausea / Vomiting: adequately controlled Pain: adequately controlled Airway Patency, RR, SpO2: stable & adequate BP & HR: stable & adequate Hydration State: stable & adequate Anesthetic Complications: no major complications apparent
[2020-06-22] MEDS ORDERED: VANCOMYCIN LEVEL ONE (19:30)
[2020-06-22] MEDS: INSULIN GLARGINE SOLOSTAR 100 UNITS/ML 3 ML PEN SC SCH (21:06)
[2020-06-22] MEDS: diphenhydrAMINE Capsule 25 MG CAP PO SCH (21:15)
--- NOTE | 2020-06-22 21:57 | Pharmacy Report ---
Pharmacy Abx Dose Short Note - Date of Service June 22, 2020 - Assessment & Plan Assessment 64 year old F receiving IV Vancomycin, Meropenem, and Clindamycin (not a consult) for treatment of L foot wound, +osteomyelitis Day # 3 of antimicrobial therapy. Plan Vancomycin * Trough level of 24.7 mcg/mL (appropriately drawn) is supratherapeutic. This is an early level drawn prior to 3rd dose and is not reflective of steady state. Css may be even higher. Will delay next dose and increase dosing interval to target a lower trough. * Change to 1250 mg IV every 18 hours * Goal trough level for osteomyelitis : 15 to 20 mcg/mL * Trough level ordered for: 06/24/20 @ 1530 (prior to 3rd dose and therefore not reflective of steady state, but want to assess dosing regimen earlier due to recent supratherapeutic level and severity of infection) Pharmacy will continue to follow and will adjust dose/frequency as necessary. Thank you.
[2020-06-23] MEDS: oxyCODONE/ACETAMINOPHEN 5mg/325mg TAB PO PRN ×4 (02:33→23:35)
[2020-06-23] MEDS: CLINDAMYCIN 900 MG in DEXTROSE 5% 50 ML IV SCH ×3 (02:37→18:39)
[2020-06-23] MEDS: MEROPENEM 500 MG in SYRINGE 0 ML IV SCH ×4 (03:16→21:44)
[2020-06-23] MEDS ORDERED: VANCOMYCIN HCL 1,250 MG in SODIUM CHLORIDE 0.9% 250 ML IV SCH (04:00)
[2020-06-23] MEDS: LEVOTHYROXINE SODIUM 100 MCG TABLET PO SCH (05:20)
[2020-06-23 07:37] LABS: Hematocrit (blood only) 22.7 % (37-47); Hemoglobin 7.2 g/dL (12.0-16.0); Mean Corpuscular Hgb Conc 31.7 g/dL (32-36); Mean Corpuscular Volume 94.6 fL (80-100); Platelet Count 315 K/uL (130-400); RDW Coefficient of Variation 14.5 % (11.5-14.5); White Blood Count 8.48 K/uL (4.8-10.8)
[2020-06-23 08:08] LABS: BUN Creatinine Ratio 12.7 (10-20); Calcium 7.9 mg/dl (8.5-10.1); Creatinine Clr Calc Pharmacy 49.6 ml/min; Est GFR (African American) 44.7 ml/min; Est GFR (Non-African American) 38.6 ml/min; Magnesium 2.3 mg/dl (1.8-2.4); Potassium 4.6 mmol/L (3.5-5.1)
[2020-06-23] MEDS: MULTIVITAMIN CHEWABLE TAB PO SCH (08:12)
[2020-06-23] MEDS: amLODIPine BESYLATE 5 MG TAB PO SCH (08:12)
[2020-06-23] MEDS: ATORVASTATIN 40 MG TAB PO SCH (08:13)
[2020-06-23] MEDS: CYANOCOBALAMIN (B-12) 500 MCG TABLET PO SCH (08:13)
[2020-06-23] MEDS: FOLIC ACID 1 MG TAB PO SCH (08:13)
[2020-06-23] MEDS: DULoxetine HCL 60 MG CAP PO SCH (08:14)
[2020-06-23] MEDS: ENALAPRIL MALEATE 10 MG TAB PO SCH (08:14)
[2020-06-23] MEDS: ASPIRIN 81 MG ECTAB PO SCH ×2 (08:15→21:50)
[2020-06-23] MEDS: INSULIN ASPART 100 UNITS/ML 3 ML PEN SC SCH ×4 (08:20→21:48)
--- NOTE | 2020-06-23 09:32 | Pharmacy Report ---
Pharmacy Glycemic Short Note 2 - Date of Service June 23, 2020 - Glycemic Short BSG Results (Last 24 hours): 06/22/20 06/22/20 06/22/20 11:50 14:06 14:58 Glucose POC Glucose 140 H 133 H 134 H 06/22/20 06/22/20 06/23/20 16:42 21:04 07:06 Glucose 156 H POC Glucose 250 H 125 H 06/23/20 07:31 Glucose POC Glucose 150 H OUTPATIENT ANTIDIABETIC REGIMEN: * Basaglar 20 units SC HS * Novolog 20 units TIDM * Jardiance 25 mg PO HS * HbA1c: 7.5% (06/21/20), 9% (05/21/20) ASSESSMENT: 06/23 * BSGs yesterday of 124, 140, 250, and 125 mg/dL * BSG of 250 mg/dL likely reflective of uncovered lunch * Received 34 units of insulin (20 units of basal, 14 units of prandial/correctional bolus) * POD #1 s/p left heel debridement * Continues on broad spectrum antibiotics 06/21 * DJ is a 64 year old female s/p transmetatarsal left foot amputation now with likely osteomyelitis of remaining portion of metatarsal * IV antibiotics ordered (vancomycin/Zosyn) * BSGs elevated overnight - received 12 units of correctional Novolog and 18 units of Lantus last evening (10% reduction of home dose) * Patient is NPO for possible intervention today * Fasting BSG of 131 mg/dL this morning PLAN FOR INPATIENT GLYCEMIC CONTROL: * Hold outpatient Jardiance while inpatient * Basal insulin * Lantus scale HS to provide 25-30 units based on BSG (see EHR for details) * Bolus insulin * NovoLog per scale ACHS or Q6hrs while NPO * Goal Range: Low 120 mg/dL - High 160 mg/dL * Correction Factor: 15 mg/dL/unit * Nutritional / Prandial insulin per carb ratio of 1 unit per 5 grams CHO consumed PLAN FOR DISCHARGE: * HbA1c is above goal of less than 7%, but is much improved over past month (9% -> 7.5%) * Reasonable to continue home regimen given improvement
--- NOTE | 2020-06-23 10:08 | Hospitalist Progress Note ---
Date of Service June 23, 2020 Assessment & Plan (1) Osteomyelitis: Osteomyelitis of left foot status post washout on 06/[address] Alvarenga. Was recently on outpatient ciprofloxacin and clindamycin for several weeks after 05/21 washout of left heel ulcer with antibiotic bead placement by Dr. Barclay. Wound culture at that time revealing Pseudomonas, Serratia, Prevotella. Repeat wound culture from 06/20 on this admission reveals corynebacterium species and skin surendra. She was started on Vanc/Zosyn on admission which was broadened to remains on vancomycin, meropenem with pending infectious disease consultation and recommendations. Will await activity instructions from orthopedics postoperatively and continue supportive care postoperatively. (2) Wound of left foot: POA, plan as above (3) Post-operative state: (4) Cellulitis of left foot: Appears resolved with antibiotic therapy and washout yesterday. (5) Diabetes mellitus, type II: Glucose at inpatient goal, glycemic pharmacist consulted, outpatient A1c uncontrolled at 7.5. She is noted to have complications of neuropathy. Continue basal bolus insulin per current management. (6) Anemia: post operative acute blood loss anemia-multiple recent procedures. Currently 7.03/30 and she is asymptomatic. Cont to monitor and consider transfuse <08/25 or if becomes symptomatic. Iron sat is 10.6%. (7) Hypertension: Amlodipine 5 mg daily and Vasotec 40 mg daily. Noted patient takes ramipril 10 mg p.o. daily at home. (8) CKD (chronic kidney disease), stage III: Slightly increased creatinine. Around her baseline. Cont to monitor closely. (9) Hypothyroidism: Continue levothyroxine per home regimen. (10) Bipolar 1 disorder: Chronic, stable continue home duloxetine. (11) DVT prophylaxis: SCDs post-op, chemoprophylaxis recommended as soon as OK with surgery. Full Code Dispo-pending ID recs, and activity restrictions. Need solid discharge plan prior to going. Tiera Nayak DO [facility] Hospitalist Admission and Anticipated Discharge Date Admission Date: June 20, 2020 Subjective The patient is a 64-year-old female with a history of transmetatarsal amputation of the left foot following a great toe ulceration and also recently undergoing a left foot incision and drainage of heel ulcer with debridement of skin and fascia periosteum and stimulant bead application by Dr. Barclay on May 21, 2020. Wound culture from 416 grew Pseudomonas, Serratia and Prevotella. She presented to the ER on 06/20 reporting concern for infection in her left foot because of worsening pain in the left heel, onset of chills and some drainage seen from the wound despite 5 weeks of ciprofloxacin and clindamycin. A foot x- ray revealed possible osteomyelitis of the remaining portion of the left first metatarsal. There was also an apparent erosion measuring 1.2 cm of the medial navicular, and osteomyelitis cannot be excluded at this site. ESR and CRP were checked and elevated and the patient was started on vancomycin and Zosyn in the ER. Wound cultures were obtained in the ER reveal corynebacterium species plus low counts of probable skin surendra. Blood cultures are negative to date and she remains clinically stable although reports chills overnight with a T-max of 38.1 C at 0300. She is pain-free with the help of Percocet postoperatively status post repeat left heel wound debridement and lavage by Dr. Alvarenga yesterday. She is tearful about the possibility of losing a limb and is adamant about having a solid plan for follow-up of her wound post hospital discharge. Review of Systems Review of Systems: All systems reviewed & are unremarkable except as noted in Subjective Physical Exam 2 Physical Exam: CONSTITUTIONAL: WNWD, vitals as above, generally well- appearing EYES: normal conjunctivae, no scleral icterus ENT: external ear and nose normal, MMM RESPIRATORY: clear to auscultation bilaterally, no crackles, rales or wheezes, normal respiratory effort CARDIOVASCULAR: regular rate and rhythm, S1 and 2 heard without murmurs, gallops or rubs, no JVD, no peripheral edema GASTROINTESTINAL: soft, nontender, nondistended, no guarding. MUSCULOSKELETAL: strength 5/5 throughout, head is normocephalic and atraumatic, Left foot was wrapped with surgical dressing that was c/d/i. SKIN: warm and dry NEUROLOGIC: CN 2-12 grossly intact, normal cognition, normal speech, no gross focal deficits. PSYCHIATRIC: alert cooperative and oriented to person, place and time. Became tearful as she was explaining her story. Results & Data Results & Data ([facility]) Vital Signs (Past 12 Hours) Vital Signs Temp Pulse Pulse Resp BP Pulse Ox 06/23/20 07:30 82 06/23/20 07:24 37 C 83 18 122/52 L 91 06/23/20 03:00 38.1 C H 98 H 20 125/61 94 06/23/20 00:00 94 H 06/22/20 23:00 37.2 C 87 20 118/57 L 93 Laboratory Results Short CBC 06/23/20 Range/Units 07:06 WBC 8.48 (4.8-10.8) K/uL Hgb 7.2 L (12.0-16.0) g/dL Hct 22.7 L (37-47) % Plt Count 315 (130-400) K/uL BMP 06/23/20 07:06 Sodium 141 Potassium 4.6 Chloride 109 H Carbon Dioxide 29 BUN 18 Creatinine 1.44 H Glucose 156 H Calcium 7.9 L Medications Administered Current Inpatient Medications Acetaminophen (Acetaminophen 500 Mg Tab) 1,000 mg PO Q8 PRN PRN Reason: Pain Stop: 07/20/20 21:56 Last Admin: 06/23/20 03:16 Dose: 1,000 mg Documented by: Alprazolam (Alprazolam 0.5 Mg Tablet) 1 mg PO BID PRN PRN Reason: Anxiety Stop: 07/20/20 21:56 Amlodipine Besylate (Amlodipine Besylate 5 Mg Tab) 5 mg PO QAM RAVINDRA Stop: 07/21/20 08:59 Last Admin: 06/23/20 08:12 Dose: 5 mg Documented by: Aspirin (Aspirin 81 Mg Ectab) 81 mg PO BID RAVINDRA Stop: 07/20/20 21:56 Last Admin: 06/23/20 08:15 Dose: 81 mg Documented by: Atorvastatin Calcium (Atorvastatin 40 Mg Tab) 40 mg PO DAILY RAVINDRA Stop: 07/21/20 08:59 Last Admin: 06/23/20 08:13 Dose: 40 mg Documented by: Cyanocobalamin (Cyanocobalamin 500 Mcg Tablet (Vitamin B-12)) 1,000 mcg PO QAM RAVINDRA Stop: 07/21/20 08:59 Last Admin: 06/23/20 08:13 Dose: 1,000 mcg Documented by: Dextrose (Dextrose 50% 50 Ml Syringe) 25 - 50 ml IV UD PRN; Protocol PRN Reason: Hypoglycemia Protocol Stop: 07/20/20 21:56 Diphenhydramine HCl (Diphenhydramine Capsule 25 Mg Cap) 25 mg PO [facility] Stop: 07/20/20 21:56 Last Admin: 06/22/20 21:15 Dose: 25 mg Documented by: Duloxetine HCl (Duloxetine Hcl 60 Mg Cap) [facility] Stop: 07/21/20 08:59 Last Admin: 06/23/20 08:14 Dose: 60 mg Documented by: Enalapril Maleate (Enalapril Maleate 10 Mg Tab) 40 mg PO QAM [facility] Stop: 07/21/20 08:59 Last Admin: 06/23/20 08:14 Dose: 40 mg Documented by: Ergocalciferol (Ergocalciferol 50,000 Units 1250 Mcg Cap) 50,000 units PO Abreu@0900 [facility] Stop: 07/27/20 08:59 Folic Acid (Folic Acid 1 Mg Tab) 1 [facility] Stop: 07/21/20 08:59 Last Admin: 06/23/20 08:13 Dose: 1 mg Documented by: Glucagon (Glucagon For Inj 1 Mg Vial) 1 mg SQ UD PRN; Protocol PRN Reason: Hypoglycemia Protocol Stop: 07/20/20 21:56 Glucose (Glucose 10 Tabs/Tube) 4 - 8 tabs PO UD PRN; Protocol PRN Reason: Hypoglycemia Protocol Stop: 07/20/20 21:56 Glucose (Glucose 40% Gel 15 Gm Tube) 15 - 30 gm PO UD PRN; Protocol PRN Reason: Hypoglycemia Protocol Stop: 07/20/20 21:56 Meropenem 500 mg/ Syringe 10 mls @ 2 mls/min IV Q6H [facility]; Protocol Stop: 08/02/20 09:59 Last Admin: 06/23/20 09:34 Dose: 2 mls/min Documented by: Vancomycin HCl 1,250 mg/ (Sodium Chloride) 275 mls @ 200 mls/hr IV Q18H [facility]; Protocol Stop: 08/04/20 03:59 Last Infusion: 06/23/20 05:00 Dose: Infused Documented by: Insulin Aspart (Insulin Aspart 100 Units/Ml 3 Ml Pen) 0 units SC [facility]; Protocol Stop: 07/22/20 20:59 Last Admin: 06/23/20 08:20 Dose: 14 units Documented by: Insulin Glargine (Insulin Glargine Solostar 100 Units/Ml 3 Ml Pen) 0 units SC [facility]; Protocol Stop: 07/20/20 22:29 Last Admin: 06/22/20 21:06 Dose: 20 units Documented by: Levothyroxine Sodium (Levothyroxine Sodium 100 Mcg Tablet) 100 mcg PO DAILYBB RAVINDRA Stop: 07/21/20 06:29 Last Admin: 06/23/20 05:20 Dose: 100 mcg Documented by: Miscellaneous (Carbohydrates For Hypoglycemia ) 15 - 30 gm PO UD PRN PRN Reason: Hypoglycemia Protocol Stop: 07/20/20 21:56 Miscellaneous Information (Vancomycin Consult Active) 1 ea N/A UD PRN PRN Reason: Consult Stop: 07/20/20 17:57 Last Admin: 06/20/20 19:05 Dose: 1 ea Documented by: Miscellaneous Information (Pharmacy Glycemic Mgmt Consult) 1 ea N/A UD PRN PRN Reason: Consult Stop: 07/20/20 22:19 Miscellaneous Information (Meropenem Consult Acitve) 1 ea N/A UD PRN PRN Reason: Consult Stop: 07/21/20 09:49 Miscellaneous Information (Clindamycin Consult Active) 1 ea N/A UD PRN PRN Reason: Consult Stop: 07/21/20 09:50 Multivitamins/Folic Acid/Vitamin C (Multivitamin Chewable Tab) 1 tab PO DAILY RAVINDRA Stop: 07/21/20 08:59 Last Admin: 06/23/20 08:12 Dose: 1 tab Documented by: Ondansetron HCl (Ondansetron Inj 2 Mg/Ml 2 Ml Vial) 4 mg IV Q6H PRN PRN Reason: Nausea Stop: 07/20/20 21:56 Oxycodone/Acetaminophen (Oxycodone/Acetaminophen 5mg/325mg Tab) 1 tab PO QID PRN PRN Reason: Pain Stop: 07/04/20 19:54 Last Admin: 06/23/20 08:18 Dose: 1 tab Documented by: Polyethylene Glycol (Polyethylene (Miralax) 17 Gm Pack) 17 gm PO DAILY PRN PRN Reason: Constipation Stop: 07/20/20 21:56 (1) Osteomyelitis Laterality: left Osteomyelitis location: foot Osteomyelitis type: unspecified type Qualified Code(s): M86.9 - Osteomyelitis, unspecified
[2020-06-23] MEDS ORDERED: COUGH DROP (SUGAR FREE) LOZ 24 LOZ/1 BOX BUCCAL PRN (15:48)
--- NOTE | 2020-06-23 16:23 | Orthopedic Progress Note ---
Date of Service June 23, 2020 Assessment & Plan (1) Diabetic ulcer of left foot: Postop day 1 status post I&D left heel ulcer. Current cultures showing corynebacterium species. Antibiotics as per medical team. Continue wound VAC to the left foot. Admission and Anticipated Discharge Date Admission Date: June 20, 2020 Subjective Postop day 1 Patient is lying in bed awake and alert. Nursing staff present helping the patient with medication. Currently she states she has good pain control and no complaints. Wound care team was in earlier today and placed a wound VAC on her ulcer. She states that it went well. Physical Exam Physical Exam: Wound VAC currently on the left foot wound. Wound VAC is functioning well. Patient has much less erythema and swelling than she had prior. Results & Data ([facility]) Vital Signs (Past 12 Hours) Vital Signs Temp Pulse Pulse Resp BP Pulse Ox 06/23/20 15:12 101 H 06/23/20 14:45 37 C 99 H 18 150/74 H 90 06/23/20 11:09 37.4 C 91 H 18 138/67 90 06/23/20 07:30 82 06/23/20 07:24 37 C 83 18 122/52 L 91
[2020-06-23] MEDS: INSULIN GLARGINE SOLOSTAR 100 UNITS/ML 3 ML PEN SC SCH (21:49)
[2020-06-23] MEDS: diphenhydrAMINE Capsule 25 MG CAP PO SCH (21:50)
[2020-06-24] MEDS ORDERED: VANCOMYCIN HCL 1,250 MG in SODIUM CHLORIDE 0.9% 250 ML IV SCH
[2020-06-24] MEDS: CLINDAMYCIN 900 MG in DEXTROSE 5% 50 ML IV SCH ×2 (01:59→11:14)
[2020-06-24] MEDS: MEROPENEM 500 MG in SYRINGE 0 ML IV SCH ×3 (04:45→15:35)
[2020-06-24] MEDS: LEVOTHYROXINE SODIUM 100 MCG TABLET PO SCH (06:24)
[2020-06-24 06:36] LABS: Hematocrit (blood only) 23.5 % (37-47); Hemoglobin 7.3 g/dL (12.0-16.0); Mean Corpuscular Hemoglobin 29.6 pg (25-34); Mean Corpuscular Hgb Conc 31.1 g/dL (32-36); Mean Corpuscular Volume 95.1 fL (80-100); Mean Platelet Volume 9.2 fL (7.4-10.4); Platelet Count 373 K/uL (130-400); RDW Coefficient of Variation 14.1 % (11.5-14.5); RDW Standard Deviation 49.2 fL (36.4-46.3); Red Blood Count 2.47 M/uL (4.2-5.4)
[2020-06-24] MEDS: oxyCODONE/ACETAMINOPHEN 5mg/325mg TAB PO PRN ×3 (07:13→21:21)
[2020-06-24 07:25] LABS: BUN Creatinine Ratio 15.9 (10-20); C Reactive Protein 7.37 mg/dl (0-0.29); Calcium 8.3 mg/dl (8.5-10.1); Creatinine Clr Calc Pharmacy 67.1 ml/min; Est GFR (African American) 58.6 ml/min; Est GFR (Non-African American) 50.6 ml/min; Potassium 4.6 mmol/L (3.5-5.1)
[2020-06-24] MEDS: ENALAPRIL MALEATE 10 MG TAB PO SCH (08:25)
[2020-06-24] MEDS: CYANOCOBALAMIN (B-12) 500 MCG TABLET PO SCH (08:26)
[2020-06-24] MEDS: DULoxetine HCL 60 MG CAP PO SCH (08:27)
[2020-06-24] MEDS: ATORVASTATIN 40 MG TAB PO SCH (08:27)
[2020-06-24] MEDS: FOLIC ACID 1 MG TAB PO SCH (08:27)
[2020-06-24] MEDS: amLODIPine BESYLATE 5 MG TAB PO SCH (08:28)
[2020-06-24] MEDS: MULTIVITAMIN CHEWABLE TAB PO SCH (08:28)
[2020-06-24] MEDS: ASPIRIN 81 MG ECTAB PO SCH ×2 (08:29→21:23)
[2020-06-24] MEDS: INSULIN ASPART 100 UNITS/ML 3 ML PEN SC SCH ×4 (08:32→21:25)
--- NOTE | 2020-06-24 09:46 | Pharmacy Report ---
Pharmacy Abx Dose Short Note - Date of Service June 24, 2020 - Assessment & Plan Assessment * 64 year old F was initially receiving vancomycin and zosyn for suspected L foot osteomyelitis, started on 06/20. On 06/21, regimen was changed to vancomycin/meropenem/clindamycin based upon historic culture data and antitoxin effect due to recent history of necrotizing fasciitis. Vancomycin * Vancomcyin dose was increased on 06/21 due to decrease in SCr. Vancomycin trough was supratherapeutic, but was drawn a few minutes after vancomycin started to infuse * SCr has remained labile and the only level thus far may or may not have been falsely elevated * Will therefore obtain a *RANDOM* level STAT, (THIS IS NOT A TROUGH LEVEL) and also a true trough level ~10 hours later this evening to give a more accurate picture of the patient's true vancomycin clearance Plan * RANDOM level now (this will likely be high for a *trough*, but this is NOT a trough) * Trough level tonight @1930 * Continue vancomycin 1250 mg IV q20h for now Pharmacy will continue to follow and will adjust dose/frequency as necessary. Thank you.
--- NOTE | 2020-06-24 12:44 | Pharmacy Report ---
Pharmacy Glycemic Short Note 2 - Date of Service June 24, 2020 - Glycemic Short BSG Results (Last 24 hours): 06/23/20 06/23/20 06/24/20 16:08 20:03 05:50 Glucose 168 H POC Glucose 91 134 H 06/24/20 06/24/20 08:00 11:37 Glucose POC Glucose 225 H 185 H OUTPATIENT ANTIDIABETIC REGIMEN: * Basaglar 20 units SC HS * Novolog 20 units TIDM * Jardiance 25 mg PO HS * HbA1c: 7.5% (06/21/20), 9% (05/21/20) ASSESSMENT: 06/24 * AM fasting POC BSG elevated, but this is significantly different from random BSG obtained earlier therefore may have been obtained post-prandially * Lunch BSG remains slightly elevated, although trended down * Hesitant to tighten Novolog parameters 2nd BSG of 91 mg/dL yesterday * Will add overnight Novolog check 06/23 * BSGs yesterday of 124, 140, 250, and 125 mg/dL * BSG of 250 mg/dL likely reflective of uncovered lunch * Received 34 units of insulin (20 units of basal, 14 units of prandial/correctional bolus) * POD #1 s/p left heel debridement * Continues on broad spectrum antibiotics 06/21 * DJ is a 64 year old female s/p transmetatarsal left foot amputation now with likely osteomyelitis of remaining portion of metatarsal * IV antibiotics ordered (vancomycin/Zosyn) * BSGs elevated overnight - received 12 units of correctional Novolog and 18 units of Lantus last evening (10% reduction of home dose) * Patient is NPO for possible intervention today * Fasting BSG of 131 mg/dL this morning PLAN FOR INPATIENT GLYCEMIC CONTROL: * Hold outpatient Jardiance while inpatient * Basal insulin * Lantus scale HS to provide 25-30 units based on BSG (see EHR for details) * Bolus insulin * NovoLog per scale ACHS or Q6hrs while NPO - with one overnight check * Goal Range: Low 120 mg/dL - High 160 mg/dL * Correction Factor: 15 mg/dL/unit * Nutritional / Prandial insulin per carb ratio of 1 unit per 5 grams CHO consumed PLAN FOR DISCHARGE: * HbA1c is above goal of less than 7%, but is much improved over past month (9% -> 7.5%) * Reasonable to continue home regimen given improvement
--- NOTE | 2020-06-24 15:26 | Orthopedic Progress Note ---
Date of Service June 24, 2020 Assessment & Plan (1) Diabetic ulcer of left foot: Postop day 2 status post I&D left heel ulcer. Current cultures showing corynebacterium species. Antibiotics as per medical team/infectious disease team Continue wound VAC to the left foot. Discharge planning-patient states that infectious disease team requiring IV antibiotics for approximately 6 weeks. Continue wound VAC at this time with wound VAC changes to be taken care of by wound care team. No further surgery needed at this time. Orthopedics will sign off at this time. Please call with any questions. Follow-up with Dr. Barclay in 7 to 10 days. Admission and Anticipated Discharge Date Admission Date: June 20, 2020 Supervising Physician Co-Signing Physician Notes Patient seen and examined. She is in good spirits. Says she is feeling better today. Hopefully discharge home tomorrow. Follow-up with Dr. Barclay in clinic. Subjective Postop day 2 Patient is awake and alert lying in bed. She seems to be in a better mood today. She did say that she was not feeling very well last night however this morning she feels fine. She feels she is less groggy today and has slept less today. Pain is controlled of the left foot. She said she spoke to the infectious disease team today which went well. Physical Exam Physical Exam: Wound VAC is on the left heel and is functioning well. Scant drainage in the tubing. It looks like all her erythema has now resolved and she does have less swelling of the lower extremity. Results & Data ([facility]) Vital Signs (Past 12 Hours) Vital Signs Temp Pulse Pulse Resp BP Pulse Ox 06/24/20 14:00 36.9 C 93 H 18 169/77 H 93 06/24/20 11:55 36.8 C 92 H 18 156/73 H 90 06/24/20 08:30 37.1 C 06/24/20 08:10 37.8 C H 89 19 148/70 H 90 06/24/20 07:30 103 H
[2020-06-24] MEDS ORDERED: VANCOMYCIN LEVEL ONE ×2 (15:30→19:30)
--- NOTE | 2020-06-24 17:05 | Hospitalist Progress Note ---
Date of Service June 24, 2020 Assessment & Plan (1) Osteomyelitis: Osteomyelitis of left foot status post washout on 06/[address] Alvarenga. Was recently on outpatient ciprofloxacin and clindamycin for several weeks after 05/21 washout of left heel ulcer with antibiotic bead placement by Dr. Barclay. Wound culture at that time revealing Pseudomonas, Serratia, Prevotella. Repeat wound culture from 06/20 on this admission reveals corynebacterium species and skin surendra. She was started on Vanc/Zosyn on admission which was broadened to remains on vancomycin, meropenem with pending infectious disease consultation and recommendations. ID consult today with recs to switch to Vanc and cefepime for 6 weeks since date of surgery. Weekly CMP, CBC and Vanc trough. Biweekly CRP checks while on antibiotics. Outpatient follow-up with I in 3-4 weeks. PCP to follow up all outpatient lab monitoring while patient on intravenous antibiotics. Will need to communicate this at discharge. She will need close follow-up at the wound care clinic. Currently has a wound vac in place and will go home with this. Home health set up prior to dc and reports the need for a knee scooter and walker-will give script for DME. (2) Wound of left foot: POA, plan as above (3) Post-operative state: NWB per Ortho, followup with (4) Cellulitis of left foot: resolved with treatment. (5) Diabetes mellitus, type II: Glucose at inpatient goal, glycemic pharmacist consulted, outpatient A1c uncontrolled at 7.5. She is noted to have complications of neuropathy. Continue basal bolus insulin per current management. (6) Anemia: post operative acute blood loss anemia-multiple recent procedures. Current Hb 7.3 and she does admit to decreased energy and some generalized malaise. We discussed pros and cons of blood products which she is averse to at this time. Will start iron supplementation and repeat CBC in a week. (7) Hypertension: slightly above goal, Amlodipine 5 mg daily and Vasotec 40 mg daily. Noted patient takes ramipril 10 mg p.o. daily at home. (8) CKD (chronic kidney disease), stage III: At baseline. Cont to monitor closely. (9) Hypothyroidism: Continue levothyroxine per home regimen. (10) Bipolar 1 disorder: Chronic, stable continue home duloxetine. (11) DVT prophylaxis: SCDs post-op, chemoprophylaxis recommended as soon as OK with surgery. Full Code Dispo-NWB on left foot OOB as tolerated per Ortho. PICC placed tonight for IV abx. Will need wound care followup and Home Health for wound vac management. Will need close follow-up by PCP with weekly lab draws while on antibiotics. Needs follow-up with ID in 3-4 weeks (Dr. Meredith). Follow-up with Dr. Barclay in office in 7-10 days. DME as needed. DO Preston Osman Hospitalist Admission and Anticipated Discharge Date Admission Date: June 20, 2020 Subjective 64 yo F with L heel wound debridement and lavage, POD #2 Doing well today Denies Pain NWB on leg ID consult with recs Consented for PICC Discussed discharge plans Review of Systems Review of Systems: All systems reviewed & are unremarkable except as noted in Subjective Physical Exam Physical Exam: CONSTITUTIONAL: WNWD, vitals as above, generally well- appearing EYES: normal conjunctivae, no scleral icterus ENT: external ear and nose normal, MMM RESPIRATORY: clear to auscultation bilaterally, no crackles, rales or wheezes, normal respiratory effort CARDIOVASCULAR: regular rate and rhythm, S1 and 2 heard without murmurs, gallops or rubs, no JVD, no peripheral edema GASTROINTESTINAL: soft, nontender, nondistended, no guarding. MUSCULOSKELETAL: strength 5/5 throughout, head is normocephalic and atraumatic, Left foot was wrapped with surgical dressing that was c/d/i. SKIN: warm and dry NEUROLOGIC: CN 2-12 grossly intact, normal cognition, normal speech, no gross focal deficits. PSYCHIATRIC: alert cooperative and oriented to person, place and time. Results & Data Results & Data ([facility]) Vital Signs (Past 12 Hours) Vital Signs Temp Pulse Pulse Resp BP Pulse Ox 06/24/20 14:00 36.9 C 93 H 18 169/77 H 93 06/24/20 11:55 36.8 C 92 H 18 156/73 H 90 06/24/20 08:30 37.1 C 06/24/20 08:10 37.8 C H 89 19 148/70 H 90 06/24/20 07:30 103 H Laboratory Results Short CBC 06/24/20 Range/Units 05:50 WBC 10.50 (4.8-10.8) K/uL Hgb 7.3 L (12.0-16.0) g/dL Hct 23.5 L (37-47) % Plt Count 373 (130-400) K/uL BMP 06/24/20 05:50 Sodium 138 Potassium 4.6 Chloride 107 Carbon Dioxide 25 BUN 18 Creatinine 1.15 Glucose 168 H Calcium 8.3 L Medications Administered Current Inpatient Medications Acetaminophen (Acetaminophen 500 Mg Tab) 1,000 mg PO Q8 PRN PRN Reason: Pain Stop: 07/20/20 21:56 Last Admin: 06/23/20 03:16 Dose: 1,000 mg Documented by: Alprazolam (Alprazolam 0.5 Mg Tablet) 1 mg PO BID PRN PRN Reason: Anxiety Stop: 07/20/20 21:56 Amlodipine Besylate (Amlodipine Besylate 5 Mg Tab) 5 mg PO QAM RAVINDRA Stop: 07/21/20 08:59 Last Admin: 06/24/20 08:28 Dose: 5 mg Documented by: Aspirin (Aspirin 81 Mg Ectab) 81 mg PO BID RAVINDRA Stop: 07/20/20 21:56 Last Admin: 06/24/20 08:29 Dose: 81 mg Documented by: Atorvastatin Calcium (Atorvastatin 40 Mg Tab) 40 mg PO DAILY RAVINDRA Stop: 07/21/20 08:59 Last Admin: 06/24/20 08:27 Dose: 40 mg Documented by: Cyanocobalamin (Cyanocobalamin 500 Mcg Tablet (Vitamin B-12)) 1,000 mcg PO QAM RAVINDRA Stop: 07/21/20 08:59 Last Admin: 06/24/20 08:26 Dose: 1,000 mcg Documented by: Dextrose (Dextrose 50% 50 Ml Syringe) 25 - 50 ml IV UD PRN; Protocol PRN Reason: Hypoglycemia Protocol Stop: 07/20/20 21:56 Diphenhydramine HCl (Diphenhydramine Capsule 25 Mg Cap) 25 mg PO HS RAVINDRA Stop: 07/20/20 21:56 Last Admin: 06/23/20 21:50 Dose: 25 mg Documented by: Duloxetine HCl (Duloxetine Hcl 60 Mg Cap) 60 mg PO QAM RAVINDRA Stop: 07/21/20 08:59 Last Admin: 06/24/20 08:27 Dose: 60 mg Documented by: Enalapril Maleate (Enalapril Maleate 10 Mg Tab) 40 mg PO QAM [facility] Stop: 07/21/20 08:59 Last Admin: 06/24/20 08:25 Dose: 40 mg Documented by: Ergocalciferol (Ergocalciferol 50,000 Units 1250 Mcg Cap) 50,000 units PO Abreu@0900 [facility] Stop: 07/27/20 08:59 Folic Acid (Folic Acid 1 Mg Tab) [facility] [place]: 07/21/20 08:59 Last Admin: 06/24/20 08:27 Dose: 1 mg Documented by: Glucagon (Glucagon For Inj 1 Mg Vial) 1 mg SQ UD PRN; Protocol PRN Reason: Hypoglycemia Protocol Stop: 07/20/20 21:56 Glucose (Glucose 10 Tabs/Tube) 4 - 8 tabs PO UD PRN; Protocol PRN Reason: Hypoglycemia Protocol Stop: 07/20/20 21:56 Glucose (Glucose 40% Gel 15 Gm Tube) 15 - 30 gm PO UD PRN; Protocol PRN Reason: Hypoglycemia Protocol Stop: 07/20/20 21:56 Vancomycin HCl 1,250 mg/ (Sodium Chloride) 275 mls @ 200 mls/hr IV Q20H [facility]; Protocol Stop: 08/04/20 03:59 Last Infusion: 06/24/20 03:59 Dose: Infused Documented by: Insulin Aspart (Insulin Aspart 100 Units/Ml 3 Ml Pen) 0 units SC [facility]; Protocol Stop: 07/22/20 20:59 Last Admin: 06/24/20 12:19 Dose: 9 units Documented by: Insulin Aspart (Insulin Aspart 100 Units/Ml 3 Ml Pen) 0 units SC TODAY@0200 ONE; Protocol Stop: 06/25/20 02:01 Insulin Glargine (Insulin Glargine Solostar 100 Units/Ml 3 Ml Pen) 0 units SC [facility]; Protocol Stop: 07/20/20 22:29 Last Admin: 06/23/20 21:49 Dose: 25 units Documented by: Levothyroxine Sodium (Levothyroxine Sodium 100 Mcg Tablet) [facility] Stop: 07/21/20 06:29 Last Admin: 06/24/20 06:24 Dose: 100 mcg Documented by: Menthol (Cough Drop (Sugar Free) Hang 24 Hang/1 Box) 1 hang BUCCAL PRN PRN PRN Reason: Sore Throat Stop: 07/23/20 15:47 Miscellaneous (Carbohydrates For Hypoglycemia ) 15 - 30 gm PO UD PRN PRN Reason: Hypoglycemia Protocol Stop: 07/20/20 21:56 Miscellaneous Information (Vancomycin Consult Active) 1 ea N/A UD PRN PRN Reason: Consult Stop: 07/20/20 17:57 Last Admin: 06/20/20 19:05 Dose: 1 ea Documented by: Miscellaneous Information (Pharmacy Glycemic Mgmt Consult) 1 ea N/A UD PRN PRN Reason: Consult Stop: 07/20/20 22:19 Miscellaneous Information (Consult Pharmacy) 1 ea N/A NOW STA Stop: 06/24/20 16:57 Multivitamins/Folic Acid/Vitamin C (Multivitamin Chewable Tab) 1 tab PO DAILY RAVINDRA Stop: 07/21/20 08:59 Last Admin: 06/24/20 08:28 Dose: 1 tab Documented by: Ondansetron HCl (Ondansetron Inj 2 Mg/Ml 2 Ml Vial) 4 mg IV Q6H PRN PRN Reason: Nausea Stop: 07/20/20 21:56 Oxycodone/Acetaminophen (Oxycodone/Acetaminophen 5mg/325mg Tab) 1 tab PO QID PRN PRN Reason: Pain Stop: 07/04/20 19:54 Last Admin: 06/24/20 15:42 Dose: 1 tab Documented by: Polyethylene Glycol (Polyethylene (Miralax) 17 Gm Pack) 17 gm PO DAILY PRN PRN Reason: Constipation Stop: 07/20/20 21:56 (1) Osteomyelitis Laterality: left Osteomyelitis location: foot Osteomyelitis type: unspecified type Qualified Code(s): M86.9 - Osteomyelitis, unspecified
[2020-06-24] MEDS ORDERED: CEFEPIME CONSULT ACTIVE SCH (17:59)
[2020-06-24] MEDS: CEFEPIME 2,000 MG in SYRINGE 0 ML IV SCH (21:21)
[2020-06-24] MEDS: diphenhydrAMINE Capsule 25 MG CAP PO SCH (21:23)
[2020-06-24] MEDS: INSULIN GLARGINE SOLOSTAR 100 UNITS/ML 3 ML PEN SC SCH (21:25)
[2020-06-25] MEDS ORDERED: VANCOMYCIN HCL 1,250 MG in SODIUM CHLORIDE 0.9% 250 ML IV SCH
[2020-06-25] MEDS ORDERED: INSULIN ASPART 100 UNITS/ML 3 ML PEN SC ONE (02:00)
[2020-06-25] MEDS ORDERED: HEPARIN 100 UNIT/ML 5ML FLUSH ONE (03:14)
[2020-06-25] MEDS: oxyCODONE/ACETAMINOPHEN 5mg/325mg TAB PO PRN ×3 (03:15→16:59)
[2020-06-25] MEDS: CEFEPIME 2,000 MG in SYRINGE 0 ML IV SCH ×3 (05:03→19:38)
[2020-06-25] MEDS: LEVOTHYROXINE SODIUM 100 MCG TABLET PO SCH (05:05)
[2020-06-25 05:54] LABS: Hematocrit (blood only) 22.3 % (37-47); Hemoglobin 7.2 g/dL (12.0-16.0); Mean Corpuscular Hemoglobin 29.9 pg (25-34); Mean Corpuscular Hgb Conc 32.3 g/dL (32-36); Mean Corpuscular Volume 92.5 fL (80-100); Mean Platelet Volume 9.1 fL (7.4-10.4); Platelet Count 367 K/uL (130-400); RDW Coefficient of Variation 13.9 % (11.5-14.5); RDW Standard Deviation 46.9 fL (36.4-46.3); Red Blood Count 2.41 M/uL (4.2-5.4)
[2020-06-25 06:23] LABS: BUN Creatinine Ratio 19.1 (10-20); Calcium 8.2 mg/dl (8.5-10.1); Creatinine Clr Calc Pharmacy 78.3 ml/min; Est GFR (African American) 71.2 ml/min; Est GFR (Non-African American) 61.4 ml/min; Potassium 4.6 mmol/L (3.5-5.1)
--- NOTE | 2020-06-25 07:07 | XRay Report ---
XR chest 1V portable CLINICAL HISTORY: PICC PLACEMENT COMPARISON STUDY: June 20, 2020 FINDINGS: No pneumothorax. No pleural effusion. Interval development of diffuse reticular nodular opacities which are seen throughout bilateral lungs . Cardiomediastinal silhouette is within normal limits in size. Pulmonary vasculature is indistinct.. Osseous structures: Degenerative changes of the spine. Interval placement of left-sided PICC line with tip projecting into the anatomical region of superior vena cava near expected position of the azygos vein. IMPRESSION: 1. Diffuse reticular nodular opacities throughout bilateral lungs might represent scattered atelecta sis and/or pulmonary edema. 2. Left-sided PICC line. No evidence of pneumothorax. ACT 112: Negative or not required by law. The above report was generated using voice recognition software. It may contain grammatical, syntax o r spelling errors. Electronically signed by: Ana Son DO 06/25/2020 7:06 AM
--- NOTE | 2020-06-25 08:11 | XRay Report ---
SINGLE VIEW CHEST CLINICAL HISTORY: PICC placement. FINDINGS: An AP, portable, upright chest radiograph is compared to study performed earlier the same d ay 06/24/2020. A left PICC line has been repositioned. The tip projects over the SVC above the cavoatr ial junction. The cardiomediastinal silhouette is unremarkable. The lungs and pleural spaces are pooja r. No pneumothorax is seen. The bony thorax is grossly intact. Fusion hardware is noted in the cervic al spine. IMPRESSION: 1. The lungs are clear. 2. A left sided PICC line has been repositioned as above.. ACT 112: Negative or not required by law. Electronically signed by: Hang Cintron M.D. 06/25/2020 8:10 AM
[2020-06-25] MEDS: FOLIC ACID 1 MG TAB PO SCH (08:49)
[2020-06-25] MEDS: ATORVASTATIN 40 MG TAB PO SCH (08:49)
[2020-06-25] MEDS: ASPIRIN 81 MG ECTAB PO SCH (08:50)
[2020-06-25] MEDS: MULTIVITAMIN CHEWABLE TAB PO SCH (08:50)
[2020-06-25] MEDS: DULoxetine HCL 60 MG CAP PO SCH (08:50)
[2020-06-25] MEDS: ENALAPRIL MALEATE 10 MG TAB PO SCH (08:50)
[2020-06-25] MEDS: CYANOCOBALAMIN (B-12) 500 MCG TABLET PO SCH (08:51)
[2020-06-25] MEDS: amLODIPine BESYLATE 5 MG TAB PO SCH (08:51)
[2020-06-25] MEDS: INSULIN ASPART 100 UNITS/ML 3 ML PEN SC SCH ×3 (08:56→17:08)
--- NOTE | 2020-06-25 09:05 | Pharmacy Report ---
Pharmacy Abx Dose Short Note - Date of Service June 25, 2020 - Assessment & Plan Assessment 64 year old F was initially receiving vancomycin and zosyn for suspected L foot osteomyelitis, started on 06/20. On 06/21, regimen was changed to vancomycin/meropenem/clindamycin based upon historic culture data and antitoxin effect due to recent history of necrotizing fasciitis. Discussed with Dr. Nayak - plan for discharge today on IV vancomycin/cefepime (ID following). Plan Vancomycin * Plan to give vancomycin 500mg IV X 1 dose prior to discharge this afternoon * Adjust vancomycin from 1250mg IV q20h to 1500mg IV q24h for discharge to begin 06/26 at 0900. * Recommend obtaining a trough and SCr Wednesday 06/28. Pharmacy will continue to follow and will adjust dose/frequency as necessary. Thank you.
--- NOTE | 2020-06-25 09:13 | XRay Report ---
XR chest 1V portable CLINICAL HISTORY: PICC placement confirmation COMPARISON STUDY: June 24, 2020 FINDINGS: No pneumothorax. No pleural effusion. No large infiltrates or consolidative lesions are seen. Mild interval improvement of diffuse promine nce of pulmonary interstitium. Cardiomediastinal silhouette is within normal limits in size. No significant pulmonary vascular congestion.. Osseous structures: Degenerative changes of the spine. Left-sided PICC line is again seen, now tip is visualized within superior vena cava, distally to the anatomical region of azygos vein origin. IMPRESSION: 1. Repositioning of PICC line as detailed above. ACT 112: Negative or not required by law. The above report was generated using voice recognition software. It may contain grammatical, syntax o r spelling errors. Electronically signed by: Ana Son DO 06/25/2020 9:12 AM
[2020-06-25] MEDS ORDERED: VANCOMYCIN HCL 500 MG in 0.9 % SODIUM CHLORIDE 100 ML IV ONE (12:00)
[2020-06-26] MEDS ORDERED: VANCOMYCIN HCL 1,500 MG in SODIUM CHLORIDE 0.9% 500 ML IV SCH (09:00)
[2020-06-27] MEDS ORDERED: ERGOCALCIFEROL 50,000 UNITS 1250 MCG CAP PO SCH (09:00)
--- NOTE | 2020-07-04 02:58 | Discharge Summary ---
Date of Service June 25, 2020 Admission HPI Per Admitting Provider This is a 63 yo F with a L foot wound s/p transmetatarsal amputation to left foot and necrotizing fasciitis with recent washout and revision last month, type 2 diabetes, hypertension, hypothyroidism, dyslipidemia, bipolar disorder and other medical problems listed below who presents with L foot wound. Wound has been present for months with most recent surgical intervention 1 month ago with irrigation, debridement of L heel with implantation of antibiotic Stimulan beads with 1 g vancomycin and 1 g of gentamicin by Dr. Barclay. Has been on cipro and clindamycin for the past month after 05/21/20 wound culture grew pseudomonas, serratia and prevotella. Has had increased pain in left heel over the past week and does not feel that wound is healing appropriately. Was seen by Preston YIN yesterday who ordered XR and lab work and instructed her to present to ER if worsened. Patient endorsing worsening L heel pain and chills over the past few days. Denies fever, lightheadedness, headache, chest pain, SOB, nausea, vomiting, abdominal pain, dysuria, diarrhea or constipation. Admission Exam Per Admitting Provider Constitutional: WD/WN, vitals as above Eyes: PERRL, conjunctivae normal, anicteric sclerae ENMT: external ear and nose normal, oropharynx normal Neck: normal visual inspection Respiratory: normal respiratory effort, lungs clear to auscultation Auscultation: no crackles, no rhonchi and no wheezes Cardiovascular: RRR, no murmur, no edema Chest (Breasts): Chest: normal inspection of chest Gastrointestinal (Abdomen): normal bowel sounds, soft, nontender, no hepatosplenomegaly Musculoskeletal: Head/Neck/Chest: normocephalic and head atraumatic Left foot/heel with the dressings, metal ammy in place, tannish purulent drainage noted, no significant tenderness to palpation noted 1-2+ foot/ankle edema and mild erythema noted to mid aragon Skin: no rashes, warm and dry Neurologic: PERRL, EOMI, accommodation nl, no face palsy, no dysarthria Psychiatric: A+Ox3, euthymic affect Genitourinary: no CVA tenderness Principal Diagnosis Osteomyelitis of left foot Diabetic left heel ulcer Post operative state Cellulitis of left foot post operative acute blood loss anemia Discharge Exam CONSTITUTIONAL: WNWD, vitals stable, generally well-appearing EYES: normal conjunctivae, no scleral icterus ENT: external ear and nose normal, MMM RESPIRATORY: clear to auscultation bilaterally, no crackles, rales or wheezes, normal respiratory effort CARDIOVASCULAR: regular rate and rhythm, S1 and 2 heard without murmurs, gallops or rubs, no JVD, no peripheral edema GASTROINTESTINAL: soft, nontender, nondistended, no guarding. MUSCULOSKELETAL: strength 5/5 throughout, head is normocephalic and atraumatic, Wound vac in place to left foot. SKIN: warm and dry NEUROLOGIC: CN 2-12 grossly intact, normal cognition, normal speech, no gross focal deficits. PSYCHIATRIC: alert cooperative and oriented to person, place and time. Discharge Data Allergies Allergy/AdvReac Type Severity Reaction Status Date / Time peach Allergy Intermediate Hives Verified 06/20/20 18:25 cat dander Allergy Mild CONGESTION Verified 06/20/20 18:25 cefepime Allergy Mild itch Verified 06/20/20 18:25 lamotrigine [From Lamictal] Allergy Mild Rash Verified 06/20/20 18:25 Consultations 06/20/20 18:30 ED Decision to Admit Stat 06/20/20 21:57 Consult Orthopedic Surgery Routine 06/22/20 10:54 Consult Infectious Diseases Routine Procedures Performed Operation Date: 06/22/20 11:30 Actual Procedures p Left Heel Wound Debridement and Lavage(Left) - Noble Alvarenga DO Ordered Studies 06/20/20 16:52 US venous doppler LE LT Stat 06/20/20 22:56 CT foot LT w con Routine 06/21/20 19:55 MR ankle LT wo/w con Urgent Hospital Course (1) Osteomyelitis: Osteomyelitis of left foot status post washout on 06/[address] Alvarenga. Was recently on outpatient ciprofloxacin and clindamycin for several weeks after 05/21 washout of left heel ulcer with antibiotic bead placement by Dr. Barclay. Wound culture at that time revealing Pseudomonas, Serratia, Prevotella. Repeat wound culture from 06/20 on this admission reveals corynebacterium species and skin surendra. She was started on Vanc/Zosyn on admission which was broadened to remains on vancomycin, meropenem with pending infectious disease consultation and recommendations. Inpatient infectious disease consult with recommendation to switch to Vancomycin and cefepime for 6 weeks since date of surgery. Weekly CMP, CBC and Vancomycin trough needed. Biweekly CRP checks while on antibiotics. Outpatient follow-up with ID in 3-4 weeks. PCP to follow up all outpatient lab monitoring while pat ient on intravenous antibiotics. She will need close follow-up at the wound care clinic. Currently has a wound vac in place and will go home with this. Home health set up prior to dc and reports the need for a knee scooter and walker-gave prescription for DME. (2) Wound of left foot: POA, plan as above (3) Post-operative state: NWB per Ortho, followup with Dr. Batista in one week (4) Cellulitis of left foot: resolved with antibiotic treatment. (5) Diabetes mellitus, type II: (6) Anemia: post operative acute blood loss anemia-multiple recent procedures. Current Hb 7.3 and she does admit to decreased energy and some generalized malaise. We discussed pros and cons of blood products which she is averse to at this time. Will start iron supplementation and repeat CBC in a week. (7) CKD (chronic kidney disease), stage III: At time of discharge she was mentating clearly and was eating well. She was hemodynamically stable and afebrile and pain was controlled on current medical therapy. She was discharged in stable condition with close PCP followup recommended. Total Time Total Time Spent Total Time Spent (In Minutes): 60 Total Time Includes: Examination of the Patient, Discharge Planning, Medication Reconciliation and Communication With Other Providers Discharge Plan Discharge Items Patient Disposition: Home - Home Health Services Reason For Visit: LT FOOT WOUND,OSTEO Discharge Diagnosis: Osteomyelitis of left foot Diabetic left heel ulcer Post operative state Cellulitis of left foot post operative acute blood loss anemia Condition on Discharge: Good Activity: Resume your previous activity Non-emergency contact: Primary Care Provider and Surgeon Call non-emergency contact if: you have any medication questions, your symptoms worsen, your pain is not controlled, your pain is worsening, your pain is unusual for you, your pain is concerning for you, you have a fever, your temperature is above 101, your wound has increased redness, your wound has increased drainage and your wound pain has increased Follow-up/Referrals: [facility] [Other] - 07/02/20 10:40 am Bella Lopes MD [Primary Care Provider] - (Date & Time 06/29/2020 11:00 AM Provider Bella Lopes MD Department Family [facility] ) Denver Meredith II, DO [Physician] - (The Infectious Disease office will call you with a follow up appointment. ) Diet: Carb Consistent or DM2 Addtl Attending Provider Instructions: Please take all medications as instructed on discharge list below. You are being placed on intravenous antibiotics for SIX weeks including VANCOMYCIN and CEFEPIME. Last dose will be 08/03/20. You will need to have monitoring blood work as follows, which will need to be drawn by the Home Health agency handling care of your wound vac. Wound vac changes anticipated every 72 hours. All results will need to be sent to your primary care provider, DR. BELLA LOPES for review. Recommend VANCOMYCIN TROUGH on Sunday, 06/28. First dose of intravenous vancomycin should start 06/26 at 0900. Recommend CMP, CBC and vancomycin trough levels weekly. Recommend CRP every two weeks. It is recommended that you follow up with your orthopedic surgeon in 7-10 days. Please do not apply weight to your left foot. It is recommended that you see Dr. Meredith from [facility] Infect[facility] Diseases in 3-4 weeks for a followup on how your wound is healing. You will need to be seen regularly at the local wound care clinic until your wound is healed. Please see the first appointment time listed above. It is recommended that you follow-up with your primary care provider in one week of discharge to ensure you are still doing well after going home and make sure that he is receiving the appropriate lab work for monitoring you while on the antibiotics. You also have significant anemia on discharge. As we discussed, it is not your desire at this time to undergo a blood transfusion, which is an option. It would be reasonable to start iron supplementation given to you at discharge and have your primary care provider repeat your blood count in 1-2 weeks. It was a pleasure taking care of you! Please call if you have any questions or problems. You can reach a [facility] hospitalist on duty at [facility] 24 hours a day by calling [phone]. Take care of yourself. Tiera Nayak DO [facility] Hospitalist Addtl Rn Gastroenterology Provider Instructions: Non weightbearing on left foot at this time. Use crutches or walker for ambulation elevation of left foot on 1 or 2 pillows when at rest. Plan for wound vac changes every 72 hours. Pending Studies at Discharge: No Stand-Alone Forms: [facility] Medications and DC Order Prescriptions: New cefepime 2 gram recon soln 1 g IV Q12H Qty: 1 RF: 0 vancomycin 1.5 gram recon soln 1.5 g IV Q24H Qty: 1 RF: 0 ferrous sulfate [iron] 325 mg (65 mg iron) tablet 325 mg PO BIDM Qty: 60 RF: 0 Continued alprazolam 1 mg tablet 1 mg PO BID PRN (Reason: Anxiety) RF: 0 amlodipine 5 mg tablet 5 mg PO QAM RF: 0 ramipril 10 mg capsule 10 mg PO QAM RF: 0 insulin aspart U-100 [Novolog Flexpen U-100 Insulin] 100 unit/mL (3 mL) insulin pen See Rx Instructions .ROUTE .COMPLEX RF: 0 duloxetine 60 mg capsule,delayed release(DR/EC) 60 mg PO QAM RF: 0 Basaglar KwikPen U-100 Insulin 100 unit/mL (3 mL) insulin pen 20 unit SUBCUT HS RF: 0 Jardiance 25 mg tablet 25 mg PO QPM RF: 0 ergocalciferol (vitamin D2) 1,250 mcg (50,000 unit) Capsule 50,000 unit PO WK RF: 0 atorvastatin 40 mg tablet 40 mg PO DAILY RF: 0 levothyroxine 100 mcg tablet 100 mcg PO DAILY RF: 0 Flintstones Complete (iron) Tablet,Chewable 1 tab PO DAILY RF: 0 oxycodone-acetaminophen 5-325 mg tablet 1 tab PO BID PRN (Reason: Pain) RF: 0 diphenhydramine HCl [Benadryl] 25 mg Capsule 25 mg PO HS RF: 0 acetaminophen 500 mg tablet 1,000 mg PO Q8 PRN (Reason: Pain) RF: 0 Discontinued clindamycin HCl [Cleocin HCl] 300 mg capsule 300 mg PO .Q6HRS RF: 0 ciprofloxacin HCl 500 mg tablet 500 mg PO Q12 RF: 0 No Action hydroxyzine pamoate [Vistaril] 50 mg capsule 50 mg PO Q8H PRN (Reason: sleep/anxiety) Qty: 21 RF: 0 Discharge Orders: Discharge Order (Routine); Ordered 06/25/20 Ordered By: Tiera Pak/Other Patient Handouts: Managing Type 2 Diabetes, Managing Diabetes: The A1C Test Admission Data Admit Date/Time: 06/20/20 18:33 Attending Provider: Tiera Nayak Admit Provider: Kiran Chandler Primary Care Provider: Bella Lopes Other Providers: Elmo Rivero ; Lise Kidd ; Fadi Almeida I. ; Denver Meredith II ; Caterina Richmond ; Cristi Cardozo ; Isaac Awan ; Kiran Chandler Other Interventions: Discharge Summary Assessment (RN) Last Done: 06/25/20 13:52 Home Health Attestation I certify that this patient is under my care and that I, or a physicians corporate administrative assistant working with me, had a face to-face encounter that meets the home health [id number] encounter requirements with this patient. The encounter with the patient was in whole, or in part, for the following medical condition, which is the primary reason for home health care (list m edical condition): I certify that, based on my findings, the following services are medically necessary home health services: WOUND VAC IN PLACE, NWB AFTER SURGERY, PATIENT DOESN'T DRIVE My clinical findings support the need for the above services because: Further, I certify that my clinical findings support that this patient is homebound (i.e. absences from home require considerable and taxing effort and are for medical reasons or moravian services or infrequently or of short duration when for other reasons) because: Certification for Home Health Services: Based on the above findings, I certify that this patient is confined to the home and needs intermittent long term care, physical therapy and/or speech therapy or continues to need occupational therapy. The patient is under my care, and I have initiated the establishment of the plan of care. This patient will be followed by a physician who will periodically review the plan of care.
== END 2020-06-25 20:10 | disposition home health service (06) ==
LOC: ED 16:37 → 2N 18:33 → SUATTDRO 18:33 → 2N 22:52